=== PATIENT | male | born 1950 | race Caucasian/White ===

== ENCOUNTER → 2018-05-09 11:45 | Outpatient (CLI) | payer MEDICARE, MEDICAID, SELFPAY | PROVIDERS: PCP Internal Medicine; Visit Provider Urology | DX: R97.20 Elevated prostate specific antigen [PSA] (principal) | CPT/HCPCS: 36415; 84153 ==

== ENCOUNTER → 2018-07-17 09:34 | Outpatient (CLI) | payer MEDICARE, MEDICAID, SELFPAY ==
[2018-07-17 10:49] LABS: Alanine Aminotransferase 25 IU/L (21-72); Albumin 4.4 g/dL (3.5-5.0); Albumin Globulin Ratio 1.4 (1.0-2.8); Alkaline Phosphatase 50 U/L (38-126); Aspartate Aminotransferase 22 IU/L (17-59); BUN Creatinine Ratio 24.4 (6-22); Bilirubin Total 0.4 mg/dL (0.2-1.3); Blood Urea Nitrogen 22 mg/dL (9-20); Calcium 9.5 mg/dL (8.4-10.2); Carbon Dioxide 31 mmol/L (22-32); Chloride 100 mmol/L (98-107); Cholesterol 200 mg/dL (140-199); Estimated Glomerular Filt Rate > 60.0 mL/min (>60); Globulin 3.2 g/dL (1.7-4.1); Glucose 104 mg/dL (80-110); HDL Cholesterol 36 mg/dL (40-60); HEMOLYSIS < 15 (0-50); LDL Cholesterol Calculated 146 mg/dL (<100); Sodium 137 mmol/L (137-145); Total Protein 7.6 g/dL (6.3-8.2); Triglycerides 89 mg/dL (35-150)
== END ==
PROVIDERS: Family Provider Internal Medicine; PCP Internal Medicine; Visit Provider Internal Medicine
DX: I10 Essential (primary) hypertension (principal); I87.2 Venous insufficiency (chronic) (peripheral); E78.2 Mixed hyperlipidemia
CPT/HCPCS: 36415; 80053; 80061

== ENCOUNTER → 2018-07-26 14:00 | Outpatient (CLI) | payer MEDICARE, MEDICAID, SELFPAY ==
--- NOTE | 2018-07-26 | DI.US.S_ITS ---
PROCEDURE: US ABD AORTA ANEURYSM SCREEN INDICATIONS: ATHEROSCLEROTIC HEART DISEASE TECHNIQUE: Real time scanning was performed of the aorta and iliac arteries, with image documentation. COMPARISON: None. FINDINGS: Aorta: Proximal aortic diameter measures 2.5 cm. Mid-aorta measures 2.8 cm. Distal aortic diameter is 1.9 cm. Iliac arteries: Right common iliac artery measures 1.1 cm. Left common iliac artery measures 1.0 cm. IMPRESSION: No abdominal aortic aneurysm. Mild aortic ectasia in the mid abdominal aorta. Followup ultrasound is suggested in 5 years. Dictated by: Joy Liu M.D. on 07/26/2018 at 15:08 Approved by: Joy Liu M.D. on 07/26/2018 at 15:10
--- NOTE | 2018-07-26 | DI.ECHO.S_ITS ---
[facility] +---------+ : : [address] : [place] [place] : : : : [id number] : : : : Phone: [phone]+ Echocardiogram Report + + :Name: SNOW BARRERA Study Date: 07/26/2018 Height: 70 in : :[facility] Weight: 208 lb : : Gender: Male BSA: 2.1 m2 : :: 1950 Age: 68 yrs BP: 130/50 mmHg: :Reason For Study: CAD : : Performed By: Lulú Valenzuela : :Referring: YRIS CASTRO : + + Interpretation Summary 1) Normal left ventricular thickness, size, wall motion, and systolic function (EF 60-65%). 2) Mildly enlarged right ventricle with mildly reduced function. 3) No significant valvular abnormalities. 4) Aortic root has large calcific atheromas. 5) No prior Echo available for comparison. Procedure: A two-dimensional transthoracic echocardiogram with color flow and Doppler was performed. The study quality was technically good. There is no prior echocardiogram noted for this patient. The patient was in normal sinus rhythm during the exam. Left Ventricle: The left ventricle is normal in size. There is mild concentric left ventricular hypertrophy. The ejection fraction is estimated to be 60-65%. Diastolic parameters suggest a relaxation abnormality of the left ventricle, consistent with probable normal filling pressures. Right Ventricle: The right ventricle is mildly dilated. Right ventricular systolic function is mildly reduced. Atria: The left atrium is moderately dilated. Right atrial size is normal. The interatrial septum is intact with no evidence for an atrial septal defect. Mitral Valve: The mitral valve is normal in structure and function. There is no mitral regurgitation. Aortic Valve: The aortic valve is trileaflet. The aortic valve opens well. There is no aortic valve stenosis. There is trace aortic regurgitation. Tricuspid Valve: The tricuspid valve leaflets are thin and pliable. There is mild tricuspid regurgitation. The right ventricular systolic pressure is estimated to be at least 32 mmHg based on an estimated right atrial pressure of 3 mm Hg. Pulmonic Valve: The pulmonic valve is not well seen, but is grossly normal. There is trace pulmonic regurgitation. Great Vessels: The aortic root is normal size. Aortic root has large calcific atheromas. The dimensions of the ascending aorta are normal. The aortic arch is normal in size. The IVC is of normal diameter and collapses greater than 50% with a sniff. This suggests a low right atrial pressure of 3 mm Hg. Pericardium/ Pleura There is no pericardial effusion. There is no pleural effusion. MMode/2D Measurements & Calculations LVIDd: 4.8 cm Ao root diam: 3.6 cm LVIDs: 2.9 cm Aortic Jxn: 3.0 cm FS: 39.8 % asc Aorta Diam: 3.4 cm EPSS: 0.60 cm Ao Arch Diam (Prox Trans): 2.8 cm IVSd: 1.2 cm LVPWd: 1.1 cm LV blanco. diameter/BSA (cm/m^2): 2.3 LV sys. diameter/BSA (cm/m^2): 1.4 LA dimension: 4.6 cm RA long axis: 5.1 cm LA A2 area: 22.9 cm2 RA area: 20.0 cm2 LA A4 area: 22.9 cm2 RA vol: 67.4 ml LA length (vol): 5.2 cm RA : 31.7 ml/m2 LA vol: 86.2 ml IVC diam: 1.6 cm LA vol index: 40.6 ml/m2 RVDd major: 6.3 cm RVD1 (basal): 4.4 cm RVD2 (mid): 4.0 cm Doppler Measurements & Calculations Ao V2 max: 111.5 cm/sec MV E max anastacio: 57.3 cm/sec Ao V2 mean: 66.0 cm/sec MV A max anastacio: 56.4 cm/sec Ao max P.0 mmHg MV E/A: 1.0 Ao mean P.2 mmHg Med Peak E' Anastacio: 5.4 cm/sec Ao V2 VTI: 23.1 cm E/E' med: 10.7 Lat Peak E' Anastacio: 5.2 cm/sec E/E' lat: 11.1 E/e' average: 10.9 MV dec time: 0.27 sec MV P1/2t: 85.7 msec TR max anastacio: 268.0 cm/sec MV P1/2t max anastacio: 59.6 cm/sec TR max P.7 mmHg MVA(P1/2t): 2.6 cm2 PA V2 max: 104.3 cm/sec PA V2 mean: 68.2 cm/sec PA mean P.2 mmHg PA Accel Time: 0.14 sec Reading Physician:04:40 PM
== END ==
PROVIDERS: PCP Internal Medicine; Visit Provider Internal Medicine
DX: I07.1 Rheumatic tricuspid insufficiency (principal); I77.811 Abdominal aortic ectasia; I25.10 Atherosclerotic heart disease of native coronary artery without angina pectoris; Z13.6 Encounter for screening for cardiovascular disorders
CPT/HCPCS: 76706; 93306

== ENCOUNTER 2018-08-22 11:18 | Day surgery (SDC) | payer MEDICARE, MEDICAID, SELFPAY ==
--- NOTE | 2018-08-22 | PATH_ITS ---
[facility] Accession Number: [id number] . 01 Material submitted: . PART A: SIGMOID POLYPS PART B: RECTAL POLYPS . 02 Diagnosis: A. Sigmoid Polyps: Portions of tubular adenoma x2; negative for high-grade dysplasia. Portion of sessile serrated adenoma x1. Portion of colorectal mucosa x1 with no diagnostic abnormality. . B. Rectal Polyps: Portions of hyperplastic polyp x2. MRV/08/23/2018 . 02 Electronically signed: . Keysah Cantu MD, Pathologist NPI- [id number] . 01 Gross description: . Part A: SIGMOID POLYPS: Received in formalin are 2 fragments of orta soft tissue measuring 1.1 x 0.6 x 0.5 cm in aggregate. Specimen is sectioned and submitted in its entirety in 1 cassette. Part B: RECTAL POLYPS: Received in formalin are 2 fragment(s) of orta, soft tissue measuring 0.4 x 0.4 x 0.3 cm to 0.5 x 0.4 x 0.4 cm which is entirely submitted and submitted entirely in 1 cassette(s) /DM /DM . 02 Pathologist provided ICD-10: K63.5 . 02 CPT . 210801, 130361 Performed at: 01 [facility] [address], [place], [place] [id number] MD Edinson Mi MD Phone: [phone] Performed at: 02 [facility] [address] [place], [place] [id number] MD Marjan Rizvi MD Phone: [phone]
[2018-08-22 11:52] VITALS: BP 128/74; PULSE 68; RESP 16; TEMP 37.2; O2SAT 98; BMI 28.7
[2018-08-22] MEDS: SODIUM CHLORIDE 0.9% 1,000 ML 100 ML IV (12:02)
--- NOTE | 2018-08-22 13:00 | PM.HP.1 ---
History of Present Illness Chief complaint: [id number] Patient History Social History household members: spouse Family & Social History Social History: household members spouse Meds Home Medications Medication Instructions Recorded Confirmed Type [MARIJUANA] #0 07/02/16 History losartan-hydrochlorothiazide 1 tab PO QDAY #0 08/02/17 History Allergies Allergy/AdvReac Type Severity Reaction Status Date / Time No Known Drug Allergies Allergy Verified 08/22/18 11:43 Review of Systems Review of Systems All systems reviewed & are unremarkable except as noted in HPI and below Exam Vital Signs (past 8 hours): Oxygen Delivery Method Room Air Narrative Exam Narrative: Awake alert oriented x3, pupils reactive, lungs clear, heart regular rhythm, abdomen nondistended, extremities without edema Assessment & Plan Assessment & Plan narrative: Colon cancer screening, colonoscopy
[2018-08-22] MEDS: MIDAZOLAM 5 MG/5 ML VIAL 4 MG IV (13:26)
[2018-08-22] MEDS: fentaNYL 250 MCG/5 ML INJ IV (13:28)
--- NOTE | 2018-08-22 13:36 | PM.OP.ENDO ---
Operative Date/Time/Diagnoses Date of procedure: 08/22/18 Procedure & Clinicians Study performed: Colonoscopy with biopsy and snare polypectomy Moderate conscious sedation was administered by the endoscopy nurse and supervised by the endoscopist. The following parameters were monitored: Oxygen saturation, heart rate, blood pressure, and response to care. Sedation: 4 mg midazolam, 150 micro g fentanyl Indications: Colon cancer screening. This is his first colonoscopy. Procedure Notes Procedure in detail: Prior to the procedure, history and physical was performed, and patient medications and allergies were reviewed. Preprocedure nursing history and assessment was reviewed. Patient identification and proposed procedure were verified by the physician and nurse in the procedure room. The physical status of the patient was reassessed after the procedure. After informed consent was obtained including risks, benefits, and alternatives, the scope was passed under direct vision. Throughout the procedure, the patient's blood pressure, pulse, and oxygen saturations were monitored continuously. The colonoscope was introduced through the anus and advanced to the cecum as identified by the appendiceal orifice and ileocecal valve. The patient tolerated the procedure well. Bowel prep was deemed adequate to detect polyps greater than 5 mm. MEGAN and perianal examinations were unremarkable. Retroflexion in the rectum revealed grade 1 internal hemorrhoids. Two 4 mm sessile rectal polyps removed with a cold snare and retrieved At 35 cm from the anal verge in the sigmoid colon, an 8 mm pedunculated polyp with was removed with hot snare and retrieved. A 4 mm sessile polyp was removed with a cold snare and retrieved at the same location A few medium-sized diverticula were seen in the descending and sigmoid colon Impression: Internal hemorrhoids Left-sided diverticulosis Two 4 mm rectal polyps removed An 8 mm and a 4 mm sigmoid colon polyp removed Sedation minutes: 35 Complications: other (EBL minimal. No complications) Plan for aftercare: Recommendations: Follow-up pathology results Repeat colonoscopy at a date to be determined based on pathology results High-fiber diet Resume home medications Discharge home with escort
[2018-08-22 13:40] VITALS: BP 129/74; PULSE 64; RESP 16; TEMP 36.6; O2SAT 99
[2018-08-22 13:45] VITALS: BP 130/71; PULSE 60; RESP 15; O2SAT 99
[2018-08-22 13:50] VITALS: BP 115/76; PULSE 56; RESP 15; O2SAT 99
--- NOTE | 2018-08-22 14:03 | SUR.PHASEII ---
1352 Patient anxious to depart, clothes given, Tolerated PO well, 1355 Ambulated to the bathroom, voided. Stable
--- NOTE | 2018-10-17 15:35 | P.HP_ITS ---
History of Present Illness Chief complaint: [id number] Patient History Social History household members: spouse Family & Social History Social History: household members spouse Meds Home Medications Medication Instructions Recorded Confirmed Type [MARIJUANA] #0 07/02/16 History losartan-hydrochlorothiazide 1 tab PO QDAY #0 08/02/17 History Allergies Allergy/AdvReac Type Severity Reaction Status Date / Time No Known Drug Allergies Allergy Verified 08/22/18 11:43 Review of Systems Review of Systems All systems reviewed & are unremarkable except as noted in HPI and below Exam Vital Signs (past 8 hours): Oxygen Delivery Method Room Air Narrative Exam Narrative: Awake alert oriented x3, pupils reactive, lungs clear, heart regular rhythm, abdomen nondistended, extremities without edema Assessment & Plan Assessment & Plan narrative: Colon cancer screening, colonoscopy
== END 2018-08-22 14:00 | disposition home or self-care (01) ==
PROVIDERS: PCP Internal Medicine; Visit Provider Internal Medicine
PROC: 0DJD8ZZ Inspection of Lower Intestinal Tract, Via Natural or Artificial Opening Endoscopic (ICD-10-PCS; CPT 45378; principal; 2018-08-22 12:30)
DX: Z12.11 Encounter for screening for malignant neoplasm of colon (principal); K57.30 Diverticulosis of large intestine without perforation or abscess without bleeding; K63.5 Polyp of colon; K64.0 First degree hemorrhoids
CPT/HCPCS: 45385; J2250; J3010

== ENCOUNTER → 2018-11-07 14:33 | Outpatient (CLI) | payer MEDICARE, MEDICAID, SELFPAY ==
[2018-11-07 15:57] LABS: Cholesterol 190 mg/dL (140-199); HDL Cholesterol 41 mg/dL (40-60); LDL Cholesterol Calculated 135 mg/dL (<100); Triglycerides 71 mg/dL (35-150)
== END ==
PROVIDERS: PCP Internal Medicine; Visit Provider Internal Medicine
DX: E78.2 Mixed hyperlipidemia (principal)
CPT/HCPCS: 36415; 80061

== ENCOUNTER → 2019-03-21 12:46 | Outpatient (CLI) | payer MEDICARE, MEDICAID, SELFPAY ==
[2019-03-21 14:21] LABS: Prostate Specific Antigen 6.53 ng/mL (0.10-4.00)
== END ==
PROVIDERS: PCP Internal Medicine; Visit Provider Urology
DX: C61 Malignant neoplasm of prostate (principal)
CPT/HCPCS: 36415; 84153

== ENCOUNTER → 2019-09-16 14:27 | Outpatient (CLI) | payer MEDICARE, MEDICAID, SELFPAY ==
[2019-09-17 06:46] LABS: PSA Free % 26.6 % (.); PSA, Total 7.7 ng/mL (0.0-4.0)
== END ==
PROVIDERS: PCP Internal Medicine; Referring Provider Urology; Visit Provider Urology
DX: C61 Malignant neoplasm of prostate (principal)
CPT/HCPCS: 36415; 84153; 84154

== ENCOUNTER 2019-10-01 16:39 | Observation (INO) | payer MEDICARE, MEDICAID, SELFPAY ==
[2019-10-01] VITALS (8 sets, daily range): BP systolic 133–173; BP diastolic 74–101; PULSE 62–81; RESP 16–20; TEMP 36.6–36.8; O2SAT 98–100; BMI 27.9
[2019-10-01 17:11] LABS: Add Manual Diff / Slide Review NO; Basophils Absolute Auto 100 /uL (0-100); Basophils Percent Auto 0.5 % (0-2); Eosinophils Absolute Auto 400 /uL (0-450); Eosinophils Percent Auto 3.8 % (2-4); Hematocrit 39.1 % (41-53); Lymphocytes Absolute Auto 2200 /uL (1100-4500); Lymphocytes Percent Auto 22.9 % (25-40); Mean Corpuscular HGB Conc 33.4 % (30-36); Mean Corpuscular Hemoglobin 29.8 PG (26-34); Mean Corpuscular Volume 89.4 fL (80-100); Monocytes Absolute Auto 600 /uL (0-900); Monocytes Percent Auto 6.6 % (3-14); Neutrophils Absolute Auto 6300 /uL (1500-7000); Neutrophils Percent Auto 66.2 % (50-75); Platelet Count 238 X10^3/uL (150-400); Red Blood Cell Count 4.37 X10^6/uL (4.5-5.9); Red Cell Distribution Width 15.3 % (11.6-14.8); White Blood Cell Count 9.5 X10^3/uL (4.5-11.0)
[2019-10-01 17:13] LABS: Prothrombin Time 11.1 SECONDS (10.1-12.7)
[2019-10-01 17:15] LABS: PTT Partial Thromboplastin Tim 35 SECONDS (26.4-36.2)
--- NOTE | 2019-10-01 17:15 | ED.SYNCOPE ---
HPI - Syncope <Toan Cook MD - Last Filed: 10/01/19 18:36> General Chief Complaint: Syncope Stated Complaint: Syncope Time Seen by Provider: 10/01/19 17:09 Source: patient and EMS Mode of arrival: EMS History of Present Illness HPI narrative: CC: syncope with collapse and fall backwards HPI: The patient is a 69-year-old male who states that he was walking on the doc to look at a friend's boat when he walked back to the car and as he reached his car passed out and fell backwards. The patient remembers waking up on the ground in looking upwards at the paramedics. The patient's states that she was aware his way and saw him walk up to the back of the car and then he fell just straight backwards and struck his head. He was out for at least 5 minutes. At the end of that 5 minutes he was incoherent confused disoriented. He then became more rational. There was no seizure activity. The patient states that he had a weird feeling and maybe his vision was a little bit fuzzy narrowing and felt like it was almost hallucination prior to the event occurring. He states that he denies any significant shortness of breath but felt like his breath was choked off. He denies any chest pain. He states that he has had some intermittent episodes when he has been hiking and walking and sits down or rests and things seemed to improve. He denies any history of seizures. The patient states that he quit drinking alcohol in 2010 his states that he was an alcoholic and a very heavy drinker. The patient continues to smoke marijuana. The patient is a former cigarette smoker. The patient denies a history of asthma COPD myocardial infarction congestive heart failure peripheral vascular disease diabetes mellitus but admits to hypertension. Related Data Home Medications Medication Instructions Recorded Confirmed atorvastatin 20 mg PO BEDTIME 10/01/19 10/01/19 hydrochlorothiazide 25 mg PO QAM 10/01/19 10/01/19 losartan 100 mg PO QAM 10/01/19 10/01/19 Allergies Allergy/AdvReac Type Severity Reaction Status Date / Time No Known Drug Allergies Allergy Verified 10/01/19 17:00 Review of Systems <Toan Cook MD - Last Filed: 10/01/19 18:36> Review of Systems Narrative: REVIEW OF SYSTEMS: CONSTITUTIONAL: The patient denies any fever chills or sweats. NEUROLOGICAL: He denies any significant headache numbness tingling paresthesias anesthesia is paresis or paralysis. He has no history of seizures. EENT: He denies any change in vision loss of vision diplopia scotomata. He has had no sore throat or dysphagia. CARDIO-PULMONARY: He states that he has had a chronic dry cough and at times has felt short of breath but denies any chest pain palpitations or dizziness. GASTROINTESTINAL: He has had no abdominal pain nausea vomiting diarrhea melena or hematochezia. GENITAL URINARY: He has had no urinary symptoms other than chronic urgency. MUSCULOSKELETAL/ RHEUMATOLOGICAL: He complains of chronic back pain. Patient History <Toan Cook MD - Last Filed: 10/01/19 18:36> Medical History (Updated 10/01/19 @ 20:19 by Pippa Rankin RN) High cholesterol (Acute) Hypertension (Acute) Marijuana smoker (Acute) Social History household members: spouse Smoking Status: Never smoker Smoking Status: Never smoker alcohol intake frequency: a few times a month Substance Use Type: marijuana Exam <Toan Cook MD - Last Filed: 10/01/19 18:36> Narrative Exam Narrative: PHYSICAL EXAM: CONSTITUTIONAL: Awake, Alert, Oriented, Coherent, Cooperative in NAD. He is awake and oriented at the present time very talk. HEAD: AT/NC except for bleeding in the posterior occipital scalp. I have not been able to identify the laceration. EENT: PERRL, FROM of eyes, no discharge, no nystagmus NOSE:No epistaxis or nasal drainage MOUTH:Oral mucosa is moist and pink, posterior pharynx is without erythema or exudate. NECK: Supple, no obvious JVD, Trachea is midline without stridor, no palpable LN. SPINE: Palpationof the cervical, Thoracic, Lumbar or Sacral spine reveals no gross deformity or tenderness. No CVA tenderness. THORAX: No deformity, retractions, chest wall tenderness. LUNGS: Clear, symmetrical breath sounds without respiratory distress. HEART: Normal heart tones, regular rhythm and rate without murmur. ABDOMEN: Soft, non-tender, normal bowel sounds without guarding, rebound, rigidity or palpable mass. EXTREMITIES: No edema, deformity, tenderness or cyanosis. SKIN: No rash, bruising, petechiae or purpura. NEURO: Awake, alert, oriented, conversive, cranial nerves II-XII are symmetrical , moves all 4 extremities and is ambulatory. Initial Vital Signs Initial Vital Signs: Vital Signs Temperature 98.2 F 10/01/19 16:51 Pulse Rate 70 10/01/19 16:51 Respiratory Rate 20 10/01/19 16:51 Blood Pressure 156/74 H 10/01/19 16:51 Pulse Oximetry 99 10/01/19 16:51 <Lani Lai MD - Last Filed: 10/01/19 21:08> Initial Vital Signs Initial Vital Signs: Vital Signs Temperature 98.2 F 10/01/19 16:51 Pulse Rate 70 10/01/19 16:51 Respiratory Rate 10/01/19 16:51 Blood Pressure 156/74 H 10/01/19 16:51 Pulse Oximetry 99 10/01/19 16:51 Course <Toan Cook MD - Last Filed: 10/01/19 18:36> Course Course Narrative: 1800: Report and transfer of care was provided Dr. Lai. Orders Ordered: ED Orders 10/01/19 17:00 CBC Auto Diff [Complete Blood Count AUTO DIFF] Stat Comprehensive Metabolic Panel Stat Ethanol (ETOH) Stat Magnesium Stat PT [Prothrombin Time INR] Stat Partial Thromboplastin Time Stat Troponin & CK Cardiac Panel Stat 10/01/19 17:34 CT head/brain wo con Stat 10/01/19 17:36 CT cervical spine wo con Stat 10/01/19 17:38 XR chest 1V Stat 10/01/19 17:45 Lactate (Lactic Acid) Stat 10/01/19 19:15 Troponin I Stat 10/01/19 19:20 Urinalysis and Microscopic Stat Urine Drug Screen, Rapid Stat Discontinued Medications Diphtheria/Tetanus/Acell Pertussis (Adacel) 0.5 ml IM .ONCE ONE Stop: 10/01/19 17:10 Last Admin: 10/01/19 17:59 Dose: 0.5 ml Documented by: DARRELL Sodium Chloride (Normal Saline 0.9%) 1,000 mls @ 1,000 mls/hr IV BOLUS ONE Stop: 10/01/19 18:37 Last Infusion: 10/01/19 19:22 Dose: 0 mls/hr Documented by: Admin: 10/01/19 17:59 Dose: 1,000 mls/hr Documented by: DARRELL Vital Signs Vital signs: Vital Signs - 8 hr 10/01/19 16:51 10/01/19 18:04 10/01/19 19:00 Temperature 98.2 F Pulse Rate 70 62 68 Respiratory Rate 20 16 16 Blood Pressure 156/74 H Blood Pressure [Right Arm] 133/76 173/101 H Pulse Oximetry 99 99 <Lani Lai MD - Last Filed: 10/01/19 21:08> Orders Ordered: ED Orders 10/01/19 17:00 CBC Auto Diff [Complete Blood Count AUTO DIFF] Stat Comprehensive Metabolic Panel Stat Ethanol (ETOH) Stat Magnesium Stat PT [Prothrombin Time INR] Stat Partial Thromboplastin Time Stat Troponin & CK Cardiac Panel Stat 10/01/19 17:34 CT head/brain wo con Stat 10/01/19 17:36 CT cervical spine wo con Stat 10/01/19 17:38 XR chest 1V Stat 10/01/19 17:45 Lactate (Lactic Acid) Stat 10/01/19 19:15 Troponin I Stat 10/01/19 19:20 Urinalysis and Microscopic Stat Urine Drug Screen, Rapid Stat Discontinued Medications Diphtheria/Tetanus/Acell Pertussis (Adacel) 0.5 ml IM .ONCE ONE Stop: 10/01/19 17:10 Last Admin: 10/01/19 17:59 Dose: 0.5 ml Documented by: DARRELL Sodium Chloride (Normal Saline 0.9%) 1,000 mls @ 1,000 mls/hr IV BOLUS ONE Stop: 10/01/19 18:37 Last Infusion: 10/01/19 19:22 Dose: 0 mls/hr Documented by: Admin: 10/01/19 17:59 Dose: 1,000 mls/hr Documented by: DARRELL Vital Signs Vital signs: Vital Signs - 8 hr 10/01/19 16:51 10/01/19 18:04 10/01/19 19:00 Temperature 98.2 F Pulse Rate 70 62 68 Respiratory Rate 20 16 16 Blood Pressure 156/74 H Blood Pressure [Right Arm] 133/76 173/101 H Pulse Oximetry 99 99 MDM - Syncope <Toan Cook MD - Last Filed: 10/01/19 18:36> Medical Records Attestation: I reviewed the patient's medical records. Lab Data Attestation: I reviewed the patient's lab results. Result diagrams: 10/01/19 17:00 10/01/19 17:00 Labs: Lab Results 10/01/19 10/01/19 10/01/19 Range/Units 17:00 17:00 17:00 WBC 9.5 (4.5-11.0) X10^3/uL RBC 4.37 L (4.5-5.9) X10^6/uL Hgb 13.0 L (13.5-17.5) g/dL Hct 39.1 L (41-53) % MCV 89.4 (80-100) fL MCH 29.8 (26-34) PG MCHC 33.4 (30-36) % RDW 15.3 H (11.6-14.8) % Plt Count 238 (150-400) X10^3/uL Neut % (Auto) 66.2 (50-75) % Lymph % (Auto) 22.9 L (25-40) % [place] % (Auto) 6.6 (3-14) % Eos % (Auto) 3.8 (2-4) % Baso % (Auto) 0.5 (0-2) % Neut # (Auto) 6300 (1472-8270) /uL Lymph # (Auto) 2200 (0235-6968) /uL [place] # (Auto) 600 (0-900) /uL Eos # (Auto) 400 (0-450) /uL Baso # (Auto) 100 (0-100) /uL PT 11.1 (10.1-12.7) SECONDS INR 1.0 (0.9-1.3) APTT 35 (26.4-36.2) SECONDS Sodium 134 L (137-145) mmol/L Potassium 4.0 (3.4-5.1) mmol/L Chloride 100 (98-107) mmol/L Carbon Dioxide 26 (22-32) mmol/L BUN 18 (9-20) mg/dL Creatinine 1.05 (0.66-1.25) mg/dL Estimated GFR > 60.0 (>60) mL/min BUN/Creatinine Ratio 17.1 (6-22) Glucose 103 (80-110) mg/dL Lactate (0.7-2.1) mmol/L Calcium 9.5 (8.4-10.2) mg/dL Magnesium (1.6-2.3) mg/dL Total Bilirubin 0.4 (0.2-1.3) mg/dL AST 57 (17-59) IU/L ALT 80 H (<50) IU/L Alkaline Phosphatase 52 (38-126) U/L Total Creatine Kinase 68 (55-170) U/L CK-MB (CK-2) TNP CK-MB (CK-2) Rel Index TNP Troponin I < 0.012 (0.01-0.034) ng/mL Total Protein 7.4 (6.3-8.2) g/dL Albumin 4.3 (3.5-5.0) g/dL Globulin 3.1 (1.7-4.1) g/dL Albumin/Globulin Ratio 1.4 (1.0-2.8) Urine Color Urine Appearance Urine pH (4.5-8.0) Ur Specific [place] (1.000-1.035) Urine Protein (Negative) Urine Glucose (UA) (Negative) g/dL Urine Ketones (NEGATIVE) Urine Occult Blood (Negative) Urine Nitrate (Negative) Urine Bilirubin (NEGATIVE) Urine Urobilinogen (0.2) E.U./dL Ur Leukocyte Esterase (NEGATIVE) Urine RBC (0-5/HPF) Urine WBC (0-5/HPF) Ur Squamous Epith Cells (0-5/HPF) Urine Bacteria (None) Ur Culture Indicated? U Opiates 300ng/mL cut (Negative) Ur Oxycodone Screen (Negative) Urine Methadone Screen (Negative) Ur Barbiturates Screen (Negative) U Tricyclic Antidepress (Negative) Ur Phencyclidine Scrn (Negative) Ur Amphetamines Screen (Negative) U Methamphetamines Scrn (Negative) Ur MDMA Scrn (Ecstasy) (Negative) U Benzodiazepines Scrn (Negative) Urine Cocaine Screen (Negative) U Marijuana (THC) Screen (Negative) Ethyl Alcohol ( - 10) mg/dL 10/01/19 10/01/19 10/01/19 Range/Units 17:00 17:00 17:45 WBC (4.5-11.0) X10^3/uL RBC (4.5-5.9) X10^6/uL Hgb (13.5-17.5) g/dL Hct (41-53) % MCV (80-100) fL MCH (26-34) PG MCHC (30-36) % RDW (11.6-14.8) % Plt Count (150-400) X10^3/uL Neut % (Auto) (50-75) % Lymph % (Auto) (25-40) % [place] % (Auto) (3-14) % Eos % (Auto) (2-4) % Baso % (Auto) (0-2) % Neut # (Auto) (8579-2722) /uL Lymph # (Auto) (7168-0853) /uL [place] # (Auto) (0-900) /uL Eos # (Auto) (0-450) /uL Baso # (Auto) (0-100) /uL PT (10.1-12.7) SECONDS INR (0.9-1.3) APTT (26.4-36.2) SECONDS Sodium (137-145) mmol/L Potassium (3.4-5.1) mmol/L Chloride (98-107) mmol/L Carbon Dioxide (22-32) mmol/L BUN (9-20) mg/dL Creatinine (0.66-1.25) mg/dL Estimated GFR (>60) mL/min BUN/Creatinine Ratio (6-22) Glucose (80-110) mg/dL Lactate 0.7 (0.7-2.1) mmol/L Calcium (8.4-10.2) mg/dL Magnesium 1.9 (1.6-2.3) mg/dL Total Bilirubin (0.2-1.3) mg/dL AST (17-59) IU/L ALT (<50) IU/L Alkaline Phosphatase (38-126) U/L Total Creatine Kinase (55-170) U/L CK-MB (CK-2) CK-MB (CK-2) Rel Index Troponin I (0.01-0.034) ng/mL Total Protein (6.3-8.2) g/dL Albumin (3.5-5.0) g/dL Globulin (1.7-4.1) g/dL Albumin/Globulin Ratio (1.0-2.8) Urine Color Urine Appearance Urine pH (4.5-8.0) Ur Specific [place] (1.000-1.035) Urine Protein (Negative) Urine Glucose (UA) (Negative) g/dL Urine Ketones (NEGATIVE) Urine Occult Blood (Negative) Urine Nitrate (Negative) Urine Bilirubin (NEGATIVE) Urine Urobilinogen (0.2) E.U./dL Ur Leukocyte Esterase (NEGATIVE) Urine RBC (0-5/HPF) Urine WBC (0-5/HPF) Ur Squamous Epith Cells (0-5/HPF) Urine Bacteria (None) Ur Culture Indicated? U Opiates 300ng/mL cut (Negative) Ur Oxycodone Screen (Negative) Urine Methadone Screen (Negative) Ur Barbiturates Screen (Negative) U Tricyclic Antidepress (Negative) Ur Phencyclidine Scrn (Negative) Ur Amphetamines Screen (Negative) U Methamphetamines Scrn (Negative) Ur MDMA Scrn (Ecstasy) (Negative) U Benzodiazepines Scrn (Negative) Urine Cocaine Screen (Negative) U Marijuana (THC) Screen (Negative) Ethyl Alcohol < 10 ( - 10) mg/dL 10/01/19 10/01/19 10/01/19 Range/Units 19:15 19:20 19:20 WBC (4.5-11.0) X10^3/uL RBC (4.5-5.9) X10^6/uL Hgb (13.5-17.5) g/dL Hct (41-53) % MCV (80-100) fL MCH (26-34) PG MCHC (30-36) % RDW (11.6-14.8) % Plt Count (150-400) X10^3/uL Neut % (Auto) (50-75) % Lymph % (Auto) (25-40) % [place] % (Auto) (3-14) % Eos % (Auto) (2-4) % Baso % (Auto) (0-2) % Neut # (Auto) (0742-8323) /uL Lymph # (Auto) (8518-3401) /uL [place] # (Auto) (0-900) /uL Eos # (Auto) (0-450) /uL Baso # (Auto) (0-100) /uL PT (10.1-12.7) SECONDS INR (0.9-1.3) APTT (26.4-36.2) SECONDS Sodium (137-145) mmol/L Potassium (3.4-5.1) mmol/L Chloride (98-107) mmol/L Carbon Dioxide (22-32) mmol/L BUN (9-20) mg/dL Creatinine (0.66-1.25) mg/dL Estimated GFR (>60) mL/min BUN/Creatinine Ratio (6-22) Glucose (80-110) mg/dL Lactate (0.7-2.1) mmol/L Calcium (8.4-10.2) mg/dL Magnesium (1.6-2.3) mg/dL Total Bilirubin (0.2-1.3) mg/dL AST (17-59) IU/L ALT (<50) IU/L Alkaline Phosphatase (38-126) U/L Total Creatine Kinase (55-170) U/L CK-MB (CK-2) CK-MB (CK-2) Rel Index Troponin I < 0.012 (0.01-0.034) ng/mL Total Protein (6.3-8.2) g/dL Albumin (3.5-5.0) g/dL Globulin (1.7-4.1) g/dL Albumin/Globulin Ratio (1.0-2.8) Urine Color Yellow Urine Appearance Clear Urine pH 7.0 (4.5-8.0) Ur Specific [place] 1.010 (1.000-1.035) Urine Protein Negative (Negative) Urine Glucose (UA) Negative (Negative) g/dL Urine Ketones Negative (NEGATIVE) Urine Occult Blood Negative (Negative) Urine Nitrate Negative (Negative) Urine Bilirubin Negative (NEGATIVE) Urine Urobilinogen 0.2 (0.2) E.U./dL Ur Leukocyte Esterase Negative (NEGATIVE) Urine RBC None seen (0-5/HPF) Urine WBC 0-1/hpf (0-5/HPF) Ur Squamous Epith Cells 0-1 /hpf (0-5/HPF) Urine Bacteria None seen (None) Ur Culture Indicated? Cult not indicated U Opiates 300ng/mL cut Negative (Negative) Ur Oxycodone Screen Negative (Negative) Urine Methadone Screen Negative (Negative) Ur Barbiturates Screen Negative (Negative) U Tricyclic Antidepress Negative (Negative) Ur Phencyclidine Scrn Negative (Negative) Ur Amphetamines Screen Negative (Negative) U Methamphetamines Scrn Negative (Negative) Ur MDMA Scrn (Ecstasy) Negative (Negative) U Benzodiazepines Scrn Negative (Negative) Urine Cocaine Screen Negative (Negative) U Marijuana (THC) Screen Positive H (Negative) Ethyl Alcohol ( - 10) mg/dL ECG Data Attestation: I personally reviewed and interpreted this ECG as follows: Interpretation: The patient's EKG obtained on September 30 at 16:4 4:02 a.m. reveals a normal sinus rhythm with a ventricular rate of 71. Intervals are normal QTC is 434 milliseconds normal axis is normal the patient has low voltage. He has QS waves in leads V1 V2 V3 suggestive of an old anteroseptal myocardial infarct. T-waves are inverted in V1 and V3. T-waves are upright in V2. There are no other acute diagnostic ST or T-wave changes to suggest an on going acute injury or ischemia. <Lani Lai MD - Last Filed: 10/01/19 21:08> Medical Records Attestation: I reviewed the patient's medical records. Lab Data Attestation: I reviewed the patient's lab results. Labs: Lab Results 10/01/19 10/01/19 10/01/19 Range/Units 17:00 17:00 17:00 WBC 9.5 (4.5-11.0) X10^3/uL RBC 4.37 L (4.5-5.9) X10^6/uL Hgb 13.0 L (13.5-17.5) g/dL Hct 39.1 L (41-53) % MCV 89.4 (80-100) fL MCH 29.8 (26-34) PG MCHC 33.4 (30-36) % RDW 15.3 H (11.6-14.8) % Plt Count 238 (150-400) X10^3/uL Neut % (Auto) 66.2 (50-75) % Lymph % (Auto) 22.9 L (25-40) % [place] % (Auto) 6.6 (3-14) % Eos % (Auto) 3.8 (2-4) % Baso % (Auto) 0.5 (0-2) % Neut # (Auto) 6300 (1744-3777) /uL Lymph # (Auto) 2200 (9429-7350) /uL [place] # (Auto) 600 (0-900) /uL Eos # (Auto) 400 (0-450) /uL Baso # (Auto) 100 (0-100) /uL PT 11.1 (10.1-12.7) SECONDS INR 1.0 (0.9-1.3) APTT 35 (26.4-36.2) SECONDS Sodium 134 L (137-145) mmol/L Potassium 4.0 (3.4-5.1) mmol/L Chloride 100 (98-107) mmol/L Carbon Dioxide 26 (22-32) mmol/L BUN 18 (9-20) mg/dL Creatinine 1.05 (0.66-1.25) mg/dL Estimated GFR > 60.0 (>60) mL/min BUN/Creatinine Ratio 17.1 (6-22) Glucose 103 (80-110) mg/dL Lactate (0.7-2.1) mmol/L Calcium 9.5 (8.4-10.2) mg/dL Magnesium (1.6-2.3) mg/dL Total Bilirubin 0.4 (0.2-1.3) mg/dL AST 57 (17-59) IU/L ALT 80 H (<50) IU/L Alkaline Phosphatase 52 (38-126) U/L Total Creatine Kinase 68 (55-170) U/L CK-MB (CK-2) TNP CK-MB (CK-2) Rel Index TNP Troponin I < 0.012 (0.01-0.034) ng/mL Total Protein 7.4 (6.3-8.2) g/dL Albumin 4.3 (3.5-5.0) g/dL Globulin 3.1 (1.7-4.1) g/dL Albumin/Globulin Ratio 1.4 (1.0-2.8) Urine Color Urine Appearance Urine pH (4.5-8.0) Ur Specific [place] (1.000-1.035) Urine Protein (Negative) Urine Glucose (UA) (Negative) g/dL Urine Ketones (NEGATIVE) Urine Occult Blood (Negative) Urine Nitrate (Negative) Urine Bilirubin (NEGATIVE) Urine Urobilinogen (0.2) E.U./dL Ur Leukocyte Esterase (NEGATIVE) Urine RBC (0-5/HPF) Urine WBC (0-5/HPF) Ur Squamous Epith Cells (0-5/HPF) Urine Bacteria (None) Ur Culture Indicated? U Opiates 300ng/mL cut (Negative) Ur Oxycodone Screen (Negative) Urine Methadone Screen (Negative) Ur Barbiturates Screen (Negative) U Tricyclic Antidepress (Negative) Ur Phencyclidine Scrn (Negative) Ur Amphetamines Screen (Negative) U Methamphetamines Scrn (Negative) Ur MDMA Scrn (Ecstasy) (Negative) U Benzodiazepines Scrn (Negative) Urine Cocaine Screen (Negative) U Marijuana (THC) Screen (Negative) Ethyl Alcohol ( - 10) mg/dL 10/01/19 10/01/19 10/01/19 Range/Units 17:00 17:00 17:45 WBC (4.5-11.0) X10^3/uL RBC (4.5-5.9) X10^6/uL Hgb (13.5-17.5) g/dL Hct (41-53) % MCV (80-100) fL MCH (26-34) PG MCHC (30-36) % RDW (11.6-14.8) % Plt Count (150-400) X10^3/uL Neut % (Auto) (50-75) % Lymph % (Auto) (25-40) % [place] % (Auto) (3-14) % Eos % (Auto) (2-4) % Baso % (Auto) (0-2) % Neut # (Auto) (0988-7129) /uL Lymph # (Auto) (0159-4541) /uL [place] # (Auto) (0-900) /uL Eos # (Auto) (0-450) /uL Baso # (Auto) (0-100) /uL PT (10.1-12.7) SECONDS INR (0.9-1.3) APTT (26.4-36.2) SECONDS Sodium (137-145) mmol/L Potassium (3.4-5.1) mmol/L Chloride (98-107) mmol/L Carbon Dioxide (22-32) mmol/L BUN (9-20) mg/dL Creatinine (0.66-1.25) mg/dL Estimated GFR (>60) mL/min BUN/Creatinine Ratio (6-22) Glucose (80-110) mg/dL Lactate 0.7 (0.7-2.1) mmol/L Calcium (8.4-10.2) mg/dL Magnesium 1.9 (1.6-2.3) mg/dL Total Bilirubin (0.2-1.3) mg/dL AST (17-59) IU/L ALT (<50) IU/L Alkaline Phosphatase (38-126) U/L Total Creatine Kinase (55-170) U/L CK-MB (CK-2) CK-MB (CK-2) Rel Index Troponin I (0.01-0.034) ng/mL Total Protein (6.3-8.2) g/dL Albumin (3.5-5.0) g/dL Globulin (1.7-4.1) g/dL Albumin/Globulin Ratio (1.0-2.8) Urine Color Urine Appearance Urine pH (4.5-8.0) Ur Specific [place] (1.000-1.035) Urine Protein (Negative) Urine Glucose (UA) (Negative) g/dL Urine Ketones (NEGATIVE) Urine Occult Blood (Negative) Urine Nitrate (Negative) Urine Bilirubin (NEGATIVE) Urine Urobilinogen (0.2) E.U./dL Ur Leukocyte Esterase (NEGATIVE) Urine RBC (0-5/HPF) Urine WBC (0-5/HPF) Ur Squamous Epith Cells (0-5/HPF) Urine Bacteria (None) Ur Culture Indicated? U Opiates 300ng/mL cut (Negative) Ur Oxycodone Screen (Negative) Urine Methadone Screen (Negative) Ur Barbiturates Screen (Negative) U Tricyclic Antidepress (Negative) Ur Phencyclidine Scrn (Negative) Ur Amphetamines Screen (Negative) U Methamphetamines Scrn (Negative) Ur MDMA Scrn (Ecstasy) (Negative) U Benzodiazepines Scrn (Negative) Urine Cocaine Screen (Negative) U Marijuana (THC) Screen (Negative) Ethyl Alcohol < 10 ( - 10) mg/dL 10/01/19 10/01/19 10/01/19 Range/Units 19:15 19:20 19:20 WBC (4.5-11.0) X10^3/uL RBC (4.5-5.9) X10^6/uL Hgb (13.5-17.5) g/dL Hct (41-53) % MCV (80-100) fL MCH (26-34) PG MCHC (30-36) % RDW (11.6-14.8) % Plt Count (150-400) X10^3/uL Neut % (Auto) (50-75) % Lymph % (Auto) (25-40) % [place] % (Auto) (3-14) % Eos % (Auto) (2-4) % Baso % (Auto) (0-2) % Neut # (Auto) (4936-4920) /uL Lymph # (Auto) (9368-3789) /uL [place] # (Auto) (0-900) /uL Eos # (Auto) (0-450) /uL Baso # (Auto) (0-100) /uL PT (10.1-12.7) SECONDS INR (0.9-1.3) APTT (26.4-36.2) SECONDS Sodium (137-145) mmol/L Potassium (3.4-5.1) mmol/L Chloride (98-107) mmol/L Carbon Dioxide (22-32) mmol/L BUN (9-20) mg/dL Creatinine (0.66-1.25) mg/dL Estimated GFR (>60) mL/min BUN/Creatinine Ratio (6-22) Glucose (80-110) mg/dL Lactate (0.7-2.1) mmol/L Calcium (8.4-10.2) mg/dL Magnesium (1.6-2.3) mg/dL Total Bilirubin (0.2-1.3) mg/dL AST (17-59) IU/L ALT (<50) IU/L Alkaline Phosphatase (38-126) U/L Total Creatine Kinase (55-170) U/L CK-MB (CK-2) CK-MB (CK-2) Rel Index Troponin I < 0.012 (0.01-0.034) ng/mL Total Protein (6.3-8.2) g/dL Albumin (3.5-5.0) g/dL Globulin (1.7-4.1) g/dL Albumin/Globulin Ratio (1.0-2.8) Urine Color Yellow Urine Appearance Clear Urine pH 7.0 (4.5-8.0) Ur Specific [place] 1.010 (1.000-1.035) Urine Protein Negative (Negative) Urine Glucose (UA) Negative (Negative) g/dL Urine Ketones Negative (NEGATIVE) Urine Occult Blood Negative (Negative) Urine Nitrate Negative (Negative) Urine Bilirubin Negative (NEGATIVE) Urine Urobilinogen 0.2 (0.2) E.U./dL Ur Leukocyte Esterase Negative (NEGATIVE) Urine RBC None seen (0-5/HPF) Urine WBC 0-1/hpf (0-5/HPF) Ur Squamous Epith Cells 0-1 /hpf (0-5/HPF) Urine Bacteria None seen (None) Ur Culture Indicated? Cult not indicated U Opiates 300ng/mL cut Negative (Negative) Ur Oxycodone Screen Negative (Negative) Urine Methadone Screen Negative (Negative) Ur Barbiturates Screen Negative (Negative) U Tricyclic Antidepress Negative (Negative) Ur Phencyclidine Scrn Negative (Negative) Ur Amphetamines Screen Negative (Negative) U Methamphetamines Scrn Negative (Negative) Ur MDMA Scrn (Ecstasy) Negative (Negative) U Benzodiazepines Scrn Negative (Negative) Urine Cocaine Screen Negative (Negative) U Marijuana (THC) Screen Positive H (Negative) Ethyl Alcohol ( - 10) mg/dL Imaging Data Chest x-ray: Radiologist's Impression: IMPRESSION: Prominent convex rightward scoliosis, no trauma found. Dictated by: Tu Hoffman M.D. on 10/01/2019 at 18:18 CT - cervical spine: Radiologist's Impression: IMPRESSION: No trauma found. Moderate convex leftward scoliosis at the cervicothoracic junction. Degenerative disc disease is moderately severe at C4-C5, greater on the right than the left, associated with this curvature finding. Dictated by: Tu Hoffman M.D. on 10/01/2019 at 18:14 CT scan - head: Radiologist's Impression: IMPRESSION: No acute trauma to the brain parenchyma is found. Mild left occipital scalp contusion without hematoma. Frontal and inferior frontal encephalomalacia, symmetric bilaterally, suggestive of prior head trauma as a potential underlying etiology. Dictated by: Tu Hoffman M.D. on 10/01/2019 at 18:16 ECG Data Attestation: I personally reviewed and interpreted this ECG as follows: Interpretation: Sinus rhythm at a rate of [address] T wave changes No acute ischemia Normal axis, normal intervals MDM Narrative Medical decision making narrative: 69-year-old gentleman was walking today when he had a syncopal episode fell backward landed on his head was completely unconscious for approximately 5 minutes. There was no preceding chest pain dyspnea or palpitations. There was no preceding aura and he was not postictal following. There was no bowel or bladder incontinence. He notes over the past month had 4 discrete episodes where he felt like he was close to passing out but did not actually do so each of those were associated with activity. His primary care physician is Dr. Robert Knox. After some mild EKG changes were noted as part of routine EKG testing, a cardiac echo was performed in July of 2018. Ejection fraction is estimated at 60-65%. 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 In light of the 5 minutes loss of consciousness today that certainly sounds like cardiogenic syncope will recommend hospitalization overnight, cardiac rule out and continued telemetry over the course of the evening. Discharge Plan Departure Patient Disposition: Admitted as Observation Clinical Impression: Syncope and collapse Closed head injury Qualifiers: Encounter type: initial encounter Qualified Code(s): S09.90XA - Unspecified injury of head, initial encounter Discharge Date/Time: 10/01/19 20:39 Referrals: Winston Knox MD [Primary Care Provider] - Admit Date/Time: 10/01/19 19:30 Admit Provider: Navid Mae
[2019-10-01 17:17] LABS: Alanine Aminotransferase 80 IU/L (<50); Albumin 4.3 g/dL (3.5-5.0); Albumin Globulin Ratio 1.4 (1.0-2.8); Alkaline Phosphatase 52 U/L (38-126); Aspartate Aminotransferase 57 IU/L (17-59); BUN Creatinine Ratio 17.1 (6-22); Bilirubin Total 0.4 mg/dL (0.2-1.3); Blood Urea Nitrogen 18 mg/dL (9-20); Calcium 9.5 mg/dL (8.4-10.2); Carbon Dioxide 26 mmol/L (22-32); Chloride 100 mmol/L (98-107); Creatine Kinase 68 U/L (55-170); Estimated Glomerular Filt Rate > 60.0 mL/min (>60); Globulin 3.1 g/dL (1.7-4.1); Glucose 103 mg/dL (80-110); HEMOLYSIS < 15 (0-50); Sodium 134 mmol/L (137-145); Total Protein 7.4 g/dL (6.3-8.2)
[2019-10-01 17:29] LABS: Troponin I < 0.012 ng/mL (0.01-0.034)
--- NOTE | 2019-10-01 17:34 | DI.CT.S_ITS ---
PROCEDURE: CT HEAD/BRAIN WO CON INDICATIONS: syncope, fall backwards striking posterior head TECHNIQUE: Noncontrast 4.5 mm thick angled axial sections acquired from the foramen magnum to the vertex, with coronal and sagittal reformats. For radiation dose reduction, the following was used: automated exposure control, adjustment of mA and/or kV according to patient size. COMPARISON: None. FINDINGS: Image quality: Excellent. CSF spaces: Basal cisterns are patent. No extra-axial fluid collections. The ventricles are symmetric in size and shape. Brain: No intracranial bleeds or masses. There is cerebral volume loss for age, with resultant ventricular and sulcal prominence. There are periventricular and deep white matter chronic small vessel ischemic changes. There is intracranial internal carotid artery atherosclerosis. Note is made of relative encephalomalacia along the undersurface is in the anterior aspect of the frontal lobes, bilaterally symmetric, in a pattern that can be seen in the setting of prior trauma. Skull and face: Calvarium and visualized facial bones appear intact, without suspicious lesions. There is a mild contusion within the left occipital region scalp, without hematoma. Sinuses: Visualized sinuses and mastoids are clear. IMPRESSION: No acute trauma to the brain parenchyma is found. Mild left occipital scalp contusion without hematoma. Frontal and inferior frontal encephalomalacia, symmetric bilaterally, suggestive of prior head trauma as a potential underlying etiology. Dictated by: Tu Hoffman M.D. on 10/01/2019 at 18:16 Approved by: Tu Hoffman M.D. on 10/01/2019 at 18:18
--- NOTE | 2019-10-01 17:36 | DI.CT.S_ITS ---
PROCEDURE: CT CERVICAL SPINE WO CON INDICATIONS: sycope, fell backwards striking head TECHNIQUE: Noncontrast 3 mm thick sections acquired from the skull base to the T4 level. Sagittal and coronal reformats were then constructed. For radiation dose reduction, the following was used: automated exposure control, adjustment of mA and/or kV according to patient size. COMPARISON: None. FINDINGS: Image quality: Excellent. Bones: No fractures or dislocations. There is convex leftward scoliosis at the cervicothoracic junction, chronic in appearance. Degenerative disc disease is moderately severe at C45 and present to a lesser degree at C5-6. Visualized superior ribs are intact. Soft tissues: Prevertebral soft tissues are normal in thickness. No paravertebral hematomas. No apical pneumothoraces. IMPRESSION: No trauma found. Moderate convex leftward scoliosis at the cervicothoracic junction. Degenerative disc disease is moderately severe at C4-C5, greater on the right than the left, associated with this curvature finding. Dictated by: Tu Hoffman M.D. on 10/01/2019 at 18:14 Approved by: Tu Hoffman M.D. on 10/01/2019 at 18:16
--- NOTE | 2019-10-01 17:38 | DI.RAD.S_ITS ---
PROCEDURE: XR CHEST 1V INDICATIONS: syncope with collapse backwards TECHNIQUE: One view of the chest was acquired. COMPARISON: None. FINDINGS: Surgical changes and devices: None. Lungs and pleura: Lungs are clear. No pleural effusions or pneumothorax. Mediastinum: Mediastinal contours appear normal considering distortion associated with prominent convex rightward scoliosis centered at the middle third of the thoracic spine. Heart size is normal. Bones and chest wall: No suspicious bony lesions. Overlying soft tissues appear unremarkable. IMPRESSION: Prominent convex rightward scoliosis, no trauma found. Dictated by: Tu Hoffman M.D. on 10/01/2019 at 18:18 Approved by: Tu Hoffman M.D. on 10/01/2019 at 18:20
[2019-10-01 17:54] LABS: Magnesium 1.9 mg/dL (1.6-2.3)
[2019-10-01] MEDS: SODIUM CHLORIDE 0.9% 1,000 ML 1000 ML IV (17:59)
[2019-10-01] MEDS: TET,DIPH,PERTUSS(ACELL),VAC/PF 0.5 ML SYRINGE IM (17:59)
[2019-10-01 18:05] LABS: Lactate (Lactic Acid) 0.7 mmol/L (0.7-2.1)
[2019-10-01 18:05] LABS: Ethanol (ETOH) < 10 mg/dL
--- NOTE | 2019-10-01 18:05 | PC.NURSE ---
CSM fully intact. No focal deficit. noted.
[2019-10-01 19:30] LABS: Bacteria Urine None Seen; RBC Urine None Seen (0-5/HPF)
[2019-10-01 19:31] LABS: Appearance Urine UA CLEAR; Bilirubin Urine UA NEGATIVE (NEGATIVE); Color Urine UA YELLOW; Glucose Urine UA NEGATIVE (Negative); Ketones Urine UA NEGATIVE (NEGATIVE); Leukocyte Esterase Urine UA NEGATIVE (NEGATIVE); Nitrite Urine UA NEGATIVE (Negative); Occult Blood Urine UA NEGATIVE (Negative); Protein Urine UA NEGATIVE (Negative); Urobilinogen Urine UA 0.2 E.U./dL (0.2)
[2019-10-01 19:37] LABS: Culture Indicated Urine Cult Not Indicated; Squamous Epithelial Cell Urine 0-1 /HPF (0-5/HPF); WBC Urine 0-1/HPF (0-5/HPF)
[2019-10-01 19:44] LABS: Troponin I < 0.012 ng/mL (0.01-0.034)
[2019-10-01 19:45] LABS: UR Morphine/Opiate cutoff 300 Negative (Negative); Ur Creatinine Normal (Normal); Ur Specific Gravity Normal (Normal); Urine Amphetamines Negative (Negative); Urine Barbiturates Negative (Negative); Urine Benzodiazepines Negative (Negative); Urine Cocaine Negative (Negative); Urine MDMA Negative (Negative); Urine Methadone Negative (Negative); Urine Methamphetamines Negative (Negative); Urine Phencyclidine Negative (Negative); Urine Tetrahydrocannabinol Positive (Negative); Urine pH Normal (Normal)
[2019-10-01 19:46] LABS: Urine Oxycodone Negative (Negative); Urine Tricyclic Antidepressant Negative (Negative)
--- NOTE | 2019-10-01 22:45 | PM.HP.1 ---
History of Present Illness History of Present Illness Date Patient Seen: 10/01/19 Time Patient Seen: 21:40 Date of Onset of Symptoms: 10/01/19 Chief complaint: Syncope Narrative: Mr. David Stuart is a 69-year-old male with a history significant for hypertension, hyperlipidemia, venous insufficiency, prostate cancer and current marijuana smoker for chronic back pain who presents to the ER following a syncopal episode. The patient was walking from the boat docks up to his car in the parking lot when he reports feeling some lightheadedness with tunneling of his vision. He was with his the time stated she was walking with them turned around and he had fallen backward standing striking his head. The patient states the next thing he knew he was looking up from the ground paramedics. Patient was apparently out for approximately 5 minutes witnessed by his who observed no seizure activity. The patient regained responsiveness initially incoherent to confused and then quickly appropriate. Patient acknowledges that he has had 4 or 5 episodes of lightheadedness over the last month but has never passed out. He underwent a cardiac workup with Dr. Knox his primary care provider for concerns of a heart attack reports having had echocardiogram with no significant findings. He has not sustained any other falls though he does have scoliosis with degenerative disc disease with radiculopathy down the left leg and describes leg pains and cramping with walking that is relieved with rest. He does have a history of venous stasis of left lower extremity. He does endorse not drinking much water at all and consumes 6 cups lactate is daily. The patient denies fevers or chills, diaphoresis, current headache or visual changes, nasal congestion or sore throat. He does endorse a contusion on the back of his head. He reports no complaints of chest pain and has had no palpitations, he denies shortness of breath will have an occasional cough and does have intermittent wheezing from smoking marijuana. He denies abdominal pain, heartburn, nausea vomiting. He reports regular bowel movements however over the last 2 days he moves his bowels every other day instead of daily. He describes urinary urgency but no hematuria or burning and endorses nocturia 3 times nightly. Upon arrival to the ER the patient has temperature of 98.2?, heart rate of 70, blood pressure 156/74, respiratory rate of 20 saturating 99% on room air. Twelve lead EKG finds sinus rhythm with ventricular rate of 74 with Q-waves in the anterior leads V1 through V3. No other signs of ischemia or block. He had a CT of the head she finds no acute trauma other than occipital scalp contusion without hematoma, findings of frontal and inferior frontal encephalomalacia. CT of the neck finds no trauma, degenerative disc disease moderate to severe at C 4-ceased 5. Chest x-ray finds prominent rightward scoliosis. On laboratory analysis he has white count of 7.5, hemoglobin of 13.0, hematocrit 39.1 and platelets of 238. He has a PT of 11.1, INR of 1.0 and a PTT of 35. His electrolytes within normal range with a potassium of 4.0 and [place] 1.9 with a BUN of 18 and creatinine 1.05 and a nonfasting glucose of 103. He has a total bilirubin 0.4, AST of 57, ALT of 80 and alkaline phosphatase 52. His albumin is 4.3. His lactic acid of 0.7. His total CK is 68 and a troponin that is negative at 0.012. A tox screen is positive for marijuana. The patient is admitted to the medicine service for syncope of unknown etiology. Patient History Medical History (Updated 10/01/19 @ 23:09 by LEANNE Bailey) High cholesterol (Acute) Hypertension (Acute) Lumbar back pain with radiculopathy affecting left lower extremity (Acute) Marijuana smoker (Acute) Prostate cancer (Acute) Scoliosis (Acute) Venous insufficiency (Acute) Surgical History (Updated 10/01/19 @ 23:09 by LEANNE Bailey) H/O inguinal hernia repair (Acute) Family & Social History Family History (Updated 10/01/19 @ 23:10 by LEANNE Bailey) Father Prostate cancer Mother Diabetes mellitus Obesity Grandmother Diabetes mellitus Obesity Social History: household members spouse Safety & Behavioral: Feels Safe in Current Yes Environment Been Physically Hurt or No Threatened By a Person Suicidal Ideation Description None Suicide Plan Description No Plan Tobacco & Substance use: Smoking Status Former smoker alcohol intake frequency 0-2 drinks per day Substance Use Type marijuana Comment: The patient endorses taking C 60 fluorescein, omega-3 and a dog warmer for his prostate cancer. Meds Home Medications and Allergies Home Medications Medication Instructions Recorded Confirmed Type atorvastatin 20 mg PO BEDTIME 10/01/19 10/01/19 History hydrochlorothiazide 25 mg PO QAM 10/01/19 10/01/19 History losartan 100 mg PO QAM 10/01/19 10/01/19 History Allergies Allergy/AdvReac Type Severity Reaction Status Date / Time No Known Drug Allergies Allergy Verified 10/01/19 17:00 Review of Systems Review of Systems ROS: Yes All systems reviewed with the patient and are negative except as otherwise documented Exam Vital Signs (past 8 hours): - 10/01/19 16:51 10/01/19 18:04 10/01/19 19:00 Temperature 98.2 F Pulse Rate 70 62 68 Pulse Rate [Orthostatic Lying] Pulse Rate [Orthostatic Sitting] Pulse Rate [Orthostatic Standing] Respiratory Rate 20 16 16 Blood Pressure 156/74 H Blood Pressure [Orthostatic Lying] Blood Pressure [Orthostatic Sitting] Blood Pressure [Orthostatic Standing] Blood Pressure [Right Arm] 133/76 173/101 H Pulse Oximetry 99 99 10/01/19 19:50 10/01/19 20:00 10/01/19 21:36 Temperature 97.8 F Pulse Rate 68 74 Pulse Rate [Orthostatic Lying] 65 Pulse Rate [Orthostatic Sitting] 74 Pulse Rate [Orthostatic Standing] 75 Respiratory Rate 16 20 Blood Pressure 156/92 H Blood Pressure [Orthostatic Lying] 141/78 H Blood Pressure [Orthostatic Sitting] 160/89 H Blood Pressure [Orthostatic Standing] 173/95 H Blood Pressure [Right Arm] 152/81 H Pulse Oximetry 98 100 Oxygen Delivery Method Room Air Narrative Exam Narrative: GENERAL APPEARANCE: well developed, well nourished, in no acute distress. HEENT: Contusion occipital head, PERRLA, conjunctiva clear, EOMs intact without nystagmus, no sinus tenderness to percussion, no epistaxis or rhinorrhea, mucous membranes are moist and pink, no oral trauma. NECK/THYROID: Supple, nontender to palpation, no step-offs, no JVD, no carotid bruit, no thyromegaly, trachea midline. LYMPH NODES: no cervical or supraclavicular lymphadenopathy. SKIN: Universal, warm and dry, no visible lesions, rashes, ulcerations or petechiae, vision stasis skin changes left lower extremity. HEART: regular rate and rhythm, S1-S2, no murmur, no rubs or gallops, brisk capillary refill, no edema LUNGS: Bilateral scattered wheezes without coarseness crackles, dry nonproductive cough present with deep inspiration CHEST: Symmetrical movement, no accessory muscle use, good tidal volume, no pain on AP and lateral compression. ABDOMEN: Soft, no distention, no abdominal tenderness, no guarding or peritoneal signs, no organomegaly or pulsatile masses, no flank or suprapubic tenderness, active bowel tones, strong equal bilateral femoral pulses. BACK: nontender to palpation. EXTREMITIES: moves all extremities, strength is 5/5 and symmetrical, no deformities or joint effusions. NEUROLOGIC: AAO x4, no focal neurologic deficits, cranial nerves II-XII grossly intact, sensation intact to light touch, hearing grossly normal to speech. PSYCH: Good judgment, tangental thought process, cooperative, appropriate with stable behavior Objective Labs Result Diagrams: 10/01/19 17:00 10/01/19 17:00 Labs: Laboratory Results - last 24 hr 10/01/19 10/01/19 10/01/19 17:00 17:00 17:00 WBC 9.5 RBC 4.37 L Hgb 13.0 L Hct 39.1 L MCV 89.4 MCH 29.8 MCHC 33.4 RDW 15.3 H Plt Count 238 Neut % (Auto) 66.2 Lymph % (Auto) 22.9 L Forrest % (Auto) 6.6 Eos % (Auto) 3.8 Baso % (Auto) 0.5 Neut # (Auto) 6300 Lymph # (Auto) 2200 Forrest # (Auto) 600 Eos # (Auto) 400 Baso # (Auto) 100 PT 11.1 INR 1.0 APTT 35 Sodium 134 L Potassium 4.0 Chloride 100 Carbon Dioxide 26 BUN 18 Creatinine 1.05 Estimated GFR > 60.0 BUN/Creatinine Ratio 17.1 Glucose 103 Lactate Calcium 9.5 Magnesium Total Bilirubin 0.4 AST 57 ALT 80 H Alkaline Phosphatase 52 Total Creatine Kinase 68 CK-MB (CK-2) TNP CK-MB (CK-2) Rel Index TNP Troponin I < 0.012 Total Protein 7.4 Albumin 4.3 Globulin 3.1 Albumin/Globulin Ratio 1.4 Urine Color Urine Appearance Urine pH Ur Specific Diamond Urine Protein Urine Glucose (UA) Urine Ketones Urine Occult Blood Urine Nitrate Urine Bilirubin Urine Urobilinogen Ur Leukocyte Esterase Urine RBC Urine WBC Ur Squamous Epith Cells Urine Bacteria Ur Culture Indicated? U Opiates 300ng/mL cut Ur Oxycodone Screen Urine Methadone Screen Ur Barbiturates Screen U Tricyclic Antidepress Ur Phencyclidine Scrn Ur Amphetamines Screen U Methamphetamines Scrn Ur MDMA Scrn (Ecstasy) U Benzodiazepines Scrn Urine Cocaine Screen U Marijuana (THC) Screen Ethyl Alcohol 10/01/19 10/01/19 10/01/19 17:00 17:00 17:45 WBC RBC Hgb Hct MCV MCH MCHC RDW Plt Count Neut % (Auto) Lymph % (Auto) Forrest % (Auto) Eos % (Auto) Baso % (Auto) Neut # (Auto) Lymph # (Auto) Forrest # (Auto) Eos # (Auto) Baso # (Auto) PT INR APTT Sodium Potassium Chloride Carbon Dioxide BUN Creatinine Estimated GFR BUN/Creatinine Ratio Glucose Lactate 0.7 Calcium Magnesium 1.9 Total Bilirubin AST ALT Alkaline Phosphatase Total Creatine Kinase CK-MB (CK-2) CK-MB (CK-2) Rel Index Troponin I Total Protein Albumin Globulin Albumin/Globulin Ratio Urine Color Urine Appearance Urine pH Ur Specific Diamond Urine Protein Urine Glucose (UA) Urine Ketones Urine Occult Blood Urine Nitrate Urine Bilirubin Urine Urobilinogen Ur Leukocyte Esterase Urine RBC Urine WBC Ur Squamous Epith Cells Urine Bacteria Ur Culture Indicated? U Opiates 300ng/mL cut Ur Oxycodone Screen Urine Methadone Screen Ur Barbiturates Screen U Tricyclic Antidepress Ur Phencyclidine Scrn Ur Amphetamines Screen U Methamphetamines Scrn Ur MDMA Scrn (Ecstasy) U Benzodiazepines Scrn Urine Cocaine Screen U Marijuana (THC) Screen Ethyl Alcohol < 10 10/01/19 10/01/19 10/01/19 19:15 19:20 19:20 WBC RBC Hgb Hct MCV MCH MCHC RDW Plt Count Neut % (Auto) Lymph % (Auto) Forrest % (Auto) Eos % (Auto) Baso % (Auto) Neut # (Auto) Lymph # (Auto) Forrest # (Auto) Eos # (Auto) Baso # (Auto) PT INR APTT Sodium Potassium Chloride Carbon Dioxide BUN Creatinine Estimated GFR BUN/Creatinine Ratio Glucose Lactate Calcium Magnesium Total Bilirubin AST ALT Alkaline Phosphatase Total Creatine Kinase CK-MB (CK-2) CK-MB (CK-2) Rel Index Troponin I < 0.012 Total Protein Albumin Globulin Albumin/Globulin Ratio Urine Color Yellow Urine Appearance Clear Urine pH 7.0 Ur Specific Diamond 1.010 Urine Protein Negative Urine Glucose (UA) Negative Urine Ketones Negative Urine Occult Blood Negative Urine Nitrate Negative Urine Bilirubin Negative Urine Urobilinogen 0.2 Ur Leukocyte Esterase Negative Urine RBC None seen Urine WBC 0-1/hpf Ur Squamous Epith Cells 0-1 /hpf Urine Bacteria None seen Ur Culture Indicated? Cult not indicated U Opiates 300ng/mL cut Negative Ur Oxycodone Screen Negative Urine Methadone Screen Negative Ur Barbiturates Screen Negative U Tricyclic Antidepress Negative Ur Phencyclidine Scrn Negative Ur Amphetamines Screen Negative U Methamphetamines Scrn Negative Ur MDMA Scrn (Ecstasy) Negative U Benzodiazepines Scrn Negative Urine Cocaine Screen Negative U Marijuana (THC) Screen Positive H Ethyl Alcohol Assessment & Plan Assessment & Plan narrative: This is a 69-year-old male patient to experience a syncopal episode with a fall from standing striking his head. He has had 4-5 episodes of lightheadedness and dizziness similar to how he felt prior to his syncopal episode in the last month. 1. 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 -no seizure activity was noted, no urinary incontinence, no oral trauma identified. -patient had antecedent lightheadedness with tunneling of vision similar to previous milder episodes over the last month not resulting in syncope. -differential diagnosis: Medications: No recent change in medications and patient does not consume alcohol. Neurocardiogenic: Patient was walking on level ground at the time with no stress or strain or complaints of pain. Cardiogenic: The patient denies complaints of chest pain and reports no palpitations. 12 lead EKG, sinus rhythm with VR of 74, no block or ischemia. Patient previously worked up for possible anterior OR of findings of Q-waves in V1 through V3. Echocardiogram 07/26/2018: EF 60-65%. Orthostatic hypertension: Patient endorsed drinking little water and appears clinically dehydrated and is expanded on below. -patient is placed on telemetry for cardiac monitoring and has a negative CK and troponin. -will obtain echocardiogram in the morning. 2. Dehydration, acute, present on admission, active. -patient appears clinically dry with positive skin tenting and positive orthostatic vital signs in the ED. -patient endorses drinking little water and consumes 6 caffeinated beverages (lattes) daily and takes hydrochlorothiazide 25 mg daily. -patient received a L of normal saline in the emergency department. Will encourage p.o. intake and saline lock IV. Will recheck orthostatic vital signs. -will hold hydrochlorothiazide. 3. Hypertension, chronic, stable. -Patient with elevated blood pressure of 156/74 upon arrival to the ER. -will continue home regimen of losartan 100 mg daily. 4. Hyperlipidemia, chronic, stable. -continue patient's home regimen of atorvastatin 20 mg daily at bedtime -will obtain updated lipid panel 5. Venous insufficiency, chronic, stable. -venous stasis changes left lower leg, endorses symptoms claudication with ambulation. -abdominal ultrasound for aortic aneurysm screening done 07/26/2018 with no aneurysm found, iliac arteries are 1 cm bilaterally. -patient routinely uses compression hose which are continued. -patient has been on hydrochlorothiazide 25 mg daily which is held bleed to be contributory to dehydration. 6. Prostate cancer, chronic, stable -patient is followed by urology and patient is using alternative therapy treatment. -further follow-up per primary care and Neurology. Isolation: None VTE prophylaxis: SCDs IV fluid: Saline lock encourage p.o. intake. Diet: Heart healthy Code status: FULL CODE, the patient's life partner Brenda is the patient is surrogate decision maker in DPOA. The patient is admitted to the hospital with a syncopal episode appears to be most likely related to dehydration consuming 6 caffeinated drinks daily and drinking little water as well as taking hydrochlorothiazide 25 mg daily. The patient has had multiple recent episodes of dizziness. The patient is admitted to the hospital to rule out cardiac event as an observation status with expected length of stay to be less than 2 midnights. COVID-19 COVID-19 status: Not tested Scores [facility] [place] coma scale eye opening: Spontaneous [place] coma scale verbal response: Orientated [place] coma scale motor response: Obey commands Jovanna coma scale total score: 15
--- NOTE | 2019-10-01 23:16 | PC.NURSE ---
Pt arrived from ER @ 2044 Alert/oriented. HL intact. Tele show NSR per ICU staff. Pt oriented to room & call system. Call light w/in place, pt calls appropriately for needs. Continue w/plan of care.
[2019-10-02 04:05] VITALS: BP 126/76; PULSE 65; RESP 18; TEMP 36.7; O2SAT 97
[2019-10-02 06:27] LABS: Add Manual Diff / Slide Review NO; Basophils Absolute Auto 0 /uL (0-100); Basophils Percent Auto 0.4 % (0-2); Eosinophils Absolute Auto 300 /uL (0-450); Eosinophils Percent Auto 4.3 % (2-4); Hematocrit 37.3 % (41-53); Hemoglobin 12.6 g/dL (13.5-17.5); Lymphocytes Absolute Auto 1400 /uL (1100-4500); Lymphocytes Percent Auto 20.1 % (25-40); Mean Corpuscular HGB Conc 33.7 % (30-36); Mean Corpuscular Hemoglobin 30.2 PG (26-34); Mean Corpuscular Volume 89.9 fL (80-100); Monocytes Absolute Auto 400 /uL (0-900); Monocytes Percent Auto 5.8 % (3-14); Neutrophils Absolute Auto 5000 /uL (1500-7000); Neutrophils Percent Auto 69.4 % (50-75); Platelet Count 196 X10^3/uL (150-400); Red Blood Cell Count 4.15 X10^6/uL (4.5-5.9); Red Cell Distribution Width 15.3 % (11.6-14.8); White Blood Cell Count 7.1 X10^3/uL (4.5-11.0)
[2019-10-02 06:30] LABS: BUN Creatinine Ratio 16.5 (6-22); Blood Urea Nitrogen 13 mg/dL (9-20); Calcium 9.1 mg/dL (8.4-10.2); Carbon Dioxide 26 mmol/L (22-32); Chloride 104 mmol/L (98-107); Cholesterol 132 mg/dL (140-199); Estimated Glomerular Filt Rate > 60.0 mL/min (>60); Glucose 99 mg/dL (80-110); HDL Cholesterol 29 mg/dL (40-60); HEMOLYSIS < 15 (0-50); LDL Cholesterol Calculated 86 mg/dL (<100); Potassium 3.7 mmol/L (3.4-5.1); Sodium 136 mmol/L (137-145); Triglycerides 87 mg/dL (35-150)
[2019-10-02 07:00] LABS: Thyroid Stimulating Hormone 2.68 uIU/mL (0.47-4.68)
[2019-10-02 09:36] VITALS: BP 147/78
[2019-10-02] MEDS: LOSARTAN 50 MG TABLET 100 MG PO (09:36)
[2019-10-02 09:39] VITALS: BP 147/78; PULSE 78; RESP 16; TEMP 37.1; O2SAT 98
[2019-10-02 09:50] VITALS: BP 147/78; BP 156/95; BP 160/100; PULSE 73; PULSE 79; PULSE 95
[2019-10-02] MEDS: ALBUTEROL HFA 60 PUFF/8 GM INH INH (11:18)
[2019-10-02 11:30] VITALS: PULSE 78; RESP 18; O2SAT 94
[2019-10-02 12:00] VITALS: BP 158/92; PULSE 67; RESP 16; TEMP 36.9; O2SAT 100
--- NOTE | 2019-10-02 12:01 | DI.ECHO.S_ITS ---
[facility] +---------+ : : [address] : [place] : : : : [id number] : : : : Phone: [phone]---------+ Echocardiogram Report + + :Name: SNOW BARRERA Study Date: 10/02/2019 Height: 70 in : :[facility] Weight: 195 lb : : Gender: Male BSA: 2.1 m2 : :: 1950 Age: 69 yrs BP: 161/87 mmHg: :Reason For Study: Syncope : :Ordering Physician: Мария : :Hospitalist Performed By: Carisa Wright : :Referring: EJ [place] : + + Interpretation Summary Limited echo: 1) Normal left ventricular thickness, size, wall motion, and systolic function (EF 60-65%). 2) Mildly enlarged right ventricle with mildly reduced function. 3) No significant valvular abnormalities based on gross evaluation.. 4) Hypertension present during the study (BP 161/87mmHg) 5) Compared to the Echo done 07/26/2018, no significant change in cardiac structure. Procedure: A two-dimensional transthoracic echocardiogram with color flow and Doppler was performed in limited views only. The study quality was technically adequate. Comparison is made with the echocardiogram of 07/26/2018. The patient was in normal sinus rhythm during the exam. Left Ventricle: The left ventricle is normal in size and wall thickness. The ejection fraction is estimated to be 60-65%. Left ventricular wall motion is normal. Right Ventricle: The right ventricle is mildly dilated. Right ventricular systolic function is mildly reduced. Atria: The left atrium is moderately dilated. The right atrium is normal in size. Mitral Valve: The mitral valve leaflets appear normal. There is no evidence of stenosis, fluttering, or prolapse. There is no mitral regurgitation noted. Aortic Valve: The aortic valve is trileaflet. The aortic valve opens well. Tricuspid Valve: The tricuspid valve is normal in structure and function. There is mild tricuspid regurgitation. The right ventricular systolic pressure is estimated to be at least 22 mmHg based on an estimated right atrial pressure of 3 mm Hg. Great Vessels: The IVC is of normal diameter and collapses greater than 50% with a sniff. This suggests a low right atrial pressure of 3 mm Hg. Pericardium/ Pleura There is no pericardial effusion. There is no pleural effusion. MMode/2D Measurements & Calculations LVIDd: 5.5 cm LA A2 area: 23.9 cm2 LVIDs: 3.4 cm LA A4 area: 22.5 cm2 FS: 37.5 % LA length (vol): 5.2 cm IVSd: 0.78 cm LA vol: 88.1 ml LVPWd: 0.85 cm LA vol index: 42.7 ml/m2 LV blanco. diameter/BSA (cm/m^2): 2.7 LV sys. diameter/BSA (cm/m^2): 1.7 RA long axis: 5.1 cm RVD1 (basal): 4.2 cm RA area: 18.9 cm2 RA vol: 59.7 ml RA : 28.9 ml/m2 IVC diam: 1.5 cm Doppler Measurements & Calculations TR max galo: 221.6 cm/sec TR max P.7 mmHg Reading Physician:02:38 PM
--- NOTE | 2019-10-02 13:12 | CM.DANOTE ---
DCP: Case received, EMR reviewed and met with patient. Introduced self and role. Was able to meet with patient and obtain information regarding his baseline activity level, health, and living situation. DCP assessment completed with information currently available. Patient is a 69 year old male who admitted yesterday evening to the care of the hospitalist team. PCP: Dr. Knox. Payer: confirmed: [facility] MCR/Medicaid. Patient came to the hospital via ambulance secondary to syncope episode. According to notes, patient had been walking on the dock at the [facility], where he fell back, and became semi-unresponsive. Patient was able to be roused, but brought here by EMS. Patient is here for a cardiac work-up, and also holds a current diagnosis of dehydration. Spoke to patient. He is alert and oriented, pleasant and conversive. He stated, he is very active, and has not had this experience before. Stated, he remembers walking on the dock, and the next thing he knew, he was laying on the dock with his Brenda standing over him, and her mentioning calling EMS. Patient also stated, he remembers the EMS coming and having trouble finding a blood pressure reading. Patient stated that he has been active at the [employer], he used to be a [employer]. He stated that he is independent, but has struggled with scoliosis from child man. Stated that he and his , Brenda, have been for 49 years, but had in the past, due to his drinking. Stated, they are getting back together, since he stopped drinking in 2010. He also confirmed that he knows that he needs to drink more water, since he mostly drinks coffee. P: DCP to continue to follow. Patient could potentially discharge home today pending echo. Trisha Esquivel RN/Electrician
[2019-10-02] MEDS: AMLODIPINE 5 MG TABLET PO (13:48)
--- NOTE | 2019-10-02 13:57 | PM.DS.1 ---
History of Present Illness History of Present Illness Date Patient Seen: 10/01/19 Chief complaint: Syncope Narrative: Written by Navid PERDOMO: Mr. David Stuart is a 69-year-old male with a history significant for hypertension, hyperlipidemia, venous insufficiency, prostate cancer and current marijuana smoker for chronic back pain who presents to the ER following a syncopal episode. The patient was walking from the boat docks up to his car in the parking lot when he reports feeling some lightheadedness with tunneling of his vision. He was with his the time stated she was walking with them turned around and he had fallen backward standing striking his head. The patient states the next thing he knew he was looking up from the ground paramedics. Patient was apparently out for approximately 5 minutes witnessed by his who observed no seizure activity. The patient regained responsiveness initially incoherent to confused and then quickly appropriate. Patient acknowledges that he has had 4 or 5 episodes of lightheadedness over the last month but has never passed out. He underwent a cardiac workup with Dr. Knox his primary care provider for concerns of a heart attack reports having had echocardiogram with no significant findings. He has not sustained any other falls though he does have scoliosis with degenerative disc disease with radiculopathy down the left leg and describes leg pains and cramping with walking that is relieved with rest. He does have a history of venous stasis of left lower extremity. He does endorse not drinking much water at all and consumes 6 cups lactate is daily. The patient denies fevers or chills, diaphoresis, current headache or visual changes, nasal congestion or sore throat. He does endorse a contusion on the back of his head. He reports no complaints of chest pain and has had no palpitations, he denies shortness of breath will have an occasional cough and does have intermittent wheezing from smoking marijuana. He denies abdominal pain, heartburn, nausea vomiting. He reports regular bowel movements however over the last 2 days he moves his bowels every other day instead of daily. He describes urinary urgency but no hematuria or burning and endorses nocturia 3 times nightly. Upon arrival to the ER the patient has temperature of 98.2?, heart rate of 70, blood pressure 156/74, respiratory rate of 20 saturating 99% on room air. Twelve lead EKG finds sinus rhythm with ventricular rate of 74 with Q-waves in the anterior leads V1 through V3. No other signs of ischemia or block. He had a CT of the head she finds no acute trauma other than occipital scalp contusion without hematoma, findings of frontal and inferior frontal encephalomalacia. CT of the neck finds no trauma, degenerative disc disease moderate to severe at C 4-ceased 5. Chest x-ray finds prominent rightward scoliosis. On laboratory analysis he has white count of 7.5, hemoglobin of 13.0, hematocrit 39.1 and platelets of 238. He has a PT of 11.1, INR of 1.0 and a PTT of 35. His electrolytes within normal range with a potassium of 4.0 and [place] 1.9 with a BUN of 18 and creatinine 1.05 and a nonfasting glucose of 103. He has a total bilirubin 0.4, AST of 57, ALT of 80 and alkaline phosphatase 52. His albumin is 4.3. His lactic acid of 0.7. His total CK is 68 and a troponin that is negative at 0.012. A tox screen is positive for marijuana. The patient is admitted to the medicine service for syncope of unknown etiology. Discharge Providers Provider Date of admission: 10/01/19 19:30 Discharge Date: 10/02/19 Primary care physician: Winston Knox MD Consults: 10/01/19 21:20 Consult to Discharge Planning Routine Comment: 10/01/19 22:18 Consult to Respiratory Therapy Evaluate & Treat Comment: Past smoker, current marijuana user, wheezing Physician Instructions: Evaluate and treat Discharge provider: Lizeth Peres DO Summary Hospital Course Discharge Diagnosis: 1. Acute syncopal episode, secondary to dehydration and orthostatic hypotension, present on admission. Resolved. 2. Acute dehydration, present on admission. Resolved. 3. Hypertension, chronic, present on admission. Stable. 4. Hyperlipidemia, chronic, present on admission. Stable. 5. Venous insufficiency, chronic, present on admission. Stable. 6. Prostate cancer, chronic, present on admission. Stable. 7. Marijuana use, chronic, admission. Stable. Hospital Course: David Stuart is a 69-year-old male with a past medical history significant for hypertension, hyperlipidemia, venous insufficiency, prostate cancer, chronic back pain with marijuana use who presented to the ED following a syncopal episode. 1. Acute syncopal episode, secondary to dehydration and orthostatic hypotension, present on admission. Resolved. -Patient experienced a 5 minute syncopal episode witnessed by his significant other with a reported rapid return to normal mentation following transient confusion. No seizure activity was noted, no urinary incontinence, no oral trauma identified. -Patient had antecedent lightheadedness with tunneling of vision similar to previous milder episodes over the last month without syncope. -CT brain without contrast demonstrated no acute trauma to the brain parenchyma is found. Mild left occipital scalp contusion without hematoma. Frontal and inferior frontal encephalomalacia, symmetric bilaterally, suggestive of prior head trauma as a potential underlying etiology. -CT cervical spine without contrast demonstrated no trauma or fracture found. Moderate convex leftward scoliosis at the cervicothoracic junction. Degenerative disc disease is moderately severe at C4-C5, greater on the right than the left, associated with this curvature finding. -Serial troponin x 3 negative. EKG demonstrated normal sinus rhythm without heart block or acute ischemic changes such as ST elevation or depression. -Initial orthostatics vital signs positive. Orthostasis resolved after IV fluid hydration. -Continued to monitor closely on telemetry. Patient remained in sinus rhythm without any significant ectopy. -Echocardiogram unremarkable and noncontributory to syncopal episode. Patient has mildly enlarged right ventricle with hypertension present during study which is unchanged from prior study. 2. Acute dehydration, present on admission. Resolved. -Patient presented clinically dry with positive skin tenting and positive orthostatic vital signs in the ED. -Patient endorses drinking little water and consumes six 3 espresso shot caffeinated beverages (lattes) daily and takes hydrochlorothiazide 25 mg daily. Recommended patient cut significantly back on caffeine and discontinued hydrochlorothiazide. Recommended patient increased water intake to at least half his body weight in fluid oz. -Received 1 L of normal saline in ED. Encouraged PO intake of fluids. -Continued to monitor orthostatic vital signs each shift for which orthostasis resolved. 3. Hypertension, chronic, present on admission. Stable. -Patient with elevated blood pressure of 156/74 upon arrival to the ED. -Continued home losartan 100 mg daily. Discontinued hydrochlorothiazide due to severe dehydration as above. Started amlodipine 5 mg daily for further blood pressure control and may need to be titrated up by PCP for optimal control. 4. Hyperlipidemia, chronic, present on admission. Stable. -Continued home atorvastatin 20 mg daily at bedtime. 5. Venous insufficiency, chronic, present on admission. Stable. -Patient with venous stasis changes of left lower leg and claudication with ambulation. -Abdominal ultrasound for aortic aneurysm screening done 07/26/2018 with no aneurysm found, iliac arteries are 1 cm bilaterally. -Continued home bilateral compression stockings. -Patient has been on hydrochlorothiazide 25 mg daily which has been discontinued due to dehydration as above. 6. Prostate cancer, chronic, present on admission. Stable. -Patient is followed by urology. The patient reports he is using alternative treatment with dog de-wormer. Highly recommend patient avoid alternative treatment which could be dangerous and continue follow-up and evaluation and treatment with PCP and urology. 7. Marijuana use, chronic, admission. Stable. -Highly recommended smoking cessation of marijuana and patient will consider use of other forms of marijuana such as oil. Exam Vital Signs (past 8 hours): - 10/02/19 09:36 10/02/19 09:39 10/02/19 09:50 Temperature 98.7 F Pulse Rate 78 Pulse Rate [Orthostatic Lying] 73 Pulse Rate [Orthostatic Sitting] 79 Pulse Rate [Orthostatic Standing] 95 H Respiratory Rate 16 Blood Pressure 147/78 H 147/78 H Blood Pressure [Orthostatic Lying] 147/78 H Blood Pressure [Orthostatic Sitting] 156/95 H Blood Pressure [Orthostatic Standing] 160/100 H Pulse Oximetry 98 10/02/19 11:30 10/02/19 12:00 Temperature 98.5 F Pulse Rate 78 67 Pulse Rate [Orthostatic Lying] Pulse Rate [Orthostatic Sitting] Pulse Rate [Orthostatic Standing] Respiratory Rate 18 16 Blood Pressure 158/92 H Blood Pressure [Orthostatic Lying] Blood Pressure [Orthostatic Sitting] Blood Pressure [Orthostatic Standing] Pulse Oximetry 94 100 Oxygen Delivery Method Room Air Oxygen Flow Rate 0 Narrative Exam Narrative: General: Older thin male lying in bed and in no acute distress, appears older than stated age, tangential thinking and poor insight, otherwise appropriately interactive HEENT: Normocephalic, atraumatic. External ears without defect. Pupils equal, round, and reactive to light. Anicteric sclerae, moist conjunctivae, and no lid lag. Oropharynx free of erythema and cobble stoning with moist mucosa. Neck: Supple with full range of motion. No jugular venous distension. No bruits. No lymphadenopathy or thyromegaly. Cardiovascular: Regular rate and rhythm without murmurs, rubs, or gallops appreciated. Pulmonary: Clear to auscultation bilaterally without crackles, wheezes, or rhonchi. Normal respiratory effort with no use of accessory muscles. Abdomen: Soft, bowel sounds present, nontender, nondistended. No hepatosplenomegaly or masses appreciated. Extremities: No clubbing, cyanosis, or edema. Stasis dermatitis of left lower extremity. Skin: Normal temperature, turgor, and texture; no rash, ulcers, or subcutaneous nodules appreciated. Neurological: Cranial nerves grossly intact. Psychiatric: Tangential thinking and poor insight. Anxious mood and affect. Pressured speech. Alert and oriented to person, place, and time. Objective Labs Result Diagrams: 10/02/19 06:00 10/02/19 06:00 Labs: Laboratory Results - last 24 hr 10/01/19 10/01/19 10/01/19 17:00 17:00 17:00 WBC 9.5 RBC 4.37 L Hgb 13.0 L Hct 39.1 L MCV 89.4 MCH 29.8 MCHC 33.4 RDW 15.3 H Plt Count 238 Neut % (Auto) 66.2 Lymph % (Auto) 22.9 L [place] % (Auto) 6.6 Eos % (Auto) 3.8 Baso % (Auto) 0.5 Neut # (Auto) 6300 Lymph # (Auto) 2200 [place] # (Auto) 600 Eos # (Auto) 400 Baso # (Auto) 100 PT 11.1 INR 1.0 APTT 35 Sodium 134 L Potassium 4.0 Chloride 100 Carbon Dioxide 26 BUN 18 Creatinine 1.05 Estimated GFR > 60.0 BUN/Creatinine Ratio 17.1 Glucose 103 Lactate Calcium 9.5 Magnesium Total Bilirubin 0.4 AST 57 ALT 80 H Alkaline Phosphatase 52 Total Creatine Kinase 68 CK-MB (CK-2) TNP CK-MB (CK-2) Rel Index TNP Troponin I < 0.012 Total Protein 7.4 Albumin 4.3 Globulin 3.1 Albumin/Globulin Ratio 1.4 Triglycerides Cholesterol LDL Cholesterol, Calc HDL Cholesterol TSH Urine Color Urine Appearance Urine pH Ur Specific [place] Urine Protein Urine Glucose (UA) Urine Ketones Urine Occult Blood Urine Nitrate Urine Bilirubin Urine Urobilinogen Ur Leukocyte Esterase Urine RBC Urine WBC Ur Squamous Epith Cells Urine Bacteria Ur Culture Indicated? U Opiates 300ng/mL cut Ur Oxycodone Screen Urine Methadone Screen Ur Barbiturates Screen U Tricyclic Antidepress Ur Phencyclidine Scrn Ur Amphetamines Screen U Methamphetamines Scrn Ur MDMA Scrn (Ecstasy) U Benzodiazepines Scrn Urine Cocaine Screen U Marijuana (THC) Screen Ethyl Alcohol 10/01/19 10/01/19 10/01/19 17:00 17:00 17:45 WBC RBC Hgb Hct MCV MCH MCHC RDW Plt Count Neut % (Auto) Lymph % (Auto) [place] % (Auto) Eos % (Auto) Baso % (Auto) Neut # (Auto) Lymph # (Auto) [place] # (Auto) Eos # (Auto) Baso # (Auto) PT INR APTT Sodium Potassium Chloride Carbon Dioxide BUN Creatinine Estimated GFR BUN/Creatinine Ratio Glucose Lactate 0.7 Calcium Magnesium 1.9 Total Bilirubin AST ALT Alkaline Phosphatase Total Creatine Kinase CK-MB (CK-2) CK-MB (CK-2) Rel Index Troponin I Total Protein Albumin Globulin Albumin/Globulin Ratio Triglycerides Cholesterol LDL Cholesterol, Calc HDL Cholesterol TSH Urine Color Urine Appearance Urine pH Ur Specific [place] Urine Protein Urine Glucose (UA) Urine Ketones Urine Occult Blood Urine Nitrate Urine Bilirubin Urine Urobilinogen Ur Leukocyte Esterase Urine RBC Urine WBC Ur Squamous Epith Cells Urine Bacteria Ur Culture Indicated? U Opiates 300ng/mL cut Ur Oxycodone Screen Urine Methadone Screen Ur Barbiturates Screen U Tricyclic Antidepress Ur Phencyclidine Scrn Ur Amphetamines Screen U Methamphetamines Scrn Ur MDMA Scrn (Ecstasy) U Benzodiazepines Scrn Urine Cocaine Screen U Marijuana (THC) Screen Ethyl Alcohol < 10 10/01/19 10/01/19 10/01/19 19:15 19:20 19:20 WBC RBC Hgb Hct MCV MCH MCHC RDW Plt Count Neut % (Auto) Lymph % (Auto) [place] % (Auto) Eos % (Auto) Baso % (Auto) Neut # (Auto) Lymph # (Auto) [place] # (Auto) Eos # (Auto) Baso # (Auto) PT INR APTT Sodium Potassium Chloride Carbon Dioxide BUN Creatinine Estimated GFR BUN/Creatinine Ratio Glucose Lactate Calcium Magnesium Total Bilirubin AST ALT Alkaline Phosphatase Total Creatine Kinase CK-MB (CK-2) CK-MB (CK-2) Rel Index Troponin I < 0.012 Total Protein Albumin Globulin Albumin/Globulin Ratio Triglycerides Cholesterol LDL Cholesterol, Calc HDL Cholesterol TSH Urine Color Yellow Urine Appearance Clear Urine pH 7.0 Ur Specific [place] 1.010 Urine Protein Negative Urine Glucose (UA) Negative Urine Ketones Negative Urine Occult Blood Negative Urine Nitrate Negative Urine Bilirubin Negative Urine Urobilinogen 0.2 Ur Leukocyte Esterase Negative Urine RBC None seen Urine WBC 0-1/hpf Ur Squamous Epith Cells 0-1 /hpf Urine Bacteria None seen Ur Culture Indicated? Cult not indicated U Opiates 300ng/mL cut Negative Ur Oxycodone Screen Negative Urine Methadone Screen Negative Ur Barbiturates Screen Negative U Tricyclic Antidepress Negative Ur Phencyclidine Scrn Negative Ur Amphetamines Screen Negative U Methamphetamines Scrn Negative Ur MDMA Scrn (Ecstasy) Negative U Benzodiazepines Scrn Negative Urine Cocaine Screen Negative U Marijuana (THC) Screen Positive H Ethyl Alcohol 10/02/19 10/02/19 10/02/19 06:00 06:00 06:00 WBC 7.1 RBC 4.15 L Hgb 12.6 L Hct 37.3 L MCV 89.9 MCH 30.2 MCHC 33.7 RDW 15.3 H Plt Count 196 Neut % (Auto) 69.4 Lymph % (Auto) 20.1 L [place] % (Auto) 5.8 Eos % (Auto) 4.3 H Baso % (Auto) 0.4 Neut # (Auto) 5000 Lymph # (Auto) 1400 [place] # (Auto) 400 Eos # (Auto) 300 Baso # (Auto) 0 PT INR APTT Sodium 136 L Potassium 3.7 Chloride 104 Carbon Dioxide 26 BUN 13 Creatinine 0.79 Estimated GFR > 60.0 BUN/Creatinine Ratio 16.5 Glucose 99 Lactate Calcium 9.1 Magnesium Total Bilirubin AST ALT Alkaline Phosphatase Total Creatine Kinase CK-MB (CK-2) CK-MB (CK-2) Rel Index Troponin I Total Protein Albumin Globulin Albumin/Globulin Ratio Triglycerides 87 Cholesterol 132 L LDL Cholesterol, Calc 86 HDL Cholesterol 29 L TSH 2.68 Urine Color Urine Appearance Urine pH Ur Specific [place] Urine Protein Urine Glucose (UA) Urine Ketones Urine Occult Blood Urine Nitrate Urine Bilirubin Urine Urobilinogen Ur Leukocyte Esterase Urine RBC Urine WBC Ur Squamous Epith Cells Urine Bacteria Ur Culture Indicated? U Opiates 300ng/mL cut Ur Oxycodone Screen Urine Methadone Screen Ur Barbiturates Screen U Tricyclic Antidepress Ur Phencyclidine Scrn Ur Amphetamines Screen U Methamphetamines Scrn Ur MDMA Scrn (Ecstasy) U Benzodiazepines Scrn Urine Cocaine Screen U Marijuana (THC) Screen Ethyl Alcohol Discharge Plan Discharge Plan Patient Disposition: Home Discharge comment: You are being discharged home. You were severely dehydrated and had orthostatic hypotension (blood pressure dropped out) which caused you to pass out. Your hydrochlorothiazide which was used to treat high blood pressure and is also a diuretic has been discontinued. You have been started on amlodipine 5 mg daily (which may need to be increased to better control high blood pressure) in addition to your losartan 100 mg daily to control your high blood pressure. Please try to cut back significantly on the amount of coffee you drink per day as this is what caused your dehydration. Please try to drink more water with a goal of half your weight in oz of water a day. Please continue wearing compression stockings daily while awake. Please follow-up with your primary care provider, Dr. Knox, in the next 1 week regarding your hospitalization. Discharge orders & Medications Prescriptions: New amlodipine 5 mg tablet 5 mg PO DAILY Qty: 30 RF: 0 Continued atorvastatin 20 mg tablet 20 mg PO BEDTIME RF: 0 losartan 100 mg tablet 100 mg PO QAM RF: 0 Discontinued hydrochlorothiazide 25 mg tablet 25 mg PO QAM RF: 0 Follow up/Referrals: Winston Knox MD [Primary Care Provider] - 1 Week Diet/Activity/Treatments Diet: Low-fat, Low-sodium and Low-cholesterol Activity: Activity as tolerated Visit Report/Discharge Packet Instructions: Decreasing Your Caffeine Intake, The DASH Diet, DASH Diet For a Healthy Blood Pressure, The Highs and Lows of Caffeine, DI for Orthostatic Hypotension, DI for Dehydration -- Adult, Amlodipine Visit Report Forms: Patient Portal/API, Stroke Signs & Symptoms Discharge Data Primary Care Provider: Winston Knox Attending Provider: Navid Mae Admit Date/Time: 10/01/19 19:30 Discharges patient from system. Discharge Date/Time: 10/02/19 14:17
--- NOTE | 2019-10-02 14:13 | PC.NURSE ---
Pt is dressed and ready for discharge home with his daughter Savannah. Reviewed stroke education, new med information as well as confirmed Pt is to stop HCTZ. Discussed decreasing caffeine intake as well as increasing water intake to decrease dehydration. Discussed checking his blood pressure at home and following a DASH diet. Pt and Daughter denied further questions and Pt was taken out to POV by [facility] via w/c with all belonings.
== END 2019-10-02 14:17 | disposition home or self-care (01) ==
LOC: ED 18:04 → AC 19:32
PROVIDERS: Emergency Medicine; Admitting Provider Nurse Practitioner Adult Health; Emergency Provider Emergency Medicine; PCP Internal Medicine; Visit Provider Nurse Practitioner Adult Health
DX: I95.1 Orthostatic hypotension (principal); W18.30XA Fall on same level, unspecified, initial encounter; Y93.01 Activity, walking, marching and hiking; E86.0 Dehydration; I10 Essential (primary) hypertension; I87.2 Venous insufficiency (chronic) (peripheral); C61 Malignant neoplasm of prostate; E78.5 Hyperlipidemia, unspecified; F12.90 Cannabis use, unspecified, uncomplicated
CPT/HCPCS: 36415; 70450; 71045; 72125; 80048; 80053; 80061; 80305; 80320; 81001; 82550; 83605; 83735; 84443; 84484; 85025; 85610; 85730; 90471; 93005; 93307; 94640; 94760; 96360; 99285; G0378; 90715

== ENCOUNTER → 2019-10-26 09:15 | Outpatient (CLI) | payer MEDICARE, MEDICAID, SELFPAY ==
[2019-10-01 22:22] VITALS: BMI 27.9
[2019-10-26 09:58] LABS: BUN Creatinine Ratio 16.9 (6-22); Blood Urea Nitrogen 15 mg/dL (9-20); Calcium 9.3 mg/dL (8.4-10.2); Carbon Dioxide 27 mmol/L (22-32); Chloride 104 mmol/L (98-107); Cholesterol 140 mg/dL (140-199); Estimated Glomerular Filt Rate > 60.0 mL/min (>60); Glucose 106 mg/dL (80-110); HDL Cholesterol 33 mg/dL (40-60); HEMOLYSIS < 15 (0-50); LDL Cholesterol Calculated 90 mg/dL (<100); Potassium 4.1 mmol/L (3.4-5.1); Sodium 136 mmol/L (137-145); Triglycerides 86 mg/dL (35-150)
[2019-10-28 16:21] LABS: Hep C Virus Ab w/Reflex Quant NEGATIVE s/c (NEGATIVE)
== END ==
PROVIDERS: PCP Internal Medicine; Referring Provider Internal Medicine; Visit Provider Internal Medicine
DX: Z00.00 Encounter for general adult medical examination without abnormal findings (principal); I10 Essential (primary) hypertension; I87.2 Venous insufficiency (chronic) (peripheral); E78.2 Mixed hyperlipidemia
CPT/HCPCS: 36415; 80048; 80061; 86803

== ENCOUNTER → 2020-03-19 14:33 | Outpatient (CLI) | payer MEDICARE, MEDICAID, SELFPAY ==
[2019-10-01 22:22] VITALS: BMI 27.9
[2020-03-19 16:18] LABS: Prostate Specific Antigen 6.77 ng/mL (0.10-4.00)
[2020-03-20 06:09] LABS: PSA Free % 31.9 % (.); PSA, Total 2.7 ng/mL (0.0-4.0)
== END ==
PROVIDERS: PCP Internal Medicine; Referring Provider Urology; Visit Provider Urology
DX: C61 Malignant neoplasm of prostate (principal)
CPT/HCPCS: 36415; 84153; 84154

== ENCOUNTER → 2020-10-28 15:27 | Outpatient (CLI) | payer MEDICARE, MEDICAID, SELFPAY ==
[2019-10-01 22:22] VITALS: BMI 27.9
[2020-10-28 16:21] LABS: BUN Creatinine Ratio 17.6 (6-22); Blood Urea Nitrogen 16 mg/dL (9-20); Calcium 9.9 mg/dL (8.4-10.2); Carbon Dioxide 26 mmol/L (22-32); Chloride 106 mmol/L (98-107); Estimated Glomerular Filt Rate > 60.0 mL/min (>60); Glucose 128 mg/dL (80-110); HEMOLYSIS < 15 (0-50); Potassium 4.7 mmol/L (3.4-5.1); Sodium 136 mmol/L (137-145)
== END ==
PROVIDERS: PCP Internal Medicine; Referring Provider Urology; Visit Provider Urology
DX: C61 Malignant neoplasm of prostate (principal)
CPT/HCPCS: 36415; 80048

== ENCOUNTER → 2020-10-29 08:11 | Outpatient (CLI) | payer MEDICARE, MEDICAID, SELFPAY ==
[2019-10-01 22:22] VITALS: BMI 27.9
--- NOTE | 2020-10-29 | DI.NM.S_ITS ---
PROCEDURE: NM BONE SCAN WHOLE BODY RADIOPHARMACEUTICAL: 21.0 mCi Tc-99m MDP IV. INDICATIONS: Malignant neoplasm of prostate TECHNIQUE: Delayed whole-body scintigrams were obtained approximately 3-4 hours after intravenous injection of radiotracer. Anterior and posterior views were acquired from vertex to feet. Additional left and right oblique views of the spine and chest were obtained. COMPARISON: [facility], CT, CT ABDOMEN PELVIS W CON, 10/29/2020, 9:14. CT abdomen/pelvis 10/29/20 reviewed.. FINDINGS: There is prominent convex rightward scoliosis at the thoracic spine with compensatory convex leftward scoliosis at the lumbosacral spine. Mild degenerative changes are seen as expected along the inner curvature through these regions. There is specifically no evidence of abnormal disc proportionate increased isotope uptake at the L5 region of the lumbosacral spine where degenerative disc disease and mild sclerosis was identified on CT scanning earlier today. Note is made of degenerative osteoarthritic change at the distal forearm and 1st metacarpal base area bilaterally, consistent with degenerative osteoarthritic change greater on the right than the left. IMPRESSION: No evidence of metastatic disease. Prominent convex rightward scoliosis superiorly and leftward scoliosis more inferiorly. Prominent degenerative osteoarthritic change at the distal radius and ulna and base of the 1st metacarpal. Dictated by: Tu Hoffman M.D. on 10/29/2020 at 15:11 Approved by: Tu Hoffman M.D. on 10/29/2020 at 15:14
--- NOTE | 2020-10-29 09:15 | DI.CT.S_ITS ---
PROCEDURE: CT ABDOMEN PELVIS W CON INDICATIONS: Malignant neoplasm of prostate TECHNIQUE: After the administration of oral and intravenous contrast, axial sections were acquired from the lung bases to the pubic symphysis. Coronal and sagittal reformats were performed. For radiation dose reduction, the following was used: automated exposure control, adjustment of mA and/or kV according to patient size. COMPARISON:[facility], CT, CT CERVICAL SPINE WO CON, 10/01/2019, 17:40. FINDINGS: Image quality: Excellent. Lung bases: Unremarkable. Heart: No significant findings. ABDOMEN: Liver: Unremarkable. Gallbladder: Unremarkable. Biliary ducts: Unremarkable. Pancreas: Unremarkable. Spleen: Unremarkable. Adrenal Glands: Unremarkable. Kidneys and Ureters: Large cyst which may originate from the superior pole of the right kidney 8.8 x 6.2 x 5.6 cm, (48 and 2/18). This extends superiorly along the liver. No mural nodule seen. Several simple appearing renal cysts bilaterally. Stomach and Bowel: Stomach, small bowel loops, and colon are unremarkable. The appendix is probably seen subhepatic, (234). The appendix is not dilated. Peritoneum: No abnormal intraperitoneal fluid. No free air. Ventral Wall: No hernia. Abdominal Nodes: No retroperitoneal or mesenteric adenopathy by size criteria. Vessels: Infrarenal abdominal aortic aneurysm measuring 3.1 cm, (4/31). (This appears increased compared to 2019). PELVIS: Pelvic Organs: Prostatomegaly. Cyst in the region of the right epididymis measuring 1.3 cm, (284). Bladder: Unremarkable. Pelvic Nodes: No enlarged lymph nodes. Miscellaneous: Fat containing right inguinal hernia. Bones: Possible subtle sclerotic focus left L5, (5/41). Punctate sclerotic focus in the left ilium. Suspect bone island. Severe scoliosis. IMPRESSION: 1. Prostatomegaly. 2. No adenopathy. 3. Possible subtle sclerotic focus within the L5 vertebral body. -Recommend attention on scheduled bone scan. 4. Large benign-appearing cyst which appears to originate from the right kidney superior pole. 5. Severe scoliosis. Dictated by: Ricardo Zuluaga M.D. on 10/29/2020 at 9:58 Approved by: Ricardo Zuluaga M.D. on 10/29/2020 at 10:15
== END ==
PROVIDERS: PCP Internal Medicine; Referring Provider Urology; Visit Provider Urology
DX: C61 Malignant neoplasm of prostate (principal); M41.84 Other forms of scoliosis, thoracic region
CPT/HCPCS: 74177; 78306; A9503; Q9967

== ENCOUNTER 2021-03-10 09:00 | Outpatient (RCR) | payer MEDICARE, MEDICAID, SELFPAY ==
[2019-10-01 22:22] VITALS: BMI 27.9
[2020-12-16 15:15] VITALS: BP 162/92
--- NOTE | 2020-12-16 16:50 | PT.OIE ---
Current Diagnoses Other idiopathic scoliosis, site unspecified (12/16/20) Radiculopathy, lumbosacral region (12/16/20) Difficulty in walking, not elsewhere classified (12/16/20) Abnormal posture (12/16/20) Past Medical History (Last Updated 10/01/19 @ 23:09 by LEANNE Bailey) H/O inguinal hernia repair High cholesterol Hypertension Lumbar back pain with radiculopathy affecting left lower extremity Marijuana smoker Prostate cancer Scoliosis Venous insufficiency Past Surgical History (Last Updated 10/01/19 @ 23:09 by LEANNE Bailey) H/O inguinal hernia repair Visit Care Team Role Provider Type Winston Knox MD Primary Care Provider Physician Specialty: Internal Medicine Address: [address] [place] [address], [address] Email: [email or web address] Karina Wills MD Attending Provider Physician Referring Provider Specialty: Orthopedic Surgery Address: [address] [place] [address], [id number] Email: [email or web address] [facility] Initial Evaluation PT-OP-A Visit Information Start: 12/16/20 08:48 Freq: Status: Active Protocol: Document 12/16/20 15:15 AW (Rec: 12/17/20 16:14 AW [email or web address]) Out-Patient Physical Therapy Visit Information Visit Information Visit Type Initial Evaluation Visit Start Time 14:30 Visit Stop Time 15:15 Total Visit Minutes 45 Visit Number 1 Number of SPECK DYER Visits 0 Evaluation Information Evaluation Date 12/16/20 Precautions Precautions hypertension PT-OP-B Current Condition Start: 12/16/20 08:48 Freq: Status: Active Protocol: Document 12/16/20 15:15 AW (Rec: 12/16/20 15:18 AW [id number]) Current Condition History of Current Condition Onset Date chronic Current Complaints low back and left hip pain History of Current Condition Pt reports history of ongoing back pain and left hip pain which is often worse in the mornings. He has intermittent numbness in the top of his left foot and chronic neuropathy affecting sensation in both feet. He wears compression stockings of 20-30 mm Hg due to history of syncope. He does not drink enough water, stating he has urinary urgency when he drinks more. He has levoscoliosis. His balance has been worsening and pt reports occasional falls. He uses marijuana for pain control. He has history of alcohol dependence but has been sober since 2010. 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 He enjoys gardening. 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 Prior Treatments and Tests Chiropractic treatment in the past but none currently. Developmental History Developmental History [place] with hearing aids. Rickets . Scoliosis with levocurvature . Astigmatism. Treatment Goals Patient/Caregiver Goals Would like to be able to work with vibratory tools for longer periods for building stringed instruments and general woodworking. Prior Functional Status Baseline Function- ADL's Independent Baseline Function- Mobility Independent Baseline Function- Gait independent without AD Baseline Function- Recreation/Hobbies Able to work with sanding and other vibratory tools for an hour or more without increase in back pain. Personal Factors Other Personal Factors That May Effect (-) chronicity of deficits Therapy/Recovery PT-OP-C Subjective Start: 12/16/20 08:48 Freq: Status: Active Protocol: Document 12/16/20 15:15 AW (Rec: 12/17/20 16:14 AW [email or web address]) Patient Questionnaires Oswestry Low Back Index Oswestry Score 56 Oswestry Impairment 40 to 59% Impaired (Score 40- 59) OP-PT Pain Assessment Pain Assessment Grid Paper Pain Assessment Grid Completed Yes: Diffuse pain with multiple locations marked on chart. See scanned copy. PT-OP-D Balance Start: 12/16/20 08:48 Freq: Status: Active Protocol: Document 12/16/20 15:15 AW (Rec: 12/17/20 16:14 AW [email or web address]) OP-PT Balance Assessment Sitting Balance Static Sitting Balance Ability Good Dynamic Sitting Balance Ability Good Standing Balance Static Standing Balance Ability Good Dynamic Standing Balance Ability Fair Device Used no AD Maria Fall Scale Copyright Permission PT-OP-E Functional Tests Start: 12/16/20 08:48 Freq: Status: Active Protocol: Document 12/16/20 15:15 AW (Rec: 12/17/20 16:19 AW [email or web address]) Functional Tests Dynamic Gait Index (DGI) Score 20 DGI Impairment Rating 1 to <20% Impaired (Score 20- 23) PT-OP-G Mobility & Gait Start: 12/16/20 08:48 Freq: Status: Active Protocol: Document 12/16/20 15:15 AW (Rec: 12/17/20 16:19 AW [email or web address]) OP Mobility Evaluation Functional Movements Squats Able to pick items up from the floor but with some unsteadiness and with back pain. OP Gait Assessment Gait Gait Assistance Required: Independent Distance (Feet) 100 Assistive Devices Assistive Device None Gait Deviations General Gait Pattern Antalgic,Lateral Trunk Lean Factors Limiting Gait Function Factors Limiting Gait Function Decreased Sensation,Decreased Strength,Pain,Poor Balance Comments Gait Comments Increased ipsilateral lean in left stance. PT-OP-H Neuro Start: 12/16/20 08:48 Freq: Status: Active Protocol: Document 12/16/20 15:15 AW (Rec: 12/17/20 16:19 AW [email or web address]) Sensation Evaluation Gross Sensation Gross Sensation Left UE Impaired,Right UE Impaired,Left LE Impaired, Right LE Impaired Comments Summary Comments Numbness in bilateral hands and plantar feet. Intermittent numbness in dorsal feet. Deep Tendon Reflex & Clonus Assessment Deep Tendon Reflex Bilateral Achilles Deep Tendon Reflex 1+ Diminished Bilateral Patellar Deep Tendon Reflex 1+ Diminished Vital Signs Blood Pressure Sitting Blood Pressure (90/60-120/80 mmHg) 162/92 H Blood Pressure Source Manual Cuff PT-OP-J Posture/Palpation/Skin Start: 12/16/20 08:48 Freq: Status: Active Protocol: Document 12/16/20 15:15 AW (Rec: 12/17/20 16:31 AW [email or web address]) Posture Evaluation Position Standing Head/C-Spine Posture Forward Head L-Spine Posture Fixed Scoliosis on (L),Shifted Left Shoulder Posture (L) Rounded,(R) Rounded,(L) Forward Pelvis Posture (R) Iliac Crest Superior Comments Posture Comments Positive Trendelenberg sign bilaterally. Palpation Assessment Location lumbar paraspinals Palpation Details moderate density and TTP along bilateral paraspinals with left more affected than right. PT-OP-K Range of Motion Start: 12/16/20 08:48 Freq: Status: Active Protocol: Document 12/16/20 15:15 AW (Rec: 12/17/20 16:31 AW [email or web address]) Lumbar Spine Range of Motion Lumbar Spine Active Degrees Testing Position Standing Flexion 70 Extension 20 Comments Lateral flexion: fingertips reach knee joint bilaterally. Rotation: decreased right rotation compared with left. Hip Goniometric Range of Motion Hip bilateral Hip ROM WFL Yes Hip ROM Limitations Hip ROM Limitations Pain Comments All AROM and PROM WNL but painful with overpressure. PT-OP-L Special Tests Start: 12/16/20 08:48 Freq: Status: Active Protocol: Document 12/16/20 15:15 AW (Rec: 12/17/20 16:31 AW [email or web address]) Special Tests Lumbar Spine Special Tests Straight Leg Raise Test Results active SLR positive for lower abdominal weakness, improved with compression Manual Traction Test Results relieving Slump Test Results left positive in most provocative position PT-OP-M Strength Start: 12/16/20 08:48 Freq: Status: Active Protocol: Document 12/16/20 15:15 AW (Rec: 12/17/20 16:31 AW [email or web address]) Hip Strength Hip Manual Muscle Testing bilateral Flexion (L2) 4+ Good+ Extension (S1) 4 Good Abduction 4 Good External Rotation 4+ Good+ Internal Rotation 4+ Good+ Knee Strength Knee Manual Muscle Testing bilateral Flexion (S2) 4+ Good+ Extension (L3) 5 Normal PT-OP-T Assessment and Plan Start: 12/16/20 08:48 Freq: Status: Active Protocol: Document 12/16/20 15:15 AW (Rec: 12/17/20 16:50 AW [email or web address]) Physical Therapy Assessment Rehab Potential Rehabilitation Potential Good Evaluation Complexity Number of Personal Factors/Comorbidities 1-2 Number of Body Systems Impaired 3 Clinical Presentation at Evaluation Stable Impairments Impairments Balance,Functional Activities, Functional Mobility,Gait,Pain, Posture,ROM,Sensation,Soft Tissue Mobility,Strength Other Concerns Fall Risk moderate per DGI score of 20/ 24 Goals Four Impairment lacks HEP Short Term Goal (STG) Pt will be independent with appropriate HEP for pain management to support therapy services provided in clinic. STG Duration 6 weeks - 01/27/21 Three Impairment PAT Short Term Goal (STG) Pt will improve PAT score to 45% impairment or better. STG Duration 6 weeks - 01/27/21 Long-Term Goal (LTG) Pt will improve PAT score to 35% impairment or better for improved function in daily activities. LTG Duration 12 weeks - 03/10/21 Two Impairment dynamic balance Long-Term Goal (LTG) Pt will improve score on Dynamic Gait Index from 20/24 to 23/24 or greater to demonstrate reduced falls risk . LTG Duration 12 weeks - 03/10/21 One Impairment standing tolerance Short Term Goal (STG) Pt will tolerate standing to use tools 30 minutes or greater without increase in baseline pain STG Duration 6 weeks - 01/27/21 Soldering Machine Feeder Goal (LTG) Pt will stand to use vibratory tools such as sanding 30 minutes or greater for return to instrument-making activities. LTG Duration 12 weeks - 03/10/21 Assessment Summary Assessment is a 70 yo man seen for PT evaluation in the outpatient setting with complaints of low back pain, left hip pain, and worsening balance. He has scoliosis, strength and range of motion deficits contributing to pain and balance impairment. His score of 20/24 on Dynamic Gait Index indicates moderate risk of falls. Pt would benefit from skilled physical therapy to address postural, strength, and ROM deficits and promote return to recreational activities and reduce overall risk of falls. Physical Therapy Plan Frequency and Duration Frequency of Treatment 1-2x/week Duration of Treatment 12 weeks Plan of Care Start Date 12/16/20 Plan of Care End Date 03/10/21 Therapeutic Interventions Therapeutic Interventions Balance Training,Gait Training ,Home Exercise Program,Joint Mobilizations,Manual Therapy, Neuromuscular Re-education, Patient/Caregiver Education, Self-Care/Home Management, Sensory Integration,Soft Tissue Mobilization,Taping, Therapeutic Activities, Therapeutic Exercises Modalities Cold Pack/Ice Massage,Hot Packs Next Visit Focus/Plan Next Note Type Treatment Note Next Visit Plan initiate lumbar ROM, sciatic nerve glide, consider manual lumbar traction
--- NOTE | 2020-12-17 16:51 | PT.OPPOC ---
Physical, Occupational & Speech Therapy At [facility] Current Diagnoses Other idiopathic scoliosis, site unspecified (12/16/20) Radiculopathy, lumbosacral region (12/16/20) Difficulty in walking, not elsewhere classified (12/16/20) Abnormal posture (12/16/20) Visit Care Team Role Provider Type Winston Knox MD Primary Care Provider Physician Specialty: Internal Medicine Address: [address] [place] [address], [address] Email: [email or web address] Karina Wills MD Attending Provider Physician Referring Provider Specialty: Orthopedic Surgery Address: [address] [place] [address], [address] Email: [email or web address] Plan Of Care PT-OP-T Assessment and Plan Start: 12/16/20 08:48 Freq: Status: Active Protocol: Document 12/16/20 15:15 AW (Rec: 12/17/20 16:50 AW [email or web address]) Physical Therapy Assessment Rehab Potential Rehabilitation Potential Good Evaluation Complexity Number of Personal Factors/Comorbidities 1-2 Number of Body Systems Impaired 3 Clinical Presentation at Evaluation Stable Impairments Impairments Balance,Functional Activities, Functional Mobility,Gait,Pain, Posture,ROM,Sensation,Soft Tissue Mobility,Strength Other Concerns Fall Risk moderate per DGI score of 20/ 24 Goals Four Impairment lacks HEP Short Term Goal (STG) Pt will be independent with appropriate HEP for pain management to support therapy services provided in clinic. STG Duration 6 weeks - 01/27/21 Three Impairment PAT Short Term Goal (STG) Pt will improve PAT score to 45% impairment or better. STG Duration 6 weeks - 01/27/21 Care Home Goal (LTG) Pt will improve PAT score to 35% impairment or better for improved function in daily activities. LTG Duration 12 weeks - 03/10/21 Two Impairment dynamic balance Care Home Goal (LTG) Pt will improve score on Dynamic Gait Index from 20/24 to 23/24 or greater to demonstrate reduced falls risk . LTG Duration 12 weeks - 03/10/21 One Impairment standing tolerance Short Term Goal (STG) Pt will tolerate standing to use tools 30 minutes or greater without increase in baseline pain STG Duration 6 weeks - 01/27/21 Quality Assurance Goal (LTG) Pt will stand to use vibratory tools such as sanding 30 minutes or greater for return to instrument-making activities. LTG Duration 12 weeks - 03/10/21 Assessment Summary Assessment is a 70 yo man seen for PT evaluation in the outpatient setting with complaints of low back pain, left hip pain, and worsening balance. He has scoliosis, strength and range of motion deficits contributing to pain and balance impairment. His score of 20/24 on Dynamic Gait Index indicates moderate risk of falls. Pt would benefit from skilled physical therapy to address postural, strength, and ROM deficits and promote return to recreational activities and reduce overall risk of falls. Physical Therapy Plan Frequency and Duration Frequency of Treatment 1-2x/week Duration of Treatment 12 weeks Plan of Care Start Date 12/16/20 Plan of Care End Date 03/10/21 Therapeutic Interventions Therapeutic Interventions Balance Training,Gait Training ,Home Exercise Program,Joint Mobilizations,Manual Therapy, Neuromuscular Re-education, Patient/Caregiver Education, Self-Care/Home Management, Sensory Integration,Soft Tissue Mobilization,Taping, Therapeutic Activities, Therapeutic Exercises Modalities Cold Pack/Ice Massage,Hot Packs Next Visit Focus/Plan Next Note Type Treatment Note Next Visit Plan initiate lumbar ROM, sciatic nerve glide, consider manual lumbar traction Plan of Care Dates Plan of Care Start Date 12/16/20 Plan of Care End Date 03/10/21 Electronically Signed by: Myranda Llanes, PT 12/17/20 [id number] Please Sign and Return: I have reviewed this Plan of Care and certify that the skilled therapy services above are required to meet the patient?s needs. Physician Signature Date Printed Name and Credentials Clinical Instructor Signature Printed Name and Credentials
--- NOTE | 2020-12-25 12:55 | PT.OTN ---
Current Diagnoses Other idiopathic scoliosis, site unspecified (12/25/20) Radiculopathy, lumbosacral region (12/25/20) Difficulty in walking, not elsewhere classified (12/25/20) Abnormal posture (12/25/20) Physical Therapy Treatment Note PT-OP-A Visit Information Start: 12/16/20 08:48 Freq: Status: Active Protocol: Document 12/25/20 12:06 MA (Rec: 12/25/20 12:55 MA [id number]) Out-Patient Physical Therapy Visit Information Visit Information Visit Type Treatment Note Visit Start Time 12:03 Visit Stop Time 12:45 Total Visit Minutes 42 Visit Number 2 Number of PRODUCTION ASSOCIATE Visits 1 Precautions Precautions hypertension PT-OP-B Current Condition Start: 12/16/20 08:48 Freq: Status: Active Protocol: Document 12/16/20 15:15 AW (Rec: 12/16/20 15:18 AW [id number]) Current Condition History of Current Condition Onset Date chronic Current Complaints low back and left hip pain History of Current Condition Pt reports history of ongoing back pain and left hip pain which is often worse in the mornings. He has intermittent numbness in the top of his left foot and chronic neuropathy affecting sensation in both feet. He wears compression stockings of 20-30 mm Hg due to history of syncope. He does not drink enough water, stating he has urinary urgency when he drinks more. He has levoscoliosis. His balance has been worsening and pt reports occasional falls. He uses marijuana for pain control. He has history of alcohol dependence but has been sober since 2010. 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 Prior Treatments and Tests Chiropractic treatment in the past but none currently. Developmental History Developmental History [place] with hearing aids. Rickets . Scoliosis with levocurvature . Astigmatism. Treatment Goals Patient/Caregiver Goals Would like to be able to work with vibratory tools for longer periods for building stringed instruments and general woodworking. Prior Functional Status Baseline Function- ADL's Independent Baseline Function- Mobility Independent Baseline Function- Gait independent without AD Baseline Function- Recreation/Hobbies Able to work with sanding and other vibratory tools for an hour or more without increase in back pain. Personal Factors Other Personal Factors That May Effect (-) chronicity of deficits Therapy/Recovery PT-OP-C Subjective Start: 12/16/20 08:48 Freq: Status: Active Protocol: Document 12/25/20 12:06 MA (Rec: 12/25/20 12:55 MA [id number]) OP-PT Subjective Patient Comments Patient Comments Pt is excited to try therapy and thinks it will really help him PT-OP-D Balance Start: 12/16/20 08:48 Freq: Status: Active Protocol: Document 12/16/20 15:15 AW (Rec: 12/17/20 16:14 AW [email or web address]) OP-PT Balance Assessment Sitting Balance Static Sitting Balance Ability Good Dynamic Sitting Balance Ability Good Standing Balance Static Standing Balance Ability Good Dynamic Standing Balance Ability Fair Device Used no AD Maria Fall Scale Copyright Permission PT-OP-E Functional Tests Start: 12/16/20 08:48 Freq: Status: Active Protocol: Document 12/16/20 15:15 AW (Rec: 12/17/20 16:19 AW [email or web address]) Functional Tests Dynamic Gait Index (DGI) Score 20 DGI Impairment Rating 1 to <20% Impaired (Score 20- 23) PT-OP-G Mobility & Gait Start: 12/16/20 08:48 Freq: Status: Active Protocol: Document 12/16/20 15:15 AW (Rec: 12/17/20 16:19 AW [email or web address]) OP Mobility Evaluation Functional Movements Squats Able to pick items up from the floor but with some unsteadiness and with back pain. OP Gait Assessment Gait Gait Assistance Required: Independent Distance (Feet) 100 Assistive Devices Assistive Device None Gait Deviations General Gait Pattern Antalgic,Lateral Trunk Lean Factors Limiting Gait Function Factors Limiting Gait Function Decreased Sensation,Decreased Strength,Pain,Poor Balance Comments Gait Comments Increased ipsilateral lean in left stance. PT-OP-H Neuro Start: 12/16/20 08:48 Freq: Status: Active Protocol: Document 12/16/20 15:15 AW (Rec: 12/17/20 16:19 AW [email or web address]) Sensation Evaluation Gross Sensation Gross Sensation Left UE Impaired,Right UE Impaired,Left LE Impaired, Right LE Impaired Comments Summary Comments Numbness in bilateral hands and plantar feet. Intermittent numbness in dorsal feet. Deep Tendon Reflex & Clonus Assessment Deep Tendon Reflex Bilateral Achilles Deep Tendon Reflex 1+ Diminished Bilateral Patellar Deep Tendon Reflex 1+ Diminished Vital Signs Blood Pressure Sitting Blood Pressure (90/60-120/80 mmHg) 162/92 H Blood Pressure Source Manual Cuff PT-OP-J Posture/Palpation/Skin Start: 12/16/20 08:48 Freq: Status: Active Protocol: Document 12/16/20 15:15 AW (Rec: 12/17/20 16:31 AW [email or web address]) Posture Evaluation Position Standing Head/C-Spine Posture Forward Head L-Spine Posture Fixed Scoliosis on (L),Shifted Left Shoulder Posture (L) Rounded,(R) Rounded,(L) Forward Pelvis Posture (R) Iliac Crest Superior Comments Posture Comments Positive Trendelenberg sign bilaterally. Palpation Assessment Location lumbar paraspinals Palpation Details moderate density and TTP along bilateral paraspinals with left more affected than right. PT-OP-K Range of Motion Start: 12/16/20 08:48 Freq: Status: Active Protocol: Document 12/16/20 15:15 AW (Rec: 12/17/20 16:31 AW [email or web address]) Lumbar Spine Range of Motion Lumbar Spine Active Degrees Testing Position Standing Flexion 70 Extension 20 Comments Lateral flexion: fingertips reach knee joint bilaterally. Rotation: decreased right rotation compared with left. Hip Goniometric Range of Motion Hip bilateral Hip ROM WFL Yes Hip ROM Limitations Hip ROM Limitations Pain Comments All AROM and PROM WNL but painful with overpressure. PT-OP-L Special Tests Start: 12/16/20 08:48 Freq: Status: Active Protocol: Document 12/16/20 15:15 AW (Rec: 12/17/20 16:31 AW [email or web address]) Special Tests Lumbar Spine Special Tests Straight Leg Raise Test Results active SLR positive for lower abdominal weakness, improved with compression Manual Traction Test Results relieving Slump Test Results left positive in most provocative position PT-OP-M Strength Start: 12/16/20 08:48 Freq: Status: Active Protocol: Document 12/16/20 15:15 AW (Rec: 12/17/20 16:31 AW [email or web address]) Hip Strength Hip Manual Muscle Testing bilateral Flexion (L2) 4+ Good+ Extension (S1) 4 Good Abduction 4 Good External Rotation 4+ Good+ Internal Rotation 4+ Good+ Knee Strength Knee Manual Muscle Testing bilateral Flexion (S2) 4+ Good+ Extension (L3) 5 Normal PT-OP-Q Treatments Start: 12/16/20 08:48 Freq: Status: Active Protocol: Document 12/25/20 12:06 MA (Rec: 12/25/20 12:55 MA [id number]) Therapeutic Exercises Supine Exercises Piriformis stretch Side bilateral Reps/Minutes 30' sciatic nerve glide Side bilateral Reps/Minutes 5x 3 ankle pumps LTR Supine Exercise Name lower trunk rotation Side bilateral Reps/Minutes 6x 10SH BKFO Supine Exercise Name Bent knee fall out Side bilateral Reps/Minutes x10 Sidelying Exercises Open Book Side bilateral Reps/Minutes 5x ea Comments alternating with bent elbow and straight arm Self-Care/Home Management Treatment Education Patient Education Home Exercise Program Other Education Added and reviewed the following HEP exercises: BKFO, LTR, Open Book, Piriformis stretch seated or supine, and supine sciatic nerve glide PT-OP-T Assessment and Plan Start: 12/16/20 08:48 Freq: Status: Active Protocol: Document 12/25/20 12:06 MA (Rec: 12/25/20 12:55 MA [id number]) Physical Therapy Assessment Goals Four Impairment lacks HEP Short Term Goal (STG) Pt will be independent with appropriate HEP for pain management to support therapy services provided in clinic. STG Duration 6 weeks - 01/27/21 Three Impairment PAT Short Term Goal (STG) Pt will improve PAT score to 45% impairment or better. STG Duration 6 weeks - 01/27/21 Tractor Trailer Moving Van Driver Goal (LTG) Pt will improve PAT score to 35% impairment or better for improved function in daily activities. LTG Duration 12 weeks - 03/10/21 Two Impairment dynamic balance Correction Goal (LTG) Pt will improve score on Dynamic Gait Index from 20/24 to 23/24 or greater to demonstrate reduced falls risk . LTG Duration 12 weeks - 03/10/21 One Impairment standing tolerance Short Term Goal (STG) Pt will tolerate standing to use tools 30 minutes or greater without increase in baseline pain STG Duration 6 weeks - 01/27/21 Tractor Trailer Moving Van Driver Goal (LTG) Pt will stand to use vibratory tools such as sanding 30 minutes or greater for return to instrument-making activities. LTG Duration 12 weeks - 03/10/21 Assessment Summary Assessment enjoyed all stretches/ exercises today and feels they will help with all his ailments but he requires frequent cues to stay on task or will talk and get distracted. Added BKFO, LTR, open book, piriformis stretch, and supine sciatic nerve glide to HEP. During open book exercise, pt likes to alternate between having elbow bent with hand behind head and a straight arm. will benefit from skilled therapy to improve his chronic back pain. Physical Therapy Plan Frequency and Duration Frequency of Treatment 1-2x/week Duration of Treatment 12 weeks Plan of Care Start Date 12/16/20 Plan of Care End Date 03/10/21 Therapeutic Interventions Therapeutic Interventions Balance Training,Gait Training ,Home Exercise Program,Joint Mobilizations,Manual Therapy, Neuromuscular Re-education, Patient/Caregiver Education, Self-Care/Home Management, Sensory Integration,Soft Tissue Mobilization,Taping, Therapeutic Activities, Therapeutic Exercises Modalities Cold Pack/Ice Massage,Hot Packs Next Visit Focus/Plan Next Note Type Treatment Note Next Visit Plan Review new HEP exercises, consider manual lumbar traction, begin STM as needed
--- NOTE | 2020-12-30 11:37 | PT.OTN ---
Current Diagnoses Other idiopathic scoliosis, site unspecified (12/30/20) Radiculopathy, lumbosacral region (12/30/20) Difficulty in walking, not elsewhere classified (12/30/20) Abnormal posture (12/30/20) Physical Therapy Treatment Note PT-OP-A Visit Information Start: 12/16/20 08:48 Freq: Status: Active Protocol: Document 12/30/20 10:30 AW (Rec: 12/30/20 10:31 AW [id number]) Out-Patient Physical Therapy Visit Information Visit Information Visit Type Treatment Note Visit Start Time 09:47 Visit Stop Time 10:30 Total Visit Minutes 43 Visit Number 3 Number of SYSTEM SUPPORT DEVELOPER Visits 0 Evaluation Information Evaluation Date 12/16/20 Precautions Precautions hypertension PT-OP-B Current Condition Start: 12/16/20 08:48 Freq: Status: Active Protocol: Document 12/16/20 15:15 AW (Rec: 12/16/20 15:18 AW [id number]) Current Condition History of Current Condition Onset Date chronic Current Complaints low back and left hip pain History of Current Condition Pt reports history of ongoing back pain and left hip pain which is often worse in the mornings. He has intermittent numbness in the top of his left foot and chronic neuropathy affecting sensation in both feet. He wears compression stockings of 20-30 mm Hg due to history of syncope. He does not drink enough water, stating he has urinary urgency when he drinks more. He has levoscoliosis. His balance has been worsening and pt reports occasional falls. He uses marijuana for pain control. He has history of alcohol dependence but has been sober since 2010. 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 He enjoys gardening. 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 Prior Treatments and Tests Chiropractic treatment in the past but none currently. Developmental History Developmental History [place] with hearing aids. Rickets . Scoliosis with levocurvature . Astigmatism. Treatment Goals Patient/Caregiver Goals Would like to be able to work with vibratory tools for longer periods for building stringed instruments and general woodworking. Prior Functional Status Baseline Function- ADL's Independent Baseline Function- Mobility Independent Baseline Function- Gait independent without AD Baseline Function- Recreation/Hobbies Able to work with sanding and other vibratory tools for an hour or more without increase in back pain. Personal Factors Other Personal Factors That May Effect (-) chronicity of deficits Therapy/Recovery PT-OP-C Subjective Start: 12/16/20 08:48 Freq: Status: Active Protocol: Document 12/30/20 10:30 AW (Rec: 12/30/20 10:31 AW [id number]) OP-PT Subjective Patient Comments Patient Comments I was sore on Monday but been doing my homework since Monday. Feels good. PT-OP-D Balance Start: 12/16/20 08:48 Freq: Status: Active Protocol: Document 12/16/20 15:15 AW (Rec: 12/17/20 16:14 AW [email or web address]) OP-PT Balance Assessment Sitting Balance Static Sitting Balance Ability Good Dynamic Sitting Balance Ability Good Standing Balance Static Standing Balance Ability Good Dynamic Standing Balance Ability Fair Device Used no AD Maria Fall Scale Copyright Permission PT-OP-E Functional Tests Start: 12/16/20 08:48 Freq: Status: Active Protocol: Document 12/16/20 15:15 AW (Rec: 12/17/20 16:19 AW [email or web address]) Functional Tests Dynamic Gait Index (DGI) Score 20 DGI Impairment Rating 1 to <20% Impaired (Score 20- 23) PT-OP-G Mobility & Gait Start: 12/16/20 08:48 Freq: Status: Active Protocol: Document 12/16/20 15:15 AW (Rec: 12/17/20 16:19 AW [email or web address]) OP Mobility Evaluation Functional Movements Squats Able to pick items up from the floor but with some unsteadiness and with back pain. OP Gait Assessment Gait Gait Assistance Required: Independent Distance (Feet) 100 Assistive Devices Assistive Device None Gait Deviations General Gait Pattern Antalgic,Lateral Trunk Lean Factors Limiting Gait Function Factors Limiting Gait Function Decreased Sensation,Decreased Strength,Pain,Poor Balance Comments Gait Comments Increased ipsilateral lean in left stance. PT-OP-H Neuro Start: 12/16/20 08:48 Freq: Status: Active Protocol: Document 12/16/20 15:15 AW (Rec: 12/17/20 16:19 AW [email or web address]) Sensation Evaluation Gross Sensation Gross Sensation Left UE Impaired,Right UE Impaired,Left LE Impaired, Right LE Impaired Comments Summary Comments Numbness in bilateral hands and plantar feet. Intermittent numbness in dorsal feet. Deep Tendon Reflex & Clonus Assessment Deep Tendon Reflex Bilateral Achilles Deep Tendon Reflex 1+ Diminished Bilateral Patellar Deep Tendon Reflex 1+ Diminished Vital Signs Blood Pressure Sitting Blood Pressure (90/60-120/80 mmHg) 162/92 H Blood Pressure Source Manual Cuff PT-OP-J Posture/Palpation/Skin Start: 12/16/20 08:48 Freq: Status: Active Protocol: Document 12/16/20 15:15 AW (Rec: 12/17/20 16:31 AW [email or web address]) Posture Evaluation Position Standing Head/C-Spine Posture Forward Head L-Spine Posture Fixed Scoliosis on (L),Shifted Left Shoulder Posture (L) Rounded,(R) Rounded,(L) Forward Pelvis Posture (R) Iliac Crest Superior Comments Posture Comments Positive Trendelenberg sign bilaterally. Palpation Assessment Location lumbar paraspinals Palpation Details moderate density and TTP along bilateral paraspinals with left more affected than right. PT-OP-K Range of Motion Start: 12/16/20 08:48 Freq: Status: Active Protocol: Document 12/16/20 15:15 AW (Rec: 12/17/20 16:31 AW [email or web address]) Lumbar Spine Range of Motion Lumbar Spine Active Degrees Testing Position Standing Flexion 70 Extension 20 Comments Lateral flexion: fingertips reach knee joint bilaterally. Rotation: decreased right rotation compared with left. Hip Goniometric Range of Motion Hip bilateral Hip ROM WFL Yes Hip ROM Limitations Hip ROM Limitations Pain Comments All AROM and PROM WNL but painful with overpressure. PT-OP-L Special Tests Start: 12/16/20 08:48 Freq: Status: Active Protocol: Document 12/16/20 15:15 AW (Rec: 12/17/20 16:31 AW [email or web address]) Special Tests Lumbar Spine Special Tests Straight Leg Raise Test Results active SLR positive for lower abdominal weakness, improved with compression Manual Traction Test Results relieving Slump Test Results left positive in most provocative position PT-OP-M Strength Start: 12/16/20 08:48 Freq: Status: Active Protocol: Document 12/16/20 15:15 AW (Rec: 12/17/20 16:31 AW [email or web address]) Hip Strength Hip Manual Muscle Testing bilateral Flexion (L2) 4+ Good+ Extension (S1) 4 Good Abduction 4 Good External Rotation 4+ Good+ Internal Rotation 4+ Good+ Knee Strength Knee Manual Muscle Testing bilateral Flexion (S2) 4+ Good+ Extension (L3) 5 Normal PT-OP-Q Treatments Start: 12/16/20 08:48 Freq: Status: Active Protocol: Document 12/30/20 10:30 AW (Rec: 12/30/20 10:31 AW [id number]) Therapeutic Exercises Supine Exercises bridge Supine Exercise Name bridge Equipment Used small green ball Reps/Minutes 12 x 2 Comments ball for alignment; 3 SH supine clamshell Supine Exercise Name supine clamshell Side bilateral Equipment Used level 2 Reps/Minutes TB Comments cued slow controlled movement Piriformis stretch Side bilateral Reps/Minutes 30' x 4 sciatic nerve glide Side bilateral Reps/Minutes 5x 3 ankle pumps LTR Supine Exercise Name lower trunk rotation Side bilateral Reps/Minutes 6x 10SH BKFO Supine Exercise Name Bent knee fall out Side bilateral Reps/Minutes x10 Comments cued CHARISMA Other Exercises sit to stand Other Exercise Name sit to stand Comments focus fwd weight shift; no UE support Self-Care/Home Management Treatment Education Patient Education Home Exercise Program Other Education Reviewed HEP for independent performance and added bridge, supine clamshell. PT-OP-T Assessment and Plan Start: 12/16/20 08:48 Freq: Status: Active Protocol: Document 12/30/20 10:30 AW (Rec: 12/30/20 11:37 AW [email or web address]) Physical Therapy Assessment Other Concerns Fall Risk moderate per DGI score of 20/ 24 Goals Four Impairment lacks HEP Short Term Goal (STG) Pt will be independent with appropriate HEP for pain management to support therapy services provided in clinic. STG Duration 6 weeks - 01/27/21 Three Impairment PAT Short Term Goal (STG) Pt will improve PAT score to 45% impairment or better. STG Duration 6 weeks - 01/27/21 Kardex Clerk Goal (LTG) Pt will improve PAT score to 35% impairment or better for improved function in daily activities. LTG Duration 12 weeks - 03/10/21 Two Impairment dynamic balance [facility] Goal (LTG) Pt will improve score on Dynamic Gait Index from 20/24 to 23/24 or greater to demonstrate reduced falls risk . LTG Duration 12 weeks - 03/10/21 One Impairment standing tolerance Short Term Goal (STG) Pt will tolerate standing to use tools 30 minutes or greater without increase in baseline pain STG Duration 6 weeks - 01/27/21 Kardex Clerk Goal (LTG) Pt will stand to use vibratory tools such as sanding 30 minutes or greater for return to instrument-making activities. LTG Duration 12 weeks - 03/10/21 Assessment Summary Assessment required cues for set up of HEP but has clearly been performing the exercises at home. Added two supine exercises today for general hip strengthening. Plan to progress to seated/theraball activities at next session. Physical Therapy Plan Frequency and Duration Frequency of Treatment 1-2x/week Duration of Treatment 12 weeks Plan of Care Start Date 12/16/20 Plan of Care End Date 03/10/21 Therapeutic Interventions Therapeutic Interventions Balance Training,Gait Training ,Home Exercise Program,Joint Mobilizations,Manual Therapy, Neuromuscular Re-education, Patient/Caregiver Education, Self-Care/Home Management, Sensory Integration,Soft Tissue Mobilization,Taping, Therapeutic Activities, Therapeutic Exercises Modalities Cold Pack/Ice Massage,Hot Packs Next Visit Focus/Plan Next Visit Plan Review new HEP exercises, consider seated/theraball progression for lumbar mobility/stability
--- NOTE | 2021-01-01 12:28 | PT.OTN ---
Current Diagnoses Other idiopathic scoliosis, site unspecified (01/01/21) Radiculopathy, lumbosacral region (01/01/21) Difficulty in walking, not elsewhere classified (01/01/21) Abnormal posture (01/01/21) Physical Therapy Treatment Note PT-OP-A Visit Information Start: 12/16/20 08:48 Freq: Status: Active Protocol: Document 01/01/21 09:50 MA (Rec: 01/01/21 10:32 MA [id number]) Out-Patient Physical Therapy Visit Information Visit Information Visit Type Treatment Note Visit Start Time 09:48 Visit Stop Time 10:28 Total Visit Minutes 40 Visit Number 4 Number of COIN MACHINE MECHANIC Visits 1 Precautions Precautions hypertension PT-OP-B Current Condition Start: 12/16/20 08:48 Freq: Status: Active Protocol: Document 12/16/20 15:15 AW (Rec: 12/16/20 15:18 AW [id number]) Current Condition History of Current Condition Onset Date chronic Current Complaints low back and left hip pain History of Current Condition Pt reports history of ongoing back pain and left hip pain which is often worse in the mornings. He has intermittent numbness in the top of his left foot and chronic neuropathy affecting sensation in both feet. He wears compression stockings of 20-30 mm Hg due to history of syncope. He does not drink enough water, stating he has urinary urgency when he drinks more. He has levoscoliosis. His balance has been worsening and pt reports occasional falls. He uses marijuana for pain control. He has history of alcohol dependence but has been sober since 2010. 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 Prior Treatments and Tests Chiropractic treatment in the past but none currently. Developmental History Developmental History [place] with hearing aids. Rickets . Scoliosis with levocurvature . Astigmatism. Treatment Goals Patient/Caregiver Goals Would like to be able to work with vibratory tools for longer periods for building stringed instruments and general woodworking. Prior Functional Status Baseline Function- ADL's Independent Baseline Function- Mobility Independent Baseline Function- Gait independent without AD Baseline Function- Recreation/Hobbies Able to work with sanding and other vibratory tools for an hour or more without increase in back pain. Personal Factors Other Personal Factors That May Effect (-) chronicity of deficits Therapy/Recovery PT-OP-C Subjective Start: 12/16/20 08:48 Freq: Status: Active Protocol: Document 01/01/21 09:50 MA (Rec: 01/01/21 10:32 MA [id number]) OP-PT Subjective Patient Comments Patient Comments I forgot to take my meds last night and I was working on digging slivers out of my hand yesterday so I didn't do my exercises PT-OP-D Balance Start: 12/16/20 08:48 Freq: Status: Active Protocol: Document 12/16/20 15:15 AW (Rec: 12/17/20 16:14 AW [email or web address]) OP-PT Balance Assessment Sitting Balance Static Sitting Balance Ability Good Dynamic Sitting Balance Ability Good Standing Balance Static Standing Balance Ability Good Dynamic Standing Balance Ability Fair Device Used no AD Maria Fall Scale Copyright Permission PT-OP-E Functional Tests Start: 12/16/20 08:48 Freq: Status: Active Protocol: Document 12/16/20 15:15 AW (Rec: 12/17/20 16:19 AW [email or web address]) Functional Tests Dynamic Gait Index (DGI) Score 20 DGI Impairment Rating 1 to <20% Impaired (Score 20- 23) PT-OP-G Mobility & Gait Start: 12/16/20 08:48 Freq: Status: Active Protocol: Document 12/16/20 15:15 AW (Rec: 12/17/20 16:19 AW [email or web address]) OP Mobility Evaluation Functional Movements Squats Able to pick items up from the floor but with some unsteadiness and with back pain. OP Gait Assessment Gait Gait Assistance Required: Independent Distance (Feet) 100 Assistive Devices Assistive Device None Gait Deviations General Gait Pattern Antalgic,Lateral Trunk Lean Factors Limiting Gait Function Factors Limiting Gait Function Decreased Sensation,Decreased Strength,Pain,Poor Balance Comments Gait Comments Increased ipsilateral lean in left stance. PT-OP-H Neuro Start: 12/16/20 08:48 Freq: Status: Active Protocol: Document 12/16/20 15:15 AW (Rec: 12/17/20 16:19 AW [email or web address]) Sensation Evaluation Gross Sensation Gross Sensation Left UE Impaired,Right UE Impaired,Left LE Impaired, Right LE Impaired Comments Summary Comments Numbness in bilateral hands and plantar feet. Intermittent numbness in dorsal feet. Deep Tendon Reflex & Clonus Assessment Deep Tendon Reflex Bilateral Achilles Deep Tendon Reflex 1+ Diminished Bilateral Patellar Deep Tendon Reflex 1+ Diminished Vital Signs Blood Pressure Sitting Blood Pressure (90/60-120/80 mmHg) 162/92 H Blood Pressure Source Manual Cuff PT-OP-J Posture/Palpation/Skin Start: 12/16/20 08:48 Freq: Status: Active Protocol: Document 12/16/20 15:15 AW (Rec: 12/17/20 16:31 AW [email or web address]) Posture Evaluation Position Standing Head/C-Spine Posture Forward Head L-Spine Posture Fixed Scoliosis on (L),Shifted Left Shoulder Posture (L) Rounded,(R) Rounded,(L) Forward Pelvis Posture (R) Iliac Crest Superior Comments Posture Comments Positive Trendelenberg sign bilaterally. Palpation Assessment Location lumbar paraspinals Palpation Details moderate density and TTP along bilateral paraspinals with left more affected than right. PT-OP-K Range of Motion Start: 12/16/20 08:48 Freq: Status: Active Protocol: Document 12/16/20 15:15 AW (Rec: 12/17/20 16:31 AW [email or web address]) Lumbar Spine Range of Motion Lumbar Spine Active Degrees Testing Position Standing Flexion 70 Extension 20 Comments Lateral flexion: fingertips reach knee joint bilaterally. Rotation: decreased right rotation compared with left. Hip Goniometric Range of Motion Hip bilateral Hip ROM WFL Yes Hip ROM Limitations Hip ROM Limitations Pain Comments All AROM and PROM WNL but painful with overpressure. PT-OP-L Special Tests Start: 12/16/20 08:48 Freq: Status: Active Protocol: Document 12/16/20 15:15 AW (Rec: 12/17/20 16:31 AW [email or web address]) Special Tests Lumbar Spine Special Tests Straight Leg Raise Test Results active SLR positive for lower abdominal weakness, improved with compression Manual Traction Test Results relieving Slump Test Results left positive in most provocative position PT-OP-M Strength Start: 12/16/20 08:48 Freq: Status: Active Protocol: Document 12/16/20 15:15 AW (Rec: 12/17/20 16:31 AW [email or web address]) Hip Strength Hip Manual Muscle Testing bilateral Flexion (L2) 4+ Good+ Extension (S1) 4 Good Abduction 4 Good External Rotation 4+ Good+ Internal Rotation 4+ Good+ Knee Strength Knee Manual Muscle Testing bilateral Flexion (S2) 4+ Good+ Extension (L3) 5 Normal PT-OP-Q Treatments Start: 12/16/20 08:48 Freq: Status: Active Protocol: Document 01/01/21 09:50 MA (Rec: 01/01/21 10:32 MA [id number]) Gym Equipment Therapeutic Ball 65 cm Ball Size/Color green 65 cm Comments pelvic tilts & circles Therapeutic Exercises Supine Exercises bridge Supine Exercise Name bridge Equipment Used small green ball Reps/Minutes 12 x 2 Comments ball for alignment; 3 SH supine clamshell Supine Exercise Name supine clamshell Side bilateral Equipment Used level 2 TB Reps/Minutes 2x10 Comments cued slow controlled movement Piriformis stretch Side bilateral Reps/Minutes 30' x 2 sciatic nerve glide Side bilateral Reps/Minutes 5x 3 ankle pumps LTR Supine Exercise Name lower trunk rotation Side bilateral Reps/Minutes 6x 10SH Sidelying Exercises Open Book Side bilateral Reps/Minutes 5x ea Comments straight arms today Other Exercises Cat/Cow Reps/Minutes x8 PT-OP-T Assessment and Plan Start: 12/16/20 08:48 Freq: Status: Active Protocol: Document 01/01/21 09:50 MA (Rec: 01/01/21 10:32 MA [id number]) Physical Therapy Assessment Goals Four Impairment lacks HEP Short Term Goal (STG) Pt will be independent with appropriate HEP for pain management to support therapy services provided in clinic. STG Duration 6 weeks - 01/27/21 Three Impairment PAT Short Term Goal (STG) Pt will improve PAT score to 45% impairment or better. STG Duration 6 weeks - 01/27/21 [facility] Goal (LTG) Pt will improve PAT score to 35% impairment or better for improved function in daily activities. LTG Duration 12 weeks - 03/10/21 Two Impairment dynamic balance [facility] Goal (LTG) Pt will improve score on Dynamic Gait Index from 20/24 to 23/24 or greater to demonstrate reduced falls risk . LTG Duration 12 weeks - 03/10/21 One Impairment standing tolerance Short Term Goal (STG) Pt will tolerate standing to use tools 30 minutes or greater without increase in baseline pain STG Duration 6 weeks - 01/27/21 Barrel Lathe Operator Goal (LTG) Pt will stand to use vibratory tools such as sanding 30 minutes or greater for return to instrument-making activities. LTG Duration 12 weeks - 03/10/21 Assessment Summary Assessment Reviewed HEP exercises with pt requiring cues to squeeze ball during bridges. He has difficulty anteriorly tilting pelvis during pelvic tilts on ball and tends to flex thoracic spine vs lumbar spine when instructed to posteriorly tilt pelvis. Attemped cat/cow stretch ( spinal flexion/extension) with pt having difficutly with extension and minor pain. Will attempt supine pelvic tilts next session to continue working on moving lumbar spine to decrease LBP. Did not add any exercises to HEP this session and instructed pt to continue with HEP from previous sessions. Physical Therapy Plan Frequency and Duration Frequency of Treatment 1-2x/week Duration of Treatment 12 weeks Plan of Care Start Date 12/16/20 Plan of Care End Date 03/10/21 Therapeutic Interventions Therapeutic Interventions Balance Training,Gait Training ,Home Exercise Program,Joint Mobilizations,Manual Therapy, Neuromuscular Re-education, Patient/Caregiver Education, Self-Care/Home Management, Sensory Integration,Soft Tissue Mobilization,Taping, Therapeutic Activities, Therapeutic Exercises Modalities Cold Pack/Ice Massage,Hot Packs Next Visit Focus/Plan Next Note Type Treatment Note Next Visit Plan Attempt supine pelvic tilts and prone extension Review new HEP exercises, consider seated/theraball progression for lumbar mobility/stability
--- NOTE | 2021-01-04 17:42 | PT.OTN ---
Current Diagnoses Other idiopathic scoliosis, site unspecified (01/04/21) Radiculopathy, lumbosacral region (01/04/21) Difficulty in walking, not elsewhere classified (01/04/21) Abnormal posture (01/04/21) Physical Therapy Treatment Note PT-OP-A Visit Information Start: 12/16/20 08:48 Freq: Status: Active Protocol: Document 01/04/21 16:54 MA (Rec: 01/04/21 17:41 MA [id number]) Out-Patient Physical Therapy Visit Information Visit Information Visit Type Treatment Note Visit Start Time 16:50 Visit Stop Time 17:35 Total Visit Minutes 45 Visit Number 5 Number of DIRT BIKE RACER Visits 2 Precautions Precautions hypertension PT-OP-B Current Condition Start: 12/16/20 08:48 Freq: Status: Active Protocol: Document 12/16/20 15:15 AW (Rec: 12/16/20 15:18 AW [id number]) Current Condition History of Current Condition Onset Date chronic Current Complaints low back and left hip pain History of Current Condition Pt reports history of ongoing back pain and left hip pain which is often worse in the mornings. He has intermittent numbness in the top of his left foot and chronic neuropathy affecting sensation in both feet. He wears compression stockings of 20-30 mm Hg due to history of syncope. He does not drink enough water, stating he has urinary urgency when he drinks more. He has levoscoliosis. His balance has been worsening and pt reports occasional falls. He uses marijuana for pain control. He has history of alcohol dependence but has been sober since 2010. 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 He enjoys gardening. 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 Prior Treatments and Tests Chiropractic treatment in the past but none currently. Developmental History Developmental History [place] with hearing aids. Rickets . Scoliosis with levocurvature . Astigmatism. Treatment Goals Patient/Caregiver Goals Would like to be able to work with vibratory tools for longer periods for building stringed instruments and general woodworking. Prior Functional Status Baseline Function- ADL's Independent Baseline Function- Mobility Independent Baseline Function- Gait independent without AD Baseline Function- Recreation/Hobbies Able to work with sanding and other vibratory tools for an hour or more without increase in back pain. Personal Factors Other Personal Factors That May Effect (-) chronicity of deficits Therapy/Recovery PT-OP-C Subjective Start: 12/16/20 08:48 Freq: Status: Active Protocol: Document 01/04/21 16:54 MA (Rec: 01/04/21 17:41 MA [id number]) OP-PT Subjective Patient Comments Patient Comments I did most of my exercises yesterday and then finished up with them this morning. PT-OP-D Balance Start: 12/16/20 08:48 Freq: Status: Active Protocol: Document 12/16/20 15:15 AW (Rec: 12/17/20 16:14 AW [email or web address]) OP-PT Balance Assessment Sitting Balance Static Sitting Balance Ability Good Dynamic Sitting Balance Ability Good Standing Balance Static Standing Balance Ability Good Dynamic Standing Balance Ability Fair Device Used no AD Maria Fall Scale Copyright Permission PT-OP-E Functional Tests Start: 12/16/20 08:48 Freq: Status: Active Protocol: Document 12/16/20 15:15 AW (Rec: 12/17/20 16:19 AW [email or web address]) Functional Tests Dynamic Gait Index (DGI) Score 20 DGI Impairment Rating 1 to <20% Impaired (Score 20- 23) PT-OP-G Mobility & Gait Start: 12/16/20 08:48 Freq: Status: Active Protocol: Document 12/16/20 15:15 AW (Rec: 12/17/20 16:19 AW [email or web address]) OP Mobility Evaluation Functional Movements Squats Able to pick items up from the floor but with some unsteadiness and with back pain. OP Gait Assessment Gait Gait Assistance Required: Independent Distance (Feet) 100 Assistive Devices Assistive Device None Gait Deviations General Gait Pattern Antalgic,Lateral Trunk Lean Factors Limiting Gait Function Factors Limiting Gait Function Decreased Sensation,Decreased Strength,Pain,Poor Balance Comments Gait Comments Increased ipsilateral lean in left stance. PT-OP-H Neuro Start: 12/16/20 08:48 Freq: Status: Active Protocol: Document 12/16/20 15:15 AW (Rec: 12/17/20 16:19 AW [email or web address]) Sensation Evaluation Gross Sensation Gross Sensation Left UE Impaired,Right UE Impaired,Left LE Impaired, Right LE Impaired Comments Summary Comments Numbness in bilateral hands and plantar feet. Intermittent numbness in dorsal feet. Deep Tendon Reflex & Clonus Assessment Deep Tendon Reflex Bilateral Achilles Deep Tendon Reflex 1+ Diminished Bilateral Patellar Deep Tendon Reflex 1+ Diminished Vital Signs Blood Pressure Sitting Blood Pressure (90/60-120/80 mmHg) 162/92 H Blood Pressure Source Manual Cuff PT-OP-J Posture/Palpation/Skin Start: 12/16/20 08:48 Freq: Status: Active Protocol: Document 12/16/20 15:15 AW (Rec: 12/17/20 16:31 AW [email or web address]) Posture Evaluation Position Standing Head/C-Spine Posture Forward Head L-Spine Posture Fixed Scoliosis on (L),Shifted Left Shoulder Posture (L) Rounded,(R) Rounded,(L) Forward Pelvis Posture (R) Iliac Crest Superior Comments Posture Comments Positive Trendelenberg sign bilaterally. Palpation Assessment Location lumbar paraspinals Palpation Details moderate density and TTP along bilateral paraspinals with left more affected than right. PT-OP-K Range of Motion Start: 12/16/20 08:48 Freq: Status: Active Protocol: Document 12/16/20 15:15 AW (Rec: 12/17/20 16:31 AW [email or web address]) Lumbar Spine Range of Motion Lumbar Spine Active Degrees Testing Position Standing Flexion 70 Extension 20 Comments Lateral flexion: fingertips reach knee joint bilaterally. Rotation: decreased right rotation compared with left. Hip Goniometric Range of Motion Hip bilateral Hip ROM WFL Yes Hip ROM Limitations Hip ROM Limitations Pain Comments All AROM and PROM WNL but painful with overpressure. PT-OP-L Special Tests Start: 12/16/20 08:48 Freq: Status: Active Protocol: Document 12/16/20 15:15 AW (Rec: 12/17/20 16:31 AW [email or web address]) Special Tests Lumbar Spine Special Tests Straight Leg Raise Test Results active SLR positive for lower abdominal weakness, improved with compression Manual Traction Test Results relieving Slump Test Results left positive in most provocative position PT-OP-M Strength Start: 12/16/20 08:48 Freq: Status: Active Protocol: Document 12/16/20 15:15 AW (Rec: 12/17/20 16:31 AW [email or web address]) Hip Strength Hip Manual Muscle Testing bilateral Flexion (L2) 4+ Good+ Extension (S1) 4 Good Abduction 4 Good External Rotation 4+ Good+ Internal Rotation 4+ Good+ Knee Strength Knee Manual Muscle Testing bilateral Flexion (S2) 4+ Good+ Extension (L3) 5 Normal PT-OP-Q Treatments Start: 12/16/20 08:48 Freq: Status: Active Protocol: Document 01/04/21 16:54 MA (Rec: 01/04/21 17:41 MA [id number]) Therapeutic Exercises Supine Exercises Pelvic Tilts Side bilateral Reps/Minutes 2' Comments working on trying to avoid lifting head as he presses back down bridge Supine Exercise Name bridge Equipment Used small green ball Reps/Minutes 12 x 2 Comments ball for alignment; 3 SH supine clamshell Supine Exercise Name supine clamshell Side bilateral Equipment Used level 2 TB Reps/Minutes 2x10 Comments cued slow controlled movement LTR Supine Exercise Name lower trunk rotation Side bilateral Reps/Minutes 8x 10SH Prone Exercises Press ups Prone Exercise Name prone press ups Reps/Minutes x10 Standing Exercises Tennis Ball Standing Exercise Name self-STM to parascapular and lumbar regions Side right Reps/Minutes 5 min Manual Therapy Treatment Soft Tissue Mobilization R parascapular Body Location R rhomboids, mid traps Mobilization Type Myofascial Release,Sustained Pressure,Trigger Point Release Intensity/Depth Moderate Body Position Prone Comments pt only tolerate superficial to moderate pressure Lumbar Body Location Lumbar paraspinals, iliac crest Mobilization Type Myofascial Release Intensity/Depth Moderate Body Position Prone PT-OP-T Assessment and Plan Start: 12/16/20 08:48 Freq: Status: Active Protocol: Document 01/04/21 16:54 MA (Rec: 01/04/21 17:41 MA [id number]) Physical Therapy Assessment Goals Four Impairment lacks HEP Short Term Goal (STG) Pt will be independent with appropriate HEP for pain management to support therapy services provided in clinic. STG Duration 6 weeks - 01/27/21 Three Impairment PAT Short Term Goal (STG) Pt will improve PAT score to 45% impairment or better. STG Duration 6 weeks - 01/27/21 Mutual Fund Accountant Goal (LTG) Pt will improve PAT score to 35% impairment or better for improved function in daily activities. LTG Duration 12 weeks - 03/10/21 Two Impairment dynamic balance Mutual Fund Accountant Goal (LTG) Pt will improve score on Dynamic Gait Index from 20/24 to 23/24 or greater to demonstrate reduced falls risk . LTG Duration 12 weeks - 03/10/21 One Impairment standing tolerance Short Term Goal (STG) Pt will tolerate standing to use tools 30 minutes or greater without increase in baseline pain STG Duration 6 weeks - 01/27/21 Shelter Goal (LTG) Pt will stand to use vibratory tools such as sanding 30 minutes or greater for return to instrument-making activities. LTG Duration 12 weeks - 03/10/21 Assessment Summary Assessment Pt does better with posterior pelvic tilts supine on mat; will progress back to seated on theraball next session. Added self-STM with tennis ball to HEP for R parascapular region and bilateral lumbar spine/iliac crest. Physical Therapy Plan Frequency and Duration Frequency of Treatment 1-2x/week Duration of Treatment 12 weeks Plan of Care Start Date 12/16/20 Plan of Care End Date 03/10/21 Therapeutic Interventions Therapeutic Interventions Balance Training,Gait Training ,Home Exercise Program,Joint Mobilizations,Manual Therapy, Neuromuscular Re-education, Patient/Caregiver Education, Self-Care/Home Management, Sensory Integration,Soft Tissue Mobilization,Taping, Therapeutic Activities, Therapeutic Exercises Modalities Cold Pack/Ice Massage,Hot Packs Next Visit Focus/Plan Next Note Type Treatment Note Next Visit Plan Continue with prone press ups and STM to lumbar and parascapular region. Practice supine pelvic tilts and progress to seated on therapy ball
--- NOTE | 2021-01-07 12:27 | PT.OTN ---
Current Diagnoses Other idiopathic scoliosis, site unspecified (01/07/21) Radiculopathy, lumbosacral region (01/07/21) Difficulty in walking, not elsewhere classified (01/07/21) Abnormal posture (01/07/21) Physical Therapy Treatment Note PT-OP-A Visit Information Start: 12/16/20 08:48 Freq: Status: Active Protocol: Document 01/07/21 11:15 AW (Rec: 01/07/21 11:15 AW [id number]) Out-Patient Physical Therapy Visit Information Visit Information Visit Type Treatment Note Visit Start Time 10:35 Visit Stop Time 11:15 Total Visit Minutes 40 Visit Number 6 Number of CORRECTIONAL FACILITY PSYCHIATRIST Visits 0 Precautions Precautions hypertension PT-OP-B Current Condition Start: 12/16/20 08:48 Freq: Status: Active Protocol: Document 12/16/20 15:15 AW (Rec: 12/16/20 15:18 AW [id number]) Current Condition History of Current Condition Onset Date chronic Current Complaints low back and left hip pain History of Current Condition Pt reports history of ongoing back pain and left hip pain which is often worse in the mornings. He has intermittent numbness in the top of his left foot and chronic neuropathy affecting sensation in both feet. He wears compression stockings of 20-30 mm Hg due to history of syncope. He does not drink enough water, stating he has urinary urgency when he drinks more. He has levoscoliosis. His balance has been worsening and pt reports occasional falls. He uses marijuana for pain control. He has history of alcohol dependence but has been sober since 2010. 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 Prior Treatments and Tests Chiropractic treatment in the past but none currently. Developmental History Developmental History [place] with hearing aids. Rickets . Scoliosis with levocurvature . Astigmatism. Treatment Goals Patient/Caregiver Goals Would like to be able to work with vibratory tools for longer periods for building stringed instruments and general woodworking. Prior Functional Status Baseline Function- ADL's Independent Baseline Function- Mobility Independent Baseline Function- Gait independent without AD Baseline Function- Recreation/Hobbies Able to work with sanding and other vibratory tools for an hour or more without increase in back pain. Personal Factors Other Personal Factors That May Effect (-) chronicity of deficits Therapy/Recovery PT-OP-C Subjective Start: 12/16/20 08:48 Freq: Status: Active Protocol: Document 01/07/21 11:15 AW (Rec: 01/07/21 12:27 AW [email or web address]) OP-PT Subjective Patient Comments Patient Comments My hands are all messed up from pulling bamboo yesterday but I did my exercises. PT-OP-D Balance Start: 12/16/20 08:48 Freq: Status: Active Protocol: Document 12/16/20 15:15 AW (Rec: 12/17/20 16:14 AW [email or web address]) OP-PT Balance Assessment Sitting Balance Static Sitting Balance Ability Good Dynamic Sitting Balance Ability Good Standing Balance Static Standing Balance Ability Good Dynamic Standing Balance Ability Fair Device Used no AD Maria Fall Scale Copyright Permission PT-OP-E Functional Tests Start: 12/16/20 08:48 Freq: Status: Active Protocol: Document 12/16/20 15:15 AW (Rec: 12/17/20 16:19 AW [email or web address]) Functional Tests Dynamic Gait Index (DGI) Score 20 DGI Impairment Rating 1 to <20% Impaired (Score 20- 23) PT-OP-G Mobility & Gait Start: 12/16/20 08:48 Freq: Status: Active Protocol: Document 12/16/20 15:15 AW (Rec: 12/17/20 16:19 AW [email or web address]) OP Mobility Evaluation Functional Movements Squats Able to pick items up from the floor but with some unsteadiness and with back pain. OP Gait Assessment Gait Gait Assistance Required: Independent Distance (Feet) 100 Assistive Devices Assistive Device None Gait Deviations General Gait Pattern Antalgic,Lateral Trunk Lean Factors Limiting Gait Function Factors Limiting Gait Function Decreased Sensation,Decreased Strength,Pain,Poor Balance Comments Gait Comments Increased ipsilateral lean in left stance. PT-OP-H Neuro Start: 12/16/20 08:48 Freq: Status: Active Protocol: Document 12/16/20 15:15 AW (Rec: 12/17/20 16:19 AW [email or web address]) Sensation Evaluation Gross Sensation Gross Sensation Left UE Impaired,Right UE Impaired,Left LE Impaired, Right LE Impaired Comments Summary Comments Numbness in bilateral hands and plantar feet. Intermittent numbness in dorsal feet. Deep Tendon Reflex & Clonus Assessment Deep Tendon Reflex Bilateral Achilles Deep Tendon Reflex 1+ Diminished Bilateral Patellar Deep Tendon Reflex 1+ Diminished Vital Signs Blood Pressure Sitting Blood Pressure (90/60-120/80 mmHg) 162/92 H Blood Pressure Source Manual Cuff PT-OP-J Posture/Palpation/Skin Start: 12/16/20 08:48 Freq: Status: Active Protocol: Document 12/16/20 15:15 AW (Rec: 12/17/20 16:31 AW [email or web address]) Posture Evaluation Position Standing Head/C-Spine Posture Forward Head L-Spine Posture Fixed Scoliosis on (L),Shifted Left Shoulder Posture (L) Rounded,(R) Rounded,(L) Forward Pelvis Posture (R) Iliac Crest Superior Comments Posture Comments Positive Trendelenberg sign bilaterally. Palpation Assessment Location lumbar paraspinals Palpation Details moderate density and TTP along bilateral paraspinals with left more affected than right. PT-OP-K Range of Motion Start: 12/16/20 08:48 Freq: Status: Active Protocol: Document 12/16/20 15:15 AW (Rec: 12/17/20 16:31 AW [email or web address]) Lumbar Spine Range of Motion Lumbar Spine Active Degrees Testing Position Standing Flexion 70 Extension 20 Comments Lateral flexion: fingertips reach knee joint bilaterally. Rotation: decreased right rotation compared with left. Hip Goniometric Range of Motion Hip bilateral Hip ROM WFL Yes Hip ROM Limitations Hip ROM Limitations Pain Comments All AROM and PROM WNL but painful with overpressure. PT-OP-L Special Tests Start: 12/16/20 08:48 Freq: Status: Active Protocol: Document 12/16/20 15:15 AW (Rec: 12/17/20 16:31 AW [email or web address]) Special Tests Lumbar Spine Special Tests Straight Leg Raise Test Results active SLR positive for lower abdominal weakness, improved with compression Manual Traction Test Results relieving Slump Test Results left positive in most provocative position PT-OP-M Strength Start: 12/16/20 08:48 Freq: Status: Active Protocol: Document 12/16/20 15:15 AW (Rec: 12/17/20 16:31 AW [email or web address]) Hip Strength Hip Manual Muscle Testing bilateral Flexion (L2) 4+ Good+ Extension (S1) 4 Good Abduction 4 Good External Rotation 4+ Good+ Internal Rotation 4+ Good+ Knee Strength Knee Manual Muscle Testing bilateral Flexion (S2) 4+ Good+ Extension (L3) 5 Normal PT-OP-Q Treatments Start: 12/16/20 08:48 Freq: Status: Active Protocol: Document 01/07/21 11:15 AW (Rec: 01/07/21 11:15 AW [id number]) Gym Equipment Therapeutic Ball 65 cm Exercise Details pelvic circles/tilt Ball Size/Color green Body Position Sitting Reps/Duration 5 min Comments Pt required max verbal and tactile cues to dissociate lumbar and pelvic motion. Clinic only. Therapeutic Exercises Supine Exercises SLR Supine Exercise Name SLR Side bilateral Reps/Minutes x8 Comments cued CHARISMA, flat back; HEP Pelvic Tilts Side bilateral Reps/Minutes 2' Comments improved awareness/ dissociation of pelvic motion sciatic nerve glide Side bilateral Reps/Minutes 5x 3 ankle pumps LTR Supine Exercise Name lower trunk rotation Side bilateral Reps/Minutes 8x 10SH Prone Exercises Press ups Prone Exercise Name prone press ups Reps/Minutes x10 Comments with lumbar PA's Manual Therapy Treatment Soft Tissue Mobilization R parascapular Body Location R rhomboids, mid traps Mobilization Type Myofascial Release,Sustained Pressure,Trigger Point Release Intensity/Depth Moderate Body Position Prone Comments moderate pressure ok today Lumbar Body Location Lumbar paraspinals, iliac crest Mobilization Type Myofascial Release Intensity/Depth Moderate Body Position Prone PT-OP-T Assessment and Plan Start: 12/16/20 08:48 Freq: Status: Active Protocol: Document 01/07/21 11:15 AW (Rec: 01/07/21 12:27 AW [email or web address]) Physical Therapy Assessment Goals Four Impairment lacks HEP Short Term Goal (STG) Pt will be independent with appropriate HEP for pain management to support therapy services provided in clinic. STG Duration 6 weeks - 01/27/21 Three Impairment PAT Short Term Goal (STG) Pt will improve PAT score to 45% impairment or better. STG Duration 6 weeks - 01/27/21 Mcc Goal (LTG) Pt will improve APT score to 35% impairment or better for improved function in daily activities. LTG Duration 12 weeks - 03/10/21 Two Impairment dynamic balance Community Outreach Manager Goal (LTG) Pt will improve score on Dynamic Gait Index from 20/24 to 23/24 or greater to demonstrate reduced falls risk . LTG Duration 12 weeks - 03/10/21 One Impairment standing tolerance Short Term Goal (STG) Pt will tolerate standing to use tools 30 minutes or greater without increase in baseline pain STG Duration 6 weeks - 01/27/21 Mcc Goal (LTG) Pt will stand to use vibratory tools such as sanding 30 minutes or greater for return to instrument-making activities. LTG Duration 12 weeks - 03/10/21 Assessment Summary Assessment Pt doing well with supine exercises. Will progress to ball and standing in next few sessions for dynamic balance work. Physical Therapy Plan Frequency and Duration Frequency of Treatment 1-2x/week Duration of Treatment 12 weeks Plan of Care Start Date 12/16/20 Plan of Care End Date 03/10/21 Therapeutic Interventions Therapeutic Interventions Balance Training,Gait Training ,Home Exercise Program,Joint Mobilizations,Manual Therapy, Neuromuscular Re-education, Patient/Caregiver Education, Self-Care/Home Management, Sensory Integration,Soft Tissue Mobilization,Taping, Therapeutic Activities, Therapeutic Exercises Modalities Cold Pack/Ice Massage,Hot Packs Next Visit Focus/Plan Next Note Type Treatment Note Next Visit Plan Review supine and progress to seated, standing stability/ balance activities.
--- NOTE | 2021-01-11 16:08 | PT.OTN ---
Current Diagnoses Other idiopathic scoliosis, site unspecified (01/11/21) Radiculopathy, lumbosacral region (01/11/21) Difficulty in walking, not elsewhere classified (01/11/21) Abnormal posture (01/11/21) Physical Therapy Treatment Note PT-OP-A Visit Information Start: 12/16/20 08:48 Freq: Status: Active Protocol: Document 01/11/21 15:13 MA (Rec: 01/11/21 16:08 MA [id number]) Out-Patient Physical Therapy Visit Information Visit Information Visit Type Treatment Note Visit Start Time 15:13 Visit Stop Time 16:00 Total Visit Minutes 47 Visit Number 7 Number of REPOSSESSION AGENT Visits 1 Precautions Precautions hypertension PT-OP-B Current Condition Start: 12/16/20 08:48 Freq: Status: Active Protocol: Document 12/16/20 15:15 AW (Rec: 12/16/20 15:18 AW [id number]) Current Condition History of Current Condition Onset Date chronic Current Complaints low back and left hip pain History of Current Condition Pt reports history of ongoing back pain and left hip pain which is often worse in the mornings. He has intermittent numbness in the top of his left foot and chronic neuropathy affecting sensation in both feet. He wears compression stockings of 20-30 mm Hg due to history of syncope. He does not drink enough water, stating he has urinary urgency when he drinks more. He has levoscoliosis. His balance has been worsening and pt reports occasional falls. He uses marijuana for pain control. He has history of alcohol dependence but has been sober since 2010. 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 He enjoys gardening. 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 Prior Treatments and Tests Chiropractic treatment in the past but none currently. Developmental History Developmental History [place] with hearing aids. Rickets . Scoliosis with levocurvature . Astigmatism. Treatment Goals Patient/Caregiver Goals Would like to be able to work with vibratory tools for longer periods for building stringed instruments and general woodworking. Prior Functional Status Baseline Function- ADL's Independent Baseline Function- Mobility Independent Baseline Function- Gait independent without AD Baseline Function- Recreation/Hobbies Able to work with sanding and other vibratory tools for an hour or more without increase in back pain. Personal Factors Other Personal Factors That May Effect (-) chronicity of deficits Therapy/Recovery PT-OP-C Subjective Start: 12/16/20 08:48 Freq: Status: Active Protocol: Document 01/11/21 15:13 MA (Rec: 01/11/21 16:08 MA [id number]) OP-PT Subjective Patient Comments Patient Comments My back is feeling better even though I haven't been very nice to it PT-OP-D Balance Start: 12/16/20 08:48 Freq: Status: Active Protocol: Document 12/16/20 15:15 AW (Rec: 12/17/20 16:14 AW [email or web address]) OP-PT Balance Assessment Sitting Balance Static Sitting Balance Ability Good Dynamic Sitting Balance Ability Good Standing Balance Static Standing Balance Ability Good Dynamic Standing Balance Ability Fair Device Used no AD Maria Fall Scale Copyright Permission PT-OP-E Functional Tests Start: 12/16/20 08:48 Freq: Status: Active Protocol: Document 12/16/20 15:15 AW (Rec: 12/17/20 16:19 AW [email or web address]) Functional Tests Dynamic Gait Index (DGI) Score 20 DGI Impairment Rating 1 to <20% Impaired (Score 20- 23) PT-OP-G Mobility & Gait Start: 12/16/20 08:48 Freq: Status: Active Protocol: Document 12/16/20 15:15 AW (Rec: 12/17/20 16:19 AW [email or web address]) OP Mobility Evaluation Functional Movements Squats Able to pick items up from the floor but with some unsteadiness and with back pain. OP Gait Assessment Gait Gait Assistance Required: Independent Distance (Feet) 100 Assistive Devices Assistive Device None Gait Deviations General Gait Pattern Antalgic,Lateral Trunk Lean Factors Limiting Gait Function Factors Limiting Gait Function Decreased Sensation,Decreased Strength,Pain,Poor Balance Comments Gait Comments Increased ipsilateral lean in left stance. PT-OP-H Neuro Start: 12/16/20 08:48 Freq: Status: Active Protocol: Document 12/16/20 15:15 AW (Rec: 12/17/20 16:19 AW [email or web address]) Sensation Evaluation Gross Sensation Gross Sensation Left UE Impaired,Right UE Impaired,Left LE Impaired, Right LE Impaired Comments Summary Comments Numbness in bilateral hands and plantar feet. Intermittent numbness in dorsal feet. Deep Tendon Reflex & Clonus Assessment Deep Tendon Reflex Bilateral Achilles Deep Tendon Reflex 1+ Diminished Bilateral Patellar Deep Tendon Reflex 1+ Diminished Vital Signs Blood Pressure Sitting Blood Pressure (90/60-120/80 mmHg) 162/92 H Blood Pressure Source Manual Cuff PT-OP-J Posture/Palpation/Skin Start: 12/16/20 08:48 Freq: Status: Active Protocol: Document 12/16/20 15:15 AW (Rec: 12/17/20 16:31 AW [email or web address]) Posture Evaluation Position Standing Head/C-Spine Posture Forward Head L-Spine Posture Fixed Scoliosis on (L),Shifted Left Shoulder Posture (L) Rounded,(R) Rounded,(L) Forward Pelvis Posture (R) Iliac Crest Superior Comments Posture Comments Positive Trendelenberg sign bilaterally. Palpation Assessment Location lumbar paraspinals Palpation Details moderate density and TTP along bilateral paraspinals with left more affected than right. PT-OP-K Range of Motion Start: 12/16/20 08:48 Freq: Status: Active Protocol: Document 12/16/20 15:15 AW (Rec: 12/17/20 16:31 AW [email or web address]) Lumbar Spine Range of Motion Lumbar Spine Active Degrees Testing Position Standing Flexion 70 Extension 20 Comments Lateral flexion: fingertips reach knee joint bilaterally. Rotation: decreased right rotation compared with left. Hip Goniometric Range of Motion Hip bilateral Hip ROM WFL Yes Hip ROM Limitations Hip ROM Limitations Pain Comments All AROM and PROM WNL but painful with overpressure. PT-OP-L Special Tests Start: 12/16/20 08:48 Freq: Status: Active Protocol: Document 12/16/20 15:15 AW (Rec: 12/17/20 16:31 AW [email or web address]) Special Tests Lumbar Spine Special Tests Straight Leg Raise Test Results active SLR positive for lower abdominal weakness, improved with compression Manual Traction Test Results relieving Slump Test Results left positive in most provocative position PT-OP-M Strength Start: 12/16/20 08:48 Freq: Status: Active Protocol: Document 12/16/20 15:15 AW (Rec: 12/17/20 16:31 AW [email or web address]) Hip Strength Hip Manual Muscle Testing bilateral Flexion (L2) 4+ Good+ Extension (S1) 4 Good Abduction 4 Good External Rotation 4+ Good+ Internal Rotation 4+ Good+ Knee Strength Knee Manual Muscle Testing bilateral Flexion (S2) 4+ Good+ Extension (L3) 5 Normal PT-OP-Q Treatments Start: 12/16/20 08:48 Freq: Status: Active Protocol: Document 01/11/21 15:13 MA (Rec: 01/11/21 16:08 MA [id number]) Gym Equipment Therapeutic Ball 65 cm Exercise Details pelvic circles/tilt Ball Size/Color green Body Position Sitting Reps/Duration 5 min Comments Pt required max verbal and tactile cues to dissociate lumbar and pelvic motion. Clinic only. Therapeutic Exercises Supine Exercises DKTC Supine Exercise Name double knee to chest Side bilateral Reps/Minutes 2x30 Pelvic Tilts Side bilateral Reps/Minutes 2' Comments improved awareness/ dissociation of pelvic motion bridge Supine Exercise Name bridge Equipment Used small green ball Reps/Minutes x10 Comments ball for alignment; 3 SH sciatic nerve glide Side bilateral Reps/Minutes 5x 3 ankle pumps Prone Exercises Press ups Prone Exercise Name prone press ups Reps/Minutes x10 Comments with lumbar PA's Neuro Re-Education Treatment Balance Activities SLS Reps/Duration 10' Comments 2 fingers on plinth for balance: Working on posterior pelvic tuck to avoid shifting hips anteriorly putting weight on forefoot. Self-Care/Home Management Treatment Education Patient Education Posture Other Education educated pt on proper posture in seated and standing. Pt flexes fwd when seated and shifts pelvis anteriorly in standing. PT-OP-T Assessment and Plan Start: 12/16/20 08:48 Freq: Status: Active Protocol: Document 01/11/21 15:13 MA (Rec: 01/11/21 16:08 MA [id number]) Physical Therapy Assessment Goals Four Impairment lacks HEP Short Term Goal (STG) Pt will be independent with appropriate HEP for pain management to support therapy services provided in clinic. STG Duration 6 weeks - 01/27/21 Three Impairment PAT Short Term Goal (STG) Pt will improve PAT score to 45% impairment or better. STG Duration 6 weeks - 01/27/21 Escort Patients Goal (LTG) Pt will improve PAT score to 35% impairment or better for improved function in daily activities. LTG Duration 12 weeks - 03/10/21 Two Impairment dynamic balance Escort Patients Goal (LTG) Pt will improve score on Dynamic Gait Index from 20/24 to 23/24 or greater to demonstrate reduced falls risk . LTG Duration 12 weeks - 03/10/21 One Impairment standing tolerance Short Term Goal (STG) Pt will tolerate standing to use tools 30 minutes or greater without increase in baseline pain STG Duration 6 weeks - 01/27/21 Escort Patients Goal (LTG) Pt will stand to use vibratory tools such as sanding 30 minutes or greater for return to instrument-making activities. LTG Duration 12 weeks - 03/10/21 Assessment Summary Assessment is doing better differentiating between lumbar and pelvic movements in supine and seated on therapy ball. During balance work he shifts pelvis anteriorly and puts weight on balls of foot. When asked to stand SLS, pt has difficulty standing R>L and requires cues to keep R heel on floor. Educated pt on his posture and will continue using mirror next session to decrease anterior shift of pelvis. Added double knee to chest stretch to HEP. Physical Therapy Plan Frequency and Duration Frequency of Treatment 1-2x/week Duration of Treatment 12 weeks Plan of Care Start Date 12/16/20 Plan of Care End Date 03/10/21 Therapeutic Interventions Therapeutic Interventions Balance Training,Gait Training ,Home Exercise Program,Joint Mobilizations,Manual Therapy, Neuromuscular Re-education, Patient/Caregiver Education, Self-Care/Home Management, Sensory Integration,Soft Tissue Mobilization,Taping, Therapeutic Activities, Therapeutic Exercises Modalities Cold Pack/Ice Massage,Hot Packs Next Visit Focus/Plan Next Note Type Treatment Note Next Visit Plan Review standing posture in mirror. Review supine and progress to seated, standing stability/ balance activities and continue STM for LBP
--- NOTE | 2021-01-13 12:01 | PT.OTN ---
Current Diagnoses Other idiopathic scoliosis, site unspecified (01/13/21) Radiculopathy, lumbosacral region (01/13/21) Difficulty in walking, not elsewhere classified (01/13/21) Abnormal posture (01/13/21) Physical Therapy Treatment Note PT-OP-A Visit Information Start: 12/16/20 08:48 Freq: Status: Active Protocol: Document 01/13/21 09:45 AW (Rec: 01/13/21 09:45 AW [id number]) Out-Patient Physical Therapy Visit Information Visit Information Visit Type Treatment Note Visit Start Time 09:00 Visit Stop Time 09:45 Total Visit Minutes 45 Visit Number 8 Number of ADVERTISING VICE PRESIDENT Visits 0 Precautions Precautions hypertension; orthostatic hypotension PT-OP-B Current Condition Start: 12/16/20 08:48 Freq: Status: Active Protocol: Document 12/16/20 15:15 AW (Rec: 12/16/20 15:18 AW [id number]) Current Condition History of Current Condition Onset Date chronic Current Complaints low back and left hip pain History of Current Condition Pt reports history of ongoing back pain and left hip pain which is often worse in the mornings. He has intermittent numbness in the top of his left foot and chronic neuropathy affecting sensation in both feet. He wears compression stockings of 20-30 mm Hg due to history of syncope. He does not drink enough water, stating he has urinary urgency when he drinks more. He has levoscoliosis. His balance has been worsening and pt reports occasional falls. He uses marijuana for pain control. He has history of alcohol dependence but has been sober since 2010. 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 Prior Treatments and Tests Chiropractic treatment in the past but none currently. Developmental History Developmental History [place] with hearing aids. Rickets . Scoliosis with levocurvature . Astigmatism. Treatment Goals Patient/Caregiver Goals Would like to be able to work with vibratory tools for longer periods for building stringed instruments and general woodworking. Prior Functional Status Baseline Function- ADL's Independent Baseline Function- Mobility Independent Baseline Function- Gait independent without AD Baseline Function- Recreation/Hobbies Able to work with sanding and other vibratory tools for an hour or more without increase in back pain. Personal Factors Other Personal Factors That May Effect (-) chronicity of deficits Therapy/Recovery PT-OP-C Subjective Start: 12/16/20 08:48 Freq: Status: Active Protocol: Document 01/13/21 09:45 AW (Rec: 01/13/21 09:45 AW [id number]) OP-PT Subjective Patient Comments Patient Comments These exercises are like meditation for me PT-OP-D Balance Start: 12/16/20 08:48 Freq: Status: Active Protocol: Document 12/16/20 15:15 AW (Rec: 12/17/20 16:14 AW [email or web address]) OP-PT Balance Assessment Sitting Balance Static Sitting Balance Ability Good Dynamic Sitting Balance Ability Good Standing Balance Static Standing Balance Ability Good Dynamic Standing Balance Ability Fair Device Used no AD Maria Fall Scale Copyright Permission PT-OP-E Functional Tests Start: 12/16/20 08:48 Freq: Status: Active Protocol: Document 12/16/20 15:15 AW (Rec: 12/17/20 16:19 AW [email or web address]) Functional Tests Dynamic Gait Index (DGI) Score 20 DGI Impairment Rating 1 to <20% Impaired (Score 20- 23) PT-OP-G Mobility & Gait Start: 12/16/20 08:48 Freq: Status: Active Protocol: Document 12/16/20 15:15 AW (Rec: 12/17/20 16:19 AW [email or web address]) OP Mobility Evaluation Functional Movements Squats Able to pick items up from the floor but with some unsteadiness and with back pain. OP Gait Assessment Gait Gait Assistance Required: Independent Distance (Feet) 100 Assistive Devices Assistive Device None Gait Deviations General Gait Pattern Antalgic,Lateral Trunk Lean Factors Limiting Gait Function Factors Limiting Gait Function Decreased Sensation,Decreased Strength,Pain,Poor Balance Comments Gait Comments Increased ipsilateral lean in left stance. PT-OP-H Neuro Start: 12/16/20 08:48 Freq: Status: Active Protocol: Document 12/16/20 15:15 AW (Rec: 12/17/20 16:19 AW [email or web address]) Sensation Evaluation Gross Sensation Gross Sensation Left UE Impaired,Right UE Impaired,Left LE Impaired, Right LE Impaired Comments Summary Comments Numbness in bilateral hands and plantar feet. Intermittent numbness in dorsal feet. Deep Tendon Reflex & Clonus Assessment Deep Tendon Reflex Bilateral Achilles Deep Tendon Reflex 1+ Diminished Bilateral Patellar Deep Tendon Reflex 1+ Diminished Vital Signs Blood Pressure Sitting Blood Pressure (90/60-120/80 mmHg) 162/92 H Blood Pressure Source Manual Cuff PT-OP-J Posture/Palpation/Skin Start: 12/16/20 08:48 Freq: Status: Active Protocol: Document 12/16/20 15:15 AW (Rec: 12/17/20 16:31 AW [email or web address]) Posture Evaluation Position Standing Head/C-Spine Posture Forward Head L-Spine Posture Fixed Scoliosis on (L),Shifted Left Shoulder Posture (L) Rounded,(R) Rounded,(L) Forward Pelvis Posture (R) Iliac Crest Superior Comments Posture Comments Positive Trendelenberg sign bilaterally. Palpation Assessment Location lumbar paraspinals Palpation Details moderate density and TTP along bilateral paraspinals with left more affected than right. PT-OP-K Range of Motion Start: 12/16/20 08:48 Freq: Status: Active Protocol: Document 12/16/20 15:15 AW (Rec: 12/17/20 16:31 AW [email or web address]) Lumbar Spine Range of Motion Lumbar Spine Active Degrees Testing Position Standing Flexion 70 Extension 20 Comments Lateral flexion: fingertips reach knee joint bilaterally. Rotation: decreased right rotation compared with left. Hip Goniometric Range of Motion Hip bilateral Hip ROM WFL Yes Hip ROM Limitations Hip ROM Limitations Pain Comments All AROM and PROM WNL but painful with overpressure. PT-OP-L Special Tests Start: 12/16/20 08:48 Freq: Status: Active Protocol: Document 12/16/20 15:15 AW (Rec: 12/17/20 16:31 AW [email or web address]) Special Tests Lumbar Spine Special Tests Straight Leg Raise Test Results active SLR positive for lower abdominal weakness, improved with compression Manual Traction Test Results relieving Slump Test Results left positive in most provocative position PT-OP-M Strength Start: 12/16/20 08:48 Freq: Status: Active Protocol: Document 12/16/20 15:15 AW (Rec: 12/17/20 16:31 AW [email or web address]) Hip Strength Hip Manual Muscle Testing bilateral Flexion (L2) 4+ Good+ Extension (S1) 4 Good Abduction 4 Good External Rotation 4+ Good+ Internal Rotation 4+ Good+ Knee Strength Knee Manual Muscle Testing bilateral Flexion (S2) 4+ Good+ Extension (L3) 5 Normal PT-OP-Q Treatments Start: 12/16/20 08:48 Freq: Status: Active Protocol: Document 01/13/21 09:45 AW (Rec: 01/13/21 09:45 AW [id number]) Gym Equipment Therapeutic Ball 65 cm Exercise Details pelvic circles/tilt Ball Size/Color green Body Position Sitting Reps/Duration 5 min Comments Improving awareness of pelvic movement. Therapeutic Exercises Supine Exercises DKTC Supine Exercise Name double knee to chest Side bilateral Reps/Minutes 2x30 SLR Supine Exercise Name SLR Side bilateral Reps/Minutes x8 Comments cued CHARISMA, flat back; HEP bridge Supine Exercise Name bridge Equipment Used small green ball Reps/Minutes x10 Comments ball for alignment; 3 SH sciatic nerve glide Side bilateral Reps/Minutes 5x 3 ankle pumps Standing Exercises hip hike Standing Exercise Name hip hike Side bilateral Equipment Used 6 step and rail Reps/Minutes 10 x 2 Comments HEP Other Exercises sit to stand Other Exercise Name sit to stand Reps/Minutes 10' Comments progressed to hip hinge, squat tap Neuro Re-Education Treatment Balance Activities SLS Reps/Duration 5' Comments 2 fingers on counter for balance: working on weight shift to correct lateral lean Self-Care/Home Management Treatment Education Patient Education Body Mechanics Other Education Educated pt on hip hinge for for sit<>stand and squat taps. Mirror feedback helpful. PT-OP-T Assessment and Plan Start: 12/16/20 08:48 Freq: Status: Active Protocol: Document 01/13/21 09:45 AW (Rec: 01/13/21 12:01 AW [email or web address]) Physical Therapy Assessment Goals Four Impairment lacks HEP Short Term Goal (STG) Pt will be independent with appropriate HEP for pain management to support therapy services provided in clinic. STG Duration 6 weeks - 01/27/21 Three Impairment PAT Short Term Goal (STG) Pt will improve PAT score to 45% impairment or better. STG Duration 6 weeks - 01/27/21 Assisted Goal (LTG) Pt will improve PAT score to 35% impairment or better for improved function in daily activities. LTG Duration 12 weeks - 03/10/21 Two Impairment dynamic balance Assisted Goal (LTG) Pt will improve score on Dynamic Gait Index from 20/24 to 23/24 or greater to demonstrate reduced falls risk . LTG Duration 12 weeks - 03/10/21 One Impairment standing tolerance Short Term Goal (STG) Pt will tolerate standing to use tools 30 minutes or greater without increase in baseline pain STG Duration 6 weeks - 01/27/21 Pin Attacher Goal (LTG) Pt will stand to use vibratory tools such as sanding 30 minutes or greater for return to instrument-making activities. LTG Duration 12 weeks - 03/10/21 Assessment Summary Assessment Pt requires cues and mirror feedback for pelvic stability in single leg stance. Initiated hip hike on stair today for HEP and will continue to monitor/progress lateral hip strength. Physical Therapy Plan Frequency and Duration Frequency of Treatment 1-2x/week Duration of Treatment 12 weeks Plan of Care Start Date 12/16/20 Plan of Care End Date 03/10/21 Therapeutic Interventions Therapeutic Interventions Balance Training,Gait Training ,Home Exercise Program,Joint Mobilizations,Manual Therapy, Neuromuscular Re-education, Patient/Caregiver Education, Self-Care/Home Management, Sensory Integration,Soft Tissue Mobilization,Taping, Therapeutic Activities, Therapeutic Exercises Modalities Cold Pack/Ice Massage,Hot Packs Next Visit Focus/Plan Next Note Type Treatment Note Next Visit Plan Review standing posture in mirror. Progress seated, standing stability/balance activities
--- NOTE | 2021-01-18 11:49 | PT.OTN ---
Current Diagnoses Other idiopathic scoliosis, site unspecified (01/18/21) Radiculopathy, lumbosacral region (01/18/21) Difficulty in walking, not elsewhere classified (01/18/21) Abnormal posture (01/18/21) Physical Therapy Treatment Note PT-OP-A Visit Information Start: 12/16/20 08:48 Freq: Status: Active Protocol: Document 01/18/21 09:29 MA (Rec: 01/18/21 10:17 MA [id number]) Out-Patient Physical Therapy Visit Information Visit Information Visit Type Treatment Note Visit Start Time 09:30 Visit Stop Time 10:10 Total Visit Minutes 40 Visit Number 9 Number of BULK SAUSAGE CASING TIER OFF Visits 1 Precautions Precautions hypertension; orthostatic hypotension PT-OP-B Current Condition Start: 12/16/20 08:48 Freq: Status: Active Protocol: Document 12/16/20 15:15 AW (Rec: 12/16/20 15:18 AW [id number]) Current Condition History of Current Condition Onset Date chronic Current Complaints low back and left hip pain History of Current Condition Pt reports history of ongoing back pain and left hip pain which is often worse in the mornings. He has intermittent numbness in the top of his left foot and chronic neuropathy affecting sensation in both feet. He wears compression stockings of 20-30 mm Hg due to history of syncope. He does not drink enough water, stating he has urinary urgency when he drinks more. He has levoscoliosis. His balance has been worsening and pt reports occasional falls. He uses marijuana for pain control. He has history of alcohol dependence but has been sober since 2010. 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 He enjoys gardening. 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 Prior Treatments and Tests Chiropractic treatment in the past but none currently. Developmental History Developmental History [place] with hearing aids. Rickets . Scoliosis with levocurvature . Astigmatism. Treatment Goals Patient/Caregiver Goals Would like to be able to work with vibratory tools for longer periods for building stringed instruments and general woodworking. Prior Functional Status Baseline Function- ADL's Independent Baseline Function- Mobility Independent Baseline Function- Gait independent without AD Baseline Function- Recreation/Hobbies Able to work with sanding and other vibratory tools for an hour or more without increase in back pain. Personal Factors Other Personal Factors That May Effect (-) chronicity of deficits Therapy/Recovery PT-OP-C Subjective Start: 12/16/20 08:48 Freq: Status: Active Protocol: Document 01/18/21 09:29 MA (Rec: 01/18/21 10:17 MA [id number]) OP-PT Subjective Patient Comments Patient Comments I feel like I'm sitting a lot straighter in the car PT-OP-D Balance Start: 12/16/20 08:48 Freq: Status: Active Protocol: Document 12/16/20 15:15 AW (Rec: 12/17/20 16:14 AW [email or web address]) OP-PT Balance Assessment Sitting Balance Static Sitting Balance Ability Good Dynamic Sitting Balance Ability Good Standing Balance Static Standing Balance Ability Good Dynamic Standing Balance Ability Fair Device Used no AD Maria Fall Scale Copyright Permission PT-OP-E Functional Tests Start: 12/16/20 08:48 Freq: Status: Active Protocol: Document 12/16/20 15:15 AW (Rec: 12/17/20 16:19 AW [email or web address]) Functional Tests Dynamic Gait Index (DGI) Score 20 DGI Impairment Rating 1 to <20% Impaired (Score 20- 23) PT-OP-G Mobility & Gait Start: 12/16/20 08:48 Freq: Status: Active Protocol: Document 12/16/20 15:15 AW (Rec: 12/17/20 16:19 AW [email or web address]) OP Mobility Evaluation Functional Movements Squats Able to pick items up from the floor but with some unsteadiness and with back pain. OP Gait Assessment Gait Gait Assistance Required: Independent Distance (Feet) 100 Assistive Devices Assistive Device None Gait Deviations General Gait Pattern Antalgic,Lateral Trunk Lean Factors Limiting Gait Function Factors Limiting Gait Function Decreased Sensation,Decreased Strength,Pain,Poor Balance Comments Gait Comments Increased ipsilateral lean in left stance. PT-OP-H Neuro Start: 12/16/20 08:48 Freq: Status: Active Protocol: Document 12/16/20 15:15 AW (Rec: 12/17/20 16:19 AW [email or web address]) Sensation Evaluation Gross Sensation Gross Sensation Left UE Impaired,Right UE Impaired,Left LE Impaired, Right LE Impaired Comments Summary Comments Numbness in bilateral hands and plantar feet. Intermittent numbness in dorsal feet. Deep Tendon Reflex & Clonus Assessment Deep Tendon Reflex Bilateral Achilles Deep Tendon Reflex 1+ Diminished Bilateral Patellar Deep Tendon Reflex 1+ Diminished Vital Signs Blood Pressure Sitting Blood Pressure (90/60-120/80 mmHg) 162/92 H Blood Pressure Source Manual Cuff PT-OP-J Posture/Palpation/Skin Start: 12/16/20 08:48 Freq: Status: Active Protocol: Document 12/16/20 15:15 AW (Rec: 12/17/20 16:31 AW [email or web address]) Posture Evaluation Position Standing Head/C-Spine Posture Forward Head L-Spine Posture Fixed Scoliosis on (L),Shifted Left Shoulder Posture (L) Rounded,(R) Rounded,(L) Forward Pelvis Posture (R) Iliac Crest Superior Comments Posture Comments Positive Trendelenberg sign bilaterally. Palpation Assessment Location lumbar paraspinals Palpation Details moderate density and TTP along bilateral paraspinals with left more affected than right. PT-OP-K Range of Motion Start: 12/16/20 08:48 Freq: Status: Active Protocol: Document 12/16/20 15:15 AW (Rec: 12/17/20 16:31 AW [email or web address]) Lumbar Spine Range of Motion Lumbar Spine Active Degrees Testing Position Standing Flexion 70 Extension 20 Comments Lateral flexion: fingertips reach knee joint bilaterally. Rotation: decreased right rotation compared with left. Hip Goniometric Range of Motion Hip bilateral Hip ROM WFL Yes Hip ROM Limitations Hip ROM Limitations Pain Comments All AROM and PROM WNL but painful with overpressure. PT-OP-L Special Tests Start: 12/16/20 08:48 Freq: Status: Active Protocol: Document 12/16/20 15:15 AW (Rec: 12/17/20 16:31 AW [email or web address]) Special Tests Lumbar Spine Special Tests Straight Leg Raise Test Results active SLR positive for lower abdominal weakness, improved with compression Manual Traction Test Results relieving Slump Test Results left positive in most provocative position PT-OP-M Strength Start: 12/16/20 08:48 Freq: Status: Active Protocol: Document 12/16/20 15:15 AW (Rec: 12/17/20 16:31 AW [email or web address]) Hip Strength Hip Manual Muscle Testing bilateral Flexion (L2) 4+ Good+ Extension (S1) 4 Good Abduction 4 Good External Rotation 4+ Good+ Internal Rotation 4+ Good+ Knee Strength Knee Manual Muscle Testing bilateral Flexion (S2) 4+ Good+ Extension (L3) 5 Normal PT-OP-Q Treatments Start: 12/16/20 08:48 Freq: Status: Active Protocol: Document 01/18/21 09:29 MA (Rec: 01/18/21 10:17 MA [id number]) Therapeutic Exercises Supine Exercises DKTC Supine Exercise Name double knee to chest Side bilateral Reps/Minutes 2x30 SLR Supine Exercise Name SLR Side bilateral Reps/Minutes x8 Comments cued CHARISMA, flat back; HEP bridge Supine Exercise Name bridge Equipment Used small green ball Reps/Minutes x10 Comments ball for alignment; 3 SH Piriformis stretch Side bilateral Reps/Minutes 30' x 2 Comments seated today sciatic nerve glide Side bilateral Reps/Minutes 5x 3 ankle pumps Sidelying Exercises Open Book Side bilateral Reps/Minutes 5x ea Comments straight arms today Standing Exercises hip hike Standing Exercise Name hip hike Side bilateral Equipment Used 6 step and rail Reps/Minutes 10 x 2 Comments HEP Other Exercises sit to stand Other Exercise Name sit to stand Reps/Minutes 10' Comments progressed to hip hinge, squat tap PT-OP-T Assessment and Plan Start: 12/16/20 08:48 Freq: Status: Active Protocol: Document 01/18/21 09:29 MA (Rec: 01/18/21 10:17 MA [id number]) Physical Therapy Assessment Goals Four Impairment lacks HEP Short Term Goal (STG) Pt will be independent with appropriate HEP for pain management to support therapy services provided in clinic. STG Duration 6 weeks - 01/27/21 Three Impairment PAT Short Term Goal (STG) Pt will improve PAT score to 45% impairment or better. STG Duration 6 weeks - 01/27/21 Internet Marketing Manager Goal (LTG) Pt will improve PAT score to 35% impairment or better for improved function in daily activities. LTG Duration 12 weeks - 03/10/21 Two Impairment dynamic balance [facility] Goal (LTG) Pt will improve score on Dynamic Gait Index from 20/24 to 23/24 or greater to demonstrate reduced falls risk . LTG Duration 12 weeks - 03/10/21 One Impairment standing tolerance Short Term Goal (STG) Pt will tolerate standing to use tools 30 minutes or greater without increase in baseline pain STG Duration 6 weeks - 01/27/21 Internet Marketing Manager Goal (LTG) Pt will stand to use vibratory tools such as sanding 30 minutes or greater for return to instrument-making activities. LTG Duration 12 weeks - 03/10/21 Assessment Summary Assessment arrived with minor L shoulder pain which decreased with increased movement throughout exercises. Reviewed some older HEP exercises such as open book with pt demonstrating exercise in supine instead of SL. He also required positioning cues for his new hike hiking HEP exercise as he has been doing it facing fwd at home. Encouraged to look at his HEP print outs to be sure he is doing them correctly at home and will continue reviewing exercises to ensure proper form when in PT. Physical Therapy Plan Frequency and Duration Frequency of Treatment 1-2x/week Duration of Treatment 12 weeks Plan of Care Start Date 12/16/20 Plan of Care End Date 03/10/21 Therapeutic Interventions Therapeutic Interventions Balance Training,Gait Training ,Home Exercise Program,Joint Mobilizations,Manual Therapy, Neuromuscular Re-education, Patient/Caregiver Education, Self-Care/Home Management, Sensory Integration,Soft Tissue Mobilization,Taping, Therapeutic Activities, Therapeutic Exercises Modalities Cold Pack/Ice Massage,Hot Packs Next Visit Focus/Plan Next Note Type Treatment Note Next Visit Plan Continue reviewing standing posture in mirror. Progress seated, standing stability/balance activities
--- NOTE | 2021-01-21 10:33 | PT.OTN ---
Current Diagnoses Other idiopathic scoliosis, site unspecified (01/21/21) Radiculopathy, lumbosacral region (01/21/21) Difficulty in walking, not elsewhere classified (01/21/21) Abnormal posture (01/21/21) Physical Therapy Treatment Note PT-OP-A Visit Information Start: 12/16/20 08:48 Freq: Status: Active Protocol: Document 01/21/21 10:27 AW (Rec: 01/21/21 10:32 AW [id number]) Out-Patient Physical Therapy Visit Information Visit Information Visit Type Progress Note Visit Start Time 09:45 Visit Stop Time 10:27 Total Visit Minutes 42 Visit Number 10 Number of A/C TECH Visits 0 Precautions Precautions hypertension; orthostatic hypotension PT-OP-B Current Condition Start: 12/16/20 08:48 Freq: Status: Active Protocol: Document 12/16/20 15:15 AW (Rec: 12/16/20 15:18 AW [id number]) Current Condition History of Current Condition Onset Date chronic Current Complaints low back and left hip pain History of Current Condition Pt reports history of ongoing back pain and left hip pain which is often worse in the mornings. He has intermittent numbness in the top of his left foot and chronic neuropathy affecting sensation in both feet. He wears compression stockings of 20-30 mm Hg due to history of syncope. He does not drink enough water, stating he has urinary urgency when he drinks more. He has levoscoliosis. His balance has been worsening and pt reports occasional falls. He uses marijuana for pain control. He has history of alcohol dependence but has been sober since 2010. 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 Prior Treatments and Tests Chiropractic treatment in the past but none currently. Developmental History Developmental History [place] with hearing aids. Rickets . Scoliosis with levocurvature . Astigmatism. Treatment Goals Patient/Caregiver Goals Would like to be able to work with vibratory tools for longer periods for building stringed instruments and general woodworking. Prior Functional Status Baseline Function- ADL's Independent Baseline Function- Mobility Independent Baseline Function- Gait independent without AD Baseline Function- Recreation/Hobbies Able to work with sanding and other vibratory tools for an hour or more without increase in back pain. Personal Factors Other Personal Factors That May Effect (-) chronicity of deficits Therapy/Recovery PT-OP-C Subjective Start: 12/16/20 08:48 Freq: Status: Active Protocol: Document 01/21/21 10:27 AW (Rec: 01/21/21 10:33 AW [id number]) OP-PT Subjective Patient Comments Patient Comments I notice my posture a lot more and am becoming more aware of my body. PT-OP-D Balance Start: 12/16/20 08:48 Freq: Status: Active Protocol: Document 12/16/20 15:15 AW (Rec: 12/17/20 16:14 AW [email or web address]) OP-PT Balance Assessment Sitting Balance Static Sitting Balance Ability Good Dynamic Sitting Balance Ability Good Standing Balance Static Standing Balance Ability Good Dynamic Standing Balance Ability Fair Device Used no AD Maria Fall Scale Copyright Permission PT-OP-E Functional Tests Start: 12/16/20 08:48 Freq: Status: Active Protocol: Document 12/16/20 15:15 AW (Rec: 12/17/20 16:19 AW [email or web address]) Functional Tests Dynamic Gait Index (DGI) Score 20 DGI Impairment Rating 1 to <20% Impaired (Score 20- 23) PT-OP-G Mobility & Gait Start: 12/16/20 08:48 Freq: Status: Active Protocol: Document 12/16/20 15:15 AW (Rec: 12/17/20 16:19 AW [email or web address]) OP Mobility Evaluation Functional Movements Squats Able to pick items up from the floor but with some unsteadiness and with back pain. OP Gait Assessment Gait Gait Assistance Required: Independent Distance (Feet) 100 Assistive Devices Assistive Device None Gait Deviations General Gait Pattern Antalgic,Lateral Trunk Lean Factors Limiting Gait Function Factors Limiting Gait Function Decreased Sensation,Decreased Strength,Pain,Poor Balance Comments Gait Comments Increased ipsilateral lean in left stance. PT-OP-H Neuro Start: 12/16/20 08:48 Freq: Status: Active Protocol: Document 12/16/20 15:15 AW (Rec: 12/17/20 16:19 AW [email or web address]) Sensation Evaluation Gross Sensation Gross Sensation Left UE Impaired,Right UE Impaired,Left LE Impaired, Right LE Impaired Comments Summary Comments Numbness in bilateral hands and plantar feet. Intermittent numbness in dorsal feet. Deep Tendon Reflex & Clonus Assessment Deep Tendon Reflex Bilateral Achilles Deep Tendon Reflex 1+ Diminished Bilateral Patellar Deep Tendon Reflex 1+ Diminished Vital Signs Blood Pressure Sitting Blood Pressure (90/60-120/80 mmHg) 162/92 H Blood Pressure Source Manual Cuff PT-OP-J Posture/Palpation/Skin Start: 12/16/20 08:48 Freq: Status: Active Protocol: Document 12/16/20 15:15 AW (Rec: 12/17/20 16:31 AW [email or web address]) Posture Evaluation Position Standing Head/C-Spine Posture Forward Head L-Spine Posture Fixed Scoliosis on (L),Shifted Left Shoulder Posture (L) Rounded,(R) Rounded,(L) Forward Pelvis Posture (R) Iliac Crest Superior Comments Posture Comments Positive Trendelenberg sign bilaterally. Palpation Assessment Location lumbar paraspinals Palpation Details moderate density and TTP along bilateral paraspinals with left more affected than right. PT-OP-K Range of Motion Start: 12/16/20 08:48 Freq: Status: Active Protocol: Document 12/16/20 15:15 AW (Rec: 12/17/20 16:31 AW [email or web address]) Lumbar Spine Range of Motion Lumbar Spine Active Degrees Testing Position Standing Flexion 70 Extension 20 Comments Lateral flexion: fingertips reach knee joint bilaterally. Rotation: decreased right rotation compared with left. Hip Goniometric Range of Motion Hip bilateral Hip ROM WFL Yes Hip ROM Limitations Hip ROM Limitations Pain Comments All AROM and PROM WNL but painful with overpressure. PT-OP-L Special Tests Start: 12/16/20 08:48 Freq: Status: Active Protocol: Document 12/16/20 15:15 AW (Rec: 12/17/20 16:31 AW [email or web address]) Special Tests Lumbar Spine Special Tests Straight Leg Raise Test Results active SLR positive for lower abdominal weakness, improved with compression Manual Traction Test Results relieving Slump Test Results left positive in most provocative position PT-OP-M Strength Start: 12/16/20 08:48 Freq: Status: Active Protocol: Document 12/16/20 15:15 AW (Rec: 12/17/20 16:31 AW [email or web address]) Hip Strength Hip Manual Muscle Testing bilateral Flexion (L2) 4+ Good+ Extension (S1) 4 Good Abduction 4 Good External Rotation 4+ Good+ Internal Rotation 4+ Good+ Knee Strength Knee Manual Muscle Testing bilateral Flexion (S2) 4+ Good+ Extension (L3) 5 Normal PT-OP-Q Treatments Start: 12/16/20 08:48 Freq: Status: Active Protocol: Document 01/21/21 10:27 AW (Rec: 01/21/21 10:32 AW [id number]) Gym Equipment Shuttle Recovery Bilateral Squats Details B squats Resistance 75 Shuttle Recovery Platform Stable Reps/Time x15 Shuttle Balance WBOS NBOS Details red clips Comments NBOS too challenging. Consider blue clips next tx Sport Cord fwd/bwd/lateral Exercise Details fwd/bwd/lateral Cord/Resistance green Reps/Duration 4 laps each direction Comments cued weight shift, // feet, eccentric control. I've been babying my right side and I feel this working it hard but in a good way. Consider increasing resistance next visit. Therapeutic Exercises Standing Exercises calf raises Standing Exercise Name calf raises Side bilateral Equipment Used 6 step Reps/Minutes x15 hip hike Standing Exercise Name hip hike Side bilateral Equipment Used 6 step and rail Reps/Minutes 10 x 2 Comments cued straight knee in stance Other Exercises sit to stand Other Exercise Name sit to stand Equipment Used blue foam under feet for balance challenge Comments good forward weight shift up and down PT-OP-T Assessment and Plan Start: 12/16/20 08:48 Freq: Status: Active Protocol: Document 01/21/21 10:27 AW (Rec: 01/21/21 10:32 AW [id number]) Physical Therapy Assessment Goals Four Impairment lacks HEP Short Term Goal (STG) Pt will be independent with appropriate HEP for pain management to support therapy services provided in clinic. 01/21/21 MET STG Duration 6 weeks - 01/27/21 Three Impairment PAT Short Term Goal (STG) Pt will improve PAT score to 45% impairment or better. STG Duration 6 weeks - 01/27/21 Electrician Research Goal (LTG) Pt will improve PAT score to 35% impairment or better for improved function in daily activities. LTG Duration 12 weeks - 03/10/21 Two Impairment dynamic balance Skilled Nursing Goal (LTG) Pt will improve score on Dynamic Gait Index from 20/24 to 23/24 or greater to demonstrate reduced falls risk . LTG Duration 12 weeks - 03/10/21 One Impairment standing tolerance Short Term Goal (STG) Pt will tolerate standing to use tools 30 minutes or greater without increase in baseline pain 01/21/21 - MET per pt report STG Duration 6 weeks - 01/27/21 Skilled Nursing Goal (LTG) Pt will stand to use vibratory tools such as sanding 30 minutes or greater for return to instrument-making activities. LTG Duration 12 weeks - 03/10/21 Progress Towards Goals Progress Towards Goals Progressing Toward Goals Progress Comments Strength and balance are improved. Need to assess dynamic balance formally. Pt will benefit from continued therapy to address stability and balance deficits, reduce risk of falls. Assessment Summary Assessment shows good effort with all activities but is easily distracted, requiring redirection. Improved independent set up for HEP today but still requires cues to use paper reference. Physical Therapy Plan Frequency and Duration Frequency of Treatment 1-2x/week Duration of Treatment 12 weeks Plan of Care Start Date 12/16/20 Plan of Care End Date 03/10/21 Therapeutic Interventions Therapeutic Interventions Balance Training,Gait Training ,Home Exercise Program,Joint Mobilizations,Manual Therapy, Neuromuscular Re-education, Patient/Caregiver Education, Self-Care/Home Management, Sensory Integration,Soft Tissue Mobilization,Taping, Therapeutic Activities, Therapeutic Exercises Modalities Cold Pack/Ice Massage,Hot Packs Next Visit Focus/Plan Next Note Type Treatment Note Next Visit Plan Continue reviewing standing posture in mirror. Progress seated, standing stability/balance activities
--- NOTE | 2021-01-28 10:21 | PT.OTN ---
Current Diagnoses Other idiopathic scoliosis, site unspecified (01/28/21) Radiculopathy, lumbosacral region (01/28/21) Difficulty in walking, not elsewhere classified (01/28/21) Abnormal posture (01/28/21) Physical Therapy Treatment Note PT-OP-A Visit Information Start: 12/16/20 08:48 Freq: Status: Active Protocol: Document 01/28/21 09:45 AW (Rec: 01/28/21 09:46 AW [id number]) Out-Patient Physical Therapy Visit Information Visit Information Visit Type Treatment Note Visit Start Time 09:00 Visit Stop Time 09:45 Total Visit Minutes 45 Visit Number 11 Number of CONSTRUCTION CARPENTERS HELPER Visits 0 Precautions Precautions hypertension; orthostatic hypotension PT-OP-B Current Condition Start: 12/16/20 08:48 Freq: Status: Active Protocol: Document 12/16/20 15:15 AW (Rec: 12/16/20 15:18 AW [id number]) Current Condition History of Current Condition Onset Date chronic Current Complaints low back and left hip pain History of Current Condition Pt reports history of ongoing back pain and left hip pain which is often worse in the mornings. He has intermittent numbness in the top of his left foot and chronic neuropathy affecting sensation in both feet. He wears compression stockings of 20-30 mm Hg due to history of syncope. He does not drink enough water, stating he has urinary urgency when he drinks more. He has levoscoliosis. His balance has been worsening and pt reports occasional falls. He uses marijuana for pain control. He has history of alcohol dependence but has been sober since 2010. 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 He enjoys gardening. 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 Prior Treatments and Tests Chiropractic treatment in the past but none currently. Developmental History Developmental History [place] with hearing aids. Rickets . Scoliosis with levocurvature . Astigmatism. Treatment Goals Patient/Caregiver Goals Would like to be able to work with vibratory tools for longer periods for building stringed instruments and general woodworking. Prior Functional Status Baseline Function- ADL's Independent Baseline Function- Mobility Independent Baseline Function- Gait independent without AD Baseline Function- Recreation/Hobbies Able to work with sanding and other vibratory tools for an hour or more without increase in back pain. Personal Factors Other Personal Factors That May Effect (-) chronicity of deficits Therapy/Recovery PT-OP-C Subjective Start: 12/16/20 08:48 Freq: Status: Active Protocol: Document 01/28/21 09:45 AW (Rec: 01/28/21 09:46 AW [id number]) OP-PT Subjective Patient Comments Patient Comments I'm getting a lot done in the yard and my balance seems to be improving. PT-OP-D Balance Start: 12/16/20 08:48 Freq: Status: Active Protocol: Document 12/16/20 15:15 AW (Rec: 12/17/20 16:14 AW [email or web address]) OP-PT Balance Assessment Sitting Balance Static Sitting Balance Ability Good Dynamic Sitting Balance Ability Good Standing Balance Static Standing Balance Ability Good Dynamic Standing Balance Ability Fair Device Used no AD Maria Fall Scale Copyright Permission PT-OP-E Functional Tests Start: 12/16/20 08:48 Freq: Status: Active Protocol: Document 12/16/20 15:15 AW (Rec: 12/17/20 16:19 AW [email or web address]) Functional Tests Dynamic Gait Index (DGI) Score 20 DGI Impairment Rating 1 to <20% Impaired (Score 20- 23) PT-OP-G Mobility & Gait Start: 12/16/20 08:48 Freq: Status: Active Protocol: Document 12/16/20 15:15 AW (Rec: 12/17/20 16:19 AW [email or web address]) OP Mobility Evaluation Functional Movements Squats Able to pick items up from the floor but with some unsteadiness and with back pain. OP Gait Assessment Gait Gait Assistance Required: Independent Distance (Feet) 100 Assistive Devices Assistive Device None Gait Deviations General Gait Pattern Antalgic,Lateral Trunk Lean Factors Limiting Gait Function Factors Limiting Gait Function Decreased Sensation,Decreased Strength,Pain,Poor Balance Comments Gait Comments Increased ipsilateral lean in left stance. PT-OP-H Neuro Start: 12/16/20 08:48 Freq: Status: Active Protocol: Document 12/16/20 15:15 AW (Rec: 12/17/20 16:19 AW [email or web address]) Sensation Evaluation Gross Sensation Gross Sensation Left UE Impaired,Right UE Impaired,Left LE Impaired, Right LE Impaired Comments Summary Comments Numbness in bilateral hands and plantar feet. Intermittent numbness in dorsal feet. Deep Tendon Reflex & Clonus Assessment Deep Tendon Reflex Bilateral Achilles Deep Tendon Reflex 1+ Diminished Bilateral Patellar Deep Tendon Reflex 1+ Diminished Vital Signs Blood Pressure Sitting Blood Pressure (90/60-120/80 mmHg) 162/92 H Blood Pressure Source Manual Cuff PT-OP-J Posture/Palpation/Skin Start: 12/16/20 08:48 Freq: Status: Active Protocol: Document 12/16/20 15:15 AW (Rec: 12/17/20 16:31 AW [email or web address]) Posture Evaluation Position Standing Head/C-Spine Posture Forward Head L-Spine Posture Fixed Scoliosis on (L),Shifted Left Shoulder Posture (L) Rounded,(R) Rounded,(L) Forward Pelvis Posture (R) Iliac Crest Superior Comments Posture Comments Positive Trendelenberg sign bilaterally. Palpation Assessment Location lumbar paraspinals Palpation Details moderate density and TTP along bilateral paraspinals with left more affected than right. PT-OP-K Range of Motion Start: 12/16/20 08:48 Freq: Status: Active Protocol: Document 12/16/20 15:15 AW (Rec: 12/17/20 16:31 AW [email or web address]) Lumbar Spine Range of Motion Lumbar Spine Active Degrees Testing Position Standing Flexion 70 Extension 20 Comments Lateral flexion: fingertips reach knee joint bilaterally. Rotation: decreased right rotation compared with left. Hip Goniometric Range of Motion Hip bilateral Hip ROM WFL Yes Hip ROM Limitations Hip ROM Limitations Pain Comments All AROM and PROM WNL but painful with overpressure. PT-OP-L Special Tests Start: 12/16/20 08:48 Freq: Status: Active Protocol: Document 12/16/20 15:15 AW (Rec: 12/17/20 16:31 AW [email or web address]) Special Tests Lumbar Spine Special Tests Straight Leg Raise Test Results active SLR positive for lower abdominal weakness, improved with compression Manual Traction Test Results relieving Slump Test Results left positive in most provocative position PT-OP-M Strength Start: 12/16/20 08:48 Freq: Status: Active Protocol: Document 12/16/20 15:15 AW (Rec: 12/17/20 16:31 AW [email or web address]) Hip Strength Hip Manual Muscle Testing bilateral Flexion (L2) 4+ Good+ Extension (S1) 4 Good Abduction 4 Good External Rotation 4+ Good+ Internal Rotation 4+ Good+ Knee Strength Knee Manual Muscle Testing bilateral Flexion (S2) 4+ Good+ Extension (L3) 5 Normal PT-OP-Q Treatments Start: 12/16/20 08:48 Freq: Status: Active Protocol: Document 01/28/21 09:45 AW (Rec: 01/28/21 09:46 AW [id number]) Cardio Equipment Recumbent Bicycle Duration (Minutes) 5 Resistance 8 Seat Position 10 Other slight SOB but can carry on conversation Gym Equipment Shuttle Recovery Unilateral Squats Details uni squats Resistance 50 Shuttle Recovery Platform Stable Reps/Time x6 R - irritated R medial knee ; x12 L Bilateral Squats Details B squats Resistance 87 Shuttle Recovery Platform Stable Reps/Time 2x15 Shuttle Balance WBOS NBOS Details blue clips Reps/Duration 10 min Comments Good challenge with blue clips . NBOS, head turns, EC Sport Cord fwd/bwd/lateral Exercise Details fwd/bwd/lateral, 6 and 8 step Cord/Resistance red Reps/Duration 4 laps each direction Comments step fwd only. cued avoid lateral or fwd lean Therapeutic Exercises Standing Exercises paloff press Standing Exercise Name paloff press Side bilateral Resistance TB3 Reps/Minutes x10 Comments HEP lateral band walk Standing Exercise Name lateral band walk Side bilateral Resistance green loop Reps/Minutes 10' lap x 3 Comments HEP PT-OP-T Assessment and Plan Start: 12/16/20 08:48 Freq: Status: Active Protocol: Document 01/28/21 09:45 AW (Rec: 01/28/21 10:18 AW [id number]) Physical Therapy Assessment Goals Four Impairment lacks HEP Short Term Goal (STG) Pt will be independent with appropriate HEP for pain management to support therapy services provided in clinic. 01/21/21 MET STG Duration 6 weeks - 01/27/21 Three Impairment PAT Short Term Goal (STG) Pt will improve PAT score to 45% impairment or better. STG Duration 6 weeks - 01/27/21 Usp Goal (LTG) Pt will improve PAT score to 35% impairment or better for improved function in daily activities. LTG Duration 12 weeks - 03/10/21 Two Impairment dynamic balance Usp Goal (LTG) Pt will improve score on Dynamic Gait Index from 20/24 to 23/24 or greater to demonstrate reduced falls risk . LTG Duration 12 weeks - 03/10/21 One Impairment standing tolerance Short Term Goal (STG) Pt will tolerate standing to use tools 30 minutes or greater without increase in baseline pain 01/21/21 - MET per pt report STG Duration 6 weeks - 01/27/21 Usp Goal (LTG) Pt will stand to use vibratory tools such as sanding 30 minutes or greater for return to instrument-making activities. LTG Duration 12 weeks - 03/10/21 Assessment Summary Assessment Tx focused on core and trunk stability. Pt tolerated increase in balance challenge and is progressing well. Changed POC to once weekly and pt likely to discharge later this month. Added band walk and trunk stability press to HEP. Physical Therapy Plan Frequency and Duration Frequency of Treatment 1-2x/week Duration of Treatment 12 weeks Plan of Care Start Date 12/16/20 Plan of Care End Date 03/10/21 Therapeutic Interventions Therapeutic Interventions Balance Training,Gait Training ,Home Exercise Program,Joint Mobilizations,Manual Therapy, Neuromuscular Re-education, Patient/Caregiver Education, Self-Care/Home Management, Sensory Integration,Soft Tissue Mobilization,Taping, Therapeutic Activities, Therapeutic Exercises Modalities Cold Pack/Ice Massage,Hot Packs Next Visit Focus/Plan Next Note Type Treatment Note Next Visit Plan Continue reviewing standing posture in mirror. Progress seated, standing stability/balance activities
--- NOTE | 2021-02-03 09:45 | PT.OTN ---
Current Diagnoses Other idiopathic scoliosis, site unspecified (02/03/21) Radiculopathy, lumbosacral region (02/03/21) Difficulty in walking, not elsewhere classified (02/03/21) Abnormal posture (02/03/21) Physical Therapy Treatment Note PT-OP-A Visit Information Start: 12/16/20 08:48 Freq: Status: Active Protocol: Document 02/03/21 09:40 AW (Rec: 02/03/21 09:42 AW [id number]) Out-Patient Physical Therapy Visit Information Visit Information Visit Type Treatment Note Visit Start Time 09:00 Visit Stop Time 09:40 Total Visit Minutes 40 Visit Number 12 Number of SPOT MACHINE OPERATOR Visits 0 Precautions Precautions hypertension; orthostatic hypotension PT-OP-B Current Condition Start: 12/16/20 08:48 Freq: Status: Active Protocol: Document 12/16/20 15:15 AW (Rec: 12/16/20 15:18 AW [id number]) Current Condition History of Current Condition Onset Date chronic Current Complaints low back and left hip pain History of Current Condition Pt reports history of ongoing back pain and left hip pain which is often worse in the mornings. He has intermittent numbness in the top of his left foot and chronic neuropathy affecting sensation in both feet. He wears compression stockings of 20-30 mm Hg due to history of syncope. He does not drink enough water, stating he has urinary urgency when he drinks more. He has levoscoliosis. His balance has been worsening and pt reports occasional falls. He uses marijuana for pain control. He has history of alcohol dependence but has been sober since 2010. 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 Prior Treatments and Tests Chiropractic treatment in the past but none currently. Developmental History Developmental History [place] with hearing aids. Rickets . Scoliosis with levocurvature . Astigmatism. Treatment Goals Patient/Caregiver Goals Would like to be able to work with vibratory tools for longer periods for building stringed instruments and general woodworking. Prior Functional Status Baseline Function- ADL's Independent Baseline Function- Mobility Independent Baseline Function- Gait independent without AD Baseline Function- Recreation/Hobbies Able to work with sanding and other vibratory tools for an hour or more without increase in back pain. Personal Factors Other Personal Factors That May Effect (-) chronicity of deficits Therapy/Recovery PT-OP-C Subjective Start: 12/16/20 08:48 Freq: Status: Active Protocol: Document 02/03/21 09:40 AW (Rec: 02/03/21 09:42 AW [id number]) OP-PT Subjective Patient Comments Patient Comments I haven't been doing my exercises as much but I've been busy with work around the house. I notice I'm doing more with less pain. Sitting more than 30 minutes still makes me hurt. PT-OP-D Balance Start: 12/16/20 08:48 Freq: Status: Active Protocol: Document 12/16/20 15:15 AW (Rec: 12/17/20 16:14 AW [email or web address]) OP-PT Balance Assessment Sitting Balance Static Sitting Balance Ability Good Dynamic Sitting Balance Ability Good Standing Balance Static Standing Balance Ability Good Dynamic Standing Balance Ability Fair Device Used no AD Maria Fall Scale Copyright Permission PT-OP-E Functional Tests Start: 12/16/20 08:48 Freq: Status: Active Protocol: Document 12/16/20 15:15 AW (Rec: 12/17/20 16:19 AW [email or web address]) Functional Tests Dynamic Gait Index (DGI) Score 20 DGI Impairment Rating 1 to <20% Impaired (Score 20- 23) PT-OP-G Mobility & Gait Start: 12/16/20 08:48 Freq: Status: Active Protocol: Document 12/16/20 15:15 AW (Rec: 12/17/20 16:19 AW [email or web address]) OP Mobility Evaluation Functional Movements Squats Able to pick items up from the floor but with some unsteadiness and with back pain. OP Gait Assessment Gait Gait Assistance Required: Independent Distance (Feet) 100 Assistive Devices Assistive Device None Gait Deviations General Gait Pattern Antalgic,Lateral Trunk Lean Factors Limiting Gait Function Factors Limiting Gait Function Decreased Sensation,Decreased Strength,Pain,Poor Balance Comments Gait Comments Increased ipsilateral lean in left stance. PT-OP-H Neuro Start: 12/16/20 08:48 Freq: Status: Active Protocol: Document 12/16/20 15:15 AW (Rec: 12/17/20 16:19 AW [email or web address]) Sensation Evaluation Gross Sensation Gross Sensation Left UE Impaired,Right UE Impaired,Left LE Impaired, Right LE Impaired Comments Summary Comments Numbness in bilateral hands and plantar feet. Intermittent numbness in dorsal feet. Deep Tendon Reflex & Clonus Assessment Deep Tendon Reflex Bilateral Achilles Deep Tendon Reflex 1+ Diminished Bilateral Patellar Deep Tendon Reflex 1+ Diminished Vital Signs Blood Pressure Sitting Blood Pressure (90/60-120/80 mmHg) 162/92 H Blood Pressure Source Manual Cuff PT-OP-J Posture/Palpation/Skin Start: 12/16/20 08:48 Freq: Status: Active Protocol: Document 12/16/20 15:15 AW (Rec: 12/17/20 16:31 AW [email or web address]) Posture Evaluation Position Standing Head/C-Spine Posture Forward Head L-Spine Posture Fixed Scoliosis on (L),Shifted Left Shoulder Posture (L) Rounded,(R) Rounded,(L) Forward Pelvis Posture (R) Iliac Crest Superior Comments Posture Comments Positive Trendelenberg sign bilaterally. Palpation Assessment Location lumbar paraspinals Palpation Details moderate density and TTP along bilateral paraspinals with left more affected than right. PT-OP-K Range of Motion Start: 12/16/20 08:48 Freq: Status: Active Protocol: Document 12/16/20 15:15 AW (Rec: 12/17/20 16:31 AW [email or web address]) Lumbar Spine Range of Motion Lumbar Spine Active Degrees Testing Position Standing Flexion 70 Extension 20 Comments Lateral flexion: fingertips reach knee joint bilaterally. Rotation: decreased right rotation compared with left. Hip Goniometric Range of Motion Hip bilateral Hip ROM WFL Yes Hip ROM Limitations Hip ROM Limitations Pain Comments All AROM and PROM WNL but painful with overpressure. PT-OP-L Special Tests Start: 12/16/20 08:48 Freq: Status: Active Protocol: Document 12/16/20 15:15 AW (Rec: 12/17/20 16:31 AW [email or web address]) Special Tests Lumbar Spine Special Tests Straight Leg Raise Test Results active SLR positive for lower abdominal weakness, improved with compression Manual Traction Test Results relieving Slump Test Results left positive in most provocative position PT-OP-M Strength Start: 12/16/20 08:48 Freq: Status: Active Protocol: Document 12/16/20 15:15 AW (Rec: 12/17/20 16:31 AW [email or web address]) Hip Strength Hip Manual Muscle Testing bilateral Flexion (L2) 4+ Good+ Extension (S1) 4 Good Abduction 4 Good External Rotation 4+ Good+ Internal Rotation 4+ Good+ Knee Strength Knee Manual Muscle Testing bilateral Flexion (S2) 4+ Good+ Extension (L3) 5 Normal PT-OP-Q Treatments Start: 12/16/20 08:48 Freq: Status: Active Protocol: Document 02/03/21 09:40 AW (Rec: 02/03/21 09:42 AW [id number]) Cardio Equipment Recumbent Bicycle Duration (Minutes) 6 Resistance 8 Seat Position 10 Other less SOB this date Gym Equipment Shuttle Recovery heel raise bilateral Details B heel raise Resistance 62 Shuttle Recovery Platform Stable Reps/Time encouraged slower movement for quality stretch Unilateral Squats Details uni squats Resistance 62 Shuttle Recovery Platform Stable Reps/Time 2x10 Bilateral Squats Details B squats Resistance 87, 100 Shuttle Recovery Platform Stable Reps/Time 2x15 Shuttle Balance WBOS NBOS Details blue clips Reps/Duration 10 min Comments WBOS, NBOS EO EC head turns EO head turns EC Sport Cord fwd/bwd/lateral Exercise Details fwd/bwd/lateral Cord/Resistance red Reps/Duration 4 laps each direction Comments two hurdles. cued avoid lateral or fwd lean Therapeutic Exercises Standing Exercises paloff press Standing Exercise Name paloff press Side bilateral Resistance TB3 Reps/Minutes x10 Comments HEP review lateral band walk Standing Exercise Name lateral band walk Side bilateral Resistance green loop Reps/Minutes 10' lap x 3 Comments HEP review PT-OP-T Assessment and Plan Start: 12/16/20 08:48 Freq: Status: Active Protocol: Document 02/03/21 09:40 AW (Rec: 02/03/21 09:44 AW [id number]) Physical Therapy Assessment Goals Four Impairment lacks HEP Short Term Goal (STG) Pt will be independent with appropriate HEP for pain management to support therapy services provided in clinic. 01/21/21 MET STG Duration 6 weeks - 01/27/21 Three Impairment PAT Short Term Goal (STG) Pt will improve PAT score to 45% impairment or better. STG Duration 6 weeks - 01/27/21 Jail Goal (LTG) Pt will improve PAT score to 35% impairment or better for improved function in daily activities. LTG Duration 12 weeks - 03/10/21 Two Impairment dynamic balance Jail Goal (LTG) Pt will improve score on Dynamic Gait Index from to 23 or greater to demonstrate reduced falls risk . LTG Duration 12 weeks - 03/10/21 One Impairment standing tolerance Short Term Goal (STG) Pt will tolerate standing to use tools 30 minutes or greater without increase in baseline pain 01/21/21 - MET per pt report STG Duration 6 weeks - 01/27/21 Cathode Builder Goal (LTG) Pt will stand to use vibratory tools such as sanding 30 minutes or greater for return to instrument-making activities. LTG Duration 12 weeks - 03/10/21 Assessment Summary Assessment Continued focus on hip strength and core stability. Pt tolerated increase in resistance for exercise and is improving in balance. Will continue to challenge dynamic balance. Physical Therapy Plan Frequency and Duration Frequency of Treatment 1-2x/week Duration of Treatment 12 weeks Plan of Care Start Date 12/16/20 Plan of Care End Date 03/10/21 Therapeutic Interventions Therapeutic Interventions Balance Training,Gait Training ,Home Exercise Program,Joint Mobilizations,Manual Therapy, Neuromuscular Re-education, Patient/Caregiver Education, Self-Care/Home Management, Sensory Integration,Soft Tissue Mobilization,Taping, Therapeutic Activities, Therapeutic Exercises Modalities Cold Pack/Ice Massage,Hot Packs Next Visit Focus/Plan Next Note Type Treatment Note Next Visit Plan Progress seated, standing stability/balance activities. Consider stepping strategies.
--- NOTE | 2021-02-08 10:14 | PT.OTN ---
Current Diagnoses Other idiopathic scoliosis, site unspecified (02/08/21) Radiculopathy, lumbosacral region (02/08/21) Difficulty in walking, not elsewhere classified (02/08/21) Abnormal posture (02/08/21) Physical Therapy Treatment Note PT-OP-A Visit Information Start: 12/16/20 08:48 Freq: Status: Active Protocol: Document 02/08/21 09:31 MA (Rec: 02/08/21 10:14 MA [id number]) Out-Patient Physical Therapy Visit Information Visit Information Visit Type Treatment Note Visit Start Time 09:30 Visit Stop Time 10:10 Total Visit Minutes 40 Visit Number 13 Number of ELECTRONEURODIAGNOSTIC TECHNOLOGIST Visits 1 Precautions Precautions hypertension; orthostatic hypotension PT-OP-B Current Condition Start: 12/16/20 08:48 Freq: Status: Active Protocol: Document 12/16/20 15:15 AW (Rec: 12/16/20 15:18 AW [id number]) Current Condition History of Current Condition Onset Date chronic Current Complaints low back and left hip pain History of Current Condition Pt reports history of ongoing back pain and left hip pain which is often worse in the mornings. He has intermittent numbness in the top of his left foot and chronic neuropathy affecting sensation in both feet. He wears compression stockings of 20-30 mm Hg due to history of syncope. He does not drink enough water, stating he has urinary urgency when he drinks more. He has levoscoliosis. His balance has been worsening and pt reports occasional falls. He uses marijuana for pain control. He has history of alcohol dependence but has been sober since 2010. 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 He enjoys gardening. 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 Prior Treatments and Tests Chiropractic treatment in the past but none currently. Developmental History Developmental History [place] with hearing aids. Rickets . Scoliosis with levocurvature . Astigmatism. Treatment Goals Patient/Caregiver Goals Would like to be able to work with vibratory tools for longer periods for building stringed instruments and general woodworking. Prior Functional Status Baseline Function- ADL's Independent Baseline Function- Mobility Independent Baseline Function- Gait independent without AD Baseline Function- Recreation/Hobbies Able to work with sanding and other vibratory tools for an hour or more without increase in back pain. Personal Factors Other Personal Factors That May Effect (-) chronicity of deficits Therapy/Recovery PT-OP-C Subjective Start: 12/16/20 08:48 Freq: Status: Active Protocol: Document 02/08/21 09:31 MA (Rec: 02/08/21 10:14 MA [id number]) OP-PT Subjective Patient Comments Patient Comments I have been modifying my everyday tasks to be more like my HEP exercises and have been doing well PT-OP-D Balance Start: 12/16/20 08:48 Freq: Status: Active Protocol: Document 12/16/20 15:15 AW (Rec: 12/17/20 16:14 AW [email or web address]) OP-PT Balance Assessment Sitting Balance Static Sitting Balance Ability Good Dynamic Sitting Balance Ability Good Standing Balance Static Standing Balance Ability Good Dynamic Standing Balance Ability Fair Device Used no AD Maria Fall Scale Copyright Permission PT-OP-E Functional Tests Start: 12/16/20 08:48 Freq: Status: Active Protocol: Document 12/16/20 15:15 AW (Rec: 12/17/20 16:19 AW [email or web address]) Functional Tests Dynamic Gait Index (DGI) Score 20 DGI Impairment Rating 1 to <20% Impaired (Score 20- 23) PT-OP-G Mobility & Gait Start: 12/16/20 08:48 Freq: Status: Active Protocol: Document 12/16/20 15:15 AW (Rec: 12/17/20 16:19 AW [email or web address]) OP Mobility Evaluation Functional Movements Squats Able to pick items up from the floor but with some unsteadiness and with back pain. OP Gait Assessment Gait Gait Assistance Required: Independent Distance (Feet) 100 Assistive Devices Assistive Device None Gait Deviations General Gait Pattern Antalgic,Lateral Trunk Lean Factors Limiting Gait Function Factors Limiting Gait Function Decreased Sensation,Decreased Strength,Pain,Poor Balance Comments Gait Comments Increased ipsilateral lean in left stance. PT-OP-H Neuro Start: 12/16/20 08:48 Freq: Status: Active Protocol: Document 12/16/20 15:15 AW (Rec: 12/17/20 16:19 AW [email or web address]) Sensation Evaluation Gross Sensation Gross Sensation Left UE Impaired,Right UE Impaired,Left LE Impaired, Right LE Impaired Comments Summary Comments Numbness in bilateral hands and plantar feet. Intermittent numbness in dorsal feet. Deep Tendon Reflex & Clonus Assessment Deep Tendon Reflex Bilateral Achilles Deep Tendon Reflex 1+ Diminished Bilateral Patellar Deep Tendon Reflex 1+ Diminished Vital Signs Blood Pressure Sitting Blood Pressure (90/60-120/80 mmHg) 162/92 H Blood Pressure Source Manual Cuff PT-OP-J Posture/Palpation/Skin Start: 12/16/20 08:48 Freq: Status: Active Protocol: Document 12/16/20 15:15 AW (Rec: 12/17/20 16:31 AW [email or web address]) Posture Evaluation Position Standing Head/C-Spine Posture Forward Head L-Spine Posture Fixed Scoliosis on (L),Shifted Left Shoulder Posture (L) Rounded,(R) Rounded,(L) Forward Pelvis Posture (R) Iliac Crest Superior Comments Posture Comments Positive Trendelenberg sign bilaterally. Palpation Assessment Location lumbar paraspinals Palpation Details moderate density and TTP along bilateral paraspinals with left more affected than right. PT-OP-K Range of Motion Start: 12/16/20 08:48 Freq: Status: Active Protocol: Document 12/16/20 15:15 AW (Rec: 12/17/20 16:31 AW [email or web address]) Lumbar Spine Range of Motion Lumbar Spine Active Degrees Testing Position Standing Flexion 70 Extension 20 Comments Lateral flexion: fingertips reach knee joint bilaterally. Rotation: decreased right rotation compared with left. Hip Goniometric Range of Motion Hip bilateral Hip ROM WFL Yes Hip ROM Limitations Hip ROM Limitations Pain Comments All AROM and PROM WNL but painful with overpressure. PT-OP-L Special Tests Start: 12/16/20 08:48 Freq: Status: Active Protocol: Document 12/16/20 15:15 AW (Rec: 12/17/20 16:31 AW [email or web address]) Special Tests Lumbar Spine Special Tests Straight Leg Raise Test Results active SLR positive for lower abdominal weakness, improved with compression Manual Traction Test Results relieving Slump Test Results left positive in most provocative position PT-OP-M Strength Start: 12/16/20 08:48 Freq: Status: Active Protocol: Document 12/16/20 15:15 AW (Rec: 12/17/20 16:31 AW [email or web address]) Hip Strength Hip Manual Muscle Testing bilateral Flexion (L2) 4+ Good+ Extension (S1) 4 Good Abduction 4 Good External Rotation 4+ Good+ Internal Rotation 4+ Good+ Knee Strength Knee Manual Muscle Testing bilateral Flexion (S2) 4+ Good+ Extension (L3) 5 Normal PT-OP-Q Treatments Start: 12/16/20 08:48 Freq: Status: Active Protocol: Document 02/08/21 09:31 MA (Rec: 02/08/21 10:14 MA [id number]) Cardio Equipment Recumbent Bicycle Duration (Minutes) 7 Resistance 8 Seat Position 10 Other some SOB Gym Equipment Shuttle Balance WBOS NBOS Details blue clips Reps/Duration 10 min Comments WBOS, NBOS EO EC head turns EO head turns EC Sport Cord fwd/bwd/lateral Exercise Details fwd/bwd/lateral Cord/Resistance red Reps/Duration 4 laps each direction Comments two hurdles. cued avoid lateral or fwd lean Therapeutic Exercises Standing Exercises paloff press Standing Exercise Name paloff press Side bilateral Resistance TB3 Reps/Minutes x10 Comments HEP review lateral band walk Standing Exercise Name lateral band walk Side bilateral Resistance green loop Reps/Minutes 20' lap x 2 Comments HEP review Tennis Ball Standing Exercise Name L lateral hip Side left Reps/Minutes 2' x2 PT-OP-T Assessment and Plan Start: 12/16/20 08:48 Freq: Status: Active Protocol: Document 02/08/21 09:31 MA (Rec: 02/08/21 10:14 MA [id number]) Physical Therapy Assessment Goals Four Impairment lacks HEP Short Term Goal (STG) Pt will be independent with appropriate HEP for pain management to support therapy services provided in clinic. 01/21/21 MET STG Duration 6 weeks - 01/27/21 Three Impairment PAT Short Term Goal (STG) Pt will improve PAT score to 45% impairment or better. STG Duration 6 weeks - 01/27/21 Custodial Goal (LTG) Pt will improve PAT score to 35% impairment or better for improved function in daily activities. LTG Duration 12 weeks - 03/10/21 Two Impairment dynamic balance Custodial Goal (LTG) Pt will improve score on Dynamic Gait Index from 20/24 to 23/24 or greater to demonstrate reduced falls risk . LTG Duration 12 weeks - 03/10/21 One Impairment standing tolerance Short Term Goal (STG) Pt will tolerate standing to use tools 30 minutes or greater without increase in baseline pain 01/21/21 - MET per pt report STG Duration 6 weeks - 01/27/21 Custodial Goal (LTG) Pt will stand to use vibratory tools such as sanding 30 minutes or greater for return to instrument-making activities. LTG Duration 12 weeks - 03/10/21 Assessment Summary Assessment had no knee pain during recumbant bike for the first time today. His L lateral hip hurt after balance work on shuttle recovery but improved after self-STM with tennis ball. Pt requires cues to turn only head during balance work and not twist torso. He improves his posture during resisted walking with cord and only needs minor cues when stepping left to avoid lateral lean. Physical Therapy Plan Frequency and Duration Frequency of Treatment 1-2x/week Duration of Treatment 12 weeks Plan of Care Start Date 12/16/20 Plan of Care End Date 03/10/21 Therapeutic Interventions Therapeutic Interventions Balance Training,Gait Training ,Home Exercise Program,Joint Mobilizations,Manual Therapy, Neuromuscular Re-education, Patient/Caregiver Education, Self-Care/Home Management, Sensory Integration,Soft Tissue Mobilization,Taping, Therapeutic Activities, Therapeutic Exercises Modalities Cold Pack/Ice Massage,Hot Packs Next Visit Focus/Plan Next Note Type Treatment Note Next Visit Plan Progress seated, standing stability/balance activities. Consider stepping strategies.
--- NOTE | 2021-02-11 12:26 | PT.OTN ---
Current Diagnoses Other idiopathic scoliosis, site unspecified (02/11/21) Radiculopathy, lumbosacral region (02/11/21) Difficulty in walking, not elsewhere classified (02/11/21) Abnormal posture (02/11/21) Physical Therapy Treatment Note PT-OP-A Visit Information Start: 12/16/20 08:48 Freq: Status: Active Protocol: Document 02/11/21 10:30 AW (Rec: 02/11/21 10:32 AW [id number]) Out-Patient Physical Therapy Visit Information Visit Information Visit Type Treatment Note Visit Start Time 09:46 Visit Stop Time 10:30 Total Visit Minutes 44 Visit Number 14 Number of CRYPTOLOGIC SUPERVISOR Visits 0 Precautions Precautions hypertension; orthostatic hypotension PT-OP-B Current Condition Start: 12/16/20 08:48 Freq: Status: Active Protocol: Document 12/16/20 15:15 AW (Rec: 12/16/20 15:18 AW [id number]) Current Condition History of Current Condition Onset Date chronic Current Complaints low back and left hip pain History of Current Condition Pt reports history of ongoing back pain and left hip pain which is often worse in the mornings. He has intermittent numbness in the top of his left foot and chronic neuropathy affecting sensation in both feet. He wears compression stockings of 20-30 mm Hg due to history of syncope. He does not drink enough water, stating he has urinary urgency when he drinks more. He has levoscoliosis. His balance has been worsening and pt reports occasional falls. He uses marijuana for pain control. He has history of alcohol dependence but has been sober since 2010. 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 Prior Treatments and Tests Chiropractic treatment in the past but none currently. Developmental History Developmental History [place] with hearing aids. Rickets . Scoliosis with levocurvature . Astigmatism. Treatment Goals Patient/Caregiver Goals Would like to be able to work with vibratory tools for longer periods for building stringed instruments and general woodworking. Prior Functional Status Baseline Function- ADL's Independent Baseline Function- Mobility Independent Baseline Function- Gait independent without AD Baseline Function- Recreation/Hobbies Able to work with sanding and other vibratory tools for an hour or more without increase in back pain. Personal Factors Other Personal Factors That May Effect (-) chronicity of deficits Therapy/Recovery PT-OP-C Subjective Start: 12/16/20 08:48 Freq: Status: Active Protocol: Document 02/11/21 10:30 AW (Rec: 02/11/21 10:32 AW [id number]) OP-PT Subjective Patient Comments Patient Comments I walked home ~2 miles after therapy last week and felt good about it. PT-OP-D Balance Start: 12/16/20 08:48 Freq: Status: Active Protocol: Document 12/16/20 15:15 AW (Rec: 12/17/20 16:14 AW [email or web address]) OP-PT Balance Assessment Sitting Balance Static Sitting Balance Ability Good Dynamic Sitting Balance Ability Good Standing Balance Static Standing Balance Ability Good Dynamic Standing Balance Ability Fair Device Used no AD Maria Fall Scale Copyright Permission PT-OP-E Functional Tests Start: 12/16/20 08:48 Freq: Status: Active Protocol: Document 12/16/20 15:15 AW (Rec: 12/17/20 16:19 AW [email or web address]) Functional Tests Dynamic Gait Index (DGI) Score 20 DGI Impairment Rating 1 to <20% Impaired (Score 20- 23) PT-OP-G Mobility & Gait Start: 12/16/20 08:48 Freq: Status: Active Protocol: Document 12/16/20 15:15 AW (Rec: 12/17/20 16:19 AW [email or web address]) OP Mobility Evaluation Functional Movements Squats Able to pick items up from the floor but with some unsteadiness and with back pain. OP Gait Assessment Gait Gait Assistance Required: Independent Distance (Feet) 100 Assistive Devices Assistive Device None Gait Deviations General Gait Pattern Antalgic,Lateral Trunk Lean Factors Limiting Gait Function Factors Limiting Gait Function Decreased Sensation,Decreased Strength,Pain,Poor Balance Comments Gait Comments Increased ipsilateral lean in left stance. PT-OP-H Neuro Start: 12/16/20 08:48 Freq: Status: Active Protocol: Document 12/16/20 15:15 AW (Rec: 12/17/20 16:19 AW [email or web address]) Sensation Evaluation Gross Sensation Gross Sensation Left UE Impaired,Right UE Impaired,Left LE Impaired, Right LE Impaired Comments Summary Comments Numbness in bilateral hands and plantar feet. Intermittent numbness in dorsal feet. Deep Tendon Reflex & Clonus Assessment Deep Tendon Reflex Bilateral Achilles Deep Tendon Reflex 1+ Diminished Bilateral Patellar Deep Tendon Reflex 1+ Diminished Vital Signs Blood Pressure Sitting Blood Pressure (90/60-120/80 mmHg) 162/92 H Blood Pressure Source Manual Cuff PT-OP-J Posture/Palpation/Skin Start: 12/16/20 08:48 Freq: Status: Active Protocol: Document 12/16/20 15:15 AW (Rec: 12/17/20 16:31 AW [email or web address]) Posture Evaluation Position Standing Head/C-Spine Posture Forward Head L-Spine Posture Fixed Scoliosis on (L),Shifted Left Shoulder Posture (L) Rounded,(R) Rounded,(L) Forward Pelvis Posture (R) Iliac Crest Superior Comments Posture Comments Positive Trendelenberg sign bilaterally. Palpation Assessment Location lumbar paraspinals Palpation Details moderate density and TTP along bilateral paraspinals with left more affected than right. PT-OP-K Range of Motion Start: 12/16/20 08:48 Freq: Status: Active Protocol: Document 12/16/20 15:15 AW (Rec: 12/17/20 16:31 AW [email or web address]) Lumbar Spine Range of Motion Lumbar Spine Active Degrees Testing Position Standing Flexion 70 Extension 20 Comments Lateral flexion: fingertips reach knee joint bilaterally. Rotation: decreased right rotation compared with left. Hip Goniometric Range of Motion Hip bilateral Hip ROM WFL Yes Hip ROM Limitations Hip ROM Limitations Pain Comments All AROM and PROM WNL but painful with overpressure. PT-OP-L Special Tests Start: 12/16/20 08:48 Freq: Status: Active Protocol: Document 12/16/20 15:15 AW (Rec: 12/17/20 16:31 AW [email or web address]) Special Tests Lumbar Spine Special Tests Straight Leg Raise Test Results active SLR positive for lower abdominal weakness, improved with compression Manual Traction Test Results relieving Slump Test Results left positive in most provocative position PT-OP-M Strength Start: 12/16/20 08:48 Freq: Status: Active Protocol: Document 12/16/20 15:15 AW (Rec: 12/17/20 16:31 AW [email or web address]) Hip Strength Hip Manual Muscle Testing bilateral Flexion (L2) 4+ Good+ Extension (S1) 4 Good Abduction 4 Good External Rotation 4+ Good+ Internal Rotation 4+ Good+ Knee Strength Knee Manual Muscle Testing bilateral Flexion (S2) 4+ Good+ Extension (L3) 5 Normal PT-OP-Q Treatments Start: 12/16/20 08:48 Freq: Status: Active Protocol: Document 02/11/21 10:30 AW (Rec: 02/11/21 10:32 AW [id number]) Cardio Equipment Recumbent Elliptical (Biodex) Duration (Minutes) 7 Resistance 8 Seat Position 12 Other able to carry on coversation Gym Equipment Sport Cord step up Exercise Details step up Cord/Resistance blue Reps/Duration 2x10 Comments 8 step with sport cord attached to gait belt at hips. PT provides resistance and random tugs. gait Exercise Details gait level surface Cord/Resistance blue Reps/Duration 100' x 10 Comments cord attached to gait belt and pt walks with head turns as PT provides random tugs at hip level via cord sit to stand Exercise Details sit to stand Cord/Resistance blue Reps/Duration 2x10 reps Comments cord attached to gait belt and random tugs and release of resistance provided from behind Therapeutic Exercises Standing Exercises paloff press Standing Exercise Name paloff press Side bilateral Resistance TB3 Reps/Minutes x10 Comments with added GH flexion, SLS Gait Training Gait Activity DGI Description DGI Device Used no AD Level of Assistance SBA Surface level, firm Treatment Focus assessment Comments on DGI; on FGA. See scanned scoresheets. PT-OP-T Assessment and Plan Start: 12/16/20 08:48 Freq: Status: Active Protocol: Document 02/11/21 10:30 AW (Rec: 02/11/21 12:25 AW [email or web address]) Physical Therapy Assessment Goals Four Impairment lacks HEP Short Term Goal (STG) Pt will be independent with appropriate HEP for pain management to support therapy services provided in clinic. 01/21/21 MET STG Duration 6 weeks - 01/27/21 Three Impairment PAT Short Term Goal (STG) Pt will improve PAT score to 45% impairment or better. STG Duration 6 weeks - 01/27/21 Nursing Home Goal (LTG) Pt will improve PAT score to 35% impairment or better for improved function in daily activities. LTG Duration 12 weeks - 03/10/21 Two Impairment dynamic balance Fourth Hand Goal (LTG) Pt will improve score on Dynamic Gait Index from 20/24 to 23/24 or greater to demonstrate reduced falls risk . 02/11/21 - MET - Pt scores 24/ on DGI and 26/30 on FGA LTG Duration 12 weeks - 03/10/21 One Impairment standing tolerance Short Term Goal (STG) Pt will tolerate standing to use tools 30 minutes or greater without increase in baseline pain 01/21/21 - MET per pt report STG Duration 6 weeks - 01/27/21 Fourth Hand Goal (LTG) Pt will stand to use vibratory tools such as sanding 30 minutes or greater for return to instrument-making activities. LTG Duration 12 weeks - 03/10/21 Assessment Summary Assessment met his goal for Dynamic Gait Index and scored 26/30 on Functional Gait Assessment. He struggled most with NBOS gait, eyes closed, and backward ambulation. Treatment will continue to focus on balance and stability. Pt's pain symptoms have greatly improved. Physical Therapy Plan Frequency and Duration Frequency of Treatment 1-2x/week Duration of Treatment 12 weeks Plan of Care Start Date 12/16/20 Plan of Care End Date 03/10/21 Therapeutic Interventions Therapeutic Interventions Balance Training,Gait Training ,Home Exercise Program,Joint Mobilizations,Manual Therapy, Neuromuscular Re-education, Patient/Caregiver Education, Self-Care/Home Management, Sensory Integration,Soft Tissue Mobilization,Taping, Therapeutic Activities, Therapeutic Exercises Modalities Cold Pack/Ice Massage,Hot Packs Next Visit Focus/Plan Next Note Type Treatment Note Next Visit Plan Progress standing stability/ balance activities. Consider stepping strategies, NBOS, increase cognitive load in gait.
--- NOTE | 2021-02-24 12:08 | PT.OTN ---
Current Diagnoses Other idiopathic scoliosis, site unspecified (02/24/21) Radiculopathy, lumbosacral region (02/24/21) Difficulty in walking, not elsewhere classified (02/24/21) Abnormal posture (02/24/21) Physical Therapy Treatment Note PT-OP-A Visit Information Start: 12/16/20 08:48 Freq: Status: Active Protocol: Document 02/24/21 11:56 AW (Rec: 02/24/21 12:04 AW [id number]) Out-Patient Physical Therapy Visit Information Visit Information Visit Type Treatment Note Visit Start Time 11:15 Visit Stop Time 11:56 Total Visit Minutes 41 Visit Number 15 Number of BLOCK MECHANIC Visits 0 Precautions Precautions hypertension; orthostatic hypotension PT-OP-B Current Condition Start: 12/16/20 08:48 Freq: Status: Active Protocol: Document 12/16/20 15:15 AW (Rec: 12/16/20 15:18 AW [id number]) Current Condition History of Current Condition Onset Date chronic Current Complaints low back and left hip pain History of Current Condition Pt reports history of ongoing back pain and left hip pain which is often worse in the mornings. He has intermittent numbness in the top of his left foot and chronic neuropathy affecting sensation in both feet. He wears compression stockings of 20-30 mm Hg due to history of syncope. He does not drink enough water, stating he has urinary urgency when he drinks more. He has levoscoliosis. His balance has been worsening and pt reports occasional falls. He uses marijuana for pain control. He has history of alcohol dependence but has been sober since 2010. 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 He enjoys gardening. 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 Prior Treatments and Tests Chiropractic treatment in the past but none currently. Developmental History Developmental History [place] with hearing aids. Rickets . Scoliosis with levocurvature . Astigmatism. Treatment Goals Patient/Caregiver Goals Would like to be able to work with vibratory tools for longer periods for building stringed instruments and general woodworking. Prior Functional Status Baseline Function- ADL's Independent Baseline Function- Mobility Independent Baseline Function- Gait independent without AD Baseline Function- Recreation/Hobbies Able to work with sanding and other vibratory tools for an hour or more without increase in back pain. Personal Factors Other Personal Factors That May Effect (-) chronicity of deficits Therapy/Recovery PT-OP-C Subjective Start: 12/16/20 08:48 Freq: Status: Active Protocol: Document 02/24/21 11:56 AW (Rec: 02/24/21 12:04 AW [id number]) OP-PT Subjective Patient Comments Patient Comments I was able to move a small refrigerator yesterday without difficulty. PT-OP-D Balance Start: 12/16/20 08:48 Freq: Status: Active Protocol: Document 12/16/20 15:15 AW (Rec: 12/17/20 16:14 AW [email or web address]) OP-PT Balance Assessment Sitting Balance Static Sitting Balance Ability Good Dynamic Sitting Balance Ability Good Standing Balance Static Standing Balance Ability Good Dynamic Standing Balance Ability Fair Device Used no AD Maria Fall Scale Copyright Permission PT-OP-E Functional Tests Start: 12/16/20 08:48 Freq: Status: Active Protocol: Document 12/16/20 15:15 AW (Rec: 12/17/20 16:19 AW [email or web address]) Functional Tests Dynamic Gait Index (DGI) Score 20 DGI Impairment Rating 1 to <20% Impaired (Score 20- 23) PT-OP-G Mobility & Gait Start: 12/16/20 08:48 Freq: Status: Active Protocol: Document 12/16/20 15:15 AW (Rec: 12/17/20 16:19 AW [email or web address]) OP Mobility Evaluation Functional Movements Squats Able to pick items up from the floor but with some unsteadiness and with back pain. OP Gait Assessment Gait Gait Assistance Required: Independent Distance (Feet) 100 Assistive Devices Assistive Device None Gait Deviations General Gait Pattern Antalgic,Lateral Trunk Lean Factors Limiting Gait Function Factors Limiting Gait Function Decreased Sensation,Decreased Strength,Pain,Poor Balance Comments Gait Comments Increased ipsilateral lean in left stance. PT-OP-H Neuro Start: 12/16/20 08:48 Freq: Status: Active Protocol: Document 12/16/20 15:15 AW (Rec: 12/17/20 16:19 AW [email or web address]) Sensation Evaluation Gross Sensation Gross Sensation Left UE Impaired,Right UE Impaired,Left LE Impaired, Right LE Impaired Comments Summary Comments Numbness in bilateral hands and plantar feet. Intermittent numbness in dorsal feet. Deep Tendon Reflex & Clonus Assessment Deep Tendon Reflex Bilateral Achilles Deep Tendon Reflex 1+ Diminished Bilateral Patellar Deep Tendon Reflex 1+ Diminished Vital Signs Blood Pressure Sitting Blood Pressure (90/60-120/80 mmHg) 162/92 H Blood Pressure Source Manual Cuff PT-OP-J Posture/Palpation/Skin Start: 12/16/20 08:48 Freq: Status: Active Protocol: Document 12/16/20 15:15 AW (Rec: 12/17/20 16:31 AW [email or web address]) Posture Evaluation Position Standing Head/C-Spine Posture Forward Head L-Spine Posture Fixed Scoliosis on (L),Shifted Left Shoulder Posture (L) Rounded,(R) Rounded,(L) Forward Pelvis Posture (R) Iliac Crest Superior Comments Posture Comments Positive Trendelenberg sign bilaterally. Palpation Assessment Location lumbar paraspinals Palpation Details moderate density and TTP along bilateral paraspinals with left more affected than right. PT-OP-K Range of Motion Start: 12/16/20 08:48 Freq: Status: Active Protocol: Document 12/16/20 15:15 AW (Rec: 12/17/20 16:31 AW [email or web address]) Lumbar Spine Range of Motion Lumbar Spine Active Degrees Testing Position Standing Flexion 70 Extension 20 Comments Lateral flexion: fingertips reach knee joint bilaterally. Rotation: decreased right rotation compared with left. Hip Goniometric Range of Motion Hip bilateral Hip ROM WFL Yes Hip ROM Limitations Hip ROM Limitations Pain Comments All AROM and PROM WNL but painful with overpressure. PT-OP-L Special Tests Start: 12/16/20 08:48 Freq: Status: Active Protocol: Document 12/16/20 15:15 AW (Rec: 12/17/20 16:31 AW [email or web address]) Special Tests Lumbar Spine Special Tests Straight Leg Raise Test Results active SLR positive for lower abdominal weakness, improved with compression Manual Traction Test Results relieving Slump Test Results left positive in most provocative position PT-OP-M Strength Start: 12/16/20 08:48 Freq: Status: Active Protocol: Document 12/16/20 15:15 AW (Rec: 12/17/20 16:31 AW [email or web address]) Hip Strength Hip Manual Muscle Testing bilateral Flexion (L2) 4+ Good+ Extension (S1) 4 Good Abduction 4 Good External Rotation 4+ Good+ Internal Rotation 4+ Good+ Knee Strength Knee Manual Muscle Testing bilateral Flexion (S2) 4+ Good+ Extension (L3) 5 Normal PT-OP-Q Treatments Start: 12/16/20 08:48 Freq: Status: Active Protocol: Document 02/24/21 11:56 AW (Rec: 02/24/21 12:04 AW [id number]) Cardio Equipment Recumbent Elliptical (Biodex) Duration (Minutes) 7 Resistance 8 Seat Position 12 Other able to carry on coversation; BP 170/62 after ex Gym Equipment Sport Cord gait Exercise Details gait level surface Cord/Resistance blue Reps/Duration 100' x 10 Comments cord attached to gait belt and pt walks with head turns as PT provides random tugs at hip level via cord sit to stand Exercise Details sit to stand Cord/Resistance blue Reps/Duration 2x10 reps Comments cord attached to gait belt and random tugs and release of resistance provided from all sides. One anterior LOB during ascent with pt using step strategy to recover. Therapeutic Exercises Standing Exercises resisted GH extension Standing Exercise Name resisted GH extension Resistance level 2 Equipment Used TB Reps/Minutes 2x12 resisted rows Standing Exercise Name resisted rows Resistance level 2 Equipment Used TB Reps/Minutes 2x12 Comments cues for scap retraction paloff press Standing Exercise Name paloff press Side bilateral Resistance TB3 Reps/Minutes 2x15 Comments with active GH flexion ~150 deg Neuro Re-Education Treatment Balance Activities NBOS, tandem stance Surface tile Equipment rail for prn support Reps/Duration 8 min Comments Pt able to decrease distance between feet in tandem stance but can not stand heel/toe. Needs cues for weight distribution. PT-OP-T Assessment and Plan Start: 12/16/20 08:48 Freq: Status: Active Protocol: Document 02/24/21 11:56 AW (Rec: 02/24/21 12:08 AW [id number]) Physical Therapy Assessment Goals Four Impairment lacks HEP Short Term Goal (STG) Pt will be independent with appropriate HEP for pain management to support therapy services provided in clinic. 01/21/21 MET STG Duration 6 weeks - 01/27/21 Three Impairment PAT Short Term Goal (STG) Pt will improve PAT score to 45% impairment or better. STG Duration 6 weeks - 01/27/21 Waistband Setter Lockstitch Goal (LTG) Pt will improve PAT score to 35% impairment or better for improved function in daily activities. LTG Duration 12 weeks - 03/10/21 Two Impairment dynamic balance Mcc Goal (LTG) Pt will improve score on Dynamic Gait Index from 20/24 to 23/24 or greater to demonstrate reduced falls risk . 02/11/21 - MET - Pt scores 24/ 24 on DGI and 26/30 on FGA LTG Duration 12 weeks - 03/10/21 One Impairment standing tolerance Short Term Goal (STG) Pt will tolerate standing to use tools 30 minutes or greater without increase in baseline pain 01/21/21 - MET per pt report STG Duration 6 weeks - 01/27/21 Mcc Goal (LTG) Pt will stand to use vibratory tools such as sanding 30 minutes or greater for return to instrument-making activities. LTG Duration 12 weeks - 03/10/21 Assessment Summary Assessment continues to improve with dynamic stability but head turns and narrow base of support remain challenging. He has two visits left in current plan of care and feels he will be ready to discharge . He will bring his HEP printouts to next visit to consolidate. Physical Therapy Plan Frequency and Duration Frequency of Treatment 1-2x/week Duration of Treatment 12 weeks Plan of Care Start Date 12/16/20 Plan of Care End Date 03/10/21 Therapeutic Interventions Therapeutic Interventions Balance Training,Gait Training ,Home Exercise Program,Joint Mobilizations,Manual Therapy, Neuromuscular Re-education, Patient/Caregiver Education, Self-Care/Home Management, Sensory Integration,Soft Tissue Mobilization,Taping, Therapeutic Activities, Therapeutic Exercises Modalities Cold Pack/Ice Massage,Hot Packs Next Visit Focus/Plan Next Note Type Treatment Note Next Visit Plan Consolidate HEP Progress standing stability/ balance activities. NBOS, increase cognitive load in gait.
--- NOTE | 2021-03-04 09:53 | PT.OTN ---
Current Diagnoses Other idiopathic scoliosis, site unspecified (03/04/21) Radiculopathy, lumbosacral region (03/04/21) Difficulty in walking, not elsewhere classified (03/04/21) Abnormal posture (03/04/21) Physical Therapy Treatment Note PT-OP-A Visit Information Start: 12/16/20 08:48 Freq: Status: Active Protocol: Document 03/04/21 09:45 AW (Rec: 03/04/21 09:49 AW [id number]) Out-Patient Physical Therapy Visit Information Visit Information Visit Type Treatment Note Visit Start Time 09:00 Visit Stop Time 09:45 Total Visit Minutes 45 Visit Number 16 Number of WOODWORKING MACHINE FEEDER Visits 0 Precautions Precautions hypertension; orthostatic hypotension PT-OP-B Current Condition Start: 12/16/20 08:48 Freq: Status: Active Protocol: Document 12/16/20 15:15 AW (Rec: 12/16/20 15:18 AW [id number]) Current Condition History of Current Condition Onset Date chronic Current Complaints low back and left hip pain History of Current Condition Pt reports history of ongoing back pain and left hip pain which is often worse in the mornings. He has intermittent numbness in the top of his left foot and chronic neuropathy affecting sensation in both feet. He wears compression stockings of 20-30 mm Hg due to history of syncope. He does not drink enough water, stating he has urinary urgency when he drinks more. He has levoscoliosis. His balance has been worsening and pt reports occasional falls. He uses marijuana for pain control. He has history of alcohol dependence but has been sober since 2010. 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 Prior Treatments and Tests Chiropractic treatment in the past but none currently. Developmental History Developmental History [place] with hearing aids. Rickets . Scoliosis with levocurvature . Astigmatism. Treatment Goals Patient/Caregiver Goals Would like to be able to work with vibratory tools for longer periods for building stringed instruments and general woodworking. Prior Functional Status Baseline Function- ADL's Independent Baseline Function- Mobility Independent Baseline Function- Gait independent without AD Baseline Function- Recreation/Hobbies Able to work with sanding and other vibratory tools for an hour or more without increase in back pain. Personal Factors Other Personal Factors That May Effect (-) chronicity of deficits Therapy/Recovery PT-OP-C Subjective Start: 12/16/20 08:48 Freq: Status: Active Protocol: Document 03/04/21 09:45 AW (Rec: 03/04/21 09:49 AW [id number]) OP-PT Subjective Patient Comments Patient Comments Mid back is feeling better. I 've been able to stand and use sanding tools in the shop without worsening pain. PT-OP-D Balance Start: 12/16/20 08:48 Freq: Status: Active Protocol: Document 12/16/20 15:15 AW (Rec: 12/17/20 16:14 AW [email or web address]) OP-PT Balance Assessment Sitting Balance Static Sitting Balance Ability Good Dynamic Sitting Balance Ability Good Standing Balance Static Standing Balance Ability Good Dynamic Standing Balance Ability Fair Device Used no AD Maria Fall Scale Copyright Permission PT-OP-E Functional Tests Start: 12/16/20 08:48 Freq: Status: Active Protocol: Document 12/16/20 15:15 AW (Rec: 12/17/20 16:19 AW [email or web address]) Functional Tests Dynamic Gait Index (DGI) Score 20 DGI Impairment Rating 1 to <20% Impaired (Score 20- 23) PT-OP-G Mobility & Gait Start: 12/16/20 08:48 Freq: Status: Active Protocol: Document 12/16/20 15:15 AW (Rec: 12/17/20 16:19 AW [email or web address]) OP Mobility Evaluation Functional Movements Squats Able to pick items up from the floor but with some unsteadiness and with back pain. OP Gait Assessment Gait Gait Assistance Required: Independent Distance (Feet) 100 Assistive Devices Assistive Device None Gait Deviations General Gait Pattern Antalgic,Lateral Trunk Lean Factors Limiting Gait Function Factors Limiting Gait Function Decreased Sensation,Decreased Strength,Pain,Poor Balance Comments Gait Comments Increased ipsilateral lean in left stance. PT-OP-H Neuro Start: 12/16/20 08:48 Freq: Status: Active Protocol: Document 12/16/20 15:15 AW (Rec: 12/17/20 16:19 AW [email or web address]) Sensation Evaluation Gross Sensation Gross Sensation Left UE Impaired,Right UE Impaired,Left LE Impaired, Right LE Impaired Comments Summary Comments Numbness in bilateral hands and plantar feet. Intermittent numbness in dorsal feet. Deep Tendon Reflex & Clonus Assessment Deep Tendon Reflex Bilateral Achilles Deep Tendon Reflex 1+ Diminished Bilateral Patellar Deep Tendon Reflex 1+ Diminished Vital Signs Blood Pressure Sitting Blood Pressure (90/60-120/80 mmHg) 162/92 H Blood Pressure Source Manual Cuff PT-OP-J Posture/Palpation/Skin Start: 12/16/20 08:48 Freq: Status: Active Protocol: Document 12/16/20 15:15 AW (Rec: 12/17/20 16:31 AW [email or web address]) Posture Evaluation Position Standing Head/C-Spine Posture Forward Head L-Spine Posture Fixed Scoliosis on (L),Shifted Left Shoulder Posture (L) Rounded,(R) Rounded,(L) Forward Pelvis Posture (R) Iliac Crest Superior Comments Posture Comments Positive Trendelenberg sign bilaterally. Palpation Assessment Location lumbar paraspinals Palpation Details moderate density and TTP along bilateral paraspinals with left more affected than right. PT-OP-K Range of Motion Start: 12/16/20 08:48 Freq: Status: Active Protocol: Document 12/16/20 15:15 AW (Rec: 12/17/20 16:31 AW [email or web address]) Lumbar Spine Range of Motion Lumbar Spine Active Degrees Testing Position Standing Flexion 70 Extension 20 Comments Lateral flexion: fingertips reach knee joint bilaterally. Rotation: decreased right rotation compared with left. Hip Goniometric Range of Motion Hip bilateral Hip ROM WFL Yes Hip ROM Limitations Hip ROM Limitations Pain Comments All AROM and PROM WNL but painful with overpressure. PT-OP-L Special Tests Start: 12/16/20 08:48 Freq: Status: Active Protocol: Document 12/16/20 15:15 AW (Rec: 12/17/20 16:31 AW [email or web address]) Special Tests Lumbar Spine Special Tests Straight Leg Raise Test Results active SLR positive for lower abdominal weakness, improved with compression Manual Traction Test Results relieving Slump Test Results left positive in most provocative position PT-OP-M Strength Start: 12/16/20 08:48 Freq: Status: Active Protocol: Document 12/16/20 15:15 AW (Rec: 12/17/20 16:31 AW [email or web address]) Hip Strength Hip Manual Muscle Testing bilateral Flexion (L2) 4+ Good+ Extension (S1) 4 Good Abduction 4 Good External Rotation 4+ Good+ Internal Rotation 4+ Good+ Knee Strength Knee Manual Muscle Testing bilateral Flexion (S2) 4+ Good+ Extension (L3) 5 Normal PT-OP-Q Treatments Start: 12/16/20 08:48 Freq: Status: Active Protocol: Document 03/04/21 09:45 AW (Rec: 03/04/21 09:49 AW [id number]) Cardio Equipment Recumbent Bicycle Duration (Minutes) 7 Resistance 8 Seat Position 10 Other mild SOB but able to carry on conversation Gym Equipment Sport Cord step up Exercise Details step up Cord/Resistance blue Reps/Duration 2x10 Comments 8 step with sport cord attached to gait belt at hips. 8 step for fwd and left lateral step ups. 4 for improved performance right lateral step up due to reported knee pain Therapeutic Exercises Standing Exercises resisted GH extension Standing Exercise Name resisted GH extension Resistance level 2 Equipment Used TB Reps/Minutes 2x12 resisted rows Standing Exercise Name resisted rows Resistance level 2 Equipment Used TB Reps/Minutes 2x12 Comments cues for scap retraction paloff press Standing Exercise Name paloff press Side bilateral Resistance TB3 Reps/Minutes 2x15 Comments with active GH flexion ~150 deg Neuro Re-Education Treatment Balance Activities NBOS, tandem stance Surface carpet Equipment rail for prn support Reps/Duration 8 min Comments Improved to be able to assume tandem position with rail support and then to stand ~15 seconds with each LE fwd (more unsteady with left foot forward). Self-Care/Home Management Treatment Education Patient Education Home Exercise Program Other Education Consolidated HEP and added tandem stance, resisted row, resisted GH extension. PT-OP-T Assessment and Plan Start: 12/16/20 08:48 Freq: Status: Active Protocol: Document 03/04/21 09:45 AW (Rec: 03/04/21 09:52 AW [email or web address]) Physical Therapy Assessment Goals Four Impairment lacks HEP Short Term Goal (STG) Pt will be independent with appropriate HEP for pain management to support therapy services provided in clinic. 01/21/21 MET STG Duration 6 weeks - 01/27/21 Three Impairment PAT Short Term Goal (STG) Pt will improve PAT score to 45% impairment or better. STG Duration 6 weeks - 01/27/21 Fpc Goal (LTG) Pt will improve PAT score to 35% impairment or better for improved function in daily activities. LTG Duration 12 weeks - 03/10/21 Two Impairment dynamic balance Commercial Sales Representative Goal (LTG) Pt will improve score on Dynamic Gait Index from to 23/24 or greater to demonstrate reduced falls risk . 02/11/21 - MET - Pt scores 24/ 24 on DGI and 26/30 on FGA LTG Duration 12 weeks - 03/10/21 One Impairment standing tolerance Short Term Goal (STG) Pt will tolerate standing to use tools 30 minutes or greater without increase in baseline pain 01/21/21 - MET per pt report STG Duration 6 weeks - 01/27/21 Commercial Sales Representative Goal (LTG) Pt will stand to use vibratory tools such as sanding 30 minutes or greater for return to instrument-making activities. LTG Duration 12 weeks - 03/10/21 Assessment Summary Assessment NBOS activities improved today with pt able to assume tandem stance with UE support and then to maintain position unsupported ~15 seconds BLE. Next visit will likely be his last. Physical Therapy Plan Frequency and Duration Frequency of Treatment 1-2x/week Duration of Treatment 12 weeks Plan of Care Start Date 12/16/20 Plan of Care End Date 03/10/21 Therapeutic Interventions Therapeutic Interventions Balance Training,Gait Training ,Home Exercise Program,Joint Mobilizations,Manual Therapy, Neuromuscular Re-education, Patient/Caregiver Education, Self-Care/Home Management, Sensory Integration,Soft Tissue Mobilization,Taping, Therapeutic Activities, Therapeutic Exercises Modalities Cold Pack/Ice Massage,Hot Packs Next Visit Focus/Plan Next Note Type Discharge Summary Next Visit Plan Assess PAT. Review HEP. Assess readiness for discharge. Increase cognitive load in gait.
--- NOTE | 2021-03-10 09:56 | PT.OTN ---
Current Diagnoses Other idiopathic scoliosis, site unspecified (03/10/21) Radiculopathy, lumbosacral region (03/10/21) Difficulty in walking, not elsewhere classified (03/10/21) Abnormal posture (03/10/21) Physical Therapy Treatment Note PT-OP-A Visit Information Start: 12/16/20 08:48 Freq: Status: Active Protocol: Document 03/10/21 09:44 AW (Rec: 03/10/21 09:53 AW [id number]) Out-Patient Physical Therapy Visit Information Visit Information Visit Type Discharge Summary Visit Start Time 09:00 Visit Stop Time 09:44 Total Visit Minutes 44 Visit Number 17 Number of THREAD DRAWER Visits 0 Precautions Precautions hypertension; orthostatic hypotension PT-OP-B Current Condition Start: 12/16/20 08:48 Freq: Status: Active Protocol: Document 12/16/20 15:15 AW (Rec: 12/16/20 15:18 AW [id number]) Current Condition History of Current Condition Onset Date chronic Current Complaints low back and left hip pain History of Current Condition Pt reports history of ongoing back pain and left hip pain which is often worse in the mornings. He has intermittent numbness in the top of his left foot and chronic neuropathy affecting sensation in both feet. He wears compression stockings of 20-30 mm Hg due to history of syncope. He does not drink enough water, stating he has urinary urgency when he drinks more. He has levoscoliosis. His balance has been worsening and pt reports occasional falls. He uses marijuana for pain control. He has history of alcohol dependence but has been sober since 2010. 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 He enjoys gardening. 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 Prior Treatments and Tests Chiropractic treatment in the past but none currently. Developmental History Developmental History TEJON with hearing aids. Rickets . Scoliosis with levocurvature . Astigmatism. Treatment Goals Patient/Caregiver Goals Would like to be able to work with vibratory tools for longer periods for building stringed instruments and general woodworking. Prior Functional Status Baseline Function- ADL's Independent Baseline Function- Mobility Independent Baseline Function- Gait independent without AD Baseline Function- Recreation/Hobbies Able to work with sanding and other vibratory tools for an hour or more without increase in back pain. Personal Factors Other Personal Factors That May Effect (-) chronicity of deficits Therapy/Recovery PT-OP-C Subjective Start: 12/16/20 08:48 Freq: Status: Active Protocol: Document 03/10/21 09:44 AW (Rec: 03/10/21 09:53 AW [id number]) OP-PT Subjective Patient Comments Patient Comments My awareness has improved and I know I'll be ok if I just keep doing my exercises. Patient Questionnaires Oswestry Low Back Index Oswestry Score 16 Oswestry Impairment 1 to 19% Impaired (Score 1-19) PT-OP-D Balance Start: 12/16/20 08:48 Freq: Status: Active Protocol: Document 12/16/20 15:15 AW (Rec: 12/17/20 16:14 AW [email or web address]) OP-PT Balance Assessment Sitting Balance Static Sitting Balance Ability Good Dynamic Sitting Balance Ability Good Standing Balance Static Standing Balance Ability Good Dynamic Standing Balance Ability Fair Device Used no AD Maria Fall Scale Copyright Permission PT-OP-E Functional Tests Start: 12/16/20 08:48 Freq: Status: Active Protocol: Document 12/16/20 15:15 AW (Rec: 12/17/20 16:19 AW [email or web address]) Functional Tests Dynamic Gait Index (DGI) Score 20 DGI Impairment Rating 1 to <20% Impaired (Score 20- 23) PT-OP-G Mobility & Gait Start: 12/16/20 08:48 Freq: Status: Active Protocol: Document 12/16/20 15:15 AW (Rec: 12/17/20 16:19 AW [email or web address]) OP Mobility Evaluation Functional Movements Squats Able to pick items up from the floor but with some unsteadiness and with back pain. OP Gait Assessment Gait Gait Assistance Required: Independent Distance (Feet) 100 Assistive Devices Assistive Device None Gait Deviations General Gait Pattern Antalgic,Lateral Trunk Lean Factors Limiting Gait Function Factors Limiting Gait Function Decreased Sensation,Decreased Strength,Pain,Poor Balance Comments Gait Comments Increased ipsilateral lean in left stance. PT-OP-H Neuro Start: 12/16/20 08:48 Freq: Status: Active Protocol: Document 12/16/20 15:15 AW (Rec: 12/17/20 16:19 AW [email or web address]) Sensation Evaluation Gross Sensation Gross Sensation Left UE Impaired,Right UE Impaired,Left LE Impaired, Right LE Impaired Comments Summary Comments Numbness in bilateral hands and plantar feet. Intermittent numbness in dorsal feet. Deep Tendon Reflex & Clonus Assessment Deep Tendon Reflex Bilateral Achilles Deep Tendon Reflex 1+ Diminished Bilateral Patellar Deep Tendon Reflex 1+ Diminished Vital Signs Blood Pressure Sitting Blood Pressure (90/60-120/80 mmHg) 162/92 H Blood Pressure Source Manual Cuff PT-OP-J Posture/Palpation/Skin Start: 12/16/20 08:48 Freq: Status: Active Protocol: Document 12/16/20 15:15 AW (Rec: 12/17/20 16:31 AW [email or web address]) Posture Evaluation Position Standing Head/C-Spine Posture Forward Head L-Spine Posture Fixed Scoliosis on (L),Shifted Left Shoulder Posture (L) Rounded,(R) Rounded,(L) Forward Pelvis Posture (R) Iliac Crest Superior Comments Posture Comments Positive Trendelenberg sign bilaterally. Palpation Assessment Location lumbar paraspinals Palpation Details moderate density and TTP along bilateral paraspinals with left more affected than right. PT-OP-K Range of Motion Start: 12/16/20 08:48 Freq: Status: Active Protocol: Document 12/16/20 15:15 AW (Rec: 12/17/20 16:31 AW [email or web address]) Lumbar Spine Range of Motion Lumbar Spine Active Degrees Testing Position Standing Flexion 70 Extension 20 Comments Lateral flexion: fingertips reach knee joint bilaterally. Rotation: decreased right rotation compared with left. Hip Goniometric Range of Motion Hip bilateral Hip ROM WFL Yes Hip ROM Limitations Hip ROM Limitations Pain Comments All AROM and PROM WNL but painful with overpressure. PT-OP-L Special Tests Start: 12/16/20 08:48 Freq: Status: Active Protocol: Document 12/16/20 15:15 AW (Rec: 12/17/20 16:31 AW [email or web address]) Special Tests Lumbar Spine Special Tests Straight Leg Raise Test Results active SLR positive for lower abdominal weakness, improved with compression Manual Traction Test Results relieving Slump Test Results left positive in most provocative position PT-OP-M Strength Start: 12/16/20 08:48 Freq: Status: Active Protocol: Document 12/16/20 15:15 AW (Rec: 12/17/20 16:31 AW [email or web address]) Hip Strength Hip Manual Muscle Testing bilateral Flexion (L2) 4+ Good+ Extension (S1) 4 Good Abduction 4 Good External Rotation 4+ Good+ Internal Rotation 4+ Good+ Knee Strength Knee Manual Muscle Testing bilateral Flexion (S2) 4+ Good+ Extension (L3) 5 Normal PT-OP-Q Treatments Start: 12/16/20 08:48 Freq: Status: Active Protocol: Document 03/10/21 09:44 AW (Rec: 03/10/21 09:53 AW [id number]) Cardio Equipment Recumbent Bicycle Duration (Minutes) 7 Resistance 8 Seat Position 10 Other mild SOB but able to carry on conversation Therapeutic Exercises Standing Exercises resisted GH extension Standing Exercise Name resisted GH extension Resistance level 3 Equipment Used TB Reps/Minutes 2x12 resisted rows Standing Exercise Name resisted rows Resistance level 2 Equipment Used TB Reps/Minutes 2x12 Comments cues for scap retraction paloff press Standing Exercise Name paloff press Side bilateral Resistance TB3 Reps/Minutes 2x15 Comments on blue foam for increased proprioception challenge Gait Training Gait Activity dynamic gait Description head turns, cog load Level of Assistance SBA Surface tile Comments Pt able to walk 100 feet x 6 while turning head at 60 bpm and listening to/answering PAT questions. Neuro Re-Education Treatment Balance Activities NBOS, tandem stance Surface carpet Equipment rail for prn support Reps/Duration 12 min Comments Added A/P weight shifts and arm swings for internal perturbations SLS Reps/Duration 5' Comments 2 fingers on counter for balance: working on weight shift to correct lateral lean Self-Care/Home Management Treatment Education Patient Education Home Exercise Program,Posture, Safety Activities Self-Care/Home Management Activities Educated pt regarding activity vs exercise and instructed him to set aside specific time for exercise to continue confidence gains during activities. PT-OP-T Assessment and Plan Start: 12/16/20 08:48 Freq: Status: Active Protocol: Document 03/10/21 09:44 AW (Rec: 03/10/21 09:56 AW [email or web address]) Physical Therapy Assessment Goals Four Impairment lacks HEP Short Term Goal (STG) Pt will be independent with appropriate HEP for pain management to support therapy services provided in clinic. 01/21/21 MET STG Duration 6 weeks - 01/27/21 Three Impairment PAT Short Term Goal (STG) Pt will improve PAT score to 45% impairment or better. STG Duration 6 weeks - 01/27/21 Cna Pct Goal (LTG) Pt will improve PAT score to 35% impairment or better for improved function in daily activities. 03/10/21 - PAT improved to 16% . LTG Duration 12 weeks - 03/10/21 Two Impairment dynamic balance Cna Pct Goal (LTG) Pt will improve score on Dynamic Gait Index from 20/24 to 23/24 or greater to demonstrate reduced falls risk . 02/11/21 - MET - Pt scores 24/ 24 on DGI and 26/30 on FGA LTG Duration 12 weeks - 03/10/21 One Impairment standing tolerance Short Term Goal (STG) Pt will tolerate standing to use tools 30 minutes or greater without increase in baseline pain 01/21/21 - MET per pt report STG Duration 6 weeks - 01/27/21 Halfway Goal (LTG) Pt will stand to use vibratory tools such as sanding 30 minutes or greater for return to instrument-making activities. 03/10/21 - Pt reports goal met LTG Duration 12 weeks - 03/10/21 Assessment Summary Assessment Pt improving in NBOS activities and able to add internal perturbations without need for increased assist. He understands and can independently perform HEP. He is appropriate for discharge. Physical Therapy Plan Frequency and Duration Frequency of Treatment 1-2x/week Duration of Treatment 12 weeks Plan of Care Start Date 12/16/20 Plan of Care End Date 03/10/21 Therapeutic Interventions Therapeutic Interventions Balance Training,Gait Training ,Home Exercise Program,Joint Mobilizations,Manual Therapy, Neuromuscular Re-education, Patient/Caregiver Education, Self-Care/Home Management, Sensory Integration,Soft Tissue Mobilization,Taping, Therapeutic Activities, Therapeutic Exercises Modalities Cold Pack/Ice Massage,Hot Packs Discharge Physical Therapy Discharge Reasons Goals Met Discharge Comments All goals were met and pt has improved in dynamic balance including with increased cognitive load. His attention to postural mechanics and environmental barriers has improved. He is appropriate for discharge to [facility]. He will need a new referral to return to PT.
== END 2021-06-22 09:52 ==
LOC: PHYS 09:00
PROVIDERS: PCP Internal Medicine; Referring Provider Orthopaedic Surgery; Visit Provider Orthopaedic Surgery
DX: M41.20 Other idiopathic scoliosis, site unspecified (principal); M54.17 Radiculopathy, lumbosacral region; R29.3 Abnormal posture; R26.2 Difficulty in walking, not elsewhere classified
CPT/HCPCS: 97110; 97112; 97116; 97140; 97162

== ENCOUNTER → 2021-05-13 10:42 | Outpatient (CLI) | payer MEDICARE, MEDICAID, SELFPAY ==
[2019-10-01 22:22] VITALS: BMI 27.9
[2021-05-13 11:44] LABS: COVID19 -Nasal RAPID Negative (Negative)
== END ==
PROVIDERS: PCP Internal Medicine; Visit Provider Physician Assistant
DX: Z20.822 Contact with and (suspected) exposure to COVID-19 (principal)
CPT/HCPCS: 87635

== ENCOUNTER → 2021-10-21 07:59 | Outpatient (CLI) | payer MEDICARE, MEDICAID, SELFPAY ==
[2019-10-01 22:22] VITALS: BMI 27.9
--- NOTE | 2021-10-21 08:00 | DI.MRI.S_ITS ---
PROCEDURE: MR LUMBAR SPINE WO CON INDICATIONS: evaluate and treat TECHNIQUE: Noncontrast sagittal T1 spin echo and T2 fast echo, sagittal STIR, and T2 fast spin echo through the lumbar spine. In cases with scoliosis, additional coronal T2 fast spin echo may be performed. COMPARISON: [facility], NM, NM BONE SCAN WHOLE BODY, 10/29/2020, 12:50. [facility], CT, CT ABDOMEN PELVIS W CON, 10/29/2020, 9:14. [facility], CR, XR SCOLIOSIS STUDY, 12/02/2020, 9:08. FINDINGS: Image quality: Excellent. Alignment and Curvature: 5 lumbar type vertebral bodies are present by CT. There is moderate leftward curvature of the lumbar spine. 2 mm of retrolisthesis of L4 on L5. 5 mm of retrolisthesis of L5 on S1. Bone Marrow: Marrow is of normal overall signal. There is a low T1/high STIR signal intensity focus within the left aspect of the L5 vertebral body, measuring roughly 33 mm, with no correlate seen by bone scan and CT examination dated 10/29/2020. No acute vertebral body compression fractures. Moderate reactive signal within the endplates adjacent to the L3-L4 intervertebral disc. Mild reactive signal within the remaining endplates of the lumbar and lower thoracic spine. Spinal Cord: Conus medullaris terminates at the mid L1 level. Visualized cord demonstrates normal signal and size. Paraspinous Soft Tissues: No paravertebral masses. T12-L1: Moderate disc desiccation. Mild diffuse disc bulge. Mild canal stenosis. Mild left greater than right foraminal stenosis. L1-L2: Moderate disc height loss. Mild facet and ligamentum flavum hypertrophy. No significant canal stenosis. Mild left greater than right foraminal stenosis. L2-L3: Moderate disc height loss. Mild diffuse disc bulge. Mild facet and ligamentum flavum hypertrophy. Mild epidural lipomatosis. Mild canal stenosis. Moderate left and mild right foraminal stenosis. L3-L4: Moderate disc height loss and desiccation. Moderate diffuse disc bulge/osteophyte. Mild facet and ligamentum flavum hypertrophy. Mild epidural lipomatosis. Mild canal stenosis. Moderate right and mild left foraminal stenosis. L4-L5: Mild disc desiccation and diffuse disc bulge with superimposed left far lateral disc extrusion. Mild facet and ligamentum flavum hypertrophy. Mild epidural lipomatosis. Mild canal stenosis. Severe left and mild right foraminal stenosis. Left L4 nerve root compression. L5-S1: Moderate disc height loss and desiccation. Moderate diffuse disc bulge with superimposed left far lateral broad-based protrusion. Mild bilateral facet and ligamentum flavum hypertrophy. Mild canal stenosis. Severe left and mild right foraminal stenosis. Left L5 nerve root compression. IMPRESSION: 1. 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 2. Multilevel degenerative disc and facet disease, as well as ligamentum flavum hypertrophy and epidural lipomatosis. 3. Mild multilevel canal stenosis. 4. Multilevel foraminal stenoses, worst at L4-L5 and L5-S1 on the left where there is associated intraforaminal nerve root compression. Recommend correlation with clinical symptoms to ascertain relevance of these findings. 5. Leftward curvature of the lumbar spine. Dictated by: Konrad Warren M.D. on 10/21/2021 at 10:17 Approved by: Konrad Warren M.D. on 10/21/2021 at 10:24
== END ==
PROVIDERS: PCP Family Medicine; Referring Provider Family Medicine; Visit Provider Family Medicine
DX: M51.36 Other intervertebral disc degeneration, lumbar region (principal); M51.37 Other intervertebral disc degeneration, lumbosacral region; M48.061 Spinal stenosis, lumbar region without neurogenic claudication; M48.07 Spinal stenosis, lumbosacral region; M89.9 Disorder of bone, unspecified; M41.9 Scoliosis, unspecified; M54.50 Low back pain, unspecified; G89.29 Other chronic pain
CPT/HCPCS: 72148

== ENCOUNTER → 2021-11-25 10:53 | Outpatient (CLI) | payer MEDICARE, MEDICAID, SELFPAY ==
[2019-10-01 22:22] VITALS: BMI 27.9
[2021-11-25 12:17] LABS: Add Manual Diff / Slide Review NO; Basophils Absolute Auto 0 /uL (0-100); Basophils Percent Auto 0.7 % (0-2); Eosinophils Absolute Auto 200 /uL (0-450); Eosinophils Percent Auto 3.8 % (2-4); Hematocrit 35.8 % (41-53); Hemoglobin 12.2 g/dL (13.5-17.5); Lymphocytes Absolute Auto 1200 /uL (1100-4500); Lymphocytes Percent Auto 19.5 % (25-40); Mean Corpuscular Hemoglobin 29.5 PG (26-34); Mean Corpuscular Volume 86.8 fL (80-100); Monocytes Absolute Auto 400 /uL (0-900); Monocytes Percent Auto 6.4 % (3-14); Neutrophils Absolute Auto 4300 /uL (1500-7000); Neutrophils Percent Auto 69.6 % (50-75); Platelet Count 158 X10^3/uL (150-400); Red Blood Cell Count 4.13 X10^6/uL (4.5-5.9); Red Cell Distribution Width 14.8 % (11.6-14.8); White Blood Cell Count 6.2 X10^3/uL (4.5-11.0)
[2021-11-25 12:30] LABS: Hemoglobin A1C% w Est Avg Glu 5.4 % (4.0-6.0)
[2021-11-25 12:32] LABS: Alanine Aminotransferase 10 IU/L (<50); Albumin 4.2 g/dL (3.5-5.0); Albumin Globulin Ratio 1.5 (1.0-2.8); Alkaline Phosphatase 72 U/L (38-126); Aspartate Aminotransferase 24 IU/L (17-59); BUN Creatinine Ratio 23.2 (6-22); Bilirubin Total 0.6 mg/dL (0.2-1.3); Blood Urea Nitrogen 19 mg/dL (9-20); Calcium 9.2 mg/dL (8.4-10.2); Carbon Dioxide 26 mmol/L (22-32); Chloride 102 mmol/L (98-107); Cholesterol 148 mg/dL (140-199); Estimated Glomerular Filt Rate > 60 mL/min (>60); Globulin 2.8 g/dL (1.7-4.1); Glucose 97 mg/dL (80-110); HDL Cholesterol 43 mg/dL (40-60); HEMOLYSIS < 15 (0-50); LDL Cholesterol Calculated 91 mg/dL (<100); Potassium 4.6 mmol/L (3.4-5.1); Sodium 136 mmol/L (137-145); Triglycerides 71 mg/dL (35-150)
[2021-11-25 13:00] LABS: TSH w/ Reflex to FT4 1.37 uIU/mL (0.47-4.68)
== END ==
PROVIDERS: PCP Family Medicine; Referring Provider Family Medicine; Visit Provider Family Medicine
DX: E78.2 Mixed hyperlipidemia (principal); C61 Malignant neoplasm of prostate; E78.00 Pure hypercholesterolemia, unspecified; I10 Essential (primary) hypertension; I87.2 Venous insufficiency (chronic) (peripheral)
CPT/HCPCS: 36415; 80053; 80061; 83036; 84443; 85025

== ENCOUNTER → 2022-01-06 10:05 | Outpatient (CLI) | payer MEDICARE, MEDICAID, SELFPAY ==
[2019-10-01 22:22] VITALS: BMI 27.9
== END ==
PROVIDERS: PCP Family Medicine; Referring Provider Urology; Visit Provider Urology
DX: C61 Malignant neoplasm of prostate (principal)
CPT/HCPCS: 36415; 84153

== ENCOUNTER → 2022-05-20 13:22 | Outpatient (CLI) | payer MEDICARE, MEDICAID, SELFPAY ==
[2019-10-01 22:22] VITALS: BMI 27.9
[2022-05-20 14:59] LABS: Alanine Aminotransferase 15 IU/L (<50); Albumin 4.1 g/dL (3.5-5.0); Albumin Globulin Ratio 1.2 (1.0-2.8); Alkaline Phosphatase 118 U/L (38-126); Aspartate Aminotransferase 22 IU/L (17-59); BUN Creatinine Ratio 22.2 (6-22); Bilirubin Total 0.5 mg/dL (0.2-1.3); Blood Urea Nitrogen 20 mg/dL (9-20); Calcium 9.4 mg/dL (8.4-10.2); Carbon Dioxide 30 mmol/L (22-32); Chloride 98 mmol/L (98-107); Estimated Glomerular Filt Rate > 60 mL/min (>60); Globulin 3.3 g/dL (1.7-4.1); Glucose 97 mg/dL (80-110); HEMOLYSIS < 15 (0-50); Potassium 4.3 mmol/L (3.4-5.1); Sodium 137 mmol/L (137-145); Total Protein 7.4 g/dL (6.3-8.2)
[2022-05-20 15:28] LABS: Prostate Specific Antigen 0.563 ng/mL (0.10-4.00)
== END ==
PROVIDERS: PCP Family Medicine; Referring Provider Nurse Practitioner Gerontology; Visit Provider Nurse Practitioner Gerontology
DX: C61 Malignant neoplasm of prostate (principal)
CPT/HCPCS: 36415; 80053; 84153

== ENCOUNTER → 2022-08-03 11:28 | Outpatient (CLI) | payer MEDICARE, MEDICAID, SELFPAY ==
[2019-10-01 22:22] VITALS: BMI 27.9
[2022-08-05 09:53] LABS: Prostate Specific Antigen 0.186 ng/mL (0.10-4.00)
== END ==
PROVIDERS: PCP Family Medicine; Referring Provider Nurse Practitioner Gerontology; Visit Provider Nurse Practitioner Gerontology
DX: C61 Malignant neoplasm of prostate (principal)
CPT/HCPCS: 36415; 84153

== ENCOUNTER → 2022-11-25 14:33 | Outpatient (CLI) | payer MEDICARE, MEDICAID, SELFPAY ==
[2019-10-01 22:22] VITALS: BMI 27.9
[2022-11-25 14:50] LABS: Add Manual Diff / Slide Review NO; Basophils Absolute Auto 0 /uL (0-100); Basophils Percent Auto 0.5 % (0-2); Eosinophils Absolute Auto 300 /uL (0-450); Eosinophils Percent Auto 3.7 % (2-4); Hematocrit 34.9 % (41-53); Hemoglobin 11.9 g/dL (13.5-17.5); Lymphocytes Absolute Auto 1100 /uL (1100-4500); Lymphocytes Percent Auto 14.2 % (25-40); Mean Corpuscular HGB Conc 34.1 % (30-36); Monocytes Absolute Auto 400 /uL (0-900); Monocytes Percent Auto 5.9 % (3-14); Neutrophils Absolute Auto 5600 /uL (1500-7000); Neutrophils Percent Auto 75.7 % (50-75); Platelet Count 173 X10^3/uL (150-400); Red Blood Cell Count 4.11 X10^6/uL (4.5-5.9); Red Cell Distribution Width 17.1 % (11.6-14.8); White Blood Cell Count 7.4 X10^3/uL (4.5-11.0)
[2022-11-25 15:31] LABS: Alanine Aminotransferase 13 IU/L (<50); Albumin 3.8 g/dL (3.5-5.0); Albumin Globulin Ratio 1.3 (1.0-2.8); Alkaline Phosphatase 85 U/L (38-126); Aspartate Aminotransferase 19 IU/L (17-59); BUN Creatinine Ratio 17.4 (6-22); Bilirubin Total 0.2 mg/dL (0.2-1.3); Blood Urea Nitrogen 15 mg/dL (9-20); Calcium 8.8 mg/dL (8.4-10.2); Carbon Dioxide 30 mmol/L (22-32); Chloride 102 mmol/L (98-107); Cholesterol 170 mg/dL (140-199); Estimated Glomerular Filt Rate > 60 mL/min (>60); Globulin 2.9 g/dL (1.7-4.1); Glucose 101 mg/dL (80-110); HDL Cholesterol 48 mg/dL (40-60); HEMOLYSIS < 15 (0-50); LDL Cholesterol Calculated 88 mg/dL (<100); Potassium 4.3 mmol/L (3.4-5.1); Sodium 137 mmol/L (137-145); Total Protein 6.7 g/dL (6.3-8.2); Triglycerides 169 mg/dL (35-150)
[2022-11-25 16:00] LABS: TSH w/ Reflex to FT4 2.44 uIU/mL (0.47-4.68)
[2022-11-25 18:03] LABS: Creatinine Urine Random 198.3 mg/dL
[2022-11-25 18:09] LABS: Microalbumi Creatinin Ratio Ur 13.6 ug/mg CR (<30); Microalbumin Urine Random 2.7 mg/dL (0-1.6)
== END ==
PROVIDERS: PCP Family Medicine; Referring Provider Family Medicine; Visit Provider Family Medicine
DX: C61 Malignant neoplasm of prostate (principal); E78.00 Pure hypercholesterolemia, unspecified; D64.9 Anemia, unspecified; I10 Essential (primary) hypertension
CPT/HCPCS: 36415; 80053; 80061; 82043; 82570; 84443; 85025

== ENCOUNTER → 2023-06-20 08:07 | Outpatient (CLI) | payer MEDICARE, MEDICAID, SELFPAY ==
[2019-10-01 22:22] VITALS: BMI 27.9
--- NOTE | 2023-06-20 08:09 | DI.RAD.S_ITS ---
PROCEDURE: XR LUMBAR SPINE MIN 4V INDICATIONS: LOW BACK PAIN TECHNIQUE: 5 views of the lumbar spine were acquired, including bilateral oblique views. COMPARISON: None. FINDINGS: Bones: 5 nonrib-bearing vertebrae are present. Levo scoliotic curvature of the lumbar spine. Straightening of normal lumbar lordosis. Diffusely decreased osseous mineralization. There is multilevel facet arthropathy, worse at L4-5 and L5-S1. Mild multilevel disc height loss with degenerative endplate changes and spurring is present. No vertebral body compression fractures. No suspicious bony lesions. Soft tissues: Overlying bowel gas pattern is normal. No suspicious soft tissue calcifications. Atherosclerotic vascular calcifications with ectasia of the distal aorta measuring up to 3.4 cm. Oblique images: No definite pars defects. IMPRESSION: 1. Multilevel degenerative changes of the lumbar spine with levo scoliotic curvature. 2. Atherosclerotic vascular calcifications with ectasia of the distal aorta, recommend continued ultrasound follow-up. Dictated by: Jose Andres M.D. on 06/20/2023 at 10:31 Approved by: Jose Andres M.D. on 06/20/2023 at 10:34
== END ==
PROVIDERS: PCP Family Medicine; Referring Provider Anesthesiology; Visit Provider Anesthesiology
DX: M47.26 Other spondylosis with radiculopathy, lumbar region (principal); M47.27 Other spondylosis with radiculopathy, lumbosacral region; I77.811 Abdominal aortic ectasia; M41.9 Scoliosis, unspecified; M53.3 Sacrococcygeal disorders, not elsewhere classified; M16.12 Unilateral primary osteoarthritis, left hip; M25.552 Pain in left hip
CPT/HCPCS: 72110; 99214

== ENCOUNTER 2023-08-09 13:07 | Outpatient (CLI) | payer MEDICARE, MEDICAID, SELFPAY ==
[2019-10-01 22:22] VITALS: BMI 27.9
[2023-08-09 13:20] VITALS: BP 172/94; PULSE 89; RESP 18; TEMP 36.8; O2SAT 99
[2023-08-09 13:30] VITALS: BP 164/78; PULSE 83; RESP 14; O2SAT 97
--- NOTE | 2023-08-09 13:30 | DI.RAD.S_ITS ---
PROCEDURE: PAIN SI JOINT INJECTION INDICATIONS: SI JOINT DYSFUNCTION COMPARISON: [facility], CR, XR PELVIS WITH LATERAL HIP LEFT, 07/19/2022, 13:33. [facility], CR, XR LUMBAR SPINE MIN 4V, 06/20/2023, 8:18. FINDINGS: Fluoroscopic spot filming was performed to verify placement of spinal needles at the left SI joint as labeled on the films. Appropriate location(s) of the needle tip(s) was confirmed by injection of iodinated contrast. IMPRESSION: Fluoroscopy for pain management. Dictated by: Joy Liu M.D. on 08/10/2023 at 8:00 Approved by: Jyo Liu M.D. on 08/10/2023 at 8:02
[2023-08-09 13:35] VITALS: BP 152/77; PULSE 82; RESP 17; O2SAT 98
[2023-08-09] MEDS: DEXAMETHASONE 10 MG/ML VIAL INJ (13:36)
[2023-08-09] MEDS: BUPIVACAINE 0.5% (PF) 10 ML VIAL 5 ML INJ (13:36)
[2023-08-09] MEDS: iopamidoL 15 ML VIAL 3 ML INJ (13:36)
[2023-08-09 13:40] VITALS: BP 151/75; PULSE 82; RESP 16; O2SAT 96
[2023-08-09 13:45] VITALS: BP 187/86; PULSE 86; RESP 16; O2SAT 98
--- NOTE | 2023-08-09 15:37 | P.PCN_ITS ---
Date/Time/Diagnoses Date of procedure: 08/09/23 Time of procedure: 13:30 Procedure Notes Physician: Chaitanya Mireles Total Fluoroscopy time (seconds): 13 Total sedation minutes: 0 Procedure in detail & Post-procedure care: Left Sacroiliac Joint Injection Indications: is presenting for treatment of SI joint dysfunction with low back/buttock pain. Preoperative diagnosis: Left SI joint dysfunction Postoperative diagnosis: Same Focused Examination: Ax3 Mood and affect are normal Vital Signs: VSS Consent: Following review of allergies and potential side effects/complications, including, but not necessarily limited to, infection, allergic reaction, local tissue breakdown, stroke, temporary or permanent nerve injury, paralysis, and possible , the patient indicated that they understood and agreed to proce ed.? An informed consent document was signed by the patient, witnessed by a nurse and placed in the patient's chart.? Additionally, other treatment options including medications and physical therapy were reviewed with the patient. All questions were answered. Site was then marked. Anesthesia: Local Position: Prone Monitoring: NIBP, Pulse oximetry, 3 lead EKG Needle used: 22 ga, 3.5 inch spinal Contrast: 2 mL Isovue M-300 Injectate: Dexamethasone 10 mg with 1% lidocaine 2 mL Technique: The skin was prepped with chloraprep and then draped in a sterile fashion. Time out was performed as per protocol. Oxygen applied via NC. Skin and subcutaneous structures of the needle entry site was then infiltrated with 5 mL of lidocaine 1%. Under AP and lateral fluoroscopic control, the spinal needle was guided into the left sacroiliac joint. 1 mL contrast was injected and was consistent with intra-articular placement. There was no evidence for intravascular uptake. After negative aspiration, the above-mentioned injectate was then slowly administered and the needle withdrawn. The patient expressed no unusual discomfort or paresthesias during the injection. EBL: less than 1 ml Complications: None Post Procedure: Patient was taken to the recovery and monitored. The patient was provided a Pain Log to continue to record the patient's response to the target- specific procedure prior to the patient's follow-up visit with the referring physician. Patient was stable upon discharge. Detailed post procedure instructi ons were provided. Patient was asked to call in the event of worsening pain, fever, weakness, numbness or bladder or bowel incontinence.
== END 2023-08-09 13:45 | disposition home or self-care (01) ==
LOC: RAD 13:07
PROVIDERS: PCP Family Medicine; Referring Provider Anesthesiology; Visit Provider Anesthesiology
DX: M53.3 Sacrococcygeal disorders, not elsewhere classified (principal)
CPT/HCPCS: 27096; G0260; J1100

== ENCOUNTER → 2023-08-28 09:35 | Outpatient (CLI) | payer MEDICARE, MEDICAID, SELFPAY ==
[2019-10-01 22:22] VITALS: BMI 27.9
[2023-08-28 10:58] LABS: Add Manual Diff / Slide Review NO; Basophils Absolute Auto 100 /uL (0-100); Basophils Percent Auto 0.7 % (0-2); Eosinophils Absolute Auto 300 /uL (0-450); Eosinophils Percent Auto 2.9 % (2-4); Hematocrit 33.9 % (41-53); Hemoglobin 11.5 g/dL (13.5-17.5); Lymphocytes Absolute Auto 1000 /uL (1100-4500); Lymphocytes Percent Auto 10.2 % (25-40); Mean Corpuscular HGB Conc 33.8 % (30-36); Mean Corpuscular Volume 85.9 fL (80-100); Monocytes Absolute Auto 600 /uL (0-900); Monocytes Percent Auto 6.1 % (3-14); Neutrophils Absolute Auto 7600 /uL (1500-7000); Neutrophils Percent Auto 80.1 % (50-75); Platelet Count 180 X10^3/uL (150-400); Red Blood Cell Count 3.95 X10^6/uL (4.5-5.9); Red Cell Distribution Width 15.8 % (11.6-14.8); White Blood Cell Count 9.4 X10^3/uL (4.5-11.0)
[2023-08-28 11:16] LABS: HEMOLYSIS < 15 (0-50)
[2023-08-28 11:17] LABS: HEMOLYSIS < 15 (0-50)
[2023-08-28 11:22] LABS: Iron 51 ug/dL (49-181)
[2023-08-28 11:25] LABS: Alanine Aminotransferase 10 IU/L (<50); Albumin 3.6 g/dL (3.5-5.0); Albumin Globulin Ratio 1.2 (1.0-2.8); Alkaline Phosphatase 79 U/L (38-126); Aspartate Aminotransferase 20 IU/L (17-59); BUN Creatinine Ratio 22.7 (6-22); Bilirubin Total 0.3 mg/dL (0.2-1.3); Blood Urea Nitrogen 20 mg/dL (9-20); Calcium 9.2 mg/dL (8.4-10.2); Carbon Dioxide 25 mmol/L (22-32); Chloride 107 mmol/L (98-107); Cholesterol 156 mg/dL (140-199); Estimated Glomerular Filt Rate > 60 mL/min (>60); Globulin 2.9 g/dL (1.7-4.1); Glucose 115 mg/dL (80-110); HDL Cholesterol 43 mg/dL (40-60); LDL Cholesterol Calculated 95 mg/dL (<100); Potassium 4.4 mmol/L (3.4-5.1); Sodium 138 mmol/L (137-145); Total Protein 6.5 g/dL (6.3-8.2); Triglycerides 88 mg/dL (35-150)
[2023-08-28 11:33] LABS: Percent Iron Saturation 17 % (20-50); Total Iron Binding Capacity 296 ug/dL (261-462); Transferrin 236 mg/dL (206-381)
[2023-08-28 18:16] LABS: Ferritin 24 ng/mL (18-464)
[2023-08-29 03:36] LABS: Apolipoprotein B 79 mg/dL (<90)
[2023-08-29 18:12] LABS: TSH w/ Reflex to FT4 1.58 uIU/mL (0.47-4.68)
== END ==
LOC: LAB 09:36
PROVIDERS: PCP Family Medicine; Referring Provider Family Medicine; Visit Provider Family Medicine
DX: E78.00 Pure hypercholesterolemia, unspecified (principal); D64.9 Anemia, unspecified; C61 Malignant neoplasm of prostate; I87.2 Venous insufficiency (chronic) (peripheral); I10 Essential (primary) hypertension; M48.061 Spinal stenosis, lumbar region without neurogenic claudication
CPT/HCPCS: 36415; 80053; 80061; 82172; 82728; 83540; 83550; 84443; 85025

== ENCOUNTER → 2023-09-20 09:54 | Outpatient (CLI) | payer MEDICARE, MEDICAID, SELFPAY ==
[2019-10-01 22:22] VITALS: BMI 27.9
--- NOTE | 2023-09-20 09:57 | DI.RAD.S_ITS ---
PROCEDURE: XR HIP W PEL IF DONE CHARLY MIN 4V INDICATIONS: hip pain TECHNIQUE: AP pelvis with lateral view(s) of the bilateral hip(s). COMPARISON: None. FINDINGS: Bones: No fractures or dislocations. Pelvic ring appears intact. No suspicious bony lesions. Mild nonuniform joint space narrowing with osteophytic lipping of the acetabulum. Soft tissues: The visualized bowel gas pattern is normal. No suspicious soft tissue calcifications. IMPRESSION: Byoc-id-eyfixlvt bilateral hip osteoarthritis. Kellgren-Pablito Grade 2. Dictated by: Hernando Cage M.D. on 09/20/2023 at 14:21 Approved by: Hernando Cage M.D. on 09/20/2023 at 14:21
== END ==
PROVIDERS: PCP Family Medicine; Referring Provider Anesthesiology; Visit Provider Anesthesiology
DX: M25.551 Pain in right hip (principal); M25.552 Pain in left hip; M16.0 Bilateral primary osteoarthritis of hip
CPT/HCPCS: 73522

== ENCOUNTER 2023-11-08 11:07 | Outpatient (CLI) | payer MEDICARE, MEDICAID, SELFPAY ==
[2019-10-01 22:22] VITALS: BMI 27.9
[2023-11-08 11:25] VITALS: BP 161/79; PULSE 90; RESP 18; TEMP 36.7; O2SAT 97
--- NOTE | 2023-11-08 11:30 | DI.RAD.S_ITS ---
PROCEDURE: PAIN SI JOINT INJECTION INDICATIONS: Right SI joint injection COMPARISON: [facility], , PAIN SI JOINT INJECTION, 08/09/2023, 13:33. FINDINGS: Fluoroscopic spot filming was performed to verify placement of spinal needle at the right sacroiliac joint, as labeled on the films. Appropriate location of the needle tip was confirmed by injection of iodinated contrast. IMPRESSION: Intraprocedural examination demonstrates appropriate needle positioning. Approved by: Irving Guan M.D. on 11/08/2023 at 15:38
[2023-11-08 11:50] VITALS: BP 138/65; PULSE 83; RESP 16; O2SAT 99
[2023-11-08] MEDS: DEXAMETHASONE 10 MG/ML VIAL INJ (11:52)
[2023-11-08] MEDS: BUPIVACAINE 0.25% (PF) VIAL 2 ML INJ (11:52)
[2023-11-08] MEDS: iopamidoL 15 ML VIAL 3 ML INJ (11:52)
[2023-11-08 11:55] VITALS: BP 144/75; PULSE 80; RESP 16; O2SAT 99
[2023-11-08 12:00] VITALS: BP 176/82; PULSE 86; RESP 16; O2SAT 98
--- NOTE | 2023-11-08 12:08 | P.PCN_ITS ---
Date/Time/Diagnoses Date of procedure: 11/08/23 Time of procedure: 11:30 Procedure Notes Physician: Chaitanya Mireles Total Fluoroscopy time (seconds): 10 Total sedation minutes: 0 Procedure in detail & Post-procedure care: Right Sacroiliac Joint Injection Indications: is presenting for treatment of SI joint dysfunction with low back/buttock pain. Preoperative diagnosis: Right SI joint dysfunction Postoperative diagnosis: Same Focused Examination: Ax3 Mood and affect are normal Vital Signs: VSS Consent: Following review of allergies and potential side effects/complications, including, but not necessarily limited to, infection, allergic reaction, local tissue breakdown, stroke, temporary or permanent nerve injury, paralysis, and possible , the patient indicated that they understood and agreed to proc eed.? An informed consent document was signed by the patient, witnessed by a nurse and placed in the patient's chart.? Additionally, other treatment options including medications and physical therapy were reviewed with the patient. All questions were answered. Site was then marked. Anesthesia: Local Position: Prone Monitoring: NIBP, Pulse oximetry, 3 lead EKG Needle used: 22 ga, 3.5 inch spinal Contrast: 2 mL Isovue M-300 Injectate: Dexamethasone 7.5 mg with 0.25% bupivacaine 1 mL Technique: The skin was prepped with chloraprep and then draped in a sterile fashion. Time out was performed as per protocol. Oxygen applied via NC. Skin and subcutaneous structures of the needle entry site was then infiltrated with 5 mL of lidocaine 1%. Under AP and lateral fluoroscopic control, the spinal needle was guided into the right sacroiliac joint. 1 mL contrast was injected and was consistent with intra-articular placement. There was no evidence for intravascular uptake. After negative aspiration, the above-mentioned injectate was then slowly administered and the needle withdrawn. The patient expressed no unusual discomfort or paresthesias during the injection. EBL: less than 1 ml Complications: None Post Procedure: Patient was taken to the recovery and monitored. The patient was provided a Pain Log to continue to record the patient's response to the target- specific procedure prior to the patient's follow-up visit with the referring physician. Patient was stable upon discharge. Detailed post procedure in structions were provided. Patient was asked to call in the event of worsening pain, fever, weakness, numbness or bladder or bowel incontinence.
== END 2023-11-08 12:06 | disposition home or self-care (01) ==
LOC: RAD 11:08
PROVIDERS: PCP Family Medicine; Referring Provider Anesthesiology; Visit Provider Anesthesiology
DX: M53.3 Sacrococcygeal disorders, not elsewhere classified (principal)
CPT/HCPCS: 27096; J1100; J3490

== ENCOUNTER → 2023-12-06 13:58 | Outpatient (CLI) | payer MEDICARE, MEDICAID, SELFPAY ==
[2019-10-01 22:22] VITALS: BMI 27.9
[2023-12-06 14:42] LABS: Add Manual Diff / Slide Review NO; Basophils Absolute Auto 0 /uL (0-100); Basophils Percent Auto 0.6 % (0-2); Eosinophils Absolute Auto 300 /uL (0-450); Eosinophils Percent Auto 3.8 % (2-4); Hematocrit 36.4 % (41-53); Hemoglobin 12.4 g/dL (13.5-17.5); Lymphocytes Absolute Auto 1600 /uL (1100-4500); Lymphocytes Percent Auto 22.3 % (25-40); Mean Corpuscular HGB Conc 34.1 % (30-36); Mean Corpuscular Hemoglobin 29.8 PG (26-34); Mean Corpuscular Volume 87.5 fL (80-100); Monocytes Absolute Auto 300 /uL (0-900); Monocytes Percent Auto 4.7 % (3-14); Neutrophils Absolute Auto 4800 /uL (1500-7000); Neutrophils Percent Auto 68.6 % (50-75); Platelet Count 188 X10^3/uL (150-400); Red Blood Cell Count 4.16 X10^6/uL (4.5-5.9); Red Cell Distribution Width 15.4 % (11.6-14.8); White Blood Cell Count 7.1 X10^3/uL (4.5-11.0)
[2023-12-06 14:48] LABS: HEMOLYSIS < 15 (0-50); Iron 58 ug/dL (49-181)
[2023-12-06 15:00] LABS: Percent Iron Saturation 21 % (20-50); Total Iron Binding Capacity 271 ug/dL (261-462)
[2023-12-06 15:25] LABS: Ferritin 22 ng/mL (18-464)
[2023-12-07 08:05] LABS: Transferrin 223 mg/dL (206-381)
== END ==
PROVIDERS: PCP Family Medicine; Referring Provider Family Medicine; Visit Provider Family Medicine
DX: D64.9 Anemia, unspecified (principal)
CPT/HCPCS: 36415; 82728; 83540; 83550; 85025

== ENCOUNTER 2024-03-19 09:02 | Day surgery (SDC) | payer MEDICARE, MEDICAID, SELFPAY ==
[2023-12-12 10:38] VITALS: BMI 27.9
--- NOTE | 2024-03-19 | PATH_ITS ---
[facility] Accession Number: [id number] No. of containers..02 Tissue . 01 Material submitted: . PART A: cecum - CECUM POLYPS PART B: sigmoid colon - SIGMOID POLYPS . 01 Diagnosis: Part A: CECUM POLYPS: Tubular adenomas. . Part B: SIGMOID POLYPS: 1. Tubular adenoma. 2. Colonic mucosa with focal mucosal hyperplasia. STO 03/20/2024 1730 Local . 01 Electronically signed: . Edinson Mi MD, Pathologist NPI- [id number] . 01 Gross description: . Part A: CECUM POLYPS: Received in formalin are multiple fragment(s) of orta, soft tissue measuring 0.1 x 0.1 x 0.1 cm to 0.8 x 0.6 x 0.5 cm submitted entirely in 1 cassette(s) . Part B: SIGMOID POLYPS: Received in formalin are 2 fragment(s) of orta, soft tissue measuring 0.3 x 0.3 x 0.3 cm to 0.5 x 0.4 x 0.2 cm submitted entirely in 1 cassette(s) /YASSINE 03/20/2024 1730 Local . 01 Pathologist provided ICD-10: D12.0, D12.5 . 01 CPT . 204685, [id number] Specimen Comment: A courtesy copy of this report has been sent to [phone] Performed at: [address] [address], [place], [place] [id number] MD Edinson Mi MD Phone: [phone]
[2024-03-19 10:01] VITALS: BP 171/86; PULSE 105; RESP 17; TEMP 36.3; O2SAT 95
--- NOTE | 2024-03-19 10:05 | P.HP_ITS ---
History of Present Illness History of Present Illness Date Patient Seen: 03/19/24 Time Patient Seen: 10:05 Chief complaint: Colonoscopy Narrative: 73-year-old man personal history of colonic polyps here for screening colonoscopy. Last colonoscopy 2018. No family history of colon cancer. No abdominal concerns today. [facility] Medical History (Updated 03/19/24 @ 10:31 by Jim Torres MD) Low back pain Bilateral hip pain Osteoarthritis of left hip Left hip pain SI (sacroiliac) joint dysfunction Neuroforaminal stenosis of lumbar spine Unspecified atherosclerosis of [place] arteries of extremities, unspecified extremity Anemia Bone mass Prostate cancer Venous insufficiency Lumbar back pain with radiculopathy affecting left lower extremity Scoliosis Marijuana smoker High cholesterol Hypertension Surgical History H/O inguinal hernia repair Family History Father Prostate cancer Mother Diabetes mellitus Obesity Grandmother Diabetes mellitus Obesity Social History household members: spouse Smoking Status: Former smoker Tobacco: How many years used: 21 alcohol intake: former substance use type: marijuana Meds Home Medications and Allergies Home Medications Medication Instructions Recorded Confirmed Type triamcinolone acetonide 0.5 % 1 applic topical BID #15 grams 10/07/21 03/19/24 Rx topical cream enzalutamide 40 mg capsule (Xtandi) 160 mg PO DAILY 06/09/23 03/19/24 History losartan 100 mg tablet See Rx Instructions .Route 08/02/23 03/19/24 Rx .COMPLEX #100 tabs ferrous gluconate 324 mg (38 mg 324 mg PO DAILY #90 tabs 09/04/23 03/19/24 Rx iron) tablet atorvastatin 20 mg tablet 20 mg PO BEDTIME #90 tabs 10/12/23 03/19/24 Rx tamsulosin 0.4 mg capsule 0.4 mg PO BEDTIME #90 caps 11/22/23 03/19/24 Rx amlodipine 5 mg tablet See Rx Instructions .Route 02/02/24 03/19/24 Rx .COMPLEX #90 tabs ondansetron 8 mg disintegrating 8 mg PO 3XD 02/20/24 03/19/24 History tablet Allergies Allergy/AdvReac Type Severity Reaction Status Date / Time pollen extracts AdvReac Intermediate Sneezing Verified 03/19/24 09:56 Exam Vital Signs (past 8 hours): - 03/19/24 10:01 Temperature 97.4 F L Pulse Rate 105 H Respiratory Rate 17 Blood Pressure 171/86 H Pulse Oximetry 95 Oxygen Delivery Method Room Air Oxygen Delivery Method Room Air Narrative Exam Narrative: General adult man alert oriented no acute distress Chest nonlabored respiration Extremities warm well perfused Assessment & Plan Assessment and plan (1) Personal history of colonic polyps: Status: Acute Assessment & Plan narrative: The patient requires colorectal screening and colonoscopy is recommended. Technical details were discussed. Risks, benefits, alternatives explained. Risks including but not limited to myocardial infarction, aspiration, bleeding, pain, missed lesion, incomplete examination, need for further radiographic studies, intestinal injury, and need for major abdominal surgery were discussed. All questions were answered to their satisfaction, and they are in agreement with this plan. Time-Based Coding :: [TOTAL MINUTES] spent with patient and on the chart (including review of chart, obtaining history, exam, reviewing outside data, placing orders, documenting exam and treatment plan, and counseling patient) on [DATE].
[2024-03-19 10:10] VITALS: BP 115/59; PULSE 86; RESP 23; O2SAT 95
[2024-03-19 11:00] VITALS: BP 113/61; PULSE 88; RESP 14; TEMP 36.2; O2SAT 96
[2024-03-19 11:05] VITALS: BP 109/66; PULSE 82; RESP 20; O2SAT 95
--- NOTE | 2024-03-19 11:06 | P.OP.COLON_ITS ---
Operative Date/Time/Diagnoses Date of procedure: 03/19/24 Time of procedure: 11:06 Pre-op diagnosis: Personal history of colonic polyps Post-op diagnosis: other (Colonic polyps x3) Procedure & Clinicians Study performed: Colonoscopy and polypectomy Same procedure as scheduled: Yes Indications: Personal history of colonic polyps Colorectal screening Surgeon: Jim Torres Procedure Notes Procedure in detail: The history and physical was performed/updated and the patient is ASA class is 2. The procedure was discussed in detail with the patient. Potential risks complications including infection, bleeding, missed diagnosis, perforation, need for surgery, and were explained. Their questions were answered and informed consent was obtained. Patient was brought to the procedure room and placed standard monitoring equipment. The patient's vital signs were monitored continuously throughout the entire procedure. Prior to starting time-out was performed. The patient was placed in the left lateral recumbent position. Procedural sedation was administered by anesthesia. Examination began with a thorough inspection of the perianal area there was no evidence of fissures, fistulae, external hemorrhoids or cutaneous malignancy. The colonoscopy scope was then placed into the anal canal and was advanced to the cecum, which was identified by the ileocecal valve, the appendiceal orifice and the confluence of the taenia. The scope was then slowly withdrawn examining colon thoroughly in all directions, irrigating it of any residual stool. The scope was retroflexed within the rectum The patient tolerated the procedure well. They will be discharged once criteria are met. The prep was of fair quality. The withdrawl time was 15 minutes. FINDINGS * Moderate diverticulosis throughout the entirety of the colon * Cluster of polyps within the cecum measuring approximately 1 cm in total dimension. Removed with cold snare. * Sigmoid colon 2 polyps each approximately 1-3 mm each removed with biopsy forceps. Specimen(s): other (Cecal and sigmoid polyps) Impression: Colonic polyps x3 Post-procedure Recommendations: High fiber diet Plan for aftercare: Follow-up is dependent on pathology findings Disposition: same day surgery
[2024-03-19 11:10] VITALS: BP 115/59; PULSE 83; RESP 17; O2SAT 95
[2024-03-19 11:19] VITALS: BP 121/67; PULSE 82; RESP 14; TEMP 36.3; O2SAT 98
== END 2024-03-19 11:29 | disposition home or self-care (01) ==
PROVIDERS: PCP Family Medicine; Referring Provider Surgery; Visit Provider Surgery
PROC: 0DJD8ZZ Inspection of Lower Intestinal Tract, Via Natural or Artificial Opening Endoscopic (ICD-10-PCS; CPT 45378; principal; 2024-03-19 10:45)
DX: Z12.11 Encounter for screening for malignant neoplasm of colon (principal); Z86.0100 Personal history of colon polyps, unspecified; K57.30 Diverticulosis of large intestine without perforation or abscess without bleeding; D12.0 Benign neoplasm of cecum; D12.5 Benign neoplasm of sigmoid colon
CPT/HCPCS: 45385; 45380; J2704

== ENCOUNTER 2024-03-26 13:10 | Outpatient (CLI) | payer MEDICARE, MEDICAID, SELFPAY ==
[2023-12-12 10:38] VITALS: BMI 27.9
[2024-03-26] VITALS (9 sets, daily range): BP systolic 125–162; BP diastolic 69–79; PULSE 92–112; RESP 12–21; TEMP 37.1; O2SAT 94–99
--- NOTE | 2024-03-26 13:12 | DI.RAD.S_ITS ---
PROCEDURE: PAIN L/S TRANSFORAMINAL INJECT INDICATIONS: Lumbar Radiculopathy COMPARISON: None. FINDINGS: Fluoroscopic spot filming was performed to verify placement of spinal needles at the L4-5 level(s), as labeled on the films. Appropriate location(s) of the needle tip(s) was confirmed by injection of iodinated contrast. IMPRESSION: Fluoro guidance was provided intraoperatively for likely facet injection performed by ordering physician. Dictated by: Agustin Vasques M.D. on 03/26/2024 at 16:49 Approved by: Agustin Vasques M.D. on 03/26/2024 at 16:50
[2024-03-26] MEDS: MIDAZOLAM 2 MG/2 ML VIAL 1 MG IV (13:54)
[2024-03-26] MEDS: BUPIVACAINE 0.25% (PF) VIAL 2 ML INJ (13:58)
[2024-03-26] MEDS: iopamidoL 15 ML VIAL 3 ML INJ (13:58)
[2024-03-26] MEDS: BETAMETHASONE 30 MG/5 ML MDV 12 MG INJ (13:58)
[2024-03-26] MEDS: DEXAMETHASONE 10 MG/ML VIAL INJ (13:59)
--- NOTE | 2024-03-26 14:13 | P.PCN_ITS ---
Date/Time/Diagnoses Date of procedure: 03/26/24 Time of procedure: 14:13 Pre-procedure diagnosis: 1. HNP WITH RADICULAR FEATURES, 2. MULTILEVEL CENTRAL STENOSIS, Post-procedure diagnosis: same Procedure Notes Procedure: 1. FLUOROSCOPICALLY GUIDED CONTRAST CONTROLLED INTERLAMINAR EPIDURAL STEROID INJECTION -L4/5 Indications: is referred by Dr. Garibay for treatment of Bilateral Foraminal Stenosis R>L LE symptoms. Physician: Beka Olvera Total Fluoroscopy time (seconds): 13 Total sedation minutes: 11 Complications: none Procedure in detail & Post-procedure care: FINDINGS Multilevel Central Spinal Stenosis with Nerve Root Compression DESCRIPTION OF PROCEDURE Fluoroscopically guided, contrast-controlled L4/5 translaminar epidural steroid injection. Following review of allergy and review of potential side effects and complications, including, but not necessarily limited to, infection, allergic reaction, local tissue breakdown, temporary as well as permanent nerve injury, paralysis, stroke and possible , the patient indicated that the patient understood and agreed to proceed. An informed consent document was signed by the patient, witnessed by a nurse, and placed in the patient's chart. Additionally, other treatment options including modalities, medications, and physical therapy were reviewed with the patient. After review of previous anaesthesic history and IV conscious sedation the patient was deemed safe to proceed with today?s procedure with IV conscious sedation as ASA class II designation. Safety time-out was performed to confirm patient ID, procedure to be performed and site of procedure. IV sedation was accomplished with a combination of 1mg of Versed was administered by the RN after DO order, titrated to patient comfort during the course of the procedure while the patient remained responsive to all verbal commands In the prone position, following sterile prep and drape of the lumbar region, the L4/5 translaminar space was identified fluoroscopically. The skin was anesthetized via a 25-gauge, 1.5inch needle with 1% lidocaine solution. At this point, a 22-gauge short bevel spinal needle was atraumatically introduced and advanced under fluoroscopic guidance into the region of the L4/5 translaminar space. Depth was confirmed on lateral view. Radiological data, including multiple fluoroscopic views of the lumbar spine, reveal a spinal needle at the L4/5 translaminar space. Lateral views then show placement of the needle in the epidural space. Subsequent views show contrast material flowing superiorly and inferiorly in the epidural space. No vascular or intrathecal uptake is observed. At this point, using loss of resistance technique with saline and air, the epidural space was entered. This was confirmed following negative aspiration with injection of approximately 1.5cc of Isovue 200, showing excellent epidural flow without vascular or intrathecal uptake. At this point, 1cc of 1% lidocaine solution combined with 2cc or 10mg of dexamethasone and 6mg betamethasone was injected without incident. The patient tolerated the procedure well without signs or symptoms of complications prior to transfer to the recovery area continued monitoring without incident. The patient was then transferred to the recovery area where they were observed for an appropriate period of time after the injection. The patient reported a VAS score of 6 prior to the procedure and a post- procedure VAS of 0. POST OP INSTRUCTIONS The patient was provided a Pain Log to continue to record their response to the target-specific procedure prior to follow-up visit with their referring physician. Additionally, specific post-injection care instructions and a contact number to our office were provided if concerns arise regarding possible complications associated with the procedure are suspected.
== END 2024-03-26 14:35 | disposition home or self-care (01) ==
LOC: RAD 13:11
PROVIDERS: PCP Family Medicine; Referring Provider Physical Medicine & Rehabilitation; Visit Provider Physical Medicine & Rehabilitation
DX: M51.16 Intervertebral disc disorders with radiculopathy, lumbar region (principal); M48.061 Spinal stenosis, lumbar region without neurogenic claudication
CPT/HCPCS: 62323; 64483; 99152; J0702; J1100; J2250; J3490

== ENCOUNTER 2024-04-02 13:06 | Inpatient (IN) | payer MEDICARE, MEDICAID, SELFPAY ==
[2023-12-12 10:38] VITALS: BMI 27.9
[2024-04-02] VITALS (26 sets, daily range): BP systolic 96–151; BP diastolic 51–83; PULSE 91–120; RESP 17–27; TEMP 37; O2SAT 89–97; BMI 28.7
--- NOTE | 2024-04-02 13:33 | DI.RAD.S_ITS ---
PROCEDURE: XR CHEST 1V INDICATIONS: suspected sepsis TECHNIQUE: One view of the chest was acquired. COMPARISON: [facility], CR, XR CHEST 1V, 10/01/2019, 17:41. FINDINGS: Surgical changes and devices: None. Lungs and pleura: Submaximal inspiration. Minimal patchy bibasilar atelectasis. No pleural effusions or pneumothorax. Mediastinum: Mediastinal contours appear normal. Heart size is normal. Bones and chest wall: No suspicious bony lesions S shaped thoracolumbar scoliotic curvature with moderately severe thoracic component.. Overlying soft tissues appear unremarkable. IMPRESSION: Minimal patchy bibasilar atelectasis. Dictated by: Freddy Jang M.D. on 04/02/2024 at 14:37 Approved by: Freddy Jang M.D. on 04/02/2024 at 14:37
--- NOTE | 2024-04-02 13:33 | EKG_ITS ---
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
[2024-04-02 14:16] LABS: Hemoglobin 7.8 g/dL (13.5-17.5); Mean Corpuscular HGB Conc 33.9 % (30-36); Mean Corpuscular Hemoglobin 28.5 PG (26-34); Mean Corpuscular Volume 84.2 fL (80-100); Platelet Count 96 X10^3/uL (150-400); Red Blood Cell Count 2.74 X10^6/uL (4.5-5.9); Red Cell Distribution Width 15.5 % (11.6-14.8)
[2024-04-02] MEDS: SODIUM CHLORIDE 0.9% 1,000 ML 1000 ML IV ×2 (14:18→18:52)
[2024-04-02 14:21] LABS: INR 1.3 (0.9-1.3); Prothrombin Time 14.8 SECONDS (9.4-12.5)
[2024-04-02 14:23] LABS: PTT Partial Thromboplastin Tim 34 SECONDS (25.1-36.5)
[2024-04-02 14:25] LABS: Alanine Aminotransferase 17 IU/L (<50); Albumin 3.2 g/dL (3.5-5.0); Albumin Globulin Ratio 1.1 (1.0-2.8); Alkaline Phosphatase 139 U/L (38-126); Aspartate Aminotransferase 65 IU/L (17-59); BUN Creatinine Ratio 21.3 (6-22); Bilirubin Total 1.2 mg/dL (0.2-1.3); Blood Urea Nitrogen 32 mg/dL (9-20); Calcium 11.8 mg/dL (8.4-10.2); Carbon Dioxide 23 mmol/L (22-32); Chloride 97 mmol/L (98-107); Estimated Glomerular Filt Rate 49 mL/min (>60); Globulin 2.9 g/dL (1.7-4.1); Glucose 128 mg/dL (80-110); HEMOLYSIS < 15 (0-50); Lipase 25 U/L (23-300); Potassium 4.1 mmol/L (3.4-5.1); Sodium 129 mmol/L (137-145); Total Protein 6.1 g/dL (6.3-8.2)
[2024-04-02 14:26] LABS: Lactate (Lactic Acid) 2.9 mmol/L (0.7-2.1)
[2024-04-02 14:42] LABS: Procalcitonin 1.08 ng/mL (<0.5)
[2024-04-02 15:35] LABS: Neutrophils Absolute Manual 5520 /uL (3000-5900); Total Cells Counted 100
[2024-04-02 15:36] LABS: Platelet Estimate Decreased on smear; RBC Morphology Normal Morphology
[2024-04-02 15:38] LABS: Add Manual Diff / Slide Review YES
[2024-04-02 15:45] LABS: Reflexed Lactate in 2 Hours Y
[2024-04-02 16:25] LABS: Lactate 2HR (Lactic Acid Rflx) 2.1 mmol/L (0.7-2.1)
--- NOTE | 2024-04-02 17:55 | PC.NURSE ---
daughter states that pt has stage 4 prostate ca. when inquired with pt regarding cancer status, pt denies. Up to bsc with stand by assist.
--- NOTE | 2024-04-02 18:48 | ED_ITS ---
HPI - Abdominal Pain General Chief Complaint: Abdominal Pain Stated Complaint: l side pain, has been in bed t-5 Time Seen by Provider: 04/02/24 13:32 Source: patient and family Mode of arrival: Wheelchair History of Present Illness HPI narrative: 73-year-old male with history of metastatic prostate cancer on enzalutamide and leupron presents for approximately 5 days of left sided abdominal/flank pain. Patient states that pain is constant, worse with movement. He has been confined to his bed due to pain, not eating or drinking very much due to his symptoms. He states that he was unable to arrange transportation to the emergency department until today, which is why he did not come in sooner. Denies dysuria, hematuria, vomiting, diarrhea, other complaints. Patient medication list includes amlodipine, atorvastatin, enzalutamide, ferrous gluconate, losartan, medical marijuana, Zofran, Flomax. Sees Oncology at [facility]. Related Data Home Medications Medication Instructions Recorded Confirmed enzalutamide 40 mg capsule (Xtandi) 160 mg PO DAILY 06/09/23 03/19/24 ondansetron 8 mg disintegrating 8 mg PO 3XD 02/20/24 03/19/24 tablet Previous Rx's Medication Instructions Recorded triamcinolone acetonide 0.5 % 1 applic topical BID #15 grams 10/07/21 topical cream losartan 100 mg tablet See Rx Instructions .Route 08/02/23 .COMPLEX #100 tabs ferrous gluconate 324 mg (38 mg 324 mg PO DAILY #90 tabs 09/04/23 iron) tablet atorvastatin 20 mg tablet 20 mg PO BEDTIME #90 tabs 10/12/23 tamsulosin 0.4 mg capsule 0.4 mg PO BEDTIME #90 caps 11/22/23 amlodipine 5 mg tablet See Rx Instructions .Route 02/02/24 .COMPLEX #90 tabs Allergies Allergy/AdvReac Type Severity Reaction Status Date / Time pollen extracts AdvReac Intermediate Sneezing Verified 03/19/24 09:56 Patient History Medical History Low back pain Bilateral hip pain Osteoarthritis of left hip Left hip pain SI (sacroiliac) joint dysfunction Neuroforaminal stenosis of lumbar spine Unspecified atherosclerosis of elem arteries of extremities, unspecified extremity Anemia Bone mass Prostate cancer Venous insufficiency Lumbar back pain with radiculopathy affecting left lower extremity Scoliosis Marijuana smoker High cholesterol Hypertension Surgical History H/O inguinal hernia repair Family History Father Prostate cancer Mother Diabetes mellitus Obesity Grandmother Diabetes mellitus Obesity Social History household members: spouse Smoking Status: Former smoker Tobacco: How many years used: 21 alcohol intake: former substance use type: marijuana Smoking Status: Former smoker alcohol intake frequency: 0-2 drinks per day Substance Use Type: marijuana Exam Initial Vital Signs Initial Vital Signs: Vital Signs Temperature 98.6 F 04/02/24 13:17 Pulse Rate 120 H 04/02/24 13:17 Respiratory Rate 18 04/02/24 13:17 Blood Pressure 96/51 L 04/02/24 13:17 Pulse Oximetry 95 04/02/24 13:17 Oxygen Delivery Method Room Air 04/02/24 13:17 Const: Awake, alert, debilitated, frail Cardiac: regular rate, regular rhythm RESP: unlabored, clear bilaterally, no wheezing GI: Soft, generalized tenderness to palpation along left upper quadrant and left flank, no crepitus Rectal: tone intact, no gross blood, soft brown stool MSK: Atraumatic, full range of motion, pulses equal Skin: Warm, Dry, pale, no rashes Neuro: AO x3, CN II-XII grossly intact, moves all extremities Course Orders Ordered: ED Orders 04/02/24 20:34 Urine Microscopic Stat 04/02/24 22:15 BNP [NT-proBNP (BNP-Adult 18+)] Stat Troponin & CK Cardiac Panel Stat 04/02/24 23:45 HH [Hemoglobin and Hematocrit] Stat Type and Screen Stat Acetaminophen (Acetaminophen 325 Mg Tablet) 650 mg PO Q6H PRN PRN Reason: Fever/Mild Pain (1-3) Hydrocodone Bitart/Acetaminophen (Hydrocodone/Acet 5/325 Tablet) 1 tab PO Q4H PRN PRN Reason: Pain, Moderate (4-6) Atorvastatin Calcium (Atorvastatin 20 Mg Tablet) 20 mg PO BEDTIME FER Naloxone HCl (Naloxone 0.4 Mg/Ml Vial) 0.2 mg IV Q2MIN PRN PRN Reason: Opiate Reversal Non-Formulary Medication (Ferrous Gluconate) 324 mg PO DAILY [facility] Ondansetron HCl (Ondansetron 4 Mg/2 Ml Inj) 4 mg IV NOW PRN PRN Reason: Nausea And Vomiting Ondansetron HCl (Ondansetron 4 Mg Odt) 4 mg SL NOW PRN PRN Reason: Nausea And Vomiting Ondansetron HCl (Ondansetron 4 Mg/2 Ml Inj) 4 mg IV Q8HR PRN PRN Reason: Nausea And Vomiting Pantoprazole Sodium (Pantoprazole Dr 20 Mg Tablet) 40 mg PO 0600 [facility] Triamcinolone Acetonide (Triamcinolone 0.1% Cream 15 Gm) 1 applic TOP BID [facility] Discontinued Medications Furosemide (Furosemide 40 Mg/4 Ml Vial) 20 mg IV NOW ONE Stop: 04/02/24 22:56 Last Admin: 04/02/24 23:09 Dose: 20 mg Documented By: SARAH Sodium Chloride (Normal Saline 0.9%) 1,000 mls @ 1,000 mls/hr IV BOLUS ONE Stop: 04/02/24 14:32 Last Infusion: 04/02/24 15:39 Dose: Infused Documented By: Admin: 04/02/24 14:18 Dose: 1,000 mls/hr Documented By: FRANCISCA Sodium Chloride (Normal Saline 0.9%) 1,000 mls @ 1,000 mls/hr IV BOLUS ONE Stop: 04/02/24 19:46 Last Infusion: 04/02/24 20:06 Dose: Infused Documented By: Admin: 04/02/24 18:52 Dose: 1,000 mls/hr Documented By: JUAN MANUEL Morphine Sulfate (Morphine 4 Mg/Ml Inj) 4 mg IV NOW ONE Stop: 04/02/24 18:48 Last Admin: 04/02/24 18:52 Dose: 4 mg Documented By: JUAN MANUEL Vital Signs Vital signs: Vital Signs - 8 hr 04/02/24 21:30 04/02/24 21:30 04/02/24 22:00 Pulse Rate 94 H Respiratory Rate 19 Blood Pressure 146/70 H 141/68 H Pulse Oximetry 95 Oxygen Delivery Method Oxygen Flow Rate 04/02/24 22:30 04/02/24 22:30 04/02/24 23:00 Pulse Rate 95 H Respiratory Rate 21 Blood Pressure 151/72 H 143/67 H Pulse Oximetry 94 Oxygen Delivery Method Oxygen Flow Rate 04/02/24 23:00 04/02/24 23:30 04/02/24 23:30 Pulse Rate 92 H 93 H Respiratory Rate 20 20 Blood Pressure 136/65 Pulse Oximetry 95 95 Oxygen Delivery Method Nasal Cannula Oxygen Flow Rate 1 04/03/24 00:00 04/03/24 00:00 04/03/24 00:30 Pulse Rate 100 H 102 H Respiratory Rate 20 Blood Pressure 135/66 Pulse Oximetry 95 92 Oxygen Delivery Method Nasal Cannula Nasal Cannula Oxygen Flow Rate 1 1 04/03/24 00:30 04/03/24 01:00 04/03/24 01:00 Pulse Rate 101 H Respiratory Rate Blood Pressure 116/63 115/56 L Pulse Oximetry 93 Oxygen Delivery Method Nasal Cannula Oxygen Flow Rate 1 MDM - Abdominal Pain Lab Data 04/02/24 23:45 04/02/24 14:04 Labs: Lab Results 04/02/24 04/02/24 04/02/24 Range/Units 14:04 16:01 20:34 WBC 8.0 (4.5-11.0) X10^3/uL RBC 2.74 L (4.5-5.9) X10^6/uL Hgb 7.8 L (13.5-17.5) g/dL Hct 23.0 L (41-53) % MCV 84.2 (80-100) fL MCH 28.5 (26-34) PG MCHC 33.9 (30-36) % RDW 15.5 H (11.6-14.8) % Plt Count 96 L (150-400) X10^3/uL Neut % (Auto) [employer] Sinking [employer] Operator Lymph % (Auto) [employer] Sinking [employer] Operator Leon % (Auto) [employer] Sinking Machine Operator Eos % (Auto) [employer] Sinking Machine Operator Baso % (Auto) [employer] Sinking Machine Operator Neut # (Auto) [employer] Sinking Machine Operator Lymph # (Auto) Die Sinking Machine Operator Leon # (Auto) Die Sinking Machine Operator Eos # (Auto) Die Sinking Machine Operator Baso # (Auto) Die Sinking Machine Operator Total Counted 100 Seg Neutrophils % 63.0 (38-70) % Band Neutrophils % 6.0 (3-7) % Lymphocytes % (Manual) 19.0 L (25-45) % Monocytes % (Manual) 5.0 (2-11) % Metamyelocytes % 2.0 H (-0) % Myelocytes % 5.0 H (-0) % Neutrophils # (Manual) 5520 (8677-8182) /uL Platelet Estimate Decreased on smear RBC Morphology Normal morphology PT 14.8 H (9.4-12.5) SECONDS INR 1.3 (0.9-1.3) APTT 34 (25.1-36.5) SECONDS Sodium 129 L (137-145) mmol/L Potassium 4.1 (3.4-5.1) mmol/L Chloride 97 L (98-107) mmol/L Carbon Dioxide 23 (22-32) mmol/L BUN 32 H (9-20) mg/dL Creatinine 1.50 H (0.66-1.25) mg/dL Estimated GFR 49 L (>60) mL/min BUN/Creatinine Ratio 21.3 (6-22) Glucose 128 H (80-110) mg/dL Lactate 2.9 H 2.1 (0.7-2.1) mmol/L Calcium 11.8 H (8.4-10.2) mg/dL Total Bilirubin 1.2 (0.2-1.3) mg/dL AST 65 H (17-59) IU/L ALT 17 (<50) IU/L Alkaline Phosphatase 139 H (38-126) U/L Total Creatine Kinase (55-170) U/L Troponin I (0.01-0.034) ng/mL NT-Pro-B Natriuret Pep (<125) pg/mL Total Protein 6.1 L (6.3-8.2) g/dL Albumin 3.2 L (3.5-5.0) g/dL Globulin 2.9 (1.7-4.1) g/dL Albumin/Globulin Ratio 1.1 (1.0-2.8) Lipase 25 (23-300) U/L Procalcitonin 1.08 H (<0.5) ng/mL Urine RBC 1-5/hpf (0-5/HPF) Urine WBC 1-5/hpf (0-5/HPF) Ur Squamous Epith Cells 1-5 /hpf (0-5/HPF) Urine Bacteria None seen (None) Ur Culture Indicated? Cult not indicated Vol Urine Centrifuged 10ml (spun) Blood Type Antibody Screen 04/02/24 04/02/24 Range/Units 22:15 23:45 WBC (4.5-11.0) X10^3/uL RBC (4.5-5.9) X10^6/uL Hgb 7.5 L (13.5-17.5) g/dL Hct 22.2 L (41-53) % MCV (80-100) fL MCH (26-34) PG MCHC (30-36) % RDW (11.6-14.8) % Plt Count (150-400) X10^3/uL Neut % (Auto) Lymph % (Auto) Leon % (Auto) Eos % (Auto) Baso % (Auto) Neut # (Auto) Lymph # (Auto) Leon # (Auto) Eos # (Auto) Baso # (Auto) Total Counted Seg Neutrophils % (38-70) % Band Neutrophils % (3-7) % Lymphocytes % (Manual) (25-45) % Monocytes % (Manual) (2-11) % Metamyelocytes % (-0) % Myelocytes % (-0) % Neutrophils # (Manual) (4606-7392) /uL Platelet Estimate RBC Morphology PT (9.4-12.5) SECONDS INR (0.9-1.3) APTT (25.1-36.5) SECONDS Sodium (137-145) mmol/L Potassium (3.4-5.1) mmol/L Chloride (98-107) mmol/L Carbon Dioxide (22-32) mmol/L BUN (9-20) mg/dL Creatinine (0.66-1.25) mg/dL Estimated GFR (>60) mL/min BUN/Creatinine Ratio (6-22) Glucose (80-110) mg/dL Lactate (0.7-2.1) mmol/L Calcium (8.4-10.2) mg/dL Total Bilirubin (0.2-1.3) mg/dL AST (17-59) IU/L ALT (<50) IU/L Alkaline Phosphatase (38-126) U/L Total Creatine Kinase < 20 L (55-170) U/L Troponin I < 0.012 (0.01-0.034) ng/mL NT-Pro-B Natriuret Pep 1100 H (<125) pg/mL Total Protein (6.3-8.2) g/dL Albumin (3.5-5.0) g/dL Globulin (1.7-4.1) g/dL Albumin/Globulin Ratio (1.0-2.8) Lipase (23-300) U/L Procalcitonin (<0.5) ng/mL Urine RBC (0-5/HPF) Urine WBC (0-5/HPF) Ur Squamous Epith Cells (0-5/HPF) Urine Bacteria (None) Ur Culture Indicated? Vol Urine Centrifuged Blood Type O Positive Antibody Screen Negative Point of care testing: Urine Dip Bedside Urine Glucose Negative Bedside Urine Bilirubin - Negative Bedside Urine Ketone - Negative Urine Specific [place] 1.010 Bedside Urine Occult Blood - Negative Bedside Urine pH 5.5 Bedside Urine Protein +/- 15 Bedside Urine Urobilinogen +/- 1mg Bedside Urine Nitrite - Negative Bedside Urine Leukocytes - Negative Esterase Imaging Data Chest x-ray: Radiologist's Impression: PROCEDURE: XR CHEST 1V INDICATIONS: suspected sepsis TECHNIQUE: One view of the chest was acquired. COMPARISON: [facility], CR, XR CHEST 1V, 10/01/2019, 17:41. FINDINGS: Surgical changes and devices: None. Lungs and pleura: Submaximal inspiration. Minimal patchy bibasilar atelectasis. No pleural effusions or pneumothorax. Mediastinum: Mediastinal contours appear normal. Heart size is normal. Bones and chest wall: No suspicious bony lesions S shaped thoracolumbar scoliotic curvature with moderately severe thoracic component.. Overlying soft tissues appear unremarkable. IMPRESSION: Minimal patchy bibasilar atelectasis. Dictated by: Freddy Jang M.D. on 04/02/2024 at 14:37 Approved by: Freddy Jang M.D. on 04/02/2024 at 14:37 CT scan - abdomen/pelvis: Radiologist's Impression: PROCEDURE: CT ABDOMEN PELVIS W CON INDICATIONS: LUQ/L FLANK PAIN, HX METASTATIC PROSTATE CA TECHNIQUE: After the administration of intravenous contrast, axial sections acquired from the lung bases to the pubic symphysis. Coronal and sagittal reformats were performed. For radiation dose reduction, the following was used: automated exposure control, adjustment of mA and/or kV according to patient size. COMPARISON: [facility], CT, CT ABDOMEN PELVIS W CON, 10/29/2020, 9:14. FINDINGS: Image quality: Diagnostic. Lower Chest: No significant findings. ABDOMEN: Liver: No solid mass. Presumed cirrhosis. Gallbladder: No radiopaque gallstones or wall thickening. Biliary ducts: No biliary dilation. Pancreas: No ductal dilation. Spleen: Size is within normal limits. Adrenal Glands: No adrenal nodules. Kidneys and Ureters: No hydronephrosis. No solid mass. No complex renal cystic lesion which requires follow up. Stomach and Bowel: Normal colonic caliber, without significant wall thickening. Mild diverticulosis. Mobile cecum, currently anterior to the right lobe of the liver. Peritoneum: No abnormal intraperitoneal fluid. No free air. Ventral Wall: No significant ventral hernia. Abdominal Nodes: No retroperitoneal or mesenteric adenopathy by size criteria. Shotty enlarged periportal lymph nodes, potentially reactive. Vessels: Mild aneurysmal dilatation of the infrarenal abdominal aorta, measuring 3.1 cm in diameter. There is a severe focal stenosis of the proximal left external iliac artery. The common iliacs are ectatic. Main portal vein is dilated, measuring 1.9 cm in diameter. Reference coronal image 55 of series 4. Interval development of severe splenomegaly. Spleen was previously normal in size. It now measures 18.3 x 9.6 x 19.1 cm. PELVIS: Pelvic Organs: Prostatomegaly.. Bladder: No bladder wall thickening. Small left-sided bladder stone. Pelvic Nodes: No enlarged lymph nodes. Miscellaneous: No inguinal hernias are seen. Bones: Definite progression of sclerotic metastatic disease. There is now a sclerotic lesion involving almost all of the L5 vertebral body. Reference sagittal image 88 of series 5. There are numerous other tiny sclerotic bony lesions as well as a somewhat prominent sclerotic lesion of the left iliac wing just above the acetabulum. IMPRESSION: 1. Cirrhosis. 2. Interval development of marked splenomegaly. This may result in the patient's pain symptomatology. 3. Progression of sclerotic metastatic disease. 4. Prostatomegaly. 5. Small bladder stone. 6. Mild aneurysmal dilatation of the infrarenal abdominal aorta. 7. Incidental note made of a severe left external iliac artery stenosis. Dictated by: Freddy Jang M.D. on 04/02/2024 at 19:46 Approved by: Freddy Jang M.D. on 04/02/2024 at 19:55 ECG Data Interpretation: Sinus tachycardia at 107 beats per minute. Normal MA. No STEMI MDM Narrative Medical decision making narrative: Chronically unwell appearing patient with 5 days of left-sided symptoms. Patient points to his left upper quadrant and wraps his hand around his left flank as source of maximum discomfort. Patient tachycardic on initial presentation to the emergency department, however after sitting in ED bed heart rate decreases to 90 beats per minute. Pain medications and IV fluids ordered due to reported 5 days of decreased p.o. intake. Laboratory work reviewed. WBC count 8.0, hemoglobin 7.8 (decreased from 12.4 on 12/06/23), platelets 96 (down from 188). Sodium 129, potassium 4.1, creatinine 1.5 (up from 0.88), lactic acid 2.9 (repeat 2.1), troponin undetectable, BNP 1100. Chest x-ray with bilateral atelectasis. CT of the abdomen and pelvis shows cirrhosis with interval development of marked splenomegaly. Also noted to have progression of sclerotic metastatic disease. Splenomegaly possibly related to patient's symptoms. Since arriving to the emergency department the patient's saturations have dropped to the upper 80s. Patient denies any chest pain or shortness of breath, in his initial saturations were stable on room air. Patient placed on supplemental nasal cannula. He had received 2L of IV fluids and there may be a possibility of fluid overload, however patient does not appear to be grossly overloaded. Repeat Hgb 7.5, stable from previous. Patient denies any hx of bleeding, use of blood thinners, or hx transfusion. Stool soft brown on exam. Patient continues to require 1-2L supplemental O2. Plan to admit for further treatment. Discharge Plan Departure Patient Disposition: Admitted as Observation Clinical Impression: Left sided abdominal pain, Anemia, Splenomegaly, Low blood oxygen concentration, RACHEL (acute kidney injury) Admit Date/Time: 04/03/24 01:27 Admit Provider: Robert Kaiser
[2024-04-02] MEDS: MORPHINE 4 MG/ML INJ IV (18:52)
[2024-04-02 20:57] LABS: Bacteria Urine None Seen; Culture Indicated Urine Cult Not Indicated; RBC Urine 1-5/HPF (0-5/HPF); Squamous Epithelial Cell Urine 1-5 /HPF (0-5/HPF); Urine Volume 10mL (spun); WBC Urine 1-5/HPF (0-5/HPF)
[2024-04-02 22:34] LABS: Creatine Kinase < 20 U/L (55-170)
[2024-04-02 22:47] LABS: NT-proBNP (BNP-Adult 18+) 1100 pg/mL (<125); Troponin I < 0.012 ng/mL (0.01-0.034)
[2024-04-02] MEDS: FUROSEMIDE 40 MG/4 ML VIAL 20 MG IV (23:09)
[2024-04-03] VITALS (20 sets, daily range): BP systolic 107–138; BP diastolic 56–70; PULSE 82–109; RESP 18–25; TEMP 36.4–36.8; O2SAT 90–97; BMI 28.7; BMI 29.5
[2024-04-03] LABS: Hematocrit 22.2 % (41-53); Hemoglobin 7.5 g/dL (13.5-17.5)
--- NOTE | 2024-04-03 04:46 | DI.ECHO.S_ITS ---
[facility] : : [address] : [place] : : [id number] : : Phone: [phone] Echocardiogram Report + + :Name: SNOW BARRERA Study Date: 04/03/2024 Height: 70 in : :[facility] ReadingLocation: Weight: 206 lb : : Gender: Male BSA: 2.1 m2 : :: 1950 Age: 73 yrs BP: 107/56 mmHg: :Reason For Study: HEART FAILURE : :Ordering Physician: CANDY, : :TAPAN ABRAMS Performed By: Carisa Wright : :Referring: TAPAN GUPTA MD : + + Interpretation Summary The ejection fraction is estimated to be 70-75%. There is no significant valvular heart disease. Procedure: A two-dimensional transthoracic echocardiogram with color flow and Doppler was performed. The study quality was technically adequate. Comparison is made with the echocardiogram of 10/02/2019. The patient was in sinus rhythm with heart rates between 80-90 bpm during the exam. Left Ventricle: The left ventricle is normal in size. There is mild concentric left ventricular hypertrophy. The ejection fraction is estimated to be 70-75%. Left ventricular wall motion is normal. Right Ventricle: The right ventricle is mildly dilated. The right ventricular systolic function is normal. Atria: The left atrium is mildly dilated. Right atrial size is normal. There is no Doppler evidence for an interatrial shunt. Mitral Valve: The mitral valve leaflets appear mildly thickened, but open well. There is mild mitral annular calcification. There is no mitral regurgitation noted. Aortic Valve: The aortic valve is trileaflet. The aortic valve opens well. There is no aortic valve stenosis. No aortic regurgitation is present. Tricuspid Valve: The tricuspid valve is normal. There is mild tricuspid regurgitation. Pulmonary artery pressures cannot be estimated because of the lack of a measurable TR jet velocity. Pulmonic Valve: The pulmonic valve leaflets are thin and pliable; valve motion is normal. There is no pulmonic valvular regurgitation. Great Vessels: The aortic root is normal size. The dimensions of the ascending aorta are normal. The IVC is of normal diameter and collapses greater than 50% with a sniff. This suggests a low right atrial pressure of 3 mm Hg. Pericardium/ Pleura There is no pericardial effusion. There is no pleural effusion. MMode/2D Measurements & Calculations LVIDd: 4.6 cm LVOT diam: 2.0 cm LVIDs: 2.9 cm Ao root diam: 3.4 cm FS: 37.4 % asc Aorta Diam: 3.3 cm EPSS: 0.83 cm Ao Arch Diam (Prox Trans): 3.1 cm IVSd: 1.3 cm LVPWd: 1.2 cm LV blanco. diameter/BSA (cm/m^2): 2.2 LV sys. diameter/BSA (cm/m^2): 1.4 LA A2 area: 24.4 cm2 RA long axis: 4.7 cm LA A4 area: 22.8 cm2 RA area: 13.5 cm2 LA length (vol): 5.5 cm RA vol: 32.7 ml LA vol: 85.8 ml RA : 15.5 ml/m2 LA vol index: 40.6 ml/m2 IVC diam: 1.3 cm RVD1 (basal): 4.1 cm TAPSE: 2.7 cm Doppler Measurements & Calculations Ao V2 max: 164.1 cm/sec LVOT Max Anastacio: 138.4 cm/sec Ao V2 mean: 115.0 cm/sec LV V1 max P.7 mmHg Ao max P.8 mmHg LV V1 VTI: 26.1 cm Ao mean P.9 mmHg [place](I,D): 3.0 cm2 Ao V2 VTI: 28.6 cm [place](V,D): 2.8 cm2 sev ratio: 0.91 [place] indexed to BSA (cm^2/m^2): 1.4 MV E max anastacio: 104.4 cm/sec PA V2 max: 104.6 cm/sec MV A max anastacio: 107.3 cm/sec PA V2 mean: 81.2 cm/sec MV E/A: 0.97 PA mean P.8 mmHg Med Peak E' Anastacio: 8.8 cm/sec PA pr(Accel): 37.9 mmHg E/E' med: 11.8 Lat Peak E' Anastacio: 9.8 cm/sec E/E' lat: 10.7 E/e' average: 11.2 MV dec time: 0.24 sec SV(LVOT): 85.8 ml Reading Physician:09:44 AM
--- NOTE | 2024-04-03 04:55 | PM.HP.1 ---
History of Present Illness History of Present Illness Chief complaint: l side pain, has been in bed t-5 Narrative: 73 year-old male with past medical history of prostate cancer with metastasis to the bone on enzalutamide and Lupron, hypertension and hyperlipidemia presents with complaint of left sided abdominal and flank pain. Per the patient report, over the last few days, the patient has increasing left abdominal/flank pain. The patient states that his pain is intermittent, worse with movement, and sharp in nature. The patient also has decrease appetite due to his pain. The patient does have some in nausea, but denies any vomiting, fever, chills, GIB, chest pain, or shortness of breath. In our emergency room, the patient was noted to be stable. The patient however, was required 1 to 2 L of oxygen per nasal cannula. Laboratory shows a hemoglobin of 7.8 which is significantly dropped from a few months ago 12.4. Repeat hemoglobin after 2 L of IV fluid is 7.5. Cr 1.[address] of adomen and pelvic with contrast shows significant splenomegaly, cirrhosis, and progression of sclerotic metastatic disease. There?s also small bladder stone. Per our ERphysician, the patient's rectal exam shows normal brown stool. BNP was 1100s. The patient was given IV Lasix 20mg x 1. Note, the patient denies any history of heart failure. Note CXR shows no clear sign of volume overload. [facility] Medical History Low back pain Bilateral hip pain Osteoarthritis of left hip Left hip pain SI (sacroiliac) joint dysfunction Neuroforaminal stenosis of lumbar spine Unspecified atherosclerosis of [place] arteries of extremities, unspecified extremity Anemia Bone mass Prostate cancer Venous insufficiency Lumbar back pain with radiculopathy affecting left lower extremity Scoliosis Marijuana smoker High cholesterol Hypertension Surgical History H/O inguinal hernia repair Family History Father Prostate cancer Mother Diabetes mellitus Obesity Grandmother Diabetes mellitus Obesity Social History household members: spouse Smoking Status: Former smoker Tobacco: How many years used: 21 alcohol intake: former substance use type: marijuana Meds Home Medications and Allergies Home Medications Medication Instructions Recorded Confirmed Type triamcinolone acetonide 0.5 % 1 applic topical BID #15 grams 10/07/21 03/19/24 Rx topical cream enzalutamide 40 mg capsule (Xtandi) 160 mg PO DAILY 06/09/23 03/19/24 History losartan 100 mg tablet See Rx Instructions .Route 08/02/23 03/19/24 Rx .COMPLEX #100 tabs ferrous gluconate 324 mg (38 mg 324 mg PO DAILY #90 tabs 09/04/23 03/19/24 Rx iron) tablet atorvastatin 20 mg tablet 20 mg PO BEDTIME #90 tabs 10/12/23 03/19/24 Rx tamsulosin 0.4 mg capsule 0.4 mg PO BEDTIME #90 caps 11/22/23 03/19/24 Rx amlodipine 5 mg tablet See Rx Instructions .Route 02/02/24 03/19/24 Rx .COMPLEX #90 tabs ondansetron 8 mg disintegrating 8 mg PO 3XD 02/20/24 03/19/24 History tablet Allergies Allergy/AdvReac Type Severity Reaction Status Date / Time pollen extracts AdvReac Intermediate Sneezing Verified 03/19/24 09:56 Review of Systems Review of Systems ROS: Yes All systems reviewed with the patient and are negative except as otherwise documented Exam Vital Signs (past 8 hours): - 04/02/24 21:00 04/02/24 21:00 04/02/24 21:30 Temperature Pulse Rate 93 H Respiratory Rate 20 Blood Pressure 145/74 H 146/70 H Pulse Oximetry 97 Oxygen Delivery Method Nasal Cannula Oxygen Flow Rate 2 04/02/24 21:30 04/02/24 22:00 04/02/24 22:30 Temperature Pulse Rate 94 H Respiratory Rate 19 Blood Pressure 141/68 H 151/72 H Pulse Oximetry 95 Oxygen Delivery Method Oxygen Flow Rate 04/02/24 22:30 04/02/24 23:00 04/02/24 23:00 Temperature Pulse Rate 95 H 92 H Respiratory Rate 21 20 Blood Pressure 143/67 H Pulse Oximetry 94 95 Oxygen Delivery Method Oxygen Flow Rate 04/02/24 23:30 04/02/24 23:30 04/03/24 00:00 Temperature Pulse Rate 93 H 100 H Respiratory Rate 20 20 Blood Pressure 136/65 Pulse Oximetry 95 95 Oxygen Delivery Method Nasal Cannula Nasal Cannula Oxygen Flow Rate 1 1 04/03/24 00:00 04/03/24 00:30 04/03/24 00:30 Temperature Pulse Rate 102 H Respiratory Rate Blood Pressure 135/66 116/63 Pulse Oximetry 92 Oxygen Delivery Method Nasal Cannula Oxygen Flow Rate 1 04/03/24 01:00 04/03/24 01:00 04/03/24 01:30 Temperature Pulse Rate 101 H Respiratory Rate Blood Pressure 115/56 L 125/58 L Pulse Oximetry 93 Oxygen Delivery Method Nasal Cannula Oxygen Flow Rate 1 04/03/24 01:30 04/03/24 01:55 04/03/24 02:08 Temperature 97.5 F L Pulse Rate 98 H 104 H 96 H Respiratory Rate 22 Blood Pressure 133/66 Pulse Oximetry 95 95 Oxygen Delivery Method Nasal Cannula Oxygen Flow Rate 2 2 04/03/24 04:00 04/03/24 04:32 04/03/24 04:32 Temperature 97.5 F L Pulse Rate 87 86 Respiratory Rate 21 22 Blood Pressure 107/56 L Pulse Oximetry 97 95 Oxygen Delivery Method Oxygen Flow Rate 2 Oxygen Delivery Method Nasal Cannula Oxygen Flow Rate 2 Narrative Exam Narrative: GENERAL: The patient is not in any acute distressed. Awake and alert. HEENT: Nonicteric sclerae, PERRLA, EOMI. Oropharynx clear. Moist mucous membranes. Conjunctivae appear well perfused. HEART: Regular rate and rhythm without murmurs. No lower extremities edema. LUNGS: Clear to auscultation bilaterally. No wheezing, crackles or rhonchi ABDOMEN: Soft, positive bowel sounds, nontender. SKIN: No rash, no excessive bruising, petechiae, or purpura. NEUROLOGIC: AxO x 3. Cranial nerves II-XII intact without motor/sensory deficit. Objective Labs 04/02/24 23:45 04/02/24 14:04 Labs: Laboratory Results - last 24 hr 04/02/24 04/02/24 04/02/24 14:04 16:01 20:34 WBC 8.0 RBC 2.74 L Hgb 7.8 L Hct 23.0 L MCV 84.2 MCH 28.5 MCHC 33.9 RDW 15.5 H Plt Count 96 L Neut % (Auto) Retail Zone Specialist Lymph % (Auto) Retail Zone Specialist [place] % (Auto) Retail Zone Specialist Eos % (Auto) Retail Zone Specialist Baso % (Auto) Retail Zone Specialist Neut # (Auto) Retail Zone Specialist Lymph # (Auto) Retail Zone Specialist [place] # (Auto) Retail Zone Specialist Eos # (Auto) Retail Zone Specialist Baso # (Auto) Retail Zone Specialist Total Counted 100 Seg Neutrophils % 63.0 Band Neutrophils % 6.0 Lymphocytes % (Manual) 19.0 L Monocytes % (Manual) 5.0 Metamyelocytes % 2.0 H Myelocytes % 5.0 H Neutrophils # (Manual) 5520 Platelet Estimate Decreased on smear RBC Morphology Normal morphology PT 14.8 H INR 1.3 APTT 34 Sodium 129 L Potassium 4.1 Chloride 97 L Carbon Dioxide 23 BUN 32 H Creatinine 1.50 H Estimated GFR 49 L BUN/Creatinine Ratio 21.3 Glucose 128 H Lactate 2.9 H 2.1 Calcium 11.8 H Total Bilirubin 1.2 AST 65 H ALT 17 Alkaline Phosphatase 139 H Total Creatine Kinase Troponin I NT-Pro-B Natriuret Pep Total Protein 6.1 L Albumin 3.2 L Globulin 2.9 Albumin/Globulin Ratio 1.1 Lipase 25 Procalcitonin 1.08 H Urine RBC 1-5/hpf Urine WBC 1-5/hpf Ur Squamous Epith Cells 1-5 /hpf Urine Bacteria None seen Ur Culture Indicated? Cult not indicated Vol Urine Centrifuged 10ml (spun) Blood Type Antibody Screen 04/02/24 04/02/24 22:15 23:45 WBC RBC Hgb 7.5 L Hct 22.2 L MCV MCH MCHC RDW Plt Count Neut % (Auto) Lymph % (Auto) [place] % (Auto) Eos % (Auto) Baso % (Auto) Neut # (Auto) Lymph # (Auto) [place] # (Auto) Eos # (Auto) Baso # (Auto) Total Counted Seg Neutrophils % Band Neutrophils % Lymphocytes % (Manual) Monocytes % (Manual) Metamyelocytes % Myelocytes % Neutrophils # (Manual) Platelet Estimate RBC Morphology PT INR APTT Sodium Potassium Chloride Carbon Dioxide BUN Creatinine Estimated GFR BUN/Creatinine Ratio Glucose Lactate Calcium Total Bilirubin AST ALT Alkaline Phosphatase Total Creatine Kinase < 20 L Troponin I < 0.012 NT-Pro-B Natriuret Pep 1100 H Total Protein Albumin Globulin Albumin/Globulin Ratio Lipase Procalcitonin Urine RBC Urine WBC Ur Squamous Epith Cells Urine Bacteria Ur Culture Indicated? Vol Urine Centrifuged Blood Type O Positive Antibody Screen Negative Assessment & Plan Assessment & Plan narrative: Possible new onset of heart failure. Admit the patient to medical telemetry under observation. Will obtain echocardiogram to assess for underlying heart failure. BMP 1100s. Patient status post 20 mg of IV Lasix x1 in the ER. Hold further Lasix. Obtain echocardiogram and will reassess if additional IV Lasix as needed. Monitor respiratory symptom. Acute respiratory failure with hypoxia. Mild. Patient currently on 1=2 L of oxygen. Likely from above. Also could be from severe anemia (though likely subacute/chronic) As above and monitor respiratory status and oxygenation. Normocytic anemia. Hb 7.8 in ER and after IVF Hb 7.5. No active sign of bleeding. Likely chronic and related to underlying metastatic disease. No symptoms of G.I. bleeding and rectal exam shows brown stool per our ER physician. PPI. Monitor for now and defend hemoglobin seven. Patient has been type and cross. BPH. Resume home Flomax. Metastatic prostate cancer. Patient will need to follow up as outpatient with ongoing treatment. RACHEL. Likely from dehydration. Patient had 2 L of IV fluid initially given in the ER and then followed by IV Lasix At this point will hold off any further IVF until echo result is back and will check Cr in AM DVT prophylaxis SCDs for now due to severe anemia. Code status full code Disposition likely home in 1 to 2 days. Time-Based Coding :: [TOTAL MINUTES] spent with patient and on the chart (including review of chart, obtaining history, exam, reviewing outside data, placing orders, documenting exam and treatment plan, and counseling patient) on [DATE]. Quality VTE Deep Vein Thrombosis/Pulmonary Embolism Present on Admission: No
--- NOTE | 2024-04-03 05:39 | PC.NURSE ---
hydraulics teacher RN note pt arrived via stretcher from ER, transferred to bed with one assist steady on his feet, VSS, afebrile, PPPx4, SR 80s, trance ankle edema, denies pain and nausea, O2 sats >92% on 2L NC, lungs clear, voiding via urinal, skin warm and dry, bed alarm on, call kapoor within reach, meds and labs as ordered
[2024-04-03] MEDS: PANTOPRAZOLE DR 20 MG TABLET 40 MG PO (06:23)
[2024-04-03 06:44] LABS: Mean Corpuscular HGB Conc 33.7 % (30-36); Mean Corpuscular Hemoglobin 28.4 PG (26-34); Mean Corpuscular Volume 84.1 fL (80-100); Platelet Count 91 X10^3/uL (150-400); Red Blood Cell Count 2.42 X10^6/uL (4.5-5.9); Red Cell Distribution Width 15.6 % (11.6-14.8); White Blood Cell Count 5.2 X10^3/uL (4.5-11.0)
[2024-04-03 06:46] LABS: Add Manual Diff / Slide Review YES; Hematocrit 20.3 % (41-53); Hemoglobin 6.9 g/dL (13.5-17.5)
[2024-04-03 06:49] LABS: BUN Creatinine Ratio 18.8 (6-22); Blood Urea Nitrogen 33 mg/dL (9-20); Calcium 10.7 mg/dL (8.4-10.2); Carbon Dioxide 23 mmol/L (22-32); Chloride 99 mmol/L (98-107); Estimated Glomerular Filt Rate 40 mL/min (>60); Glucose 102 mg/dL (80-110); HEMOLYSIS < 15 (0-50); Potassium 3.8 mmol/L (3.4-5.1); Sodium 130 mmol/L (137-145)
[2024-04-03 06:56] LABS: Neutrophils Absolute Manual 3744 /uL (3000-5900); RBC Morphology Normal Morphology; Total Cells Counted 100
[2024-04-03 06:57] LABS: Platelet Estimate Decreased on smear
[2024-04-03 07:12] LABS: MRSA (Nasal) PCR NOT DETECTED (Not Detect)
--- NOTE | 2024-04-03 08:23 | P.HP_ITS ---
History of Present Illness History of Present Illness Date Patient Seen: 04/03/24 Chief complaint: l side pain, has been in bed t-5 Narrative: From night doctor: 73 year-old male with past medical history of prostate cancer with metastasis to the bone on enzalutamide and Lupron, hypertension and hyperlipidemia presents with complaint of left sided abdominal and flank pain. Per the patient report, over the last few days, the patient has increasing left abdominal/flank pain. The patient states that his pain is intermittent, worse with movement, and sharp in nature. The patient also has decrease appetite due to his pain. The patient does have some in nausea, but denies any vomiting, fever, chills, GIB, chest pain, or shortness of breath. In our emergency room, the patient was noted to be stable. The patient however, was required 1 to 2 L of oxygen per nasal cannula. Laboratory shows a hemoglobin of 7.8 which is significantly dropped from a few months ago 12.4. Repeat hemoglobin after 2 L of IV fluid is 7.5. Cr 1.[address] of adomen and pelvic with contrast shows significant splenomegaly, cirrhosis, and progression of sclerotic metastatic disease. There?s also small bladder stone. Per our ERphysician, the patient's rectal exam shows normal brown stool. BNP was 1100s. The patient was given IV Lasix 20mg x 1. Note, the patient denies any history of heart failure. Note CXR shows no clear sign of volume overload. Additional information: It sounds as though he was had a downward course for about 2 weeks with progressive weakness, and left-sided abdomen pain. In addition he has had some progressive edema and maybe shortness a breath. He lives with his ex-. Upon arrival his CT scan really did not will any acute findings but is notable for his osseous lesions from prostate cancer as well as splenomegaly. He was profoundly anemic but he denies any rectal bleeding. He was okay with a blood transfusion. [facility] Medical History Low back pain Bilateral hip pain Osteoarthritis of left hip Left hip pain SI (sacroiliac) joint dysfunction Neuroforaminal stenosis of lumbar spine Unspecified atherosclerosis of [place] arteries of extremities, unspecified extremity Anemia Bone mass Prostate cancer Venous insufficiency Lumbar back pain with radiculopathy affecting left lower extremity Scoliosis Marijuana smoker High cholesterol Hypertension Surgical History H/O inguinal hernia repair Family History Father Prostate cancer Mother Diabetes mellitus Obesity Grandmother Diabetes mellitus Obesity Social History household members: spouse Smoking Status: Former smoker Tobacco: How many years used: 21 alcohol intake: former substance use type: marijuana Meds Home Medications and Allergies Home Medications Medication Instructions Recorded Confirmed Type enzalutamide 40 mg capsule (Xtandi) 160 mg PO DAILY 06/09/23 03/19/24 History losartan 100 mg tablet See Rx Instructions .Route 08/02/23 03/19/24 Rx .COMPLEX #100 tabs ferrous gluconate 324 mg (38 mg 324 mg PO DAILY #90 tabs 09/04/23 03/19/24 Rx iron) tablet atorvastatin 20 mg tablet 20 mg PO BEDTIME #90 tabs 10/12/23 03/19/24 Rx tamsulosin 0.4 mg capsule 0.4 mg PO BEDTIME #90 caps 11/22/23 03/19/24 Rx amlodipine 5 mg tablet See Rx Instructions .Route 02/02/24 03/19/24 Rx .COMPLEX #90 tabs ondansetron 8 mg disintegrating 8 mg PO 3XD 02/20/24 03/19/24 History tablet loratadine 10 mg tablet 10 mg DAILY PRN Allergic Symptoms 04/03/24 04/03/24 History Allergies Allergy/AdvReac Type Severity Reaction Status Date / Time pollen extracts AdvReac Intermediate Sneezing Verified 03/19/24 09:56 Review of Systems Review of Systems Narrative: All else reviewed and otherwise unremarkable except as noted in the history and physical. Exam Vital Signs (past 8 hours): - 04/03/24 00:30 04/03/24 00:30 04/03/24 01:00 Temperature Pulse Rate 102 H Respiratory Rate Blood Pressure 116/63 115/56 L Pulse Oximetry 92 Oxygen Delivery Method Nasal Cannula Nasal Cannula Oxygen Flow Rate 1 1 04/03/24 01:00 04/03/24 01:30 04/03/24 01:30 Temperature Pulse Rate 101 H 98 H Respiratory Rate Blood Pressure 125/58 L Pulse Oximetry 93 95 Oxygen Delivery Method Nasal Cannula Oxygen Flow Rate 2 04/03/24 01:31 04/03/24 01:55 04/03/24 02:08 Temperature 97.5 F L Pulse Rate 104 H 96 H Respiratory Rate 22 Blood Pressure 133/66 Pulse Oximetry 95 Oxygen Delivery Method Nasal Cannula Oxygen Flow Rate 2 04/03/24 04:00 04/03/24 04:32 04/03/24 04:32 Temperature 97.5 F L Pulse Rate 87 86 Respiratory Rate 21 22 Blood Pressure 107/56 L Pulse Oximetry 97 95 Oxygen Delivery Method Oxygen Flow Rate 2 Oxygen Delivery Method Nasal Cannula Oxygen Flow Rate 2 Narrative Exam Narrative: NAD, alert and oriented, fluent speech, calm. He is pale. He was slightly slow to answer questions. Normocephalic skull, EOMI, anicteric sclera, symmetric pupils. Oropharynx unremarkable, no droop. Neck supple, midline trachea, no adenopathy. Lungs clear, normal rate and effort. Heart regular, no murmur gallop or rub. Abdomen is soft, non distended and non tender. He has no pain with deep palpation. Extremities are free of edema. Skin is free of rash or lesions. Joints are not swollen or deformed. Objective Imaging CT scan - abdomen: Radiologist's impression: 1. Cirrhosis. 2. Interval development of marked splenomegaly. This may result in the patient's pain symptomatology. 3. Progression of sclerotic metastatic disease. 4. Prostatomegaly. 5. Small bladder stone. 6. Mild aneurysmal dilatation of the infrarenal abdominal aorta. 7. Incidental note made of a severe left external iliac artery stenosis. Echo: Radiologist's impression: The ejection fraction is estimated to be 70-75%. There is no significant valvular heart disease. Chest x-ray: Radiologist's impression: Minimal patchy bibasilar atelectasis. Labs 04/03/24 06:17 04/03/24 06:17 Labs: Laboratory Results - last 24 hr 04/02/24 04/02/24 04/02/24 14:04 16:01 20:34 WBC 8.0 RBC 2.74 L Hgb 7.8 L Hct 23.0 L MCV 84.2 MCH 28.5 MCHC 33.9 RDW 15.5 H Plt Count 96 L Neut % (Auto) Private Equity Analyst Lymph % (Auto) Private Equity Analyst [place] % (Auto) Private Equity Analyst Eos % (Auto) Private Equity Analyst Baso % (Auto) Private Equity Analyst Neut # (Auto) Private Equity Analyst Lymph # (Auto) Private Equity Analyst [place] # (Auto) Private Equity Analyst Eos # (Auto) Private Equity Analyst Baso # (Auto) Private Equity Analyst Total Counted 100 Seg Neutrophils % 63.0 Band Neutrophils % 6.0 Lymphocytes % (Manual) 19.0 L Monocytes % (Manual) 5.0 Metamyelocytes % 2.0 H Myelocytes % 5.0 H Neutrophils # (Manual) 5520 Platelet Estimate Decreased on smear RBC Morphology Normal morphology PT 14.8 H INR 1.3 APTT 34 Sodium 129 L Potassium 4.1 Chloride 97 L Carbon Dioxide 23 BUN 32 H Creatinine 1.50 H Estimated GFR 49 L BUN/Creatinine Ratio 21.3 Glucose 128 H Lactate 2.9 H 2.1 Calcium 11.8 H Total Bilirubin 1.2 AST 65 H ALT 17 Alkaline Phosphatase 139 H Total Creatine Kinase Troponin I NT-Pro-B Natriuret Pep Total Protein 6.1 L Albumin 3.2 L Globulin 2.9 Albumin/Globulin Ratio 1.1 Lipase 25 Procalcitonin 1.08 H Urine RBC 1-5/hpf Urine WBC 1-5/hpf Ur Squamous Epith Cells 1-5 /hpf Urine Bacteria None seen Ur Culture Indicated? Cult not indicated Vol Urine Centrifuged 10ml (spun) Nasal Screen MRSA (PCR) Blood Type Antibody Screen 04/02/24 04/02/24 04/03/24 22:15 23:45 02:35 WBC RBC Hgb 7.5 L Hct 22.2 L MCV MCH MCHC RDW Plt Count Neut % (Auto) Lymph % (Auto) [place] % (Auto) Eos % (Auto) Baso % (Auto) Neut # (Auto) Lymph # (Auto) [place] # (Auto) Eos # (Auto) Baso # (Auto) Total Counted Seg Neutrophils % Band Neutrophils % Lymphocytes % (Manual) Monocytes % (Manual) Metamyelocytes % Myelocytes % Neutrophils # (Manual) Platelet Estimate RBC Morphology PT INR APTT Sodium Potassium Chloride Carbon Dioxide BUN Creatinine Estimated GFR BUN/Creatinine Ratio Glucose Lactate Calcium Total Bilirubin AST ALT Alkaline Phosphatase Total Creatine Kinase < 20 L Troponin I < 0.012 NT-Pro-B Natriuret Pep 1100 H Total Protein Albumin Globulin Albumin/Globulin Ratio Lipase Procalcitonin Urine RBC Urine WBC Ur Squamous Epith Cells Urine Bacteria Ur Culture Indicated? Vol Urine Centrifuged Nasal Screen MRSA (PCR) Not detected Blood Type O Positive Antibody Screen Negative 04/03/24 06:17 WBC 5.2 RBC 2.42 L Hgb 6.9 L* Hct 20.3 L* MCV 84.1 MCH 28.4 MCHC 33.7 RDW 15.6 H Plt Count 91 L Neut % (Auto) Not Reportable Lymph % (Auto) Not Reportable [place] % (Auto) Not Reportable Eos % (Auto) Not Reportable Baso % (Auto) Not Reportable Neut # (Auto) Lymph # (Auto) Not Reportable [place] # (Auto) Not Reportable Eos # (Auto) Baso # (Auto) Not Reportable Total Counted 100 Seg Neutrophils % 69.0 Band Neutrophils % 3.0 Lymphocytes % (Manual) 20.0 L Monocytes % (Manual) 3.0 Metamyelocytes % 4.0 H Myelocytes % 1.0 H Neutrophils # (Manual) 3744 Platelet Estimate Decreased on smear RBC Morphology Normal morphology PT INR APTT Sodium 130 L Potassium 3.8 Chloride 99 Carbon Dioxide 23 BUN 33 H Creatinine 1.76 H Estimated GFR 40 L BUN/Creatinine Ratio 18.8 Glucose 102 Lactate Calcium 10.7 H Total Bilirubin AST ALT Alkaline Phosphatase Total Creatine Kinase Troponin I NT-Pro-B Natriuret Pep Total Protein Albumin Globulin Albumin/Globulin Ratio Lipase Procalcitonin Urine RBC Urine WBC Ur Squamous Epith Cells Urine Bacteria Ur Culture Indicated? Vol Urine Centrifuged Nasal Screen MRSA (PCR) Blood Type Antibody Screen Assessment & Plan Assessment & Plan narrative: New splenomegaly with abdominal pain, present on admission and active. Acute respiratory failure with hypoxia. Present on admission and active. -fairly normal chest x-ray Normocytic anemia. Present on admission and active. -denies rectal bleeding. -denies history of severe anemia. -has metastatic cancer. BPH. Present on admission and stable. -on Flomax. Metastatic prostate cancer. Present on admission and active. RACHEL and volume depletion, present on admission and active. General weakness, present on admission and active. Plan: -echo is unremarkable -transfuse 1 unit PRBC -discuss splenomegaly and pain with his oncologist, Dr. Mooney. DVT prophylaxis SCDs for now due to severe anemia. Code status full code Anticipate a 2 midnight stay, inpatient status as supported. Time-Based Coding :: 35 min spent with patient and on the chart (including review of chart, obtaining history, exam, reviewing outside data, placing orders, documenting exam and treatment plan, and counseling patient) on 04/03. Quality VTE Deep Vein Thrombosis/Pulmonary Embolism Present on Admission: No MIPS - Admit I confirm the patient?s Advance Care Plan is present, Code status is documented, Surrogate decision maker is in patient?s record [If Yes, STOP here]: Yes MIPS - Meds 'Current medications' to include all prescriptions, [id number] products, herbals, cannabis/cannabidiol products, and vitamin/mineral/dietary (nutritional) supplements. I have utilized all available resources to obtain, update, or review the patient?s current medications. [If Yes, STOP here]: Yes
[2024-04-03] MEDS: FERROUS SULFATE 325 MG TABLET PO (08:52)
[2024-04-03] MEDS: ONDANSETRON 4 MG ODT SL (12:53)
--- NOTE | 2024-04-03 13:51 | CM.DANOTE ---
Initial DCP Assessment Visit Note Reviewed EMR and team rounds for pt's medical status and updates. Met with pt, spouse ( but together), and stepdaughter, Savannah, to introduce self/role, and discuss concerns/needs/plan for eventual d/c once he's medically stable. Pt lives with his former in their own home here in [place], he is independent at baseline and does not currently us any AD for mobility. He is in active tx at [facility] for widely metastatic prostate cancer. He family will plan to transport him home once cleared for d/c. Payor: [facility] PCP: Dr. Garibay Pt is a 73 year-old M with a hx of metastatic prostate cancer who [facility] afternoon with c/o 5-days of L-sided flank pain, which he describes as constant, as well as profound weakness/fatigue, he was unable to get out of bed for the whole 5-days, and states that he waited until he had a ride before coming to the ED. He's only been eating/drinking very minimally. CT abd/pelvis in the ED showed multiple new acosta lesions in his bones, and an enlarged spleen, which was consistent with the area of his pain. He was also found to have a new CHF onset, was symptomatic, placed on 2LO2 and was diuresed yesterday, he has no prior hx of CHF. He was also started on IV fluids and pain meds. Family requested assistance with completing a healthcare DPOA, which we will complete later today. DCP will continue to monitor for any further needs prior to d/c. Discharge Planning/Care Management CM Discharge Assessment Start: 04/03/24 12:49 Freq: Status: Active Protocol: Document 04/03/24 12:49 DPL (Rec: 04/03/24 12:51 DPL [id number]) Discharge Planning Assessment Assigned Apprentice [employer] ELOY Nielsen Advance Directives? No History Provided By Patient,Family Member,Medical Record Expected Length of Stay 3 Has Patient been admitted in last 30 No days? Prior Living Arrangements House Household Members spouse Type of transporation used prior to Drives own vehicle admit Comment Pt's can also drive him as need be. Independent with ADL's Yes Is patient alert and oriented? Yes Caregiver for Another No Comment OP Oncology at [facility] Comment None Comment No anticipated home d/c needs at this time. Barriers to Discharge No Discharge Plan Home Transportation Arrangement Family Referrals Initiated None needed Whiteboard Updated in Patient Room with Yes name and ext. # of Apprentice [employer] Review Status In Process Please Provide Date Initial DC 04/03/24 Assessment Was Performed
[2024-04-03 15:39] LABS: Hematocrit 24.1 % (41-53); Hemoglobin 8.3 g/dL (13.5-17.5)
--- NOTE | 2024-04-03 16:05 | PT.IIE ---
Current Diagnoses Heart failure, unspecified (04/03/24) Surgical History (Last Reviewed 04/03/24 @ 08:23 by Aiden Isidro MD) H/O inguinal hernia repair Medical History (Last Reviewed 04/03/24 @ 08:23 by Aiden Isidro MD) Anemia Bilateral hip pain Bone mass High cholesterol Hypertension Left hip pain Low back pain Lumbar back pain with radiculopathy affecting left lower extremity Marijuana smoker Neuroforaminal stenosis of lumbar spine Osteoarthritis of left hip Prostate cancer Scoliosis SI (sacroiliac) joint dysfunction Unspecified atherosclerosis of [place] arteries of extremities, unspecified extremity Venous insufficiency Physical Therapy Inpatient Evaluation/Re-Eval M1 PT/OT-IP Prior Functional Status Start: 04/03/24 17:41 Freq: NEEDED Status: Active Protocol: Document 04/03/24 16:05 AB (Rec: 04/03/24 17:56 AB [id number]) Medical Review Prior Functional Status Medical History Reviewed Yes Communication able to make needs known Mobility and Gait pt stated that he was independent with all mobilities and ambulation without AD Social History Household Members spouse,other Living Arrangements House Number of Floors (Floors) One Floor Number of Stairs To Enter/Railing? 3 steps R rail from front of the house but also can use a ramp to enter the house Home Environment High Toilet,Walk in Shower Home Equipment Front Wheel Walker,Four Wheel Walker,Shower Seat with Backrest,Hand Held Shower,Grab Bars Near Toilet,Grab Bars In Shower Additional Social History Comment pt lives with spouse and 2 other room mates but will not be able to assist pt. spouse also has limited ability to assist pt M2 PT-IP Current Condition Start: 04/03/24 17:41 Freq: NEEDED Status: Active Protocol: Document 04/03/24 16:05 AB (Rec: 04/03/24 17:56 AB [id number]) Physical Therapy Current Condition Current Condition Evaluation Date 04/03/24 Treatment Diagnosis RACHEL; splenomegaly; difficulty in walking Onset Date 04/03/24 M3 PT-IP Subjective Start: 04/03/24 17:41 Freq: NEEDED Status: Active Protocol: Document 04/03/24 16:05 AB (Rec: 04/03/24 17:56 AB [id number]) Subjective Physical Therapy Visit Type Type Initial Evaluation Visit Start Time 16:05 Visit Stop Time 16:50 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 of 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 0 Physical Therapy Visit Comments Patient Comments agreeable to do PT M4 PT-IP Mobility and Gait Start: 04/03/24 17:41 Freq: NEEDED Status: Active Protocol: Document 04/03/24 16:05 AB (Rec: 04/03/24 17:56 AB [id number]) PT-Bed Mobility Assessment Supine to Sit Supine to Sit Minimal Assistance,1 Person Assistance,Head of Bed Elevated PT-Transfer Assessment Sit to and From Stand Sit to and from Stand Minimal Assistance,1 Person Assistance,Use of Upper Extremities Equipment Transfer Assistive Device Gait Belt,Front Wheeled Walker Orthotic/Prosthetic Devices or Brace: No Transfers Transfer Destination Chair Transfer Technique ambulated Transfer Ability Level of Assist Minimal Assistance,1 Person Assistance,Use of Upper Extremities Comments Mobility Comments pt supine in bed and spouse in room with pt. obtained PLOF and home set up from pt and spouse. BP: 122/67. pt completed supine to sit min A and cues HOB elevated. pt stated that he has a wedge pillow and use more pillows to have HOB elevated at home. pt able to sit on EOB SBA but with increase lateral leaning to the L. completed sit to stand min A and ambulated in room using FWW min A ~ 15 ft. presents with unsteady gait and increase forward flexion. pt also stated that he has scoliosis. pt sat on the chair . (+) SOB. O2 sat at RA: 96% NAC in room and took over pt's care. pt needing a brief change. Gait Assessment Gait Gait Assistance Required: Minimum Assistance Distance (Feet) 15 Able to Maintain Weight Bearing Status Yes During Gait Assistive Devices Assistive Device Gait Belt,Front Wheeled Walker Orthotic/Prosthetic Devices or Brace: No Gait Deviations General Gait Pattern Decreased Stride Length, Decreased Feet Clearance, Flexed Trunk,Step-to Gait Factors Limiting Gait Function Factors Limiting Gait Function Decreased Activity Tolerance, Decreased Strength,Limited Range of Motion,Poor Balance, Poor Safety Awareness PT-Balance Assessment Sitting Balance and Reactions Static Sitting Balance Ability Good Dynamic Sitting Balance Ability Fair Standing Balance and Reactions Static Standing Balance Ability Fair Dynamic Standing Balance Ability Poor Device Used FWW M5 PT-IP Objective Assessments Start: 04/03/24 17:41 Freq: NEEDED Status: Active Protocol: Document 04/03/24 16:05 AB (Rec: 11/13/24 17:56 AB [id number]) Orientation Orientation/Cognition Level of Alertness Alert Orientation Name,Place,Situation Language Function Ability Hard of Hearing Memory Description No Deficits Noted Gross Range of Motion Lower Extremity ROM Assessment Within Functional Limits Strength Lower Extremity Strength Assessment Within Functional Limits Muscle Tone Muscle Tone WNL Yes M6 PT-IP Treatment Start: 04/03/24 17:41 Freq: NEEDED Status: Active Protocol: Document 04/03/24 16:05 AB (Rec: 04/03/24 17:56 AB [id number]) Physical Therapy Treatment Education Education Provided Safety M7 PT-IP Assessment and Plan Start: 04/03/24 17:41 Freq: NEEDED Status: Active Protocol: Document 04/03/24 16:05 AB (Rec: 04/03/24 17:56 AB [id number]) PT Summary Assessment and Plan Potential Rehabilitation Potential Fair Status of Condition at Evaluation Evolving Summary Impairments Pain,Strength,Balance, Coordination,Sensation, Cognition,Bed Mobility, Transfers,Gait,Activity Tolerance Assessment Summary pt is a 73 y/o M who presented to the ED due to abdominal pain. pt admitted for RACHEL and splenomegaly. pt with dx of metastatic prostate CA. pt needing min A with ambulation using FWW and has decrease activity tolerance affecting current mobility level. pt will need assistance at home but spouse has limited ability to assist pt due to her own medical issues. d/c plan depending on progress. will continue to assess. Goals Bed Mobility Goal Independent Transfer Goal Independent,Front Wheeled Walker Gait Goal Independent,Front Wheel Walker Gait Distance 150 Other Goals improve bed mobility, transfers without AD/LRAD ~ 200 ft SBA Days to Meet Goals 10 Frequency of Treatment Frequency Of Treatment Once a Day Treatment Plan Physical Therapy Treatment Plan Bed Mobility Training,Transfer Training,Gait Training, Therapeutic Exercise,Balance Retraining,Discharge Planning, Hot or Cold Pack,Neuromuscular Re-ed,Coordination Retraining ,Manual Therapy Precautions Other Precautions Hazardous Drug precautions Recommendations To Nursing Amount of Assist Needed 1 Person Assist Discharge Recommendations PT Discharge Recommendations Home with 12/12 Assist Available,Home Health,SNF Rehab,Home vs SNF Transportation Needs at Discharge Private Vehicle,Wheelchair/ Cabulance
[2024-04-03] MEDS: ACETAMINOPHEN 325 MG TABLET 650 MG PO ×2 (17:45→23:04)
[2024-04-03] MEDS: TAMSULOSIN 0.4 MG CAPSULE PO (22:40)
[2024-04-03] MEDS: ATORVASTATIN 20 MG TABLET PO (22:40)
[2024-04-04] VITALS (10 sets, daily range): BP systolic 109–144; BP diastolic 54–75; PULSE 73–113; RESP 17–21; TEMP 36.1–37.4; O2SAT 94–96
[2024-04-04 05:35] LABS: Hematocrit 22.7 % (41-53); Hemoglobin 7.7 g/dL (13.5-17.5); Mean Corpuscular HGB Conc 33.9 % (30-36); Mean Corpuscular Hemoglobin 28.9 PG (26-34); Mean Corpuscular Volume 85.1 fL (80-100); Platelet Count 83 X10^3/uL (150-400); Red Blood Cell Count 2.67 X10^6/uL (4.5-5.9); Red Cell Distribution Width 15.7 % (11.6-14.8); White Blood Cell Count 5.4 X10^3/uL (4.5-11.0)
[2024-04-04] MEDS: PANTOPRAZOLE DR 20 MG TABLET 40 MG PO (05:36)
[2024-04-04 05:50] LABS: HEMOLYSIS < 15 (0-50); Iron 23 ug/dL (49-181)
[2024-04-04 05:51] LABS: Alanine Aminotransferase 15 IU/L (<50); Albumin 2.5 g/dL (3.5-5.0); Albumin Globulin Ratio 0.9 (1.0-2.8); Alkaline Phosphatase 123 U/L (38-126); Aspartate Aminotransferase 70 IU/L (17-59); Bilirubin Total 1.1 mg/dL (0.2-1.3); Blood Urea Nitrogen 29 mg/dL (9-20); Calcium 10.7 mg/dL (8.4-10.2); Carbon Dioxide 24 mmol/L (22-32); Chloride 98 mmol/L (98-107); Estimated Glomerular Filt Rate 47 mL/min (>60); Globulin 2.8 g/dL (1.7-4.1); Glucose 94 mg/dL (80-110); HEMOLYSIS < 15 (0-50); Potassium 3.4 mmol/L (3.4-5.1); Sodium 127 mmol/L (137-145); Total Protein 5.3 g/dL (6.3-8.2)
[2024-04-04 06:00] LABS: Percent Iron Saturation 10 % (20-50); Total Iron Binding Capacity 234 ug/dL (261-462); Transferrin 162 mg/dL (206-381)
[2024-04-04 07:00] LABS: Folate 9.9 ng/mL (2.76-20.0); Vitamin B12 872 pg/mL (239-931)
--- NOTE | 2024-04-04 08:12 | PM.PN.1 ---
Subjective Subjective Interval history: Summary: This is a 73-year-old male with a functional decline over several weeks. He presented with acute anemia but denied any evidence of rectal bleeding. He also has metastatic prostate cancer, and was noted to have increased or new splenomegaly on CT scan. Discussed this with his oncologist, Dr. Mooney, at [facility] who feels this relates to his cirrhosis. S: He was still weak but feels a little bit better today. His left thorax pain is improved. This is high up in the thorax at about the 3rd, 4th, and 5th ribs laterally. Tylenol is controlling his pain and he declines anything stronger. Exam Vital Signs (past 8 hours): - 04/04/24 04:30 Temperature 98.4 F Pulse Rate 88 Respiratory Rate 18 Blood Pressure 119/64 Pulse Oximetry 94 Oxygen Delivery Method Nasal Cannula Oxygen Flow Rate 0 Narrative Exam Narrative: NAD, alert and oriented. Fluent speech. He has still a PO2 hours to be weak. Lungs are clear, normal rate and effort. Heart is regular, no murmur gallop or rub. Abdomen is soft, non distended. Extremities are free of edema. There is no left upper quadrant pain to palpation or left anterior thorax pain to palpation. Objective Labs 04/04/24 04:40 04/04/24 04:40 Labs: Laboratory Results - last 24 hr 04/02/24 04/03/24 04/04/24 23:45 15:23 04:40 WBC 5.4 RBC 2.67 L Hgb 8.3 L 7.7 L Hct 24.1 L 22.7 L MCV 85.1 MCH 28.9 MCHC 33.9 RDW 15.7 H Plt Count 83 L Sodium 127 L Potassium 3.4 Chloride 98 Carbon Dioxide 24 BUN 29 H Creatinine 1.53 H Estimated GFR 47 L BUN/Creatinine Ratio 19.0 Glucose 94 Calcium 10.7 H Iron 23 L TIBC 234 L % Saturation 10 L Transferrin 162 L Total Bilirubin 1.1 AST 70 H ALT 15 Alkaline Phosphatase 123 Total Protein 5.3 L Albumin 2.5 L Globulin 2.8 Albumin/Globulin Ratio 0.9 L Vitamin B12 872 Folate 9.9 Blood Type O Positive Antibody Screen Negative Crossmatch See Detail [facility] Medical History Low back pain Bilateral hip pain Osteoarthritis of left hip Left hip pain SI (sacroiliac) joint dysfunction Neuroforaminal stenosis of lumbar spine Unspecified atherosclerosis of [place] arteries of extremities, unspecified extremity Anemia Bone mass Prostate cancer Venous insufficiency Lumbar back pain with radiculopathy affecting left lower extremity Scoliosis Marijuana smoker High cholesterol Hypertension Surgical History H/O inguinal hernia repair Family History Father Prostate cancer Mother Diabetes mellitus Obesity Grandmother Diabetes mellitus Obesity Social History household members: spouse and other Smoking Status: Former smoker Tobacco: How many years used: 21 alcohol intake: former substance use type: marijuana Assessment & Plan Assessment & Plan narrative: 1. New splenomegaly (with cirrhosis), present on admission and active. 2. Left upper quadrant and thorax pain, present on admission and improved. - This pain seems to be positional intermittent as more likely related to his ribs and sclerotic prostatic cancer then his splenomegaly. 3. Acute respiratory failure with hypoxia. Present on admission and improving. -fairly normal chest x-ray 4. Normocytic anemia. Present on admission and active. 5. BPH. Present on admission and stable. 6. Metastatic prostate cancer. Present on admission and active. 7. Hyponatremia, present on admission and worse. 8. RACHEL and volume depletion, present on admission and active. 9. General weakness, present on admission and active. Plan: - echo is unremarkable - transfuse an additional 1 unit PRBC - Anemia blood tests for iron stores as well as B12 and folate. - He requests Tylenol only as needed for pain. He does have cirrhosis. - A trial of saline for hyponatremia, as well as urine sodium and osmolality. He was at risk for SIADH with his cancer. - Wean O2 as able. met with an discussed the clinical situation with and daughter. DVT prophylaxis SCDs for now due to severe anemia. Code status full code Has been in the hospital for 2 midnights and requires a 3rd, inpatient status as supported. Time-Based Coding :: [TOTAL MINUTES] spent with patient and on the chart (including review of chart, obtaining history, exam, reviewing outside data, placing orders, documenting exam and treatment plan, and counseling patient) on [DATE]. Quality VTE Deep Vein Thrombosis/Pulmonary Embolism Present on Admission: No
[2024-04-04] MEDS: LOSARTAN 50 MG TABLET 100 MG PO (08:47)
[2024-04-04] MEDS: AMLODIPINE 5 MG TABLET PO (08:47)
[2024-04-04] MEDS: LORATADINE 10 MG TABLET PO (08:48)
[2024-04-04] MEDS: FERROUS SULFATE 325 MG TABLET PO (08:48)
[2024-04-04] MEDS: ONDANSETRON 4 MG/2 ML INJ IV (08:52)
[2024-04-04] MEDS: ACETAMINOPHEN 325 MG TABLET 650 MG PO (10:48)
[2024-04-04] MEDS: POTASSIUM CHLORIDE 20 MEQ TAB 40 MEQ PO (10:48)
--- NOTE | 2024-04-04 12:12 | PT-IP ANOTE ---
PT checks on pt for treatment. Pt currently getting blood d/t low Hgb. Will con't PT efforts.
[2024-04-04 13:41] LABS: Sodium Urine Random < 5 mmol/L (30-90)
--- NOTE | 2024-04-04 15:14 | PT.IPTN ---
Current Diagnoses Heart failure, unspecified (04/03/24) Physical Therapy Treatment Note M2 PT-IP Current Condition Start: 04/03/24 17:41 Freq: NEEDED Status: Active Protocol: Document 04/03/24 16:05 AB (Rec: 04/03/24 17:56 AB [id number]) Physical Therapy Current Condition Current Condition Evaluation Date 04/03/24 Treatment Diagnosis RACHEL; splenomegaly; difficulty in walking Onset Date 04/03/24 M3 PT-IP Subjective Start: 04/03/24 17:41 Freq: NEEDED Status: Active Protocol: Document 04/04/24 15:46 TS (Rec: 04/04/24 15:53 TS [id number]) Subjective Physical Therapy Visit Type Type Treatment Note Visit Start Time 15:14 Visit Stop Time 15:38 Number of TAIL TRIMMER Visits 1 Physical Therapy Visit Comments Patient Comments Pt found resting in bed, spouse in the room, he is agreeable to PT. M4 PT-IP Mobility and Gait Start: 04/03/24 17:41 Freq: NEEDED Status: Active Protocol: Document 04/04/24 15:46 TS (Rec: 04/04/24 15:53 TS [id number]) PT-Bed Mobility Assessment Supine to Sit Supine to Sit Standby Assistance,Head of Bed Elevated Sit to Supine Sit to Supine Standby Assistance Scooting Scooting to Edge of Bed Standby Assistance PT-Transfer Assessment Sit to and From Stand Sit to and from Stand Contact Guard Assistance,1 Person Assistance,Use of Upper Extremities Equipment Transfer Assistive Device Gait Belt,Front Wheeled Walker Orthotic/Prosthetic Devices or Brace: No Comments Mobility Comments Supine to sit SBA, pt uses BUE support to sit up to EOB. STS with FWW CGA. Pt ambulates in the room SBA with FWW ~60', lacks good safety awareness with gait. Pt is has some weakness and unsteadiness with gait, no buckling or LOB. Sit to supine into bed SBA. Pt was left in bed, all needs met . Gait Assessment Gait Gait Assistance Required: Standby Assistance Distance (Feet) 60 Able to Maintain Weight Bearing Status Yes During Gait Assistive Devices Assistive Device Gait Belt,Front Wheeled Walker Orthotic/Prosthetic Devices or Brace: No Gait Deviations General Gait Pattern Decreased Stride Length, Decreased Feet Clearance, Flexed Trunk,Step-to Gait Factors Limiting Gait Function Factors Limiting Gait Function Decreased Activity Tolerance, Decreased Strength,Limited Range of Motion,Poor Balance, Poor Safety Awareness Stair Climbing Assessment Comments Stair Climbing Comments Has ramp to enter home PT-Balance Assessment Sitting Balance and Reactions Static Sitting Balance Ability Good Dynamic Sitting Balance Ability Good Standing Balance and Reactions Static Standing Balance Ability Fair Dynamic Standing Balance Ability Fair Device Used FWW M5 PT-IP Objective Assessments Start: 04/03/24 17:41 Freq: NEEDED Status: Active Protocol: Document 04/03/24 16:05 AB (Rec: 04/03/24 17:56 AB [id number]) Orientation Orientation/Cognition Level of Alertness Alert Orientation Name,Place,Situation Language Function Ability Hard of Hearing Memory Description No Deficits Noted Gross Range of Motion Lower Extremity ROM Assessment Within Functional Limits Strength Lower Extremity Strength Assessment Within Functional Limits Muscle Tone Muscle Tone WNL Yes M6 PT-IP Treatment Start: 04/03/24 17:41 Freq: NEEDED Status: Active Protocol: Document 04/04/24 15:46 TS (Rec: 04/04/24 15:53 TS [id number]) Physical Therapy Treatment Education Education Provided Safety M7 PT-IP Assessment and Plan Start: 04/03/24 17:41 Freq: NEEDED Status: Active Protocol: Document 04/04/24 15:46 TS (Rec: 04/04/24 15:53 TS [id number]) PT Summary Assessment and Plan Potential Rehabilitation Potential Fair Summary Impairments Pain,Strength,Balance, Coordination,Sensation, Cognition,Bed Mobility, Transfers,Gait,Activity Tolerance Progress Towards Goals Progressing Toward Goals Assessment Summary Pt is making some progress with his mobility. He is SBA for all bed mobility. He progressed his gait to ~60'SBA with FWW. He has some unsteadiness with gait and Le' s do fatigue. He lacks good safety awareness with his mobility. PT is recommending home with assist and HHPT. Goals Bed Mobility Goal Independent Transfer Goal Independent,Front Wheeled Walker Gait Goal Independent,Front Wheel Walker Gait Distance 150 Other Goals improve bed mobility, transfers without AD/LRAD ~ 200 ft SBA Days to Meet Goals 10 Frequency of Treatment Frequency Of Treatment Once a Day Treatment Plan Physical Therapy Treatment Plan Bed Mobility Training,Transfer Training,Gait Training, Therapeutic Exercise,Balance Retraining,Discharge Planning, Hot or Cold Pack,Neuromuscular Re-ed,Coordination Retraining ,Manual Therapy Precautions Other Precautions Hazardous Drug precautions Recommendations To Nursing Amount of Assist Needed 1 Person Assist Discharge Recommendations PT Discharge Recommendations Home with Assistance,Home Health Transportation Needs at Discharge Private Vehicle
[2024-04-04] MEDS: ATORVASTATIN 20 MG TABLET PO (20:19)
[2024-04-04] MEDS: TAMSULOSIN 0.4 MG CAPSULE PO (20:19)
[2024-04-05] VITALS (10 sets, daily range): BP systolic 104–143; BP diastolic 58–73; PULSE 89–109; RESP 16–20; TEMP 36.3–38.1; O2SAT 92–94
[2024-04-05 04:40] LABS: Hematocrit 24.7 % (41-53); Hemoglobin 8.4 g/dL (13.5-17.5); Mean Corpuscular HGB Conc 34.2 % (30-36); Mean Corpuscular Hemoglobin 29.1 PG (26-34); Mean Corpuscular Volume 85.3 fL (80-100); Platelet Count 71 X10^3/uL (150-400); Red Blood Cell Count 2.89 X10^6/uL (4.5-5.9); Red Cell Distribution Width 15.6 % (11.6-14.8); White Blood Cell Count 5.9 X10^3/uL (4.5-11.0)
[2024-04-05 04:59] LABS: Alanine Aminotransferase 17 IU/L (<50); Albumin 2.6 g/dL (3.5-5.0); Alkaline Phosphatase 142 U/L (38-126); Aspartate Aminotransferase 79 IU/L (17-59); BUN Creatinine Ratio 17.5 (6-22); Bilirubin Total 1.5 mg/dL (0.2-1.3); Blood Urea Nitrogen 20 mg/dL (9-20); Calcium 10.9 mg/dL (8.4-10.2); Carbon Dioxide 23 mmol/L (22-32); Chloride 98 mmol/L (98-107); Estimated Glomerular Filt Rate > 60 mL/min (>60); Globulin 2.6 g/dL (1.7-4.1); Glucose 97 mg/dL (80-110); HEMOLYSIS < 15 (0-50); Potassium 3.8 mmol/L (3.4-5.1); Sodium 127 mmol/L (137-145); Total Protein 5.2 g/dL (6.3-8.2)
[2024-04-05] MEDS: PANTOPRAZOLE DR 20 MG TABLET 40 MG PO (06:22)
[2024-04-05] MEDS: LORATADINE 10 MG TABLET PO (08:26)
[2024-04-05] MEDS: FERROUS SULFATE 325 MG TABLET PO (08:26)
[2024-04-05] MEDS: AMLODIPINE 5 MG TABLET PO (08:26)
[2024-04-05] MEDS: LOSARTAN 50 MG TABLET 100 MG PO (08:26)
[2024-04-05] MEDS: ONDANSETRON 4 MG/2 ML INJ IV (08:30)
--- NOTE | 2024-04-05 10:20 | PT.IPTN ---
Current Diagnoses Heart failure, unspecified (04/03/24) Physical Therapy Treatment Note M2 PT-IP Current Condition Start: 04/03/24 17:41 Freq: NEEDED Status: Active Protocol: Document 04/03/24 16:05 AB (Rec: 04/03/24 17:56 AB [id number]) Physical Therapy Current Condition Current Condition Evaluation Date 04/03/24 Treatment Diagnosis RACHEL; splenomegaly; difficulty in walking Onset Date 04/03/24 M3 PT-IP Subjective Start: 04/03/24 17:41 Freq: NEEDED Status: Active Protocol: Document 04/05/24 10:20 AB (Rec: 04/05/24 12:51 AB [id number]) Subjective Physical Therapy Visit Type Type Treatment Note Visit Start Time 10:20 Visit Stop Time 10:40 Number of POOL HAND Visits 0 Physical Therapy Visit Comments Patient Comments agreeable to do PT M4 PT-IP Mobility and Gait Start: 04/03/24 17:41 Freq: NEEDED Status: Active Protocol: Document 04/05/24 10:20 AB (Rec: 04/05/24 12:51 AB [id number]) PT-Bed Mobility Assessment Supine to Sit Supine to Sit Standby Assistance PT-Transfer Assessment Sit to and From Stand Sit to and from Stand Contact Guard Assistance,1 Person Assistance,Use of Upper Extremities Equipment Transfer Assistive Device Gait Belt,Front Wheeled Walker Orthotic/Prosthetic Devices or Brace: No Transfers Transfer Destination Chair Transfer Technique ambulated Transfer Ability Level of Assist Minimal Assistance,1 Person Assistance,Use of Upper Extremities Comments Mobility Comments pt in bed and agreed to do PT. daughter stated that pt is not feeling too good today. pt completed supine to sit SBA . needs cues to keep moving. pt able to sit on EOB SBA. completed sit to stand CGA and ambulate din room using FWW min A and cues ~ 40 ft. cued to keep walker close to him. pt agreed to sit up on chair. positioned pt on the chair. call light and table placed within reach. Gait Assessment Gait Gait Assistance Required: Minimum Assistance Distance (Feet) 40 Able to Maintain Weight Bearing Status Yes During Gait Assistive Devices Assistive Device Gait Belt,Front Wheeled Walker Orthotic/Prosthetic Devices or Brace: No Gait Deviations General Gait Pattern Decreased Stride Length, Decreased Feet Clearance Factors Limiting Gait Function Factors Limiting Gait Function Decreased Activity Tolerance, Decreased Strength,Limited Range of Motion,Poor Balance, Poor Safety Awareness M5 PT-IP Objective Assessments Start: 04/03/24 17:41 Freq: NEEDED Status: Active Protocol: Document 04/03/24 16:05 AB (Rec: 04/03/24 17:56 AB [id number]) Orientation Orientation/Cognition Level of Alertness Alert Orientation Name,Place,Situation Language Function Ability Hard of Hearing Memory Description No Deficits Noted Gross Range of Motion Lower Extremity ROM Assessment Within Functional Limits Strength Lower Extremity Strength Assessment Within Functional Limits Muscle Tone Muscle Tone WNL Yes M6 PT-IP Treatment Start: 04/03/24 17:41 Freq: NEEDED Status: Active Protocol: Document 04/05/24 10:20 AB (Rec: 04/05/24 12:51 AB [id number]) Physical Therapy Treatment Education Education Provided Safety M7 PT-IP Assessment and Plan Start: 04/03/24 17:41 Freq: NEEDED Status: Active Protocol: Document 04/05/24 10:20 AB (Rec: 04/05/24 12:51 AB [id number]) PT Summary Assessment and Plan Potential Rehabilitation Potential Fair Summary Impairments Pain,ROM,Strength,Balance, Coordination,Sensation,Tone, Cognition,Bed Mobility, Transfers,Gait,Activity Tolerance Assessment Summary pt requiring min A with ambulation using FWW but has decrease activity tolerance afffecting mobility independence. pt lives with spouse but spouse has limited ability to assist pt. d/c plan depending on progress but may require SNF rehab at this time. . will continue to assess. Goals Bed Mobility Goal Independent Transfer Goal Independent,Front Wheeled Walker Gait Goal Independent,Front Wheel Walker Gait Distance 150 Other Goals improve bed mobility, transfers without AD/LRAD ~ 200 ft SBA Days to Meet Goals 10 Frequency of Treatment Frequency Of Treatment Once a Day Treatment Plan Physical Therapy Treatment Plan Bed Mobility Training,Transfer Training,Gait Training, Therapeutic Exercise,Balance Retraining,Discharge Planning, Hot or Cold Pack,Neuromuscular Re-ed,Coordination Retraining ,Manual Therapy Precautions Other Precautions Hazardous Drug precautions Recommendations To Nursing Amount of Assist Needed 1 Person Assist Discharge Recommendations PT Discharge Recommendations Home with 12/12 Assist Available,Home Health,SNF Rehab,Home vs SNF Transportation Needs at Discharge Private Vehicle,Wheelchair/ Cabulance
[2024-04-05 12:12] LABS: Osmolality Urine 418 mOsmol/kg (.)
--- NOTE | 2024-04-05 12:13 | CM.DPNOTE ---
DCP Continued: Reviewed EMR and team rounds for pt?s medical status. Per nursing, pt obtained 1 unit of blood for anemia and they are monitoring. DCP met with pt's family (two daughters, Pauline and Savannah, and spouse) and had an extensive discussion about discharge plans. Family stated concerns that pt is not at baseline and there is not much support at home for initial care needs as spouse has her own physical limitations. Family determined that they prefer if patient is able to go to skilled rehab to build mobility strength again while they prepare their house for continued recovery at home. DCP reviewed Medicare Choice list with family and their preferences are as follows: 1. [facility] 2. [facility] 3. [facility]. DCP discussed that PT/OT evaluations will also need to take place but initial referrals can be made. DCP provided family with Senior Resource Guide to review for more options for home care when appropriate. Family discussed anticipation for more assistance at home to include palliative care and private caregiving. Due to pt's Medicaid insurance, DCP discussed MACHELLE assessment with [facility]. Daughters verbalized understanding and stated they will start this process. DCP provided more printed information about this process from the [facility] website. DCP discussed the above with pt's RN and hospitalist. DCP sent initial referral to [facility] and it was identified that since pt has cancer and high cost medications, this could be a barrier to acceptance. He will need to be reviewed by their administrative staff before decision. At the time of this writing, OT order was recently placed and evaluation is pending. More referrals can be made when a clinical packet is complete utilizing the preferred SNFs above. Plan: Attempting SNF Rehab placement, CM Team will continue to follow for coordination of discharge plans. MARTIN Mcclendon
--- NOTE | 2024-04-05 14:30 | OT.IP.EVAL ---
Current Diagnoses Heart failure, unspecified (04/03/24) Past Medical History (Last Reviewed 04/03/24 @ 08:23 by Aiden Isidro MD) Anemia Bilateral hip pain Bone mass High cholesterol Hypertension Left hip pain Low back pain Lumbar back pain with radiculopathy affecting left lower extremity Marijuana smoker Neuroforaminal stenosis of lumbar spine Osteoarthritis of left hip Prostate cancer Scoliosis SI (sacroiliac) joint dysfunction Unspecified atherosclerosis of [place] arteries of extremities, unspecified extremity Venous insufficiency Surgical History (Last Reviewed 04/03/24 @ 08:23 by Aiden Isidro MD) H/O inguinal hernia repair Occupational Therapy Inpatient Evaluation/Re-Eval M1 PT/OT-IP Prior Functional Status Start: 04/03/24 17:41 Freq: NEEDED Status: Active Protocol: Document 04/05/24 14:33 [facility] (Rec: 04/05/24 14:50 [facility] [id number]) Medical Review Prior Functional Status Medical History Reviewed Yes Communication able to make needs known Mobility and Gait pt stated that he was independent with all mobilities and ambulation without AD Activities of Daily Living and IADL's Pt's family states last week able to care for himself and that his would just stand with him for showering needs to assist with his back. Social History Household Members spouse,other Living Arrangements House Number of Floors (Floors) One Floor Number of Stairs To Enter/Railing? 3 steps R rail from front of the house but also can use a ramp to enter the house Home Environment High Toilet,Walk in Shower Home Equipment Front Wheel Walker,Four Wheel Walker,Shower Seat with Backrest,Hand Held Shower,Grab Bars Near Toilet,Grab Bars In Shower Additional Social History Comment pt lives with spouse and 2 other room mates but will not be able to assist pt. spouse also has limited ability to assist pt M2 OT-IP Current Condition Start: 04/05/24 14:33 Freq: Status: Active Protocol: Document 04/05/24 14:33 [facility] (Rec: 04/05/24 14:50 [facility] [id number]) Occupational Therapy Current Condition Current Condition Evaluation Date 04/05/24 Treatment Diagnosis RACHEL, Splenomegaly, generalized weakness Diagnosis Onset Date 04/03/24 M3 OT- IP Subjective and Pain Start: 04/05/24 14:33 Freq: Status: Active Protocol: Document 04/05/24 14:33 [facility] (Rec: 04/05/24 14:50 [facility] [id number]) OT- Subjective Occupational Therapy Visit Type Type Initial Evaluation Visit Start Time 14:10 Visit Stop Time 14:30 Occupational Therapy Visit Comments Patient Comments Pt very tired and not feeling well but agreed to try to get up. Patient/Caregiver Goals Pt did not states. OT Pain Assessment Pain When Pain Assessed At Rest Pain Present Pain Present Pain Reported Location Left Flank Pain Behaviors Holding Area,Wincing M4 OT- IP ADL's Start: 04/05/24 14:33 Freq: Status: Active Protocol: Document 04/05/24 14:33 [facility] (Rec: 04/05/24 14:50 [facility] [id number]) OT [id number] Comments OT Self-Feeding Comments Not at meal time. OT ADL-Grooming Comments OT Grooming Comments Not performed. OT ADL-Oral Care Comments Oral Care Comments Pt has dentures and refusing. OT ADL-Dressing Comments OT Dressing Comments At this time due to decreased activity tolerance and weakness, pt will need assist. OT ADL-Toileting Comments OT Toileting Comments Not performed. OT ADL-Bathing Comments OT Bathing Comments Pt will benefit from sitting to shower at this time. M5 OT- IP IADL's Start: 04/05/24 14:33 Freq: Status: Active Protocol: Document 04/05/24 14:33 [facility] (Rec: 04/05/24 14:50 [facility] [id number]) OT-Instrumental Activities of Daily Living Home Safety Awareness Awareness of Need for Assistance at Home Good Awareness Home Safety Comments Pt very fatigued and limited for participation for OT eval. Medication Management Medication Management Comments Prior pt use of pill organizer . Money Management Money Management Comments Pt states both he and do the bills. Meal Preparation Meal Preparation Caregiver Provides Assist Ocean [employer] Lieutenant Ocean [employer] Lieutenant Caregiver Provides Assist M6 OT- IP Functional Cognition Start: 04/05/24 14:33 Freq: Status: Active Protocol: Document 04/05/24 14:33 [facility] (Rec: 04/05/24 14:50 [facility] [id number]) Cognitive Factors Limiting Selfcare Function Cognitive Ability Level of Alertness Drowsy Patient Orientation Name,Place,Situation Attention Span Ability Capable of Focused Attention, Unable to Sustain Attention Ability to Follow Commands Able to Follow One Step Commands Cognitive Comments Cognitive Assessment Comments Pt very fatigued and not feeling well. OT- Vision and Hearing OT- Vision Assessment Visual Acuity Glasses All The Time Vision Assessment Comments Pt has hearing aids but does not use them. M7 OT- IP Mobility and Balance Start: 04/05/24 14:33 Freq: Status: Active Protocol: Document 04/05/24 14:33 [facility] (Rec: 04/05/24 14:50 [facility] [id number]) OT- Bed Mobility Assessment Supine to Sit Supine to Sit Assist Moderate Assistance Sit to Supine Sit to Supine Assist Minimal Assistance OT-Transfer Assessment Comments Mobility Comments Increased time and assist to help roll to the side and get upright. Pt able to sit for several minutes before having to lie back down. OT- Balance Assessment Sitting Balance and Reactions Static Sitting Balance Ability Good M8 OT- IP Objective Assessments Start: 04/05/24 14:33 Freq: Status: Active Protocol: Document 04/05/24 14:33 [facility] (Rec: 04/05/24 14:50 [facility] [id number]) OT Gross Range of Motion Upper Extremity Range of Motion Assessment Bilaterally Impaired OT Strength Comments Strength Comments BUE limited at end ROM strength 3+/5 to 4/5 OT- Coordination Assessment Upper Extremity Finger to Nose Test Left UE Impaired Comments Coordination Comments Left hand slightly decreased. OT Sensation Assessment Edema Edema Comments Pt's left side of his body very swollen. M9 OT- IP Assessment and Plan Start: 04/05/24 14:33 Freq: Status: Active Protocol: Document 04/05/24 14:33 [facility] (Rec: 04/05/24 14:50 [facility] [id number]) OT Summary Assessment and Plan Potential Rehabilitation Potential Fair Analytic Complexity at Evaluation High Summary OT Impairments Pain,Range of Motion,Strength, Balance,Functional Mobility, Self-Feeding,Grooming,Dressing ,Toileting,Bathing,Toilet Transfers,Shower Transfers, Activity Tolerance Progress Towards Goals Slow Progress due to Pain,Slow Progress due to Medical Issues,Slow Progress due to Activity Tolerance Assessment Summary Pt high complexity and main barriers are pain, high medical needs, decreased strength, endurance and activity tolerance. Pending medical needs and prognosis- questionable whether pt may be best off to be home with 24/7 assist and possible palliative care versus skilled rehab as pt appears very medically ill at this time. Continue to assess pt for needs. Goals Self-Feeding Goal Independent Grooming Goal Independent Dressing Goal Minimal Assistance Toileting Goal Standby Assistance Bathing Goal Moderate Assistance Toilet Transfer Goal Independent Shower Transfer Goal Contact Guard Assistance Days to Meet Goals 15 Frequency of Treatment Other frequency 5x/week Treatment Plan OT Treatment Plan ADL Training,Functional Mobility,Patient/Family Education,Discharge Planning Discharge Recommendations OT Discharge Recommendations Home with 12/12 Assist Available,SNF Rehab,Home vs SNF Transportation Needs at Discharge Wheelchair/Cabulance
[2024-04-05] MEDS: SODIUM FERRIC GLUCONAT/SUCROSE 125 MG in SODIUM CHLORIDE 0.9% 100 ML 110 MG IV (15:10)
--- NOTE | 2024-04-05 16:59 | P.PN_ITS ---
Subjective Subjective Date Patient Seen: 04/05/24 Time Patient Seen: 08:20 Interval history: Summary: This is a 73-year-old male with a functional decline over several weeks. He presented with acute anemia but denied any evidence of rectal bleeding. He also has metastatic prostate cancer, and was noted to have increased or new splenomegaly on CT scan. Discussed this with his oncologist, Dr. Mooney, at [facility] who feels this relates to his cirrhosis. S: He is notably weaker today per family. His left thorax pain is improved and controlled with Tylenol. Exam Vital Signs (past 8 hours): - 04/05/24 12:00 04/05/24 16:00 Temperature 97.8 F 99.7 F H Pulse Rate 106 H 97 H Respiratory Rate 18 16 Blood Pressure 104/58 L 130/68 Pulse Oximetry 93 93 Oxygen Flow Rate 0 0 Oxygen Delivery Method Nasal Cannula Oxygen Flow Rate 0 Narrative Exam Narrative: NAD, alert and oriented. Fluent speech. Appears fatigued and weak. Lungs are clear, normal rate and effort. Heart is regular, no murmur gallop or rub. Abdomen is soft, non distended. Extremities are free of edema. There is no left upper quadrant pain to palpation or left anterior thorax pain to palpation. Objective Labs 04/05/24 04:28 04/05/24 04:28 Labs: Laboratory Results - last 24 hr 04/04/24 04/05/24 12:58 04:28 WBC 5.9 RBC 2.89 L Hgb 8.4 L Hct 24.7 L MCV 85.3 MCH 29.1 MCHC 34.2 RDW 15.6 H Plt Count 71 L Sodium 127 L Potassium 3.8 Chloride 98 Carbon Dioxide 23 BUN 20 Creatinine 1.14 Estimated GFR > 60 BUN/Creatinine Ratio 17.5 Glucose 97 Calcium 10.9 H Total Bilirubin 1.5 H AST 79 H ALT 17 Alkaline Phosphatase 142 H Total Protein 5.2 L Albumin 2.6 L Globulin 2.6 Albumin/Globulin Ratio 1.0 Urine Osmolality 418 PFSH Medical History Low back pain Bilateral hip pain Osteoarthritis of left hip Left hip pain SI (sacroiliac) joint dysfunction Neuroforaminal stenosis of lumbar spine Unspecified atherosclerosis of [place] arteries of extremities, unspecified extremity Anemia Bone mass Prostate cancer Venous insufficiency Lumbar back pain with radiculopathy affecting left lower extremity Scoliosis Marijuana smoker High cholesterol Hypertension Surgical History H/O inguinal hernia repair Family History Father Prostate cancer Mother Diabetes mellitus Obesity Grandmother Diabetes mellitus Obesity Social History household members: spouse and other Smoking Status: Former smoker Tobacco: How many years used: 21 alcohol intake: former substance use type: marijuana Assessment & Plan Assessment & Plan narrative: 1. Weakness, multifactorial. Likely a combination of anemia and underlying conditions. 2. New splenomegaly (with cirrhosis), present on admission and active. 3. Left upper quadrant and thorax pain, present on admission and improved. - This pain seems to be positional intermittent as more likely related to his ribs and sclerotic prostatic cancer then his splenomegaly. 4. Acute respiratory failure with hypoxia. Present on admission and improving. -fairly normal chest x-ray 5. Normocytic anemia. Present on admission and active. Iron deficiency noted. Administer IV iron. Rule out hemolysis. Check LDH. 6. BPH. Present on admission and stable. 7. Metastatic prostate cancer. Present on admission and active. 8. Hyponatremia, present on admission and persistent/stable. 9. RACHEL and volume depletion, present on admission and active. 10. General weakness, present on admission and active. Plan: - IV ferrous gluconate 250 mg - Anemia blood tests for hemolysis (LDH) - Tylenol only as needed for pain noting underlying cirrhosis. - Wean O2 as able. - Monitor closely given increasing weakness today - Consider transition to palliative care hospice if continuing to decline, discussed with family today - Physical therapy met with an discussed the clinical situation with and daughters. DVT prophylaxis SCDs for now due to severe anemia. Code status full code Has been in the hospital for 2 midnights and requires a 3rd, inpatient status as supported. Quality VTE Deep Vein Thrombosis/Pulmonary Embolism Present on Admission: No [facility] Charge codes Subsequent inpatient/observation care: 39407
[2024-04-05] MEDS: ACETAMINOPHEN 325 MG TABLET 650 MG PO (19:58)
[2024-04-05] MEDS: TAMSULOSIN 0.4 MG CAPSULE PO (19:59)
[2024-04-05] MEDS: ATORVASTATIN 20 MG TABLET PO (19:59)
[2024-04-06] VITALS (7 sets, daily range): BP systolic 105–131; BP diastolic 47–69; PULSE 89–116; RESP 17–22; TEMP 35.9–37.3; O2SAT 92–94
[2024-04-06] MEDS: HYDROCODONE/ACET 5/325 TABLET 1 TAB PO ×2 (03:28→10:01)
[2024-04-06 05:09] LABS: Add Manual Diff / Slide Review NO; Basophils Absolute Auto 0 /uL (0-100); Basophils Percent Auto 0.6 % (0-2); Eosinophils Absolute Auto 0 /uL (0-450); Eosinophils Percent Auto 0.1 % (2-4); Hematocrit 24.5 % (41-53); Hemoglobin 8.2 g/dL (13.5-17.5); Lymphocytes Absolute Auto 800 /uL (1100-4500); Lymphocytes Percent Auto 12.6 % (25-40); Mean Corpuscular HGB Conc 33.6 % (30-36); Mean Corpuscular Hemoglobin 28.5 PG (26-34); Mean Corpuscular Volume 84.9 fL (80-100); Monocytes Absolute Auto 900 /uL (0-900); Monocytes Percent Auto 14.3 % (3-14); Neutrophils Absolute Auto 4400 /uL (1500-7000); Neutrophils Percent Auto 72.4 % (50-75); Platelet Count 68 X10^3/uL (150-400); Red Blood Cell Count 2.88 X10^6/uL (4.5-5.9); Red Cell Distribution Width 15.9 % (11.6-14.8); White Blood Cell Count 6.1 X10^3/uL (4.5-11.0)
[2024-04-06 05:20] LABS: Lactate Dehydrogenase 639 U/L (120-246)
[2024-04-06 05:21] LABS: Alanine Aminotransferase 18 IU/L (<50); Albumin 2.6 g/dL (3.5-5.0); Alkaline Phosphatase 143 U/L (38-126); Aspartate Aminotransferase 84 IU/L (17-59); BUN Creatinine Ratio 17.7 (6-22); Bilirubin Total 1.7 mg/dL (0.2-1.3); Blood Urea Nitrogen 26 mg/dL (9-20); Calcium 10.9 mg/dL (8.4-10.2); Carbon Dioxide 23 mmol/L (22-32); Chloride 98 mmol/L (98-107); Estimated Glomerular Filt Rate 50 mL/min (>60); Globulin 2.6 g/dL (1.7-4.1); Glucose 96 mg/dL (80-110); HEMOLYSIS < 15 (0-50); Potassium 3.9 mmol/L (3.4-5.1); Sodium 128 mmol/L (137-145); Total Protein 5.2 g/dL (6.3-8.2)
[2024-04-06 06:30] LABS: Prostate Specific Antigen 0.102 ng/mL (0.10-4.00)
[2024-04-06] MEDS: DOCUSATE 100 MG CAPSULE PO (06:36)
[2024-04-06] MEDS: PANTOPRAZOLE DR 20 MG TABLET 40 MG PO (06:36)
[2024-04-06 08:27] LABS: Reticulocyte Count, Percent 3.3 % (0.9-2.6)
[2024-04-06] MEDS: LORATADINE 10 MG TABLET PO (08:58)
[2024-04-06] MEDS: FERROUS SULFATE 325 MG TABLET PO (08:58)
[2024-04-06] MEDS: AMLODIPINE 5 MG TABLET PO (08:58)
[2024-04-06] MEDS: LOSARTAN 50 MG TABLET 100 MG PO (08:58)
[2024-04-06] MEDS: SODIUM FERRIC GLUCONAT/SUCROSE 125 MG in SODIUM CHLORIDE 0.9% 100 ML 110 MG IV (10:41)
--- NOTE | 2024-04-06 11:52 | PC.NURSE ---
pt said ok for this RN to review labs and CT results with daughters.
--- NOTE | 2024-04-06 11:55 | PT-IP ANOTE ---
Pt refused PT due to pain. Will attempt to see in the afternoon if time is available.
--- NOTE | 2024-04-06 12:51 | PC.NURSE ---
Addendum entered by Merary Rollins R.N. 04/06/24 13:07: Pt up in chair. Tele alarming HR 120's. Pt denies pain. I'm comfortable in this chair. Original Note: Pt refused to work with PT. Up in a chair, transfer with 2 person SBA. pt fatigued, but strong on feet with transfer. Pt diaphoretic he states from chemo med
--- NOTE | 2024-04-06 13:40 | PT.IPTN ---
Current Diagnoses Heart failure, unspecified (04/03/24) Physical Therapy Treatment Note M2 PT-IP Current Condition Start: 04/03/24 17:41 Freq: NEEDED Status: Active Protocol: Document 04/03/24 16:05 AB (Rec: 04/03/24 17:56 [facility] [id number]) Physical Therapy Current Condition Current Condition Evaluation Date 04/03/24 Treatment Diagnosis RACHEL; splenomegaly; difficulty in walking Onset Date 04/03/24 M3 PT-IP Subjective Start: 04/03/24 17:41 Freq: NEEDED Status: Active Protocol: Document 04/06/24 13:51 TS (Rec: 04/06/24 14:04 TS [id number]) Subjective Physical Therapy Visit Type Type Treatment Note Visit Start Time 13:40 Visit Stop Time 13:51 Number of TECHNOLOGY EDUCATION TEACHER Visits 1 Physical Therapy Visit Comments Patient Comments Pt found resting in chair, he is drowzy and requests back to bed. Pt reports some SOB sitting in the chair, Spo2 93% on RA and HR 124. M4 PT-IP Mobility and Gait Start: 04/03/24 17:41 Freq: NEEDED Status: Active Protocol: Document 04/06/24 13:51 TS (Rec: 04/06/24 14:04 TS [id number]) PT-Bed Mobility Assessment Sit to Supine Sit to Supine Contact Guard Assistance,1 Person Assistance PT-Transfer Assessment Sit to and From Stand Sit to and from Stand Contact Guard Assistance,1 Person Assistance,Use of Upper Extremities Equipment Transfer Assistive Device Gait Belt,Front Wheeled Walker Orthotic/Prosthetic Devices or Brace: No Comments Mobility Comments STS from the chair CGA with FWW. Stand step pivot transfer to bed SBA. Sit to supine into bed CGA. Pt was left in the bed, all needs met. Gait Assessment Comments Gait Comments Stand pivot transfer PT-Balance Assessment Sitting Balance and Reactions Static Sitting Balance Ability Good Dynamic Sitting Balance Ability Good Standing Balance and Reactions Static Standing Balance Ability Fair Dynamic Standing Balance Ability Fair Device Used FWW M5 PT-IP Objective Assessments Start: 04/03/24 17:41 Freq: NEEDED Status: Active Protocol: Document 04/03/24 16:05 AB (Rec: 04/03/24 17:56 AB [id number]) Orientation Orientation/Cognition Level of Alertness Alert Orientation Name,Place,Situation Language Function Ability Hard of Hearing Memory Description No Deficits Noted Gross Range of Motion Lower Extremity ROM Assessment Within Functional Limits Strength Lower Extremity Strength Assessment Within Functional Limits Muscle Tone Muscle Tone WNL Yes M6 PT-IP Treatment Start: 04/03/24 17:41 Freq: NEEDED Status: Active Protocol: Document 04/06/24 13:51 TS (Rec: 04/06/24 14:04 TS [id number]) Physical Therapy Treatment Education Education Provided Safety M7 PT-IP Assessment and Plan Start: 04/03/24 17:41 Freq: NEEDED Status: Active Protocol: Document 04/06/24 13:51 TS (Rec: 04/06/24 14:04 TS [id number]) PT Summary Assessment and Plan Potential Rehabilitation Potential Fair Summary Progress Towards Goals Slow Progress due to Medical Issues,Slow Progress due to Activity Tolerance Assessment Summary Pt is making slow progress with his mobility. He is fatigued and weak today making mobility difficult. pt continues to be SBA/CGA for most mobility. His HR is elevated in the 120's and reported some SOB sitting in the chair. PT is recommending Home vs SNF at this time depending on progress. Goals Bed Mobility Goal Independent Transfer Goal Independent,Front Wheeled Walker Gait Goal Independent,Front Wheel Walker Gait Distance 150 Other Goals improve bed mobility, transfers without AD/LRAD ~ 200 ft SBA Days to Meet Goals 10 Frequency of Treatment Frequency Of Treatment Once a Day Treatment Plan Physical Therapy Treatment Plan Bed Mobility Training,Transfer Training,Gait Training, Therapeutic Exercise,Balance Retraining,Discharge Planning, Hot or Cold Pack,Neuromuscular Re-ed,Coordination Retraining ,Manual Therapy Precautions Other Precautions Hazardous Drug precautions Recommendations To Nursing Amount of Assist Needed 1 Person Assist Discharge Recommendations PT Discharge Recommendations Home with 12/12 Assist Available,Home Health,SNF Rehab,Home vs SNF Transportation Needs at Discharge Private Vehicle,Wheelchair/ Cabulance
--- NOTE | 2024-04-06 14:05 | EKG_ITS ---
[facility] [address], [place] [address] Test Date: 2024-04-06 Pat Name: David Stuart Department: [facility] Room: 224 Gender: Male Supervisor Unloading: YARA : 1950 Requested By: Order Number: [id number] Reading MD: Toan Desir MD Measurements Intervals [place] Rate: 106 P: 43 MS: 158 QRS: 16 QRSD: 84 T: 5 QT: 336 QTc: 446 Interpretive Statements Sinus tachycardia Electronically Signed On 04-07-2024 2:30:18 PST by Toan Desir MD
--- NOTE | 2024-04-06 14:40 | P.PN_ITS ---
Subjective Subjective Date Patient Seen: 04/06/24 Time Patient Seen: 08:25 Interval history: Summary: This is a 73-year-old male with a functional decline over several weeks. He presented with acute anemia but denied any evidence of rectal bleeding. He also has metastatic prostate cancer, and was noted to have increased or new splenomegaly on CT scan. Discussed this with his oncologist, Dr. Mooney, at [facility] who feels this relates to his cirrhosis. S: The patient appeared stronger this morning, though as the day goes on it very weak. He is drinking little. He was tachycardic with heart rate up to 120 with sitting up with physical therapy, which canceled. He is seen with a large family gathering today. Exam Vital Signs (past 8 hours): - 04/06/24 07:00 04/06/24 08:58 04/06/24 11:00 Temperature 97.8 F 96.6 F L Pulse Rate 98 H 100 H 116 H Respiratory Rate 21 18 Blood Pressure 117/60 117/60 105/51 L Pulse Oximetry 94 92 Oxygen Flow Rate 0 0 Oxygen Delivery Method Room Air Oxygen Flow Rate 0 Narrative Exam Narrative: NAD, alert and oriented. Fluent speech. Appears fatigued and weak. Lungs are clear, normal rate and effort. Heart is regular, no murmur gallop or rub. Abdomen is soft, non distended. Extremities are free of edema. There is no left upper quadrant pain to palpation or left anterior thorax pain to palpation. Objective Labs 04/06/24 04:28 04/06/24 04:28 Labs: Laboratory Results - last 24 hr 04/06/24 04:28 WBC 6.1 RBC 2.88 L Hgb 8.2 L Hct 24.5 L MCV 84.9 MCH 28.5 MCHC 33.6 RDW 15.9 H Plt Count 68 L Neut % (Auto) 72.4 Lymph % (Auto) 12.6 L Pepin % (Auto) 14.3 H Eos % (Auto) 0.1 L Baso % (Auto) 0.6 Neut # (Auto) 4400 Lymph # (Auto) 800 L Pepin # (Auto) 900 Eos # (Auto) 0 Baso # (Auto) 0 Percent Retic 3.3 H Sodium 128 L Potassium 3.9 Chloride 98 Carbon Dioxide 23 BUN 26 H Creatinine 1.47 H Estimated GFR 50 L BUN/Creatinine Ratio 17.7 Glucose 96 Calcium 10.9 H Total Bilirubin 1.7 H AST 84 H ALT 18 Alkaline Phosphatase 143 H Lactate Dehydrogenase 639 H Total Protein 5.2 L Albumin 2.6 L Globulin 2.6 Albumin/Globulin Ratio 1.0 Prostate Specific Ag 0.102 Direct Antiglob Test Negative [facility] Medical History Low back pain Bilateral hip pain Osteoarthritis of left hip Left hip pain SI (sacroiliac) joint dysfunction Neuroforaminal stenosis of lumbar spine Unspecified atherosclerosis of [place] arteries of extremities, unspecified extremity Anemia Bone mass Prostate cancer Venous insufficiency Lumbar back pain with radiculopathy affecting left lower extremity Scoliosis Marijuana smoker High cholesterol Hypertension Surgical History H/O inguinal hernia repair Family History Father Prostate cancer Mother Diabetes mellitus Obesity Grandmother Diabetes mellitus Obesity Social History household members: spouse and other Smoking Status: Former smoker Tobacco: How many years used: 21 alcohol intake: former substance use type: marijuana Assessment & Plan Assessment & Plan narrative: 1. Weakness, multifactorial. Likely a combination of anemia and underlying conditions. Elevated LDH and reticulocyte suggestive of hemolytic anemia. TTP unlikely. Check haptoglobin, Prem, JACKY, hepatitis-B and C serologies (C negative in 10/2019), pathologist review for schistocytes, [id number]. Case reviewed with Dr. Painter of [facility] hematology. 2. New splenomegaly (with cirrhosis), present on admission and active. 3. Left upper quadrant and thorax pain, present on admission and improved. - This pain seems to be positional intermittent as more likely related to his ribs and sclerotic prostatic cancer then his splenomegaly, but splenomegaly remains a possibility. 4. Acute respiratory failure with hypoxia. Present on admission and improving. -normal chest x-ray 5. Normocytic anemia, thrombocytopenia. Present on admission and active. Iron deficiency noted. Administer IV iron. Rule out hemolysis as above. 6. BPH. Present on admission and stable. 7. Metastatic prostate cancer. Present on admission and active. PSA 0.102 on enzalutamide therapy. 8. Hyponatremia, present on admission and persistent/stable. 9. RACHEL and volume depletion, present on admission and active. Worse today. Restart IVF with D5NS at 100ml/hr. 10. General weakness, present on admission and active. Plan: - IV ferrous gluconate 125mg today (second dose) - Restart IVF with D5NS at 100ml/hr. - Anemia blood tests for hemolysis (LDH). Check haptoglobin, Prem, JACKY, hepatitis-B and C serologies (C negative in 10/2019), pathologist review for schistocytes, [id number]. - Tylenol only as needed for pain noting underlying cirrhosis. - Wean O2 as able. - Monitor closely given increasing weakness today - Consider transition to palliative care hospice if continuing to decline, discussed with family today - Physical therapy Met with an discussed the clinical situation with and daughters and several other family members. Discussed case with oncology. DVT prophylaxis SCDs for now due to severe anemia. Code status full code Has been in the hospital for 2 midnights and requires additional days for evaluation and management. Quality VTE Deep Vein Thrombosis/Pulmonary Embolism Present on Admission: No [facility] Charge codes Subsequent inpatient/observation care: [id number]
[2024-04-06] MEDS: DEXTROSE 5%-0.9% NS 1,000 ML 100 ML IV (14:50)
[2024-04-06 15:46] LABS: C-Reactive Protein Quant 21.3 mg/dL (<1.0)
--- NOTE | 2024-04-06 15:54 | CM.DPC ---
DCP SNF Planning: Per MD, pt making slow progress and waiting to see if pt will continue to slowly improve towards family preference of SNF rehab at d/c. Per Pharmacist and MD, pt's current home chemo medication is a daily dose and pt has been using his home med while here at the hospital. SW made additional SNF referrals to family's backup SNF preferences of [facility] and [facility], both in [place] and left [facility] for admissions requesting review. [facility] following but anticipate that his chemo medication cost too high to accept (Unclear if they would be able to use his home meds as he does in the hospital). Plan: SW to follow closely for SNF reviews to determine if any can accept and start his [facility] MCR auth and if his chemo med a barrier to determine if MD and family willing to put medication on hold until after SNF. ELOY Heller
[2024-04-06 16:20] LABS: Erythrocyte Sedimentation Rate 55 MM/HR (0-15)
[2024-04-06] MEDS: SODIUM CHLORIDE 0.9% FLUSH 10 ML IV (20:40)
[2024-04-06] MEDS: TAMSULOSIN 0.4 MG CAPSULE PO (20:40)
[2024-04-06] MEDS: ATORVASTATIN 20 MG TABLET PO (20:40)
[2024-04-07] MEDS: DEXTROSE 5%-0.9% NS 1,000 ML 100 ML IV ×2 (00:35→20:02)
[2024-04-07] MEDS: HYDROCODONE/ACET 5/325 TABLET 1 TAB PO ×2 (00:35→08:44)
[2024-04-07 05:25] VITALS: BP 125/67; PULSE 97; RESP 19; TEMP 36.9; O2SAT 92
[2024-04-07 06:06] LABS: Add Manual Diff / Slide Review NO; Basophils Absolute Auto 0 /uL (0-100); Basophils Percent Auto 0.8 % (0-2); Eosinophils Absolute Auto 0 /uL (0-450); Eosinophils Percent Auto 0.3 % (2-4); Lymphocytes Absolute Auto 1100 /uL (1100-4500); Lymphocytes Percent Auto 20.8 % (25-40); Mean Corpuscular HGB Conc 33.4 % (30-36); Mean Corpuscular Hemoglobin 28.8 PG (26-34); Mean Corpuscular Volume 86.1 fL (80-100); Monocytes Absolute Auto 600 /uL (0-900); Monocytes Percent Auto 10.9 % (3-14); Neutrophils Absolute Auto 3600 /uL (1500-7000); Neutrophils Percent Auto 67.2 % (50-75); Platelet Count 71 X10^3/uL (150-400); Red Blood Cell Count 2.79 X10^6/uL (4.5-5.9); Red Cell Distribution Width 15.9 % (11.6-14.8); White Blood Cell Count 5.4 X10^3/uL (4.5-11.0)
[2024-04-07 06:11] LABS: HBsAg Screen Negative (Negative); Hepatitis A Antibody IgM Negative (Negative); Hepatitis B Core Antibody IgM Negative (Negative); Hepatitis C Antibody Non Reactive (Non Reactive)
[2024-04-07 06:33] LABS: BUN Creatinine Ratio 18.5 (6-22); Blood Urea Nitrogen 30 mg/dL (9-20); Calcium 10.8 mg/dL (8.4-10.2); Carbon Dioxide 20 mmol/L (22-32); Chloride 99 mmol/L (98-107); Estimated Glomerular Filt Rate 44 mL/min (>60); Glucose 107 mg/dL (80-110); HEMOLYSIS < 15 (0-50); Potassium 3.8 mmol/L (3.4-5.1); Sodium 128 mmol/L (137-145)
[2024-04-07] MEDS: PANTOPRAZOLE DR 20 MG TABLET 40 MG PO (06:48)
--- NOTE | 2024-04-07 08:05 | PM.PN.1 ---
Subjective Subjective Date Patient Seen: 04/07/24 Time Patient Seen: 08:25 Interval history: Summary: This is a 73-year-old male with a functional decline over several weeks. He presented with acute anemia but denied any evidence of rectal bleeding. He also has metastatic prostate cancer, and was noted to have increased or new splenomegaly on CT scan. Discussed this with his oncologist, Dr. Mooney, at [facility] who feels this relates to his cirrhosis. S: The patient remains persistently weak. He has been eating and drinking little in the last 24 hours. He is seen with his concerned family at bedside. He has had increased pain in his left side and ribs and pain medication has been increased to oxycodone with improved relief. Exam Vital Signs (past 8 hours): - 04/07/24 05:25 Temperature 98.5 F Pulse Rate 97 H Respiratory Rate 19 Blood Pressure 125/67 Pulse Oximetry 92 Oxygen Flow Rate 1.5 Oxygen Delivery Method Room Air Oxygen Flow Rate 1.5 Narrative Exam Narrative: NAD, alert and oriented. Fluent speech. Appears fatigued and weak. Lungs are clear, normal rate and effort. Heart is regular, no murmur gallop or rub. Abdomen is soft, non distended. Mildly tender in left upper quadrant and left rib to palpation. Extremities are free of edema. Objective ECG Impression: EKG 04/06/2024: Sinus tachycardia 106 beats per minute, no ischemic changes or arrhythmias Imaging Echo: Radiologist's impression: Echocardiogram 04/03/2024: The ejection fraction is estimated to be 70-75%. There is no significant valvular heart disease. Labs 04/07/24 05:08 04/07/24 05:08 Labs: Laboratory Results - last 24 hr 04/06/24 04/06/24 04/07/24 04:28 15:00 05:08 WBC 5.4 RBC 2.79 L Hgb 8.0 L Hct 24.0 L MCV 86.1 MCH 28.8 MCHC 33.4 RDW 15.9 H Plt Count 71 L Neut % (Auto) 67.2 Lymph % (Auto) 20.8 L [place] % (Auto) 10.9 Eos % (Auto) 0.3 L Baso % (Auto) 0.8 Neut # (Auto) 3600 Lymph # (Auto) 1100 [place] # (Auto) 600 Eos # (Auto) 0 Baso # (Auto) 0 ESR 55 H Percent Retic 3.3 H Sodium 128 L Potassium 3.8 Chloride 99 Carbon Dioxide 20 L BUN 30 H Creatinine 1.62 H Estimated GFR 44 L BUN/Creatinine Ratio 18.5 Glucose 107 Calcium 10.8 H C-Reactive Protein 21.3 H Hepatitis A IgM Ab Negative Hep Bs Antigen Negative Hep B Core IgM Ab Negative Hepatitis C Antibody Non reactive Hep C Ab Signal/Cutoff Comment Direct Antiglob Test Negative PFSH Medical History Low back pain Bilateral hip pain Osteoarthritis of left hip Left hip pain SI (sacroiliac) joint dysfunction Neuroforaminal stenosis of lumbar spine Unspecified atherosclerosis of [place] arteries of extremities, unspecified extremity Anemia Bone mass Prostate cancer Venous insufficiency Lumbar back pain with radiculopathy affecting left lower extremity Scoliosis Marijuana smoker High cholesterol Hypertension Surgical History H/O inguinal hernia repair Family History Father Prostate cancer Mother Diabetes mellitus Obesity Grandmother Diabetes mellitus Obesity Social History household members: spouse and other Smoking Status: Former smoker Tobacco: How many years used: 21 alcohol intake: former substance use type: marijuana Assessment & Plan Assessment & Plan narrative: 1. Weakness, multifactorial. Likely a combination of anemia and underlying conditions, volume depletion with acute kidney injury. Family traces his decline post dating COVID and flu vaccination 2 weeks ago. He has never had COVID. There is no evidence of any infection with unremarkable chest x-ray and lower chest CT, unremarkable abdomen CT, and negative urinalysis. Consider possible progressive prostate cancer noting increased sclerosis on imaging, elevated calcium levels and elevated alkaline phosphatase, despite stable and low PSA value. Administered ferrous gluconate 250 mg IV on 04/05/2024 and 04/06/2024. Elevated LDH and reticulocyte suggestive of hemolytic anemia but normal haptoglobin less likely. Negative JACKY and hepatitis B and C serologies noted. TTP unlikely. Pending Prem, pathologist review for schistocytes, [id number]. Case reviewed with Dr. Painter of [facility] hematology on 04/06/2020. Check head CT to rule out STEEPING [employer]ER process, but no fall or injury history reported. Update Dr. Mooney on Monday. All said, if all of this is negative, then progressive metastatic prostate cancer would by exclusion appear to be the most likely cause of his decline. 2. New splenomegaly (with cirrhosis), present on admission and active. 3. RACHEL and volume depletion, present on admission and active. Worse today. Continue IVF with D5NS at 100ml/hr. Encourage oral intake 4. Left upper quadrant and thorax pain, present on admission and improved. - This pain seems to be positional intermittent as more likely related to his ribs and sclerotic prostatic cancer then his splenomegaly, but splenomegaly remains a possibility. 5. Acute respiratory failure with hypoxia. Present on admission and improving. -normal chest x-ray 6. Normocytic anemia, thrombocytopenia. Present on admission and active. Iron deficiency noted. Administer IV iron. Rule out hemolysis as above. 7. BPH. Present on admission and stable. 8. Metastatic prostate cancer. Present on admission and active. PSA 0.102 on enzalutamide therapy. 9. Hyponatremia, present on admission and persistent/stable. Plan: - head CT - continue IVF with D5NS at 100ml/hr. - Anemia blood tests for hemolysis (LDH). Pending haptoglobin, Prem, JACKY, hepatitis-B and C serologies (C negative in 10/2019), pathologist review for schistocytes, [id number]. - Tylenol only as needed for pain noting underlying cirrhosis. - Wean O2 as able. - Monitor closely given increasing weakness - Consider transition to palliative care hospice if continuing to decline, discussed again with family today - Physical therapy Met with an discussed the clinical situation with and daughters and several other family members. Discussed case with oncology yesterday. DVT prophylaxis SCDs for now due to severe anemia. Code status full code Has been in the hospital for 2 midnights and requires additional days for evaluation and management. Quality VTE Deep Vein Thrombosis/Pulmonary Embolism Present on Admission: No IH PROFEE Charge codes Subsequent inpatient/observation care: [id number]
[2024-04-07 08:08] LABS: Haptoglobin 327 mg/dL (34-355)
[2024-04-07] MEDS: FERROUS SULFATE 325 MG TABLET PO (08:44)
[2024-04-07] MEDS: AMLODIPINE 5 MG TABLET PO (08:44)
[2024-04-07] MEDS: LORATADINE 10 MG TABLET PO (08:44)
[2024-04-07] MEDS: LOSARTAN 50 MG TABLET 100 MG PO (08:44)
[2024-04-07 09:00] VITALS: BP 119/56; PULSE 92; RESP 21; TEMP 37; O2SAT 99
[2024-04-07 09:18] VITALS: O2SAT 92
[2024-04-07] MEDS: OXYCODONE IR 5 MG TABLET PO (10:42)
--- NOTE | 2024-04-07 12:07 | DI.CT.S_ITS ---
PROCEDURE: CT HEAD/BRAIN WO CON INDICATIONS: altered mental status TECHNIQUE: Noncontrast 4.5 mm thick angled axial sections acquired from the foramen magnum to the vertex, with coronal and sagittal reformats. For radiation dose reduction, the following was used: automated exposure control, adjustment of mA and/or kV according to patient size. COMPARISON: [facility], CT, CT HEAD/BRAIN WO CON, 10/01/2019, 17:40. FINDINGS: CSF spaces: Basal cisterns are patent. No extra-axial fluid collections. Ventricles are normal in size and shape. Brain: Bifrontal encephalomalacia and gliosis, similar to the prior exam. Underlying atrophy and multifocal white matter chronic ischemic change. Atherosclerotic vascular calcification in the cavernous segments of both ICA noted as well as a dense atherosclerotic vascular calcification involving the right M1 MCA remains unchanged. Skull and face: Calvarium and visualized facial bones are intact, without suspicious lesions. Sinuses: Visualized sinuses and mastoids are clear. IMPRESSION: Atrophy and chronic ischemic change without intracranial hemorrhage or mass effect. Prior bifrontal traumatic brain injury, stable Approved by: Domingo Chris M.D. on 04/07/2024 at 12:48
[2024-04-07 13:00] VITALS: BP 114/60; PULSE 108; RESP 21; TEMP 36.4; O2SAT 92
--- NOTE | 2024-04-07 13:15 | CM.DPC ---
DCP Cont. Reviewed EMR and team rounds for status updates. Called [facility] and explained that pt's oral chemo drug is actually not officially a chemo, and it is paid for privately and sent by mail to him by the pharmacy, so this is not a cost-prohibitive barrier for SNF. She will run this past their ED and let us know if they can review him or not for acceptance, will let us know this by Monday. Pt does have low H&H today, required having 2-blood transfusions over the last 24-hours.
--- NOTE | 2024-04-07 14:23 | PT-IP ANOTE ---
PT reviews chart and checks on pt. Head CT negative for acute changes. Pt resting in bed and he looks mildly dyspneic at rest and tired. Family nearby. Pt has been getting up to chair with nsg. Pt lethargic and closing eyes not able to get up with PT at this time. Con't PT efforts.
[2024-04-07 17:00] VITALS: BP 113/65; PULSE 104; RESP 24; TEMP 36.8; O2SAT 93
[2024-04-07 20:00] VITALS: BP 122/59; PULSE 100; RESP 16; TEMP 37.1; O2SAT 94
[2024-04-07] MEDS: SODIUM CHLORIDE 0.9% FLUSH 10 ML IV (20:03)
[2024-04-07] MEDS: TAMSULOSIN 0.4 MG CAPSULE PO (21:33)
[2024-04-07] MEDS: ATORVASTATIN 20 MG TABLET PO (21:33)
[2024-04-08] VITALS (7 sets, daily range): BP systolic 117–166; BP diastolic 56–80; PULSE 102–124; RESP 20–24; TEMP 36.7–38; O2SAT 91–95
[2024-04-08] MEDS: OXYCODONE IR 5 MG TABLET PO ×2 (00:21→10:43)
[2024-04-08 04:29] LABS: Add Manual Diff / Slide Review NO; Basophils Absolute Auto 0 /uL (0-100); Basophils Percent Auto 0.6 % (0-2); Eosinophils Absolute Auto 0 /uL (0-450); Eosinophils Percent Auto 0.1 % (2-4); Hematocrit 23.8 % (41-53); Hemoglobin 7.8 g/dL (13.5-17.5); Lymphocytes Absolute Auto 100 /uL (1100-4500); Lymphocytes Percent Auto 2.1 % (25-40); Mean Corpuscular Hemoglobin 28.6 PG (26-34); Mean Corpuscular Volume 86.6 fL (80-100); Monocytes Absolute Auto 1900 /uL (0-900); Monocytes Percent Auto 37.6 % (3-14); Neutrophils Absolute Auto 3000 /uL (1500-7000); Neutrophils Percent Auto 59.6 % (50-75); Platelet Count 65 X10^3/uL (150-400); Red Blood Cell Count 2.75 X10^6/uL (4.5-5.9); Red Cell Distribution Width 16.3 % (11.6-14.8)
[2024-04-08 04:41] LABS: Alanine Aminotransferase 21 IU/L (<50); Albumin 2.5 g/dL (3.5-5.0); Alkaline Phosphatase 161 U/L (38-126); Aspartate Aminotransferase 75 IU/L (17-59); BUN Creatinine Ratio 21.4 (6-22); Bilirubin Total 1.6 mg/dL (0.2-1.3); Blood Urea Nitrogen 27 mg/dL (9-20); Calcium 10.7 mg/dL (8.4-10.2); Carbon Dioxide 19 mmol/L (22-32); Chloride 102 mmol/L (98-107); Estimated Glomerular Filt Rate 60 mL/min (>60); Globulin 2.6 g/dL (1.7-4.1); Glucose 102 mg/dL (80-110); HEMOLYSIS < 15 (0-50); Potassium 3.5 mmol/L (3.4-5.1); Sodium 131 mmol/L (137-145); Total Protein 5.1 g/dL (6.3-8.2)
[2024-04-08] MEDS: PANTOPRAZOLE DR 20 MG TABLET 40 MG PO (06:09)
[2024-04-08] MEDS: DEXTROSE 5%-0.9% NS 1,000 ML 100 ML IV ×2 (06:09→16:31)
--- NOTE | 2024-04-08 06:57 | PC.NURSE ---
car shifter RN note pt fatigued and lethargic, forgetful, cooperative with care, incont of urine and using urinal in bed at times, c/o back pain, meds given as ordered and needed, pt not drinking much, encouraged PO intake, bed alarm on and call kapoor within reach
--- NOTE | 2024-04-08 09:25 | OT.IP.TRT ---
Current Diagnoses Heart failure, unspecified (04/03/24) Occupational Therapy Treatment Note M2 OT-IP Current Condition Start: 04/05/24 14:33 Freq: Status: Active Protocol: Document 04/05/24 14:33 [facility] (Rec: 04/05/24 14:50 [facility] [id number]) Occupational Therapy Current Condition Current Condition Evaluation Date 04/05/24 Treatment Diagnosis RACHEL, Splenomegaly, generalized weakness Diagnosis Onset Date 04/03/24 M3 OT- IP Subjective and Pain Start: 04/05/24 14:33 Freq: Status: Active Protocol: Document 04/08/24 11:32 [facility] (Rec: 04/08/24 11:39 [facility] [id number]) OT- Subjective Occupational Therapy Visit Type Type Treatment Note Visit Start Time 09:07 Visit Stop Time 09:25 Notes Pt's daughter present for session. She is requesting to get pt back to bed but pt was asked x4 if he wanted to return to bed and pt states he wants to stay in the chair. M4 OT- IP ADL's Start: 04/05/24 14:33 Freq: Status: Active Protocol: Document 04/08/24 11:32 [facility] (Rec: 04/08/24 11:39 [facility] [id number]) OT [id number] General Evaluation Self-Feeding Ability Moderate Assistance Areas Needing Assistance Bringing Utensil to Mouth, Drinking From Cup/Glass Comments OT Self-Feeding Comments Pt initially stating that he would like to eat breakfast. Assisted with getting food onto the fork then brining it to the patients mouth. Pt then requesting a drink and orange juice brought to his mouth. Pt then agreeable to some coffee and coffee cup put in patients hand and he brought to his mouth. Pt then encouraged to try the ensure juice and assisted as he did not reach for it on his own. OT ADL-Grooming Comments OT Grooming Comments pt declined to perform OT ADL-Oral Care Comments Oral Care Comments pt declined to perform OT ADL-Dressing Comments OT Dressing Comments not performed OT ADL-Toileting Comments OT Toileting Comments not performed, pt declined need OT ADL-Bathing Comments OT Bathing Comments not performed M5 OT- IP IADL's Start: 04/05/24 14:33 Freq: Status: Active Protocol: Document 04/05/24 14:33 [facility] (Rec: 04/05/24 14:50 [facility] [id number]) OT-Instrumental Activities of Daily Living Home Safety Awareness Awareness of Need for Assistance at Home Good Awareness Home Safety Comments Pt very fatigued and limited for participation for OT eval. Medication Management Medication Management Comments Prior pt use of pill organizer . Money Management Money Management Comments Pt states bothe he and do the bills. Meal Preparation Meal Preparation Caregiver Provides Assist Program Medical Director Program Medical Director Caregiver Provides Assist M6 OT- IP Functional Cognition Start: 04/05/24 14:33 Freq: Status: Active Protocol: Document 04/08/24 11:32 [facility] (Rec: 04/08/24 11:39 [facility] [id number]) Cognitive Factors Limiting Selfcare Function Cognitive Ability Level of Alertness Alert,Confusional State Patient Orientation Name Attention Span Ability Unable to Focus,Unable to Sustain Attention Ability to Follow Commands Able to Follow One Step Commands with Increased Time, Able to Follow One Step Commands with Repetition Cognitive Comments Cognitive Assessment Comments Pt appears fatigued and confused throughout session. OT- Vision and Hearing OT- Hearing Assessment OT- Hearing Assessment WFL M7 OT- IP Mobility and Balance Start: 04/05/24 14:33 Freq: Status: Active Protocol: Document 04/05/24 14:33 [facility] (Rec: 04/05/24 14:50 [facility] [id number]) OT- Bed Mobility Assessment Supine to Sit Supine to Sit Assist Moderate Assistance Sit to Supine Sit to Supine Assist Minimal Assistance OT-Transfer Assessment Comments Mobility Comments Increased time and assist to help roll to the side and get upright. Pt able to sit for several minutes before having to lie back down. OT- Balance Assessment Sitting Balance and Reactions Static Sitting Balance Ability Good M8 OT- IP Objective Assessments Start: 04/05/24 14:33 Freq: Status: Active Protocol: Document 04/05/24 14:33 [facility] (Rec: 04/05/24 14:50 [facility] [id number]) OT Gross Range of Motion Upper Extremity Range of Motion Assessment Bilaterally Impaired OT Strength Comments Strength Comments BUE limited at end ROM strength 3+/5 to 4/5 OT- Coordination Assessment Upper Extremity Finger to Nose Test Left UE Impaired Comments Coordination Comments Left hand slightly decreased. OT Sensation Assessment Edema Edema Comments Pt's left side of his body very swollen. M9 OT- IP Assessment and Plan Start: 04/05/24 14:33 Freq: Status: Active Protocol: Document 04/08/24 11:32 [facility] (Rec: 04/08/24 11:39 [facility] [id number]) OT Summary Assessment and Plan Potential Rehabilitation Potential Fair Analytic Complexity at Evaluation High Summary OT Impairments Pain,Range of Motion,Strength, Balance,Functional Mobility, Self-Feeding,Grooming,Dressing ,Toileting,Bathing,Toilet Transfers,Shower Transfers, Activity Tolerance Progress Towards Goals Slow Progress due to Pain,Slow Progress due to Medical Issues,Slow Progress due to Activity Tolerance Assessment Summary Pt high complexity and main barriers are pain, high medical needs, decreased strength, endurance and activity tolerance. Pending medical needs and prognosis- questionable whether pt may be best off to be home with 24/7 assist and possible pallitive care versus skilled rehab as pt appears very medically ill at this time. Pt was able to participate minimally with feeding only and declined all other suggestions for activity . Pt left sitting in the chair at end of session, call button within reach and all needs at time met. Goals Self-Feeding Goal Independent Grooming Goal Independent Dressing Goal Minimal Assistance Toileting Goal Standby Assistance Bathing Goal Moderate Assistance Toilet Transfer Goal Independent Shower Transfer Goal Contact Guard Assistance Days to Meet Goals 15 Frequency of Treatment Other frequency 5x/week Treatment Plan OT Treatment Plan ADL Training,Functional Mobility,Patient/Family Education,Discharge Planning Discharge Recommendations OT Discharge Recommendations Home with 24/7 Assist Available,SNF Rehab,Home vs SNF Transportation Needs at Discharge Wheelchair/Cabulance
[2024-04-08] MEDS: AMLODIPINE 5 MG TABLET PO (09:35)
[2024-04-08] MEDS: FERROUS SULFATE 325 MG TABLET PO (09:35)
[2024-04-08] MEDS: LORATADINE 10 MG TABLET PO (09:35)
[2024-04-08] MEDS: LOSARTAN 50 MG TABLET 100 MG PO (09:35)
[2024-04-08] MEDS: ONDANSETRON 4 MG ODT SL (10:21)
[2024-04-08] MEDS: DOCUSATE 100 MG CAPSULE PO ×2 (10:21→20:50)
[2024-04-08] MEDS: ACETAMINOPHEN 325 MG TABLET 650 MG PO (10:40)
--- NOTE | 2024-04-08 11:39 | CM.DPC ---
Addendum entered by ELOY Heller 04/08/24 14:23: ADD: SW provided copy of Medicaid LTC application as Dtrs are interested in assisting pt and spouse to apply for [facility] for likely future needs. They will review and determine if they want to complete now or do the application online. SW strongly encouraged them to complete the application sooner than later as it can take a few weeks or months to set up. Per [facility] admissions, they are tight on male beds and unsure they will be able to accept when pt stable for d/c. Per [facility] admissions, they can accept pt if he is agreeable to provide his Xtandi home cancer medication and SW updated her that family aware this is needed and they are agreeable. [facility] will submit for [facility] auth for SNF today 04/08/24. PASRR done. SW updated pt and spouse bedside on above and they remain agreeable. Dtrs were not bedside so SW did not discuss transport yet as unclear pt's transportation needs yet of private vehicle vs cabulance. BF Original Note: DCP SNF Cont: Per MD, pt still below baseline and would benefit from SNF at d/c and uncertain if pt medically stable for discharge yet today. SW met bedside with pt and two adult Dtrs and explained role and discussed barrier to SNF if pt's Lupron Oncology shot but pt's daily PO cancer medication could be used at SNF since his home med is paid for and they acknowledge understanding. Family would be agreeable to postponing Lupron if Oncologists agreeable until after SNF. JEANCARLOS updated on 1)[facility] and 2) [facility] reviewing and waiting to hear if either can accept and preference remains [facility] due to location and second preference [facility] and they are aware that [facility]. Family and pt confirms pt's Oncologist is Dr. Mooney at [facility] and SW called Dr. Mooeny office and spoke to the manager mobility Татьяна Hou and his next scheduled appointment is May 01 2024 with check in 1250 with labs and then Lupron shot and an infusion. They confirm that if pt still at SNF on 05/01/24 for his appointment, Dr. Mooney agreeable with postponing his treatment until after he discharges from SNF. SW updated [facility] and their DNS and team will need to confirm they can accept pt and currently their next male bed is this week in 2-3 days. SW called [facility] admissions and they confirm they received the referral but have not reviewed and they will review today. SW updated family bedside on above and they remain agreeable and took the info on pt's upcoming Oncologist appointment and will keep Oncology updated on pt's SNF stay. PASRR done. Plan: SW to follow closely for 1)[facility] and 2) [facility] review to determine if one can accept and [facility] review if first two preferences can't accept. ELOY Heller
[2024-04-08] MEDS: POTASSIUM CHLORIDE 20 MEQ TAB 40 MEQ PO (12:13)
--- NOTE | 2024-04-08 16:29 | PT-IP ANOTE ---
Pt supine in bed and nearby. Pt dyspneic at rest. He declines OOB and mobility with PT this afternoon. Will try PT earlier in the day next date as schedule allows.
--- NOTE | 2024-04-08 17:40 | PM.PN.1 ---
Subjective Subjective Interval history: Summary: This is a 73-year-old male with a functional decline over several weeks. He presented with acute anemia but denied any evidence of rectal bleeding. He also has metastatic prostate cancer, and was noted to have increased or new splenomegaly on CT scan. S: The patient remains persistently weak. He has been eating and drinking little in the last 24 hours. He is seen with his concerned family at bedside. He has had increased pain in his left side and ribs and pain medication has been increased to oxycodone with improved relief. Developing some swelling today. Exam Vital Signs (past 8 hours): - 04/08/24 12:00 04/08/24 16:00 Temperature 98.8 F 98.5 F Pulse Rate 112 H 114 H Respiratory Rate 20 20 Blood Pressure 117/56 L 127/65 Pulse Oximetry 94 95 Oxygen Flow Rate 0 0 Oxygen Delivery Method Room Air Oxygen Flow Rate 0 Narrative Exam Narrative: NAD, alert and oriented. Fluent speech. Appears fatigued and weak. Lungs are clear, normal rate and effort. Heart is regular, no murmur gallop or rub. Abdomen is soft, non distended. Mildly tender in left upper quadrant and left rib to palpation. Extremities have trace to 1+ edema Objective Labs 04/08/24 04:14 04/08/24 04:14 Labs: Laboratory Results - last 24 hr 04/06/24 04/08/24 15:00 04:14 WBC 5.0 RBC 2.75 L Hgb 7.8 L Hct 23.8 L MCV 86.6 MCH 28.6 MCHC 33.0 RDW 16.3 H Plt Count 65 L Neut % (Auto) 59.6 Lymph % (Auto) 2.1 L [place] % (Auto) 37.6 H Eos % (Auto) 0.1 L Baso % (Auto) 0.6 Neut # (Auto) 3000 Lymph # (Auto) 100 L [place] # (Auto) 1900 H Eos # (Auto) 0 Baso # (Auto) 0 Smear Path Review Sodium 131 L Potassium 3.5 Chloride 102 Carbon Dioxide 19 L BUN 27 H Creatinine 1.26 H Estimated GFR 60 BUN/Creatinine Ratio 21.4 Glucose 102 Calcium 10.7 H Total Bilirubin 1.6 H AST 75 H ALT 21 Alkaline Phosphatase 161 H Total Protein 5.1 L Albumin 2.5 L Globulin 2.6 Albumin/Globulin Ratio 1.0 PFSH Medical History Low back pain Bilateral hip pain Osteoarthritis of left hip Left hip pain SI (sacroiliac) joint dysfunction Neuroforaminal stenosis of lumbar spine Unspecified atherosclerosis of [place] arteries of extremities, unspecified extremity Anemia Bone mass Prostate cancer Venous insufficiency Lumbar back pain with radiculopathy affecting left lower extremity Scoliosis Marijuana smoker High cholesterol Hypertension Surgical History H/O inguinal hernia repair Family History Father Prostate cancer Mother Diabetes mellitus Obesity Grandmother Diabetes mellitus Obesity Social History household members: spouse and other Smoking Status: Former smoker Tobacco: How many years used: 21 alcohol intake: former substance use type: marijuana Assessment & Plan Assessment & Plan narrative: 1. Weakness, multifactorial. Likely a combination of anemia and underlying conditions, volume depletion with acute kidney injury. Family traces his decline post dating COVID and flu vaccination 2 weeks ago. He has never had COVID. There is no evidence of any infection with unremarkable chest x-ray and lower chest CT, unremarkable abdomen CT, and negative urinalysis. Consider possible progressive prostate cancer noting increased sclerosis on imaging, elevated calcium levels and elevated alkaline phosphatase, despite stable and low PSA value. Administered ferrous gluconate 250 mg IV on 04/05/2024 and 04/06/2024. Elevated LDH and reticulocyte suggestive of hemolytic anemia but normal haptoglobin makes this highly unlikely. Negative JACKY and hepatitis B and C serologies noted. TTP unlikely. Pending Prem, pathologist review for schistocytes, [id number]. - start marinol today, normally takes CBD gummies. may help with appetite stimulation. - may also be symptomatic hypercalcemia with mild encephalopathy, check PTH and PTHrP. 2. New splenomegaly (with cirrhosis), present on admission and active. - start lactulose with constipation today to see if improved energy, possible mild hepatic encephalopathy? will also add on ammonia level tomorrow. 3. RACHEL and volume depletion, hypercalcemia with probable acute metabolic encephalopathy present on admission and active. Stop IV fluids today with development of some peripheral edema. Calcium has improved but still above normal although corrected is still quite high above 11. - ordered PTH and PTHrp - check Phos, Vit. D levels - Give calcitonin IM x4 doses however pharmacy states hospital is out of this at the moment, Zometa 4 mg x1. 4. Left upper quadrant and thorax pain, present on admission and improved. - This pain seems to be positional intermittent as more likely related to his ribs and sclerotic prostatic cancer then his splenomegaly, but splenomegaly remains a possibility. - continue as needed pain control. 5. Acute respiratory failure with hypoxia. Present on admission and improving. -normal chest x-ray 6. Normocytic anemia, thrombocytopenia. Present on admission and active. Iron deficiency noted. Administer IV iron. Hemolysis much less likely. 7. BPH. Present on admission and stable. 8. Metastatic prostate cancer. Present on admission and active. PSA 0.102 on enzalutamide therapy. 9. Hyponatremia, present on admission and persistent/stable. Plan: - Give Zometa, unfortunately hospital does not have any doses of calcitonin available at this time but overall calcium level is improved. Will need to stop fluids with development of edema. - follow up on PTH and PTHrP, check Vit D levels and Phos levels as well. - Family not interested in hospice at this time based on discussions. Would like to try rehab - Continue therapies as tolerated - likely SNF discharge. Will need improvement in calcium, and stable h/h Met with an discussed the clinical situation with and daughters today. DVT prophylaxis SCDs for now due to severe anemia. Code status full code Has been in the hospital for 2 midnights and requires additional days for evaluation and management. Time-Based Coding :: [TOTAL MINUTES] spent with patient and on the chart (including review of chart, obtaining history, exam, reviewing outside data, placing orders, documenting exam and treatment plan, and counseling patient) on [DATE]. Quality VTE Deep Vein Thrombosis/Pulmonary Embolism Present on Admission: No
[2024-04-08] MEDS: droNABinol 2.5 MG CAPSULE PO ×2 (17:56→20:50)
[2024-04-08] MEDS: ZOLEDRONIC ACID 4 MG in SODIUM CHLORIDE 0.9% 100 ML 315 MG IV (18:23)
[2024-04-08] MEDS: ATORVASTATIN 20 MG TABLET PO (20:50)
[2024-04-08] MEDS: TAMSULOSIN 0.4 MG CAPSULE PO (20:50)
[2024-04-08] MEDS: LACTULOSE 20 GM/30 ML SOLUTION 10 GM PO (20:50)
[2024-04-08] MEDS: SODIUM CHLORIDE 0.9% FLUSH 10 ML IV (20:51)
[2024-04-09] VITALS (12 sets, daily range): BP systolic 106–147; BP diastolic 52–82; PULSE 95–122; RESP 17–28; TEMP 35.9–38.4; O2SAT 91–96
[2024-04-09] MEDS: OXYCODONE IR 5 MG TABLET PO ×2 (03:37→11:31)
[2024-04-09] MEDS: ACETAMINOPHEN 325 MG TABLET 650 MG PO ×2 (03:37→10:19)
[2024-04-09 04:34] LABS: Add Manual Diff / Slide Review NO; Basophils Absolute Auto 0 /uL (0-100); Basophils Percent Auto 0.5 % (0-2); Eosinophils Absolute Auto 0 /uL (0-450); Eosinophils Percent Auto 0.1 % (2-4); Hematocrit 22.3 % (41-53); Hemoglobin 7.3 g/dL (13.5-17.5); Lymphocytes Absolute Auto 1200 /uL (1100-4500); Lymphocytes Percent Auto 25.2 % (25-40); Mean Corpuscular HGB Conc 32.8 % (30-36); Mean Corpuscular Hemoglobin 28.5 PG (26-34); Mean Corpuscular Volume 86.9 fL (80-100); Monocytes Absolute Auto 500 /uL (0-900); Monocytes Percent Auto 10.1 % (3-14); Neutrophils Absolute Auto 3100 /uL (1500-7000); Neutrophils Percent Auto 64.1 % (50-75); Platelet Count 59 X10^3/uL (150-400); Red Blood Cell Count 2.56 X10^6/uL (4.5-5.9); Red Cell Distribution Width 16.6 % (11.6-14.8); White Blood Cell Count 4.8 X10^3/uL (4.5-11.0)
[2024-04-09 04:51] LABS: Ammonia (NH3) 14 umol/L (9-30)
[2024-04-09 04:53] LABS: Alanine Aminotransferase 20 IU/L (<50); Albumin 2.4 g/dL (3.5-5.0); Albumin Globulin Ratio 0.9 (1.0-2.8); Alkaline Phosphatase 188 U/L (38-126); Aspartate Aminotransferase 77 IU/L (17-59); BUN Creatinine Ratio 19.6 (6-22); Blood Urea Nitrogen 21 mg/dL (9-20); Calcium 10.6 mg/dL (8.4-10.2); Carbon Dioxide 18 mmol/L (22-32); Chloride 104 mmol/L (98-107); Estimated Glomerular Filt Rate > 60 mL/min (>60); Globulin 2.6 g/dL (1.7-4.1); Glucose 94 mg/dL (80-110); HEMOLYSIS < 15 (0-50); Potassium 3.8 mmol/L (3.4-5.1); Sodium 130 mmol/L (137-145)
[2024-04-09 05:15] LABS: Phosphorous 1.9 mg/dL (2.3-3.7)
[2024-04-09 05:32] LABS: Vitamin D 25 Hydroxy (D3) 64.2 ng/mL (30.0-100.0)
[2024-04-09] MEDS: PANTOPRAZOLE DR 20 MG TABLET 40 MG PO (06:15)
[2024-04-09] MEDS: ONDANSETRON 4 MG ODT SL (09:14)
[2024-04-09] MEDS: LOSARTAN 50 MG TABLET 100 MG PO (11:32)
[2024-04-09] MEDS: AMLODIPINE 5 MG TABLET PO (11:32)
[2024-04-09] MEDS: droNABinol 2.5 MG CAPSULE PO ×2 (11:32→21:45)
[2024-04-09] MEDS: FERROUS SULFATE 325 MG TABLET PO (11:32)
[2024-04-09] MEDS: SODIUM CHLORIDE 0.9% FLUSH 10 ML IV ×2 (11:33→21:45)
[2024-04-09] MEDS: SODIUM,POTASSIUM PHOSPHATES PACKET 2 EACH PO ×2 (11:33→18:18)
[2024-04-09] MEDS: DOCUSATE 100 MG CAPSULE PO ×2 (11:38→21:45)
[2024-04-09] MEDS: LORATADINE 10 MG TABLET PO (11:38)
[2024-04-09] MEDS: LACTULOSE 20 GM/30 ML SOLUTION 10 GM PO ×2 (11:40→21:45)
--- NOTE | 2024-04-09 11:40 | PT.IPTN ---
Current Diagnoses Heart failure, unspecified (04/03/24) Physical Therapy Treatment Note M2 PT-IP Current Condition Start: 04/03/24 17:41 Freq: NEEDED Status: Active Protocol: Document 04/03/24 16:05 AB (Rec: 04/03/24 17:56 AB [id number]) Physical Therapy Current Condition Current Condition Evaluation Date 04/03/24 Treatment Diagnosis RACHEL; splenomegaly; difficulty in walking Onset Date 04/03/24 M3 PT-IP Subjective Start: 04/03/24 17:41 Freq: NEEDED Status: Active Protocol: Document 04/09/24 11:40 AB (Rec: 04/09/24 12:55 AB [id number]) Subjective Physical Therapy Visit Type Type Treatment Note Visit Start Time 11:40 Visit Stop Time 12:00 Number of PLATE KEEPER Visits 0 Physical Therapy Visit Comments Patient Comments agreeable to do PT M4 PT-IP Mobility and Gait Start: 04/03/24 17:41 Freq: NEEDED Status: Active Protocol: Document 04/09/24 11:40 AB (Rec: 04/09/24 12:55 AB [id number]) PT-Bed Mobility Assessment Supine to Sit Supine to Sit Maximum Assistance,1 Person Assistance,2 Person Assistance ,Head of Bed Elevated,Bedrails PT-Transfer Assessment Sit to and From Stand Sit to and from Stand Moderate Assistance,1 Person Assistance,2 Person Assistance ,Use of Upper Extremities Equipment Transfer Assistive Device Gait Belt,Front Wheeled Walker Orthotic/Prosthetic Devices or Brace: No Transfers Transfer Destination Chair Transfer Technique Stand Step Pivot Transfer Ability Level of Assist Moderate Assistance,Maximum Assistance,1 Person Assistance ,Use of Upper Extremities Comments Mobility Comments pt supine in bed and asleep. daughter in room. talked to pt and pt agreed to get out of the bed. pt needs cues to stay awake. O2 sat : 92% RA and HR: 120bpm pt completed supine to sit max A and max cues. HOB elevated . pt able to sit on EOB CGA. max A for scooting to EOB. completed sit to stand mod A x 1-2 and max cues and step transfer to chair using FWW mod to max A and max cues. pt refused ambulation. positioned pt on the chair. call light and table placed within reach. M5 PT-IP Objective Assessments Start: 04/03/24 17:41 Freq: NEEDED Status: Active Protocol: Document 04/03/24 16:05 AB (Rec: 04/03/24 17:56 AB [id number]) Orientation Orientation/Cognition Level of Alertness Alert Orientation Name,Place,Situation Language Function Ability Hard of Hearing Memory Description No Deficits Noted Gross Range of Motion Lower Extremity ROM Assessment Within Functional Limits Strength Lower Extremity Strength Assessment Within Functional Limits Muscle Tone Muscle Tone WNL Yes M6 PT-IP Treatment Start: 04/03/24 17:41 Freq: NEEDED Status: Active Protocol: Document 04/09/24 11:40 AB (Rec: 04/09/24 12:55 AB [id number]) Physical Therapy Treatment Education Education Provided Safety M7 PT-IP Assessment and Plan Start: 04/03/24 17:41 Freq: NEEDED Status: Active Protocol: Document 04/09/24 11:40 AB (Rec: 04/09/24 12:55 AB [id number]) PT Summary Assessment and Plan Potential Rehabilitation Potential Fair Summary Impairments Pain,ROM,Strength,Balance, Coordination,Sensation,Tone, Cognition,Bed Mobility, Transfers,Gait,Activity Tolerance Progress Towards Goals Slow Progress due to Medical Issues,Slow Progress due to Activity Tolerance Assessment Summary pt with a decline in mobility and needing mod to max Ax 1-2 for mobility. pt with decrease activity tolerance affecting level of assistance. pt will require SNF rehab to improve overall strength and function. Goals Bed Mobility Goal Independent Transfer Goal Independent,Front Wheeled Walker Gait Goal Independent,Front Wheel Walker Gait Distance 150 Other Goals improve bed mobility, transfers without AD/LRAD ~ 200 ft SBA Days to Meet Goals 10 Frequency of Treatment Frequency Of Treatment Once a Day Treatment Plan Physical Therapy Treatment Plan Bed Mobility Training,Transfer Training,Gait Training, Therapeutic Exercise,Balance Retraining,Discharge Planning, Hot or Cold Pack,Neuromuscular Re-ed,Coordination Retraining ,Manual Therapy Precautions Other Precautions Hazardous Drug precautions Recommendations To Nursing Amount of Assist Needed 2 Person Assist Discharge Recommendations PT Discharge Recommendations SNF Rehab Transportation Needs at Discharge Wheelchair/Cabulance
--- NOTE | 2024-04-09 12:06 | DIET.CONS ---
Dietary Consultation Note Admission Date: 04/03/2024 01:27 Assessment: 73 y M admitted for anemia. PMH of metastatic prostate cancer and new splenomegaly on CT scan. RD screened for LOS. Attempted to meet w/ pt x2. Pt receiving personal care from nursing staff or down for CT. Family in room while pt out getting CT, reports pt had little or no PO intake 4-5 days before admission. Before this, pt had normal appetite and intakes for age and was walking .5 mile daily. Today they brought a coffee latte made with just half and half and pt drank all of it. Has been drinking some orange juice. Doesn't like sweet flavors. Discussed a possible tolerated option for dinner and coordinated with kitchen staff. EMR reviewed. During admission pt with decrease in PO intakes starting Monday. Marinol was started yesterday. Ht: 177.8 cm Wt: 95 kg BMI: 29.5 UBW: 98.656 kg on 12/05/23 (-3-5% loss in 4 months, non-severe) Last BM: 04/03/24 (04/03/24 12:30) MNA: 12 Raji Score: 16 Diet: 04/02/24 13:33 NPO Diet Diet Modifications: NPO Type: NPO except for Meds 04/03/24 Breakfast Heart Healthy Diet Diet Modifications: Nutrition Percent Meal Consumed refused dinner 04/08/24 18:00 Percent Meal Consumed 50% 04/08/24 10:26 Labs: RBC 2.56 X10^6/uL (4.5-5.9) L 04/09/24 04:23 Hgb 7.3 g/dL (13.5-17.5) L 04/09/24 04:23 Hct 22.3 % (41-53) L 04/09/24 04:23 Creatinine 1.07 mg/dL (0.66-1.25) 04/09/24 04:23 Lactate 2.1 mmol/L (0.7-2.1) 04/02/24 16:01 Iron 23 ug/dL (49-181) L 04/04/24 04:40 % Saturation 10 % (20-50) L 04/04/24 04:40 NT-Pro-B Natriuret Pep 1100 pg/mL (<125) H 04/02/24 22:15 Nutrition Diagnosis: Inadequate oral intake r/t weakness and lack of appetite aeb <25% EER in past 4 days Interventions: 1. Discussed a possible tolerated dinner option EER: [id number] kcals (25 kcals/kg per BMI, cirrhosis, cancer) 95-120 g protein (1.2-1.5 g/kg per adj.IBW per cancer, cirrhosis) Monitoring/Evaluations: PO intakes Electronically Signed by: Ni Vega 04/09/24 12:06 Clinical Dietitian [address] [address]
--- NOTE | 2024-04-09 13:59 | P.PN_ITS ---
Subjective Subjective Interval history: Patient is more lethargic today, Hg down to 7.3. Also tachycardic today 120s. He denies abdominal pain. But remains weak, tired, and not interested in food. Exam Vital Signs (past 8 hours): - 04/09/24 08:00 04/09/24 11:32 04/09/24 12:45 Temperature 98.1 F 96.7 F L Pulse Rate 105 H 122 H Respiratory Rate 22 22 Blood Pressure 138/69 138/69 109/52 L Pulse Oximetry 91 93 Oxygen Flow Rate 0 0 Oxygen Delivery Method Room Air Oxygen Flow Rate 0 Narrative Exam Narrative: NAD, alert and oriented. Fluent speech. Appears fatigued and weak. Lungs are clear, normal rate and effort. Heart is regular, no murmur gallop or rub. Abdomen is soft, non distended. Mildly tender in left upper quadrant and left rib to palpation. Extremities have trace to 1+ edema Objective Labs 04/09/24 04:23 04/09/24 04:23 Labs: Laboratory Results - last 24 hr 04/09/24 04/09/24 04:23 13:50 WBC 4.8 RBC 2.56 L Hgb 7.3 L Hct 22.3 L MCV 86.9 MCH 28.5 MCHC 32.8 RDW 16.6 H Plt Count 59 L Neut % (Auto) 64.1 Lymph % (Auto) 25.2 D [place] % (Auto) 10.1 Eos % (Auto) 0.1 L Baso % (Auto) 0.5 Neut # (Auto) 3100 Lymph # (Auto) 1200 [place] # (Auto) 500 Eos # (Auto) 0 Baso # (Auto) 0 Sodium 130 L Potassium 3.8 Chloride 104 Carbon Dioxide 18 L BUN 21 H Creatinine 1.07 Estimated GFR > 60 BUN/Creatinine Ratio 19.6 Glucose 94 Calcium 10.6 H Phosphorus 1.9 L Total Bilirubin 2.0 H AST 77 H ALT 20 Alkaline Phosphatase 188 H Ammonia 14 Total Protein 5.0 L Albumin 2.4 L Globulin 2.6 Albumin/Globulin Ratio 0.9 L 25-OH Vitamin D Total 64.2 Crossmatch See Detail [facility] Medical History Low back pain Bilateral hip pain Osteoarthritis of left hip Left hip pain SI (sacroiliac) joint dysfunction Neuroforaminal stenosis of lumbar spine Unspecified atherosclerosis of [place] arteries of extremities, unspecified extremity Anemia Bone mass Prostate cancer Venous insufficiency Lumbar back pain with radiculopathy affecting left lower extremity Scoliosis Marijuana smoker High cholesterol Hypertension Surgical History H/O inguinal hernia repair Family History Father Prostate cancer Mother Diabetes mellitus Obesity Grandmother Diabetes mellitus Obesity Social History household members: spouse and other Smoking Status: Former smoker Tobacco: How many years used: 21 alcohol intake: former substance use type: marijuana Assessment & Plan Assessment & Plan narrative: This is a 73 year old male with PMH of metastatic prostate cancer, HTN, HLD who presented with profound lethargy. Found to have new cirrhosis with splenomegaly on imaging, along with new anemia and thrombocytopenia. Evalution for hemolysis has been unremarkable with a normal haptoglobin. Likely splenic sequestration at this time. No signs of active bleeding except for h/h decline daily. Now s/p 2 U PRBC transfusion with another today. Also hypercalcemic on admission, s/p Zometa x1 dose given 04/08. Developed tachycardia today, worsened lethargy, will rule out PE with CTA. 1. Weakness, multifactorial. Likely a combination of anemia along with hypercalcemia, new cirrhosis. Family traces his decline post dating COVID and flu vaccination 2 weeks ago. He has never had COVID. There is no evidence of any infection with unremarkable chest x-ray and lower chest CT, unremarkable abdomen CT, and negative urinalysis. Consider possible progressive prostate cancer noting increased sclerosis on imaging, elevated calcium levels and elevated alkaline phosphatase, despite stable and low PSA value. Administered ferrous gluconate 250 mg IV on 04/05/2024 and 04/06/2024. Elevated LDH and reticulocyte suggestive of hemolytic anemia but normal haptoglobin makes this highly unlikely. Negative JACKY and hepatitis B and C serologies noted. Pending Prem, [id number]. No schistocytes noted on manual smear review. - reduce marinol to Prn today with lethargy, try to reduce oxycodone as well to 2.5 mg prn from 5. - may also be symptomatic hypercalcemia with mild encephalopathy, PTH and PTHrP pending - transfuse 1 U PRBC today, possible worsening today with Hg now at 7.3. 2. New splenomegaly and cirrhosis, present on admission and active. - started lactulose with constipation to see if improved energy, possible mild hepatic encephalopathy? No bowel movements yet with lactulose, ammonia level was 12. - consider furosemide and aldactone depending on CTA for possible volume overload, will give 20 mg lasix with transfusion today. - not enough ascites for paracentesis at this time - MELD-Na of 19 based on most recent labs. - the underlying etiology of this acute development of cirrhosis with splenomegaly is not entirely clear. He used to drink fair amounts of alcohol, but none recently. 3. a) RACHEL and volume depletion, resolved. RACHEL has resolved as of this morning. b) Hypercalcemia with probable acute metabolic encephalopathy present on admission and active. Stopped IV fluids 04/08 with development of peripheral edema. Calcium has improved but still above normal although corrected is still quite high above 11. - ordered PTH and PTHrp, pending. - Phos mildly low at 1.9. - Give calcitonin IM x4 doses however [facility] is out of this at the moment, Zometa 4 mg given x1. If no improvement in calcium consider transfer for denosumab. - had to stop IV fluids for now given development of LE edema, it is improved today. 4. Left upper quadrant and thorax pain, present on admission and improved. - This pain seems to be positional intermittent as more likely related to his ribs and sclerotic prostatic cancer then his splenomegaly, but splenomegaly remains a possibility. - continue as needed pain control, but will reduce oxycodone dose with lethargy today. 5. Acute respiratory failure with hypoxia. Present on admission. -normal chest x-ray -tachycardia today, may be anemia related but will do CTA given not on ppx due to anemia. Pending results now. 6. Normocytic anemia, thrombocytopenia. Present on admission and active. Iron deficiency noted. Administered IV iron x2. Hemolysis much less likely. - transfuse another 1 U PRBC today. - likely splenic sequestration from cirrhosis - normal haptoglobin. Retic count 3.3% (slightly elevated) 7. BPH. Present on admission and stable. 8. Metastatic prostate cancer. Present on admission and active. PSA 0.102 on enzalutamide therapy. 9. Hyponatremia, present on admission and persistent/stable. Plan: - Given Zometa 4mg x1, unfortunately hospital does not have any doses of calcitonin available at this time but overall calcium level is improved. Had to stop fluids with development of edema yesterday. - PTH and PTHrP are send out tests, awaiting results. Vit D level was 64, Phos mildly low at 1.9. - Continue therapies as tolerated - likely SNF discharge. Will need improvement in calcium, and stable h/h - CTA to rule out PE now. - Family not interested in hospice at this time based on discussions. Would like to try rehab if patient is able to. Long discussion today as family is becoming frustrated with lack of improvement thus far. They requested transfer for higher level of care, however he does require a higher level facility for emergent consultation at this time. Discussed current management of his anemia is primarily supportive. And that with Zometa his calcium should improve, and with transfusion today his energy should improve. Discussed that should calcium continue to be high despite zolendronic acid, with lack of availability of denosumab and depending on pthrp results, he may require transfer for denosumab and further oncology consultation in the coming days. DVT prophylaxis SCDs for now due to severe anemia. Code status full code Remains inpatient: likely in the hospital for several more days before either transfer for further management of hypercalcemia or discharge to SNF. Time-Based Coding :: [TOTAL MINUTES] spent with patient and on the chart (including review of chart, obtaining history, exam, reviewing outside data, placing orders, documenting exam and treatment plan, and counseling patient) on [DATE]. Quality VTE Deep Vein Thrombosis/Pulmonary Embolism Present on Admission: No
--- NOTE | 2024-04-09 14:09 | DI.CT.S_ITS ---
PROCEDURE: CT ANGIO CHEST PE PROTOCOL INDICATIONS: r/o PE, tachycardia, borderline hypoxia TECHNIQUE: After the administration of intravenous contrast, 2 mm thick sections acquired from the pulmonary apices to the posterior costophrenic angles. 3-dimensional maximum intensity projection (MIP) coronal and sagittal reformats were then acquired through the thorax. For radiation dose reduction, the following was used: automated exposure control, adjustment of mA and/or kV according to patient size. COMPARISON: [facility], CT, CT ABDOMEN PELVIS W CON, 04/02/2024, 18:53. FINDINGS: Image quality: Diagnostic. Pulmonary arteries: Pulmonary arteries are normal in size, and demonstrate no intraluminal filling defects to suggest central pulmonary embolism. Lower Neck: Prominent number of supraclavicular fossa nodes, not enlarged by size criteria. Thyroid: No thyroid nodules which require sonographic follow up, per consensus guidelines. Axillae: Enlarged axillary lymph nodes. Index nodule measures 1.5 centimeter short axis in the left level 1 station (series 5, image 34). Chest Wall: Unremarkable. Bones: Stable osseous metastatic disease. Lungs and Pleura: Mild paraseptal and centrilobular emphysema. Bronchial thickening. Trace pleural effusions, left greater than right. No consolidation. Heart: Heart size is normal. No pericardial effusion. Thoracic Vessels: No aortic aneurysm. Mediastinum and Dari: No enlarged lymph nodes. Esophagus: Patulous esophagus containing fluid. Upper Abdomen: Marked splenomegaly period partially visualized exophytic cyst off the superior pole of the right kidney. IMPRESSION: No pulmonary embolus. Bronchial thickening, which may indicate infectious or inflammatory bronchitis. Enlarged axillary chain lymph nodes and marked splenomegaly, likely indicating lymphoma. Further workup is indicated. Patulous esophagus containing significant fluid. An obstructive process in the abdomen is not excluded given this appearance. Consider CT abdomen pelvis. Trace pleural effusions. Other chronic findings as above. Dictated by: Hernando Cage M.D. on 04/09/2024 at 14:58 Approved by: Hernando Cage M.D. on 04/09/2024 at 15:03
--- NOTE | 2024-04-09 14:26 | OT.IP.TRT ---
Current Diagnoses Heart failure, unspecified (04/03/24) Occupational Therapy Treatment Note M2 OT-IP Current Condition Start: 04/05/24 14:33 Freq: Status: Active Protocol: Document 04/05/24 14:33 [facility] (Rec: 04/05/24 14:50 [facility] [id number]) Occupational Therapy Current Condition Current Condition Evaluation Date 04/05/24 Treatment Diagnosis RACHEL, Splenomegaly, generalized weakness Diagnosis Onset Date 04/03/24 M3 OT- IP Subjective and Pain Start: 04/05/24 14:33 Freq: Status: Active Protocol: Document 04/09/24 14:20 [facility] (Rec: 04/09/24 14:26 [facility] [id number]) OT- Subjective Occupational Therapy Visit Type Type Treatment Note Visit Start Time 14:00 Visit Stop Time 14:16 Occupational Therapy Visit Comments Patient Comments Pt sitting up in the recliner and requesting to go back to bed. OT Pain Assessment Pain When Pain Assessed At Rest Pain Present Pain Present Pain Reported Location Buttock Pain Behaviors Facial Grimacing,Restlessness M7 OT- IP Mobility and Balance Start: 04/05/24 14:33 Freq: Status: Active Protocol: Document 04/09/24 14:20 [facility] (Rec: 04/09/24 14:26 [facility] [id number]) OT- Bed Mobility Assessment Sit to Supine Sit to Supine Assist Moderate Assistance OT-Transfer Assessment Sit to and From Stand Sit to and from Stand Maximum Assistance Transfers Transfer Ability Moderate Assistance Comments Mobility Comments MAXA X 1 to satnd to the FWW and MODA to use the FWW to transfer back to bed. Pt needing assist to guide the FWW and for his balance. OT- Balance Assessment Sitting Balance and Reactions Static Sitting Balance Ability Fair Dynamic Sitting Balance Ability Poor Standing Balance and Reactions Static Standing Balance Ability Poor Dynamic Standing Balance Ability Poor Comments Other Balance Tests/Deviations/Treatment Pt very fatigued but able to : assist for transfer needs. M9 OT- IP Assessment and Plan Start: 04/05/24 14:33 Freq: Status: Active Protocol: Document 04/09/24 14:20 [facility] (Rec: 04/09/24 14:26 [facility] [id number]) OT Summary Assessment and Plan Potential Rehabilitation Potential Fair Analytic Complexity at Evaluation High Summary OT Impairments Pain,Range of Motion,Strength, Balance,Functional Mobility, Self-Feeding,Grooming,Dressing ,Toileting,Bathing,Toilet Transfers,Shower Transfers, Activity Tolerance Progress Towards Goals Slow Progress due to Pain,Slow Progress due to Medical Issues,Slow Progress due to Activity Tolerance Assessment Summary Pt high complexity and main barriers are pain, high medical needs, decreased strength, endurance and activity tolerance. Pending medical needs and prognosis- questionable whether pt may be best off to be home with 24/7 assist and possible palliative care versus skilled rehab as pt appears very medically ill at this time. Pt just able to do transfer at this time and was taken down in the bed for chest CT. Goals Self-Feeding Goal Independent Grooming Goal Independent Dressing Goal Minimal Assistance Toileting Goal Standby Assistance Bathing Goal Moderate Assistance Toilet Transfer Goal Independent Shower Transfer Goal Contact Guard Assistance Days to Meet Goals 25 Frequency of Treatment Other frequency 5x/week Treatment Plan OT Treatment Plan ADL Training,Functional Mobility,Patient/Family Education,Discharge Planning Discharge Recommendations OT Discharge Recommendations Home with 24/7 Assist Available,SNF Rehab,Home vs SNF Transportation Needs at Discharge Wheelchair/Cabulance
--- NOTE | 2024-04-09 14:51 | CM.DPC ---
DCP Cont. Reviewed EMR and team rounds for status updates. Pt has been accepted and has an authorization for [facility] in [place]. We will keep them updated, he's not yet stable for d/c. Updated family. Authorization# [id number], effective starting 04/09-04/11, so will need new auth if he remains inpt. *If pt doesn't improve enough for SNF, second plan is home w/hospice.
[2024-04-09 15:09] LABS: ANA Screen, IFA Negative (.)
[2024-04-09] MEDS: FUROSEMIDE 20 MG/2 ML VIAL IV (18:18)
[2024-04-09] MEDS: TAMSULOSIN 0.4 MG CAPSULE PO (21:45)
[2024-04-09] MEDS: ATORVASTATIN 20 MG TABLET PO (21:45)
[2024-04-10] VITALS: BP 139/79; PULSE 117; RESP 29; TEMP 37.1; O2SAT 94
[2024-04-10] MEDS: OXYCODONE IR 5 MG TABLET 2.5 MG PO (00:46)
[2024-04-10] MEDS: OXYCODONE IR 5 MG TABLET PO (02:46)
[2024-04-10] MEDS: ACETAMINOPHEN 325 MG TABLET 650 MG PO (02:46)
[2024-04-10 04:00] VITALS: BP 102/49; PULSE 113; RESP 24; TEMP 37.2; O2SAT 90
[2024-04-10 04:43] LABS: Add Manual Diff / Slide Review NO; Basophils Absolute Auto 100 /uL (0-100); Basophils Percent Auto 1.3 % (0-2); Eosinophils Absolute Auto 0 /uL (0-450); Hematocrit 24.7 % (41-53); Hemoglobin 8.3 g/dL (13.5-17.5); Lymphocytes Absolute Auto 600 /uL (1100-4500); Lymphocytes Percent Auto 13.6 % (25-40); Mean Corpuscular HGB Conc 33.4 % (30-36); Mean Corpuscular Volume 86.8 fL (80-100); Monocytes Absolute Auto 1200 /uL (0-900); Monocytes Percent Auto 24.9 % (3-14); Neutrophils Absolute Auto 2800 /uL (1500-7000); Neutrophils Percent Auto 60.2 % (50-75); Platelet Count 54 X10^3/uL (150-400); Red Blood Cell Count 2.85 X10^6/uL (4.5-5.9); Red Cell Distribution Width 16.2 % (11.6-14.8); White Blood Cell Count 4.7 X10^3/uL (4.5-11.0)
[2024-04-10 04:53] LABS: Alanine Aminotransferase 20 IU/L (<50); Albumin 2.4 g/dL (3.5-5.0); Albumin Globulin Ratio 0.9 (1.0-2.8); Alkaline Phosphatase 198 U/L (38-126); Aspartate Aminotransferase 71 IU/L (17-59); BUN Creatinine Ratio 21.1 (6-22); Blood Urea Nitrogen 24 mg/dL (9-20); Carbon Dioxide 20 mmol/L (22-32); Chloride 103 mmol/L (98-107); Estimated Glomerular Filt Rate > 60 mL/min (>60); Globulin 2.7 g/dL (1.7-4.1); Glucose 99 mg/dL (80-110); HEMOLYSIS < 15 (0-50); Potassium 3.5 mmol/L (3.4-5.1); Sodium 131 mmol/L (137-145); Total Protein 5.1 g/dL (6.3-8.2)
[2024-04-10] MEDS: PANTOPRAZOLE DR 20 MG TABLET 40 MG PO (06:08)
--- NOTE | 2024-04-10 07:06 | PC.NURSE ---
Pt very lethargic and fatigued throughout shift. A&Ox3, but confused and impulsive regarding short-term ideas. ~2200 pt became more agitated, pulling off condom catheters and attempting to use urinal with multiple incidents of incontinence. Pt's HR maintained in the 120-130 range, pt denying pain, but moaning and restless. This RN gave pain medication as per ~0100 MAR, with dose of 2.5 mg seeming ineffective for pain. Order for corey catheter/increase of oxy to [address] Del Real ~0300. Placed/medicated as per order, and pt was able to fall asleep around 0415. Hr decreased to 100-110 per telemetry. Large dark brown/green incontinent BM around 2300. Pt given total bed bath/linen change/skin care. Stool guiaced with negative result.
[2024-04-10 08:00] VITALS: BP 132/71; PULSE 111; RESP 16; TEMP 36.6; O2SAT 90
[2024-04-10] MEDS: ONDANSETRON 4 MG ODT SL (08:55)
[2024-04-10] MEDS: POTASSIUM CHLORIDE 20 MEQ TAB 40 MEQ PO (10:13)
[2024-04-10] MEDS: LORATADINE 10 MG TABLET PO (10:13)
[2024-04-10] MEDS: FERROUS SULFATE 325 MG TABLET PO (10:14)
[2024-04-10] MEDS: AMLODIPINE 5 MG TABLET PO (10:14)
[2024-04-10] MEDS: LACTULOSE 20 GM/30 ML SOLUTION 10 GM PO (10:14)
[2024-04-10] MEDS: DOCUSATE 100 MG CAPSULE PO (10:14)
[2024-04-10 10:15] VITALS: BP 132/71; PULSE 111
[2024-04-10] MEDS: SODIUM CHLORIDE 0.9% FLUSH 10 ML IV (10:15)
[2024-04-10] MEDS: LOSARTAN 50 MG TABLET 100 MG PO (10:15)
--- NOTE | 2024-04-10 10:15 | OT.IPNOTE ---
Able to talk to hospitalist, nursing , pt's family and CM. At this time discharged from OT services as pt now requiring more assist and limited participation.
[2024-04-10 12:00] VITALS: BP 133/66; PULSE 111; RESP 21; TEMP 36.6; O2SAT 90
--- NOTE | 2024-04-10 12:23 | P.PN_ITS ---
Subjective Subjective Interval history: Remains lethargic today, tired. Remains tachycardic though slightly improved. He denies abdominal pain. But remains weak, tired, and not interested in food. Mild cough today. CTA shows some bronchial thickening, no PE. Hg responded appropriately to transfusion with Hg from 7.3 yest. to 8.3 this morning. Calcium up to 11 (corrected 12.3). Exam Vital Signs (past 8 hours): - 04/10/24 08:00 04/10/24 10:15 04/10/24 12:00 Temperature 97.8 F 97.8 F Pulse Rate 111 H 111 H 111 H Respiratory Rate 16 21 Blood Pressure 132/71 132/71 133/66 Pulse Oximetry 90 L 90 L Oxygen Flow Rate 0 0 Oxygen Delivery Method Room Air Oxygen Flow Rate 0 Narrative Exam Narrative: NAD, alert. Fluent speech but lethargic. Appears fatigued and weak. Lungs are clear, normal rate and effort. Heart is regular, no murmur gallop or rub. Abdomen is soft, non distended. Mildly tender in left upper quadrant and left rib to palpation. Extremities have no edema. Objective Labs 04/10/24 04:17 04/10/24 04:17 Labs: Laboratory Results - last 24 hr 04/06/24 04/06/24 04/09/24 15:00 16:55 13:50 WBC RBC Hgb Hct MCV MCH MCHC RDW Plt Count Neut % (Auto) Lymph % (Auto) [place] % (Auto) Eos % (Auto) Baso % (Auto) Neut # (Auto) Lymph # (Auto) [place] # (Auto) Eos # (Auto) Baso # (Auto) Sodium Potassium Chloride Carbon Dioxide BUN Creatinine Estimated GFR BUN/Creatinine Ratio Glucose Calcium Phosphorus Total Bilirubin AST ALT Alkaline Phosphatase Total Protein Albumin Globulin Albumin/Globulin Ratio Anti-Nuclear Antibody Negative Ref Test (Refrig) Comment Blood Type O Positive Antibody Screen Negative Crossmatch See Detail 04/10/24 04:17 WBC 4.7 RBC 2.85 L Hgb 8.3 L Hct 24.7 L MCV 86.8 MCH 29.0 MCHC 33.4 RDW 16.2 H Plt Count 54 L Neut % (Auto) 60.2 Lymph % (Auto) 13.6 L [place] % (Auto) 24.9 H Eos % (Auto) 0.0 L Baso % (Auto) 1.3 Neut # (Auto) 2800 Lymph # (Auto) 600 L [place] # (Auto) 1200 H Eos # (Auto) 0 Baso # (Auto) 100 Sodium 131 L Potassium 3.5 Chloride 103 Carbon Dioxide 20 L BUN 24 H Creatinine 1.14 Estimated GFR > 60 BUN/Creatinine Ratio 21.1 Glucose 99 Calcium 11.0 H Phosphorus 3.0 D Total Bilirubin 2.0 H AST 71 H ALT 20 Alkaline Phosphatase 198 H Total Protein 5.1 L Albumin 2.4 L Globulin 2.7 Albumin/Globulin Ratio 0.9 L Anti-Nuclear Antibody Ref Test (Refrig) Blood Type Antibody Screen Crossmatch [facility] Medical History Low back pain Bilateral hip pain Osteoarthritis of left hip Left hip pain SI (sacroiliac) joint dysfunction Neuroforaminal stenosis of lumbar spine Unspecified atherosclerosis of [place] arteries of extremities, unspecified extremity Anemia Bone mass Prostate cancer Venous insufficiency Lumbar back pain with radiculopathy affecting left lower extremity Scoliosis Marijuana smoker High cholesterol Hypertension Surgical History H/O inguinal hernia repair Family History Father Prostate cancer Mother Diabetes mellitus Obesity Grandmother Diabetes mellitus Obesity Social History household members: spouse and other Smoking Status: Former smoker Tobacco: How many years used: 21 alcohol intake: former substance use type: marijuana Assessment & Plan Assessment & Plan narrative: This is a 73 year old male with PMH of metastatic prostate cancer, HTN, HLD who presented with profound lethargy. 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 Evalution for hemolysis has been unremarkable with a normal haptoglobin. Likely splenic sequestration at this time. No signs of active bleeding except for h/h decline daily. Now s/p 2 U PRBC transfusion with another yesterday. Also hypercalcemic on admission (corrected to 13), s/p Zometa x1 dose given 04/08 but increasing caclium today to 11 (corrected 12.3). 1. Weakness, multifactorial. Likely a combination of anemia along with hypercalcemia, new cirrhosis. Family traces his decline post dating COVID and flu vaccination 2 weeks ago. He has never had COVID. There is no evidence of any infection with unremarkable chest x-ray and lower chest CT, unremarkable abdomen CT, and negative urinalysis. He may have a viral bronchitis but he has no leukocytosis. Consider possible progressive prostate cancer noting increased sclerosis on imaging, elevated calcium levels and elevated alkaline phosphatase, despite stable and low PSA value. Administered ferrous gluconate 250 mg IV on 04/05/2024 and 04/06/2024. Elevated LDH and reticulocyte suggestive of hemolytic anemia but normal haptoglobin makes this highly unlikely. Morphology review by path with normal appearing cell lines. Negative JACKY and hepatitis B and C serologies noted. ADAMS13 mildly low, not indicative of TTP. No schistocytes noted on manual smear review. - reduced marinol to Prn with lethargy, try to reduce oxycodone as well to 2.5 mg prn from 5. - may also be symptomatic hypercalcemia with mild encephalopathy, PTH and PTHrP pending. With rise in caclcium today, will restart IV fluids, will attempt to transfer for possible denosumab. - transfused 2 U PRBC total, last unit yesterday. Hg responded appropriately but he remains lethargic today. 2. New splenomegaly and cirrhosis, present on admission and active. - started lactulose with constipation to see if improved energy, possible mild hepatic encephalopathy? Had one large bowel movement yesterday, ammonia level was 12. Consider increasing dose to 2-3 BMs per day - soft BP after furosemide yesterday with lasix. Will hold on diuresis at this time. - not enough ascites for paracentesis at this time - MELD-Na of 19 based on most recent labs. - the underlying etiology of this acute development of cirrhosis with splenomegaly is not entirely clear. He used to drink fair amounts of alcohol, but none recently. - CTA does show some lymphadenopathy and bronchiole thickening. Unclear if this is due to viral infection / bronchitis, lymphoma or malginancy, or fluid. Not clear if a marrow biopsy is warranted given massive splenomegaly and continued decline in Hg and Plt counts. Would benefit from hematology evaluation at higher level facility, will attempt to transfer for this along with hypercalcemia management as well noted above. 3. a) RACHEL and volume depletion, resolved. RACHEL has resolved. b) Hypercalcemia with probable acute metabolic encephalopathy present on admission and active. Stopped IV fluids 04/08 with development of peripheral edema. Calcium has improved but still above normal although corrected is still 12 today despite Fosamax. - ordered PTH and PTHrp, pending still. - Phos mildly low at 1.9, improved to 3 today. - Ordered for calcitonin IM x4 doses however [facility] is out of [facility] at the moment, Zometa 4 mg given x1. Will attempt to transfer for further management with denosumab today. My suspicion with his prostate cancer is that this is PTHrP related or due to bony destruction with a component of dehydration. - had to stop IV fluids for now given development of LE edema, however patient tachycardic and urine is somewhat dark today and edema is improved. Will resume NS @ 100 cc / hr today though volume status is not entirely clear. Watch carefully. 4. Left upper quadrant and thorax pain, present on admission and improved. - This pain seems to be positional intermittent as more likely related to his ribs and sclerotic prostatic cancer then his splenomegaly, but splenomegaly remains a possibility. - continue as needed pain control, oxycodone reduced to 2.5 mg prn given previous lethargy though not much difference seemingly with changes. 5. Acute respiratory failure with hypoxia. Present on admission. -normal chest x-ray -tachycardia the last few days after stopping 6. Normocytic anemia, thrombocytopenia. Present on admission and active. Iron deficiency noted. Administered IV iron x2. Hemolysis much less likely. - likely splenic sequestration from cirrhosis - normal haptoglobin. Retic count 3.3% (slightly elevated) - pathology review of smear without abnormal appearing platelets. Also notes normocytic normochromic with mild polychromasia and no schistocytes. Likely chronic inflammation and splenic sequestration as noted above. 7. BPH. Present on admission and stable. 8. Metastatic prostate cancer. Present on admission and active. PSA 0.102 on enzalutamide therapy. 9. Hyponatremia, present on admission and persistent/stable. Plan: - Given Zometa 4mg x1, unfortunately hospital does not have any doses of calcitonin available at this time. Clacium level increased today, resumed fluids but will attempt to transfer today for further managment, and likely need for denosumab. - PTH and PTHrP are send out tests, awaiting results. Vit D level was 64, Phos mildly low at 1.9. - Continue physical and occupational therapies as tolerated - likely SNF discharge. Will need improvement in calcium, and stable h/h - CTA negative for PE. - another possibility for transfer is a possible need for ? bone marrow biopsy. Patient has massive splenomegaly with continuously falling Plt and Hg levels without obvious bleeding and negative hemolysis evaluation. There is also some lymphadenopathy noted on CTA. While his peripheral smear shows no evidence for a blood disorder, biopsy should be considered for further evaluation. - Family not interested in hospice at this time based on discussions. Would like to try rehab if patient is able to. Long discussion today as family is becoming frustrated with lack of improvement thus far. They requested transfer for higher level of care which I will attempt today for the above reasons. DVT prophylaxis SCDs for now due to severe anemia. Code status full code Remains inpatient: likely in the hospital for several more days before either transfer for further management of hypercalcemia or discharge to SNF. Time-Based Coding :: [TOTAL MINUTES] spent with patient and on the chart (including review of chart, obtaining history, exam, reviewing outside data, placing orders, documenting exam and treatment plan, and counseling patient) on [DATE]. Quality VTE Deep Vein Thrombosis/Pulmonary Embolism Present on Admission: No
[2024-04-10] MEDS: TRIAMCINOLONE 0.1% CREAM 15 GM 1 APPLIC TOP (12:45)
[2024-04-10] MEDS: SODIUM CHLORIDE 0.9% 1,000 ML 100 ML IV (12:47)
--- NOTE | 2024-04-10 15:11 | PM.DS.1 ---
History of Present Illness History of Present Illness Date Patient Seen: 04/10/24 Time Patient Seen: 15:11 Chief complaint: l side pain, has been in bed t-5 Narrative: From night doctor: 73 year-old male with past medical history of prostate cancer with metastasis to the bone on enzalutamide and Lupron, hypertension and hyperlipidemia presents with complaint of left sided abdominal and flank pain. Per the patient report, over the last few days, the patient has increasing left abdominal/flank pain. The patient states that his pain is intermittent, worse with movement, and sharp in nature. The patient also has decrease appetite due to his pain. The patient does have some in nausea, but denies any vomiting, fever, chills, GIB, chest pain, or shortness of breath. In our emergency room, the patient was noted to be stable. The patient however, was required 1 to 2 L of oxygen per nasal cannula. Laboratory shows a hemoglobin of 7.8 which is significantly dropped from a few months ago 12.4. Repeat hemoglobin after 2 L of IV fluid is 7.5. Cr 1.[address] of [place] and pelvic with contrast shows significant splenomegaly, cirrhosis, and progression of sclerotic metastatic disease. There?s also small bladder stone. Per our ERphysician, the patient's rectal exam shows normal brown stool. BNP was 1100s. The patient was given IV Lasix 20mg x 1. Note, the patient denies any history of heart failure. Note CXR shows no clear sign of volume overload. Additional information: It sounds as though he was had a downward course for about 2 weeks with progressive weakness, and left-sided abdomen pain. In addition he has had some progressive edema and maybe shortness a breath. He lives with his ex-. Upon arrival his CT scan really did not will any acute findings but is notable for his osseous lesions from prostate cancer as well as splenomegaly. He was profoundly anemic but he denies any rectal bleeding. He was okay with a blood transfusion. Discharge Providers Provider Date of admission: 04/03/24 01:27 Discharge Date: 04/10/24 Primary care physician: Sage Garibay MD Consults: 04/03/24 09:42 Consult to Physical Therapy Evaluate & Treat Comment: Physician Instructions: Evaluate and Treat 04/03/24 16:15 Consult to Discharge Planning Routine Comment: Family requesting consult to discuss options 04/05/24 11:42 Consult to Occupational Therapy Evaluate & Treat Comment: Physician Instructions: Evaluate and treat Discharge provider: Navid Wynn DO Summary Hospital Course Discharge Diagnosis: Please see hospital course by problem list noted below Hospital Course: This is a 73 year old male with PMH of metastatic prostate cancer, HTN, HLD who presented on 04/03 with profound lethargy and left sided abdominal / rib pain. Found to have new cirrhosis with massive splenomegaly on imaging, along with new anemia and thrombocytopenia, and hypercalcemia. Evalution for hemolysis has been unremarkable with a normal haptoglobin. Likely splenic sequestration at this time. No signs of active bleeding except for h/h decline daily. Now s/p 2 U PRBC transfusion since admission with another given yesterday with appropriate response. Also hypercalcemic on admission (corrected to 13), was given IV fluids initially, now s/p Zometa x1 dose given 04/08 but increasing calcium today to 11 (corrected 12.3). Hospital course by problem list is noted below. In short, he was admitted for weakness, new cirrhosis and anemia and hypercalcemia. The underlying etiology for these issues is still not entirely clear despite initial workup noted below. He continues to have declining h/h and with calcium increase today he was accepted for transfer at higher level facility for further evaluation. 1. Weakness, multifactorial. Likely a combination of anemia along with hypercalcemia, new cirrhosis. Family traces his decline post dating COVID and flu vaccination 2 weeks ago. He has never had COVID. There is no evidence of any infection with unremarkable chest x-ray and lower chest CT, unremarkable abdomen CT, and negative urinalysis. There is some bronchial thickening noted on CT He may have a viral bronchitis but he has no leukocytosis or fever or productive cough. Consider possible progressive prostate cancer noting increased sclerosis on imaging, elevated calcium levels and elevated alkaline phosphatase, despite stable and low PSA value. Administered ferrous gluconate 250 mg IV on 04/05/2024 and 04/06/2024. Elevated LDH and reticulocyte suggestive of hemolytic anemia but normal haptoglobin makes this highly unlikely. Morphology review by path with normal appearing cell lines. Negative JACKY and hepatitis B and C serologies noted. ADAMS13 mildly low, not indicative of TTP. No schistocytes noted on manual smear review. - attempted marinol (patient takes 5x CBD gummies daily previously for appetite) with meals without much improvement. Reduced marinol to Prn with lethargy that worsened on 04/09, Oxycodone was held for lethargy as well, reduced dose to 2.5 with improvement in pain control. - likely a component of symptomatic hypercalcemia with mild encephalopathy. PTH and PTHrP pending. With rise in caclium today, will restart IV fluids. Discussed with nephrology at [facility], may need to wait another day prior to possible denosumab. Would give calcitonin once at [facility] - transfused 2 U PRBC total, last unit yesterday. Hg responded appropriately but he remains lethargic today. 2. New splenomegaly and cirrhosis, present on admission and active. - started lactulose with constipation (probably related to opiates) to see if improved energy, possible mild hepatic encephalopathy? Had one large bowel movement yesterday, ammonia level was 12. Consider increasing dose to 2-3 BMs per day - soft BP after furosemide yesterday with lasix, held diuresis and restarted fluids today given rising calcium level. - not enough ascites for paracentesis at this time - MELD-Na of 19 based on most recent labs. - the underlying etiology of this acute development of cirrhosis with splenomegaly is not entirely clear. He used to drink heavily but not recently. TTE is unremarkable. - CTA does show some lymphadenopathy and bronchiole thickening. Unclear if this is due to viral infection / bronchitis, lymphoma or malginancy, or fluid. Not clear if a marrow biopsy is warranted given massive splenomegaly and continued decline in Hg and Plt counts. Consider hematology evaluation at higher level facility. Patient being transferred to [facility] today. His oncologist is Dr. Mooney and with for prostate Cancer. 3. a) RACHEL and volume depletion, resolved. RACHEL has resolved. Cr as high as 1.7 improved with fluids given initially. b) Hypercalcemia with probable acute metabolic encephalopathy present on admission and active. Stopped IV fluids 04/08 with development of peripheral edema. Calcium was improving, but was still around 12 with fluids. - ordered PTH and PTHrp, pending still. - Phos mildly low at 1.9, improved to 3 today. - Ordered for calcitonin IM x4 doses however [facility] is out of this at the moment, Zometa 4 mg given x1. Discussed with nephrology as noted above above. Consider denosumab. Recommend calcitonin starting once at [facility]. - had to stop IV fluids for now given development of LE edema, however patient tachycardic and urine is somewhat dark today and edema is improved. Will resume NS @ 100 cc / hr today though volume status is not entirely clear. Watch carefully. 4. Left upper quadrant and thorax pain, present on admission and improved. - This pain seems to be positional intermittent as more likely related to his ribs and sclerotic prostatic cancer then his splenomegaly, but splenomegaly remains a possibility. - continue as needed pain control, oxycodone reduced to 2.5 mg prn given previous lethargy though not much difference seemingly in lethargy with or without oxycodone. 5. Acute respiratory failure with hypoxia. Present on admission. Resolved -normal chest x-ray -tachycardia the last few days after stopping IV fluids for edema. TTE was unremarkable with normal EF. CTA as noted above, no PE. Have restarted fluids today, 04/10. 6. Normocytic anemia, thrombocytopenia. Present on admission and active. Iron deficiency noted on admission. Administered IV iron x2. Hemolysis much less likely. - likely splenic sequestration from cirrhosis, though his h/h has never stabilized and only continued to downtrend slowly. Hg to 7.3 yesterday (04/09), improved after 1U PRBC to 8.3 this morning. Has received 2U PRBC transfusion total since admission. - normal haptoglobin. Retic count 3.3% (slightly elevated) on admission. - pathology review of smear without abnormal appearing platelets. Also notes normocytic normochromic with mild polychromasia and no schistocytes. Likely chronic inflammation and splenic sequestration as noted above. - with lymphadenopathy noted on CTA, consider hematology consultation for further evaluation or to rule out a hematologic disorder. The likely etiology remains cirrhosis. 7. BPH. Present on admission and stable. 8. Metastatic prostate cancer. Present on admission and active. PSA 0.102 on enzalutamide therapy. Follows with Dr. Mooney. 9. Hyponatremia, present on admission and persistent/stable. Plan: - Given Zometa 4mg x1, unfortunately hospital does not have any doses of calcitonin available at this time. Clacium level increased today, resumed fluids but will attempt to transfer today for further managment, and possible need for denosumab. - PTH and PTHrP are send out tests, awaiting results. Vit D level was 64, Phos mildly low at 1.9 but improved to 3 today. - Continue physical and occupational therapies as tolerated - likely SNF discharge once improvement in calcium, and stable h/h - consider hematology evaluation at accepting facility - discussed with nephrology at [facility], recommended calcitonin once at [facility], may or may not need denosumab depending on the next few days after zometa given on 04/08. - Family not interested in hospice at this time based on discussions thus far. Would like to try rehab if patient is able to. Long discussions over the past few days as family is becoming frustrated with lack of improvement thus far, they are thankful for transfer today for availability of specialist consultations. DVT prophylaxis SCDs for now due to severe anemia. Code status full code Remains inpatient: Transfer to [facility] today, accepting hospitalist Dr. Camarillo. Time Spent with Patient Time spent: Greater than 30 minutes Exam Vital Signs (past 8 hours): - 04/10/24 08:00 04/10/24 10:15 04/10/24 12:00 Temperature 97.8 F 97.8 F Pulse Rate 111 H 111 H 111 H Respiratory Rate 16 21 Blood Pressure 132/71 132/71 133/66 Pulse Oximetry 90 L 90 L Oxygen Flow Rate 0 0 Oxygen Delivery Method Room Air Oxygen Flow Rate 0 Narrative Exam Narrative: NAD, alert. Fluent speech but lethargic. Appears fatigued and weak. Lungs are clear, normal rate and effort. Heart is regular, no murmur gallop or rub. Abdomen is soft, non distended. Mildly tender in left upper quadrant and left rib to palpation. Extremities have no edema. Objective Labs 04/10/24 04:17 04/10/24 04:17 Labs: Laboratory Results - last 24 hr 04/06/24 04/09/24 04/10/24 16:55 13:50 04:17 WBC 4.7 RBC 2.85 L Hgb 8.3 L Hct 24.7 L MCV 86.8 MCH 29.0 MCHC 33.4 RDW 16.2 H Plt Count 54 L Neut % (Auto) 60.2 Lymph % (Auto) 13.6 L [place] % (Auto) 24.9 H Eos % (Auto) 0.0 L Baso % (Auto) 1.3 Neut # (Auto) 2800 Lymph # (Auto) 600 L [place] # (Auto) 1200 H Eos # (Auto) 0 Baso # (Auto) 100 Sodium 131 L Potassium 3.5 Chloride 103 Carbon Dioxide 20 L BUN 24 H Creatinine 1.14 Estimated GFR > 60 BUN/Creatinine Ratio 21.1 Glucose 99 Calcium 11.0 H Phosphorus 3.0 D Total Bilirubin 2.0 H AST 71 H ALT 20 Alkaline Phosphatase 198 H Total Protein 5.1 L Albumin 2.4 L Globulin 2.7 Albumin/Globulin Ratio 0.9 L Ref Test (Refrig) Comment Blood Type O Positive Antibody Screen Negative Crossmatch See Detail PFSH Medical History Low back pain Bilateral hip pain Osteoarthritis of left hip Left hip pain SI (sacroiliac) joint dysfunction Neuroforaminal stenosis of lumbar spine Unspecified atherosclerosis of [place] arteries of extremities, unspecified extremity Anemia Bone mass Prostate cancer Venous insufficiency Lumbar back pain with radiculopathy affecting left lower extremity Scoliosis Marijuana smoker High cholesterol Hypertension Surgical History H/O inguinal hernia repair Family History Father Prostate cancer Mother Diabetes mellitus Obesity Grandmother Diabetes mellitus Obesity Social History household members: spouse and other Smoking Status: Former smoker Tobacco: How many years used: 21 alcohol intake: former substance use type: marijuana Discharge Plan Discharge Plan Patient Disposition: [facility] Provider Discharge Comment: See discharge summary Diet/Activity/Treatments Diet: Diet as Tolerated Liquid consistency: Normal/Thin Food texture: Regular Activity: No restrictions, 2 person assist with PT Oxygen: as needed goal O2 90-96% Discharge Data Primary Care Provider: Sage Garibay Quality VTE Deep Vein Thrombosis/Pulmonary Embolism Present on Admission: No
--- NOTE | 2024-04-10 15:12 | PT-IP ANOTE ---
talked with nurse and stated that pt continues to be lethargic and that they are trying to transfer pt out to another hospital. talked with hospitalist and ok to hold PT today.
[2024-04-10 16:00] VITALS: BP 146/76; PULSE 105; RESP 21; TEMP 36.6; O2SAT 91
[2024-04-10] MEDS: FUROSEMIDE 20 MG/2 ML VIAL IV (16:18)
--- NOTE | 2024-04-10 17:05 | PC.NURSE ---
Patient is lethargic this a.m. He is awakened and able to take po medications. He declines wanting to eat. He reports some pain at times in back or discomfort with Lazaro catheter, but declines wanting any pain medications. Daughters at bedside are invoved in care, and per MD Wynn he is given transfer orders. Report called to receiving facility, and given to SASHA Blanchard. Patient is agreeable to transfer.EMS arrived to transport patient via stretcher at approximately 1640 this evening.
[2024-04-10 22:38] LABS: Calcium 10.3 mg/dL (8.6-10.2); Parathyroid Hormone, Intact 7 pg/mL (15-65)
== END 2024-04-10 16:40 | disposition short-term general hospital (02) | DRG 432 ==
LOC: ED 17:51 → AC 04-03 01:30 → ICU 04-03 01:57 → AC 04-03 11:34
PROVIDERS: Emergency Medicine; Hospitalist; Internal Medicine; Admitting Provider Internal Medicine; Emergency Provider Emergency Medicine; PCP Family Medicine; Referring Provider Emergency Medicine; Visit Provider Internal Medicine
DX: K74.60 Unspecified cirrhosis of liver (principal); G93.41 Metabolic encephalopathy; J96.01 Acute respiratory failure with hypoxia; N17.9 Acute kidney failure, unspecified; C79.51 Secondary malignant neoplasm of bone; E87.1 Hypo-osmolality and hyponatremia; I50.9 Heart failure, unspecified; C61 Malignant neoplasm of prostate; N40.0 Benign prostatic hyperplasia without lower urinary tract symptoms; R16.1 Splenomegaly, not elsewhere classified; E86.9 Volume depletion, unspecified; I11.0 Hypertensive heart disease with heart failure; R53.1 Weakness; D69.6 Thrombocytopenia, unspecified; E83.52 Hypercalcemia; D63.8 Anemia in other chronic diseases classified elsewhere; Z87.891 Personal history of nicotine dependence
CPT/HCPCS: 36415; 36430; 70450; 71045; 71275; 74177; 80048; 80053; 80074; 81003; 81015; 82140; 82306; 82310; 82397; 82550; 82607; 82746; 83010; 83540; 83550; 83605; 83615; 83690; 83880; 83935; 83970; 84100; 84145; 84153; 84300; 84484; 85007; 85014; 85018; 85025; 85027; 85045; 85610; 85651; 85730; 86038; 86140; 86850; 86870; 86880; 86900; 86901; 87040; 87797; 93005; 93010; 93306; 96361; 96374; 96375; 97116; 97162; 97167; 97530; 97535; 99285; P9016; J1940; J2270; J2405; J2916; J3489; Q9967

== ENCOUNTER → 2025-02-14 09:39 | Outpatient (CLI) | payer MEDICARE, MEDICAID, SELFPAY ==
[2024-04-03 12:30] VITALS: BMI 29.5
== END ==
PROVIDERS: PCP Family Medicine; Visit Provider Family Medicine
DX: R30.0 Dysuria (principal)
CPT/HCPCS: 87077; 87086

== ENCOUNTER → 2025-02-28 14:03 | Outpatient (CLI) | payer MEDICARE, MEDICAID, SELFPAY ==
[2024-04-03 12:30] VITALS: BMI 29.5
[2025-02-28 15:19] LABS: Add Manual Diff / Slide Review NO; Hematocrit 36.5 % (41-53); Hemoglobin 12.4 g/dL (13.5-17.5); Lymphocytes Absolute Auto 1800 /uL (1100-4500); Mean Corpuscular HGB Conc 34.0 % (30-36); Mean Corpuscular Hemoglobin 31.7 PG (26-34); Mean Corpuscular Volume 93.2 fL (80-100); Platelet Count 162 X10^3/uL (150-400)
[2025-02-28 16:00] LABS: Alanine Aminotransferase 11 IU/L (<50); Albumin 4.0 g/dL (3.5-5.0); Albumin Globulin Ratio 1.7 (1.0-2.8); Alkaline Phosphatase 73 U/L (38-126); Blood Urea Nitrogen 17 mg/dL (9-20); Calcium 9.4 mg/dL (8.4-10.2); Carbon Dioxide 26 mmol/L (22-32); Chloride 103 mmol/L (98-107); Estimated Glomerular Filt Rate > 60 mL/min (>60); Globulin 2.4 g/dL (1.7-4.1); Glucose 90 mg/dL (70-99); HEMOLYSIS < 15 (0-50); Magnesium 1.9 mg/dL (1.6-2.3); Potassium 4.9 mmol/L (3.4-5.1); Sodium 137 mmol/L (137-145); Total Protein 6.4 g/dL (6.3-8.2)
== END ==
PROVIDERS: PCP Family Medicine; Referring Provider Family Medicine; Visit Provider Family Medicine
DX: I10 Essential (primary) hypertension (principal); C83.30 Diffuse large B-cell lymphoma, unspecified site; R16.1 Splenomegaly, not elsewhere classified; C61 Malignant neoplasm of prostate; E87.6 Hypokalemia
CPT/HCPCS: 36415; 80053; 83735; 85025